=== PATIENT | male | born 1965 | race Caucasian/White ===

== ENCOUNTER 2016-12-15 16:26 | Emergency (ER) | payer MEDICARE, BC ==
[~2016-12-15] VITALS: Ht 175.3 cm; Wt 106.1 kg
[~2016-12-15 16:26] MED LIST: ASPI-482 PO; ASPI81TA2 PO; BUPR150T11 PO; CLOP75TA27 PO; DIAZ5TAB PO; DIVA500T17 PO; FENT1PAT15 TD; FOLI0.8T3 PO; GABA-586 PO; HYDR-2666 PO; HYDR-963 PO; HYDR-971 PO; IBUP-1060 PO; METF500T4 PO; MYCO500T PO; POLY10DR EACHEYE; SODI650T PO; WARF4TAB7 PO; WARF5TAB7 PO
[2016-12-15 18:09] LABS: BASO % 1 % (0-3); EOS % 6 % (0-3); HEMATOCRIT 28.1 % (39.0-53.0); HEMOGLOBIN 9.6 g/dL (13.0-17.5); LYMPH # 0.9 x10^3/uL (1.0-4.8); LYMPH % 18 % (24-48); MEAN CORPUSCULAR HEMOGLOBIN 33 pg (25-35); MEAN CORPUSCULAR HGB CONC 34 g/dL (31-37); MEAN CORPUSCULAR VOLUME 97 fL (79-100); MONO % 8 % (0-9); NEUT % 67 % (31-73); PLATELET COUNT 326 x10^3/uL (140-400); RED CELL DISTRIBUTION WIDTH 15.1 % (11.5-14.5); WHITE BLOOD COUNT 5.1 x10^3/uL (4.0-11.0)
[2016-12-15 18:14] LABS: POTASSIUM ISTAT 3.6 mmol/L (3.5-5.0)
[2016-12-15 18:20] LABS: BILIRUBIN,URINE NEGATIVE (NEG); GLUCOSE,URINE NEGATIVE (NEG); NITRITE,URINE NEGATIVE (NEG); PH,URINE 5.5; PROTEIN,URINE 30 mg/dL (NEG-TRACE); UROBILINOGEN,URINE 0.2 mg/dL (0.2 mg/dL)
[2016-12-15 18:23] LABS: ANION GAP 13 (6-14); BLOOD UREA NITROGEN 103 mg/dL (8-26); CALCIUM 7.5 mg/dL (8.5-10.1); CARBON DIOXIDE 27 mmol/L (21-32); CHLORIDE 99 mmol/L (98-107); CREATININE 5.8 mg/dL (0.7-1.3); GFR 10.4; GLUCOSE 290 mg/dL (70-99); POTASSIUM 3.6 mmol/L (3.5-5.1); SODIUM 139 mmol/L (136-145)
[2016-12-15 18:29] LABS: ALBUMIN 3.1 g/dL (3.4-5.0); ALK PHOS 125 U/L (46-116); ALT (SGPT) 34 U/L (16-63); AST (SGOT) 25 U/L (15-37); DIRECT BILIRUBIN < 0.1 mg/dL (0.0-0.2); TOTAL BILIRUBIN 0.2 mg/dL (0.2-1.0); TOTAL PROTEIN 7.1 g/dL (6.4-8.2)
[2016-12-15 18:30] LABS: BACTERIA,URINE MANY /HPF (0-FEW); WBC,URINE >40 /HPF (0-4)
[2016-12-15 19:44] LABS: INR 1.1 (0.8-1.1); PROTHROMBIN TIME PATIENT 13.4 SEC (11.7-14.0)
[2016-12-15 20:07] VITALS: BP 110/55
--- NOTE | 2016-12-15 20:25 | PHYS DOC ---
Past Medical History Past Medical History: Diabetes-Type II, Renal Failure Past Surgical History: Other Additional Past Surgical Histo: wound flap, dialysis shunt in left upper arm Alcohol Use: Rarely Drug Use: Marijuana Social History Narrative: denies 12/15/16 Adult General Chief Complaint Chief Complaint: DIALYSIS PROBLEM HPI HPI 51-year-old male presenting to the emergency department reporting a blocked left upper vascular shunt that he uses for dialysis. He received dialysis on Thursday and Thursday. He reports missing of Thursday's dialysis because of this. He reports shortness of breath however does not have increased worker breathing and is saturating well on room air. He does not appear to be short of breath. He was resting in the hospital [facility] talking with the comfortably.he denies any pain. onset one week location shunt duration constant no alleviating factors are present. Review of Systems Review of Systems Review of Systems is negative for chest pain abdominal pain nausea vomiting diaphoresis. He denies fevers cough. All other review systems is negative unless otherwise noted in HPI. Allergies Allergies Allergies Coded Allergies Type Severity Reaction Last Updated Verified No Known Drug Allergies 02/07/16 No Physical Exam Physical Exam Constitutional: Well developed, well nourished, no acute distress, non-toxic appearance. HENT: Normocephalic, atraumatic, bilateral external ears normal, oropharynx moist, no oral exudates, nose normal. [] Eyes: PERRLA, EOMI, conjunctiva normal, no discharge. Neck: Normal range of motion, no tenderness, supple, no stridor. [] Cardiovascular:Heart rate regular rhythm, no murmur [] Lungs & Thorax: Bilateral breath sounds clear to auscultation . No crackles wheezing. Abdomen: Bowel sounds normal, soft, no tenderness, no masses, no pulsatile masses. [] Skin: Warm, dry, no erythema, no rash. Back: No tenderness, no CVA tenderness. [] Extremities: the patient's vascular shunt shows no evidence of infection. He is a palpable pulse in all extremities and is without any tenderness. Neurologic: Alert and oriented X 3, normal motor function, normal sensory function, no focal deficits noted. [] Psychologic: Affect normal, judgement normal, mood normal. Current Patient Data Vital Signs Vital Signs Date Time Temp Pulse Resp B/P Pulse Ox O2 Delivery O2 Flow Rate FiO2 12/15/16 20:07 80 16 110/55 94 Room Air 12/15/16 17:31 97.8 97.8 Lab Values Laboratory Tests Test 12/15/16 13:00 12/15/16 17:59 12/15/16 18:02 12/15/16 18:07 Prothrombin Time 13.4SEC (11.7-14.0) Prothrombin Time INR 1.1 (0.8-1.1) PTT 34SEC (24-38) White Blood Count 5.1x10^3/uL (4.0-11.0) Red Blood Count 2.90x10^6/uL (4.30-5.70) L Hemoglobin 9.6g/dL (13.0-17.5) L Hematocrit 28.1% (39.0-53.0) L Mean Corpuscular Volume 97fL (79-100) Mean Corpuscular Hemoglobin 33pg (25-35) Mean Corpuscular Hemoglobin Concent 34g/dL (31-37) Red Cell Distribution Width 15.1% (11.5-14.5) H Platelet Count 326x10^3/uL (140-400) Neutrophils (%) (Auto) 67% (31-73) Lymphocytes (%) (Auto) 18% (24-48) L Monocytes (%) (Auto) 8% (0-9) Eosinophils (%) (Auto) 6% (0-3) H Basophils (%) (Auto) 1% (0-3) Neutrophils # (Auto) 3.4x10^3uL (1.8-7.7) Lymphocytes # (Auto) 0.9x10^3/uL (1.0-4.8) L Monocytes # (Auto) 0.4x10^3/uL (0.0-1.1) Eosinophils # (Auto) 0.3x10^3/uL (0.0-0.7) Basophils # (Auto) 0.0x10^3/uL (0.0-0.2) Sodium Level 139mmol/L (136-145) Potassium Level 3.6mmol/L (3.5-5.1) Chloride Level 99mmol/L (98-107) Carbon Dioxide Level 27mmol/L (21-32) Anion Gap 13 (6-14) 21mmol/L (6-14) H Blood Urea Nitrogen 103mg/dL (8-26) H Creatinine 5.8mg/dL (0.7-1.3) H Estimated GFR (Cockcroft-Gault) 10.4 Glucose Level 290mg/dL (70-99) H 274mg/dL (70-99) H Calcium Level 7.5mg/dL (8.5-10.1) L Total Bilirubin 0.2mg/dL (0.2-1.0) Direct Bilirubin < 0.1mg/dL (0.0-0.2) Aspartate Amino Transferase (AST) 25U/L (15-37) Alanine Aminotransferase (ALT) 34U/L (16-63) Alkaline Phosphatase 125U/L (46-116) H Troponin I Quantitative < 0.017ng/mL (0.000-0.055) BE-Mta-R-Type Natriuretic Peptide 1680pg/mL (0-124) H Total Protein 7.1g/dL (6.4-8.2) Albumin 3.1g/dL (3.4-5.0) L Lipase 230U/L (73-393) POC Troponin I 0.00ng/ml (<0.08) POC Hemoglobin 9.9g/dL (14-18) L POC Hematocrit 29% (37-52) L POC Sodium 138mmol/L (135-145) POC Potassium 3.6mmol/L (3.5-5.0) POC Chloride 97mmol/L (98-110) L POC Total CO2 25mmol/L (23-32) POC Blood Urea Nitrogen 103mg/dL (8-26) H POC Creatinine 5.5mg/dL (0.5-1.4) H POC Ionized Calcium (Nenita) 0.89mmol/L (1.13-1.32) L Test 12/15/16 18:10 Urine Collection Type U cath Urine Color Yellow Urine Clarity Clear Urine pH 5.5 Urine Specific [place] 1.015 Urine Protein 30mg/dL (NEG-TRACE) Urine Glucose (UA) Negativemg/dL (NEG) Urine Ketones (Stick) Negativemg/dL (NEG) Urine Blood Moderate (NEG) Urine Nitrite Negative (NEG) Urine Bilirubin Negative (NEG) Urine Urobilinogen Dipstick 0.2mg/dL (0.2 mg/dL) Urine Leukocyte Esterase Large (NEG) Urine RBC 6-10/HPF (0-2) Urine WBC >40/HPF (0-4) Urine Bacteria Many/HPF (0-FEW) Laboratory Tests 12/15/16 17:59 Laboratory Tests 12/15/16 17:59 12/15/16 18:07 EKG EKG []EKG shows sinus rhythm with the regular rate. Burke is normal. mildly prolonged MO interval otherwise normal intervals. ST segment's largely congruent. Varying baseline in lead V2 and V3 Radiology/Procedures Radiology/Procedures [] Course & Med Decision Making Course & Med Decision Making Pertinent Labs and Imaging studies reviewed. (See chart for details) 51-year-old male presenting to the emergency Department today with vascular shunt problem. on evaluation the patient was saturating well on Rimer. He reported being short of breath to our nursing staff however when I evaluated the patient he denied shortness of breath. He was resting comfortably and without respiratory distress. EKG unremarkable. Chest x-ray unremarkable. Bloodwork was obtained which showed a baseline anemia with normal white blood cell count. Urine analysis had blood and possibly suggestive of infection however the patient denied dysuria or polyuria. He had no clinical symptoms of a urinary tract infection. Urine analysis was sent for culture. Glucose BUN and creatinine were elevated which is common for this patient. I was planning to admit the patient for further evaluation workup and care including consultation with our nephrology team however the patient was adamant in that he would not be admitted to hospital. He stated he was trying to it outpatient treatment for his vascular shunt problem. I discussed the case with our vascular surgeon initially who referred me to our certified optician Dr. Genao. He stated that as long as the patient was not on warfarin and his INR was low the patient would be able to follow up tomorrow morning at the [facility] [address] He instructed me to tell the patient to call tomorrow morning at 7 AM and he would arrange for the shunt to be treated. I instructed the patient that if he was unable to have this completed he could come back to the emergency department tomorrow to be admitted for this treatment. Dragon Disclaimer Dragon Disclaimer This electronic medical record was generated, in whole or in part, using a voice recognition dictation system. Departure Departure Impression: Primary Impression: AV fistula occlusion Disposition: 01 HOME, SELF-CARE Admitting Physician: Other Condition: STABLE Referrals: JACOB STANLEY MD (PCP) KAYKAY GENAO MD Additional Instructions: Thank you for allowing us to participate in your care today. Call [facility] in [place], [place] for fistula repair. Dr. Genao will arrange for this tomorrow. If this does not get taken care of tomorrow return to the emergency department. If you do not have a primary care provider you can ask for a list of our primary care providers. Return to the emergency department you have any new or concerning findings. This should be evaluated by the primary care physician and any necessary consulting services for continued management within a few days after discharge. Return to emergency room if you have any new or concerning symptoms including but not limited to fever, chills, nausea, vomiting, intractable pain, any new rashes, chest pain, shortness of air, uncontrolled bleeding, difficulty breathing, and/or vision loss. NIDIA JEFFREY MD Dec 15, 2016 20:24
--- NOTE | 2016-12-16 06:49 | EKG ---
[facility] [address] [place] [address] Test Date: 2016-12-15 Test Time: 17:48:22 Pat Name: REED SIERRA Department: Room: Gender: M Mobile Therapist: : 1965 Requested By: NIDIA JEFFREY Order Number: [id number] Reading MD: Karina Dias Measurements Intervals [place] Rate: 82 P: 62 [place]: 202 QRS: 34 QRSD: 80 T: 64 QT: 380 QTc: 447 Interpretive Statements SINUS RHYTHM QRS(T) CONTOUR ABNORMALITY CONSISTENT WITH ANTEROSEPTAL INFARCT AGE UNDETERMINED ABNORMAL ECG Electronically Signed On 12-18-2016 0:40:10 ASSISTANT ART DIRECTOR by Karina Dias
--- NOTE | 2016-12-16 08:09 | RAD ---
Portable chest, 12/15/2016: History: Shortness of breath, fatigue Comparison is made to a study from 12/06/2013. A new vascular stent is projected over the left axillary region. The heart size and pulmonary vascularity are normal. No pulmonary infiltrates are seen. There is no evidence of pleural fluid. IMPRESSION: No acute cardiopulmonary abnormality is detected.
== END 2016-12-15 20:35 | disposition home or self-care (01) ==
LOC: ER 16:26
DX: T82.898A Other specified complication of vascular prosthetic devices, implants and grafts, initial encounter (principal); E11.22 Type 2 diabetes mellitus with diabetic chronic kidney disease; N18.9 Chronic kidney disease, unspecified; F12.10 Cannabis abuse, uncomplicated; Z99.2 Dependence on renal dialysis; Y84.6 Urinary catheterization as the cause of abnormal reaction of the patient, or of later complication, without mention of misadventure at the time of the procedure; Y92.89 Other specified places as the place of occurrence of the external cause
CPT/HCPCS: 36415; 71010; 80047; 80048; 80076; 81001; 83690; 83880; 84484; 85027; 85610; 85730; 87086; 87186; 93005; 99285-25

== ENCOUNTER 2017-06-01 19:34 | Inpatient (IN) | payer MEDICARE, BC ==
[~2017-06-01] VITALS: Ht 175.3 cm; Wt 100.9 kg
[~2017-06-01 19:34] MED LIST changes: +ASPI-630 PO; -ASPI81TA2 PO; -CLOP75TA27 PO; +CLOP75TA57 PO; -HYDR-2666 PO; +HYDR-2758 PO
--- NOTE | 2017-06-01 19:59 | PHYS DOC ---
Past Medical History Past Medical History: Diabetes-Type II, Renal Failure, Other Additional Past Medical Histor: bacterial meningitis, incontinence Past Surgical History: Other Additional Past Surgical Histo: wound flap, dialysis shunt in left upper arm Alcohol Use: None Drug Use: None Adult General Chief Complaint Chief Complaint: GENERALIZED BODY ACHES HPI HPI Patient is a 51 year old male who presents with increased or lies weakness and skin pain. Patient states he was at dialysis and is felt like his skin was on fire therefore he cannot finish dialysis and wanted to be transported to the emergency room for further evaluation. Pt gets dialysis Thursday. Pt denies any fevers. Patient denies any chest pain or shortness of breath. Patient denies any abdominal pain or dysuria. Patient denies any nausea/ vomiting/diarrhea. Patient has no other complaints. Patient states he got into some poison jazmin which is contributing to his rash on his right forearm. Pertinent exam findings: Heart was regular rate and rhythm without any murmurs Lungs are clear to auscultation bilaterally without crackles wheezes or rales Abrasions to the right forearm ED course: Patient was seen and examined upon arrival a septic workup was ordered 2004: EKG shows sinus tach rate of 103 no STEMI 2150: Updated patient on lab work who is still tachycardic 100-110 does admit to using methamphetamines. Will see UA results with the patient who would like to go ahead and be treated for urinary tract infection because he believes he has one. 2330: On reexamination the patient's rectal temperature is 101.5 with a heart rate in the 120s. Patient be admitted for UTI with possible sepsis 2350: Discussed CC/HP/PMH with Dr. Stanley and recommends admit [] Pertinent results: Urine drug screen positive for methamphetamine Creatinine 2.8 UA post for WBC/RBC/+Leuk MDM: After reviewing the chart, CC/HPI/PMH, physical exam, [lab results], I have concerns the patient potentially has a UTI with possible sepsis therefore the patient be admitted for further evaluation and management. Review of Systems Review of Systems GEN: Skin pain HEENT: Denies blurred vision, sore throat CV: Denies chest pain RESP: Denies shortness of air, cough GI: Denies n/v/d NEURO: Denies confusion, dizziness MSK: Denies weakness, joint pain/swelling Current Medications Current Medications Current Medications Medications (Trade) Dose Ordered Sig/Nando Start Time Stop Time Status Last Admin Dose Admin Acetaminophen (Tylenol) 1,000 mg 1X ONCE 06/01/17 21:45 06/01/17 21:46 DC 06/01/17 21:41 1,000 MG Ceftriaxone Sodium 1 gm/ Sodium Chloride 50 ml @ 100 mls/hr Q24H 06/01/17 22:30 06/01/17 22:14 100 MLS/HR Allergies Allergies Allergies Coded Allergies Type Severity Reaction Last Updated Verified No Known Drug Allergies 02/07/16 No Physical Exam Physical Exam GEN.: No apparent distress. Alert and oriented. HEENT: Head is normocephalic, atraumatic NECK: Supple. LUNGS: CTAB. HEART: RRR, S1, S2 present. Peripheral pulses intact ABDOMEN: Soft, nontender. Positive bowel sounds. EXTREMITIES: Without any cyanosis. NEUROLOGIC: Normal speech, normal tone PSYCHIATRIC: Normal affect, normal mood. SKIN: Lesions in multiple stages of healing to the right forearm Current Patient Data Vital Signs Vital Signs Date Time Temp Pulse Resp B/P (MAP) Pulse Ox O2 Delivery O2 Flow Rate FiO2 06/01/17 23:26 101.1 101.1 06/01/17 22:38 98 23 112/60 (77) 96 Room Air Lab Values Laboratory Tests Test 06/01/17 19:50 06/01/17 19:52 06/01/17 19:56 06/01/17 20:11 Lactic Acid Level 1.3 mmol/L (0.4-2.0) White Blood Count 7.9 x10^3/uL (4.0-11.0) Red Blood Count 3.46 x10^6/uL (4.30-5.70) L Hemoglobin 11.1 g/dL (13.0-17.5) L Hematocrit 33.5 % (39.0-53.0) L Mean Corpuscular Volume 97 fL (79-100) Mean Corpuscular Hemoglobin 32 pg (25-35) Mean Corpuscular Hemoglobin Concent 33 g/dL (31-37) Red Cell Distribution Width 14.1 % (11.5-14.5) Platelet Count 198 x10^3/uL (140-400) Neutrophils (%) (Auto) 87 % (31-73) H Lymphocytes (%) (Auto) 4 % (24-48) L Monocytes (%) (Auto) 8 % (0-9) Eosinophils (%) (Auto) 0 % (0-3) Basophils (%) (Auto) 0 % (0-3) Neutrophils # (Auto) 6.9 x10^3uL (1.8-7.7) Lymphocytes # (Auto) 0.3 x10^3/uL (1.0-4.8) L Monocytes # (Auto) 0.6 x10^3/uL (0.0-1.1) Eosinophils # (Auto) 0.0 x10^3/uL (0.0-0.7) Basophils # (Auto) 0.0 x10^3/uL (0.0-0.2) Segmented Neutrophils % 83 % (35-66) H Band Neutrophils % 10 % (0-9) H Lymphocytes % 4 % (24-48) L Monocytes % 3 % (0-10) Platelet Estimate Adequate (ADEQUATE) Sodium Level 134 mmol/L (136-145) L Potassium Level 3.8 mmol/L (3.5-5.1) Chloride Level 96 mmol/L (98-107) L Carbon Dioxide Level 27 mmol/L (21-32) Anion Gap 11 (6-14) Blood Urea Nitrogen 29 mg/dL (8-26) H Creatinine 2.8 mg/dL (0.7-1.3) H Estimated GFR (Cockcroft-Gault) 24.1 BUN/Creatinine Ratio 10 (6-20) Glucose Level 149 mg/dL (70-99) H Calcium Level 8.6 mg/dL (8.5-10.1) Total Bilirubin 0.8 mg/dL (0.2-1.0) Aspartate Amino Transferase (AST) 32 U/L (15-37) Alanine Aminotransferase (ALT) 61 U/L (16-63) Alkaline Phosphatase 189 U/L (46-116) H Troponin I Quantitative < 0.017 ng/mL (0.000-0.055) Total Protein 7.8 g/dL (6.4-8.2) Albumin 2.8 g/dL (3.4-5.0) L Albumin/Globulin Ratio 0.6 (1.0-1.7) L Ethyl Alcohol Level < 10 mg/dL (0-10) Urine Opiates Screen Neg (NEG) Urine Methadone Screen Neg (NEG) Urine Barbiturates Neg (NEG) Urine Phencyclidine Screen Neg (NEG) Urine Amphetamine/Methamphetamine Pos (NEG) Urine Benzodiazepines Screen Neg (NEG) Urine Cocaine Screen Neg (NEG) Urine Cannabinoids Screen Neg (NEG) Urine Ethyl Alcohol Neg (NEG) Urine Collection Type Unknown Urine Color [place] Urine Clarity Turbid Urine pH 5.0 Urine Specific [place] 1.020 Urine Protein 100 mg/dL (NEG-TRACE) Urine Glucose (UA) Negative mg/dL (NEG) Urine Ketones (Stick) Negative mg/dL (NEG) Urine Blood Large (NEG) Urine Nitrite Negative (NEG) Urine Bilirubin Small (NEG) Urine Urobilinogen Dipstick 0.2 mg/dL (0.2 mg/dL) Urine Leukocyte Esterase Large (NEG) Urine RBC 20-40 /HPF (0-2) Urine WBC 20-40 /HPF (0-4) Urine Squamous Epithelial Cells Few /LPF Urine Bacteria Many /HPF (0-FEW) Urine Mucus Slight /LPF Laboratory Tests 06/01/17 19:52 Laboratory Tests 06/01/17 19:52 EKG EKG 2005: EKG shows sinus tach rate of 103 no STEMI[] Radiology/Procedures Radiology/Procedures [] Course & Med Decision Making Course & Med Decision Making Pertinent Labs and Imaging studies reviewed. (See chart for details) [] Dragon Disclaimer Dragon Disclaimer This electronic medical record was generated, in whole or in part, using a voice recognition dictation system. Departure Departure Impression: Primary Impression: UTI (urinary tract infection) Additional Impression: Methamphetamine abuse Disposition: 09 ADMITTED INPATIENT Admitting Physician: Jacob Stanley Condition: STABLE Referrals: JACOB STANLEY MD (PCP) Problem Qualifiers Primary Impression: UTI (urinary tract infection) Urinary tract infection type: site unspecified Hematuria presence: with hematuria Qualified Codes: N39.0 - Urinary tract infection, site not specified ; R31.9 - Hematuria, unspecified REJI GIANG DO Jun 01, 2017 19:59
[2017-06-01 20:04] LABS: BASO % 0 % (0-3); EOS % 0 % (0-3); HEMATOCRIT 33.5 % (39.0-53.0); HEMOGLOBIN 11.1 g/dL (13.0-17.5); LYMPH # 0.3 x10^3/uL (1.0-4.8); LYMPH % 4 % (24-48); MEAN CORPUSCULAR HEMOGLOBIN 32 pg (25-35); MEAN CORPUSCULAR HGB CONC 33 g/dL (31-37); MEAN CORPUSCULAR VOLUME 97 fL (79-100); MONO % 8 % (0-9); NEUT % 87 % (31-73); PLATELET COUNT 198 x10^3/uL (140-400); RED BLOOD COUNT 3.46 x10^6/uL (4.30-5.70); RED CELL DISTRIBUTION WIDTH 14.1 % (11.5-14.5); WHITE BLOOD COUNT 7.9 x10^3/uL (4.0-11.0)
[2017-06-01 20:18] LABS: BILIRUBIN,URINE SMALL (NEG); GLUCOSE,URINE NEGATIVE (NEG); NITRITE,URINE NEGATIVE (NEG); PROTEIN,URINE 100 mg/dL (NEG-TRACE); UROBILINOGEN,URINE 0.2 mg/dL (0.2 mg/dL)
[2017-06-01 20:18] LABS: BARBITURATES NEG (NEG); BENZODIAZEPINES NEG (NEG); CANNABINOIDS NEG (NEG); COCAINE NEG (NEG); METHADONE NEG (NEG); OPIATES NEG (NEG); PHENCYCLIDINE NEG (NEG)
[2017-06-01 20:21] LABS: CALCIUM 8.6 mg/dL (8.5-10.1); CREATININE 2.8 mg/dL (0.7-1.3); GFR 24.1; POTASSIUM 3.8 mmol/L (3.5-5.1)
[2017-06-01 20:26] LABS: ALBUMIN 2.8 g/dL (3.4-5.0); ALBUMIN/GLOBULIN RATIO 0.6 (1.0-1.7); TOTAL BILIRUBIN 0.8 mg/dL (0.2-1.0); TOTAL PROTEIN 7.8 g/dL (6.4-8.2)
[2017-06-01 20:27] LABS: BACTERIA,URINE MANY /HPF (0-FEW); RBC,URINE 20-40 /HPF (0-2); SQUAMOUS EPITHELIAL CELL,UR FEW /LPF; WBC,URINE 20-40 /HPF (0-4)
[2017-06-01 20:49] LABS: PLT ESTIMATE ADEQUATE (ADEQUATE)
[2017-06-01] MEDS ORDERED: ACETAMINOPHEN 500 MG TABLET PO ONE (21:45)
--- NOTE | 2017-06-02 00:09 | ACF ---
Admission Forms Criteria URINARY COMPLICATIONS Clinical Indications for Inpatient Care (Place 'X' for any and all applicable criteria): Ongoing inpatient care may be indicated for urinary complications with ANY ONE of the following: [X]I. Urinary tract infection requiring inpatient care as indicated by ANY ONE of the following(8)(19)(20): [ ]a) Severe symptoms (eg, high fever, severe pain) [ ]b) Vomiting or dehydration requiring ongoing inpatient care [X]c) IV antibiotic needs that cannot be managed at lower level of care [ ]d) Hemodynamic instability [ ]e) Obstruction of collecting system by stone or tumor [ ]II. Urinary retention requiring drainage or surgery (3)(4)(5)(17)(18) [ ]III. Renal failure (Use Renal Failure Criteria for further information.) [ ]IV. Oliguria(30) [ ]V. Post obstructive diuresis requiring close monitoring of urine output and intravenous compensation for excessive fluid losses(33) Extended stay beyond goal length of stay for primary condition may be needed until ALL of the following are present(3)(4)(5)(8): [ ]a) Renal function (creatinine) at baseline, or daily decreases in creatinine consistent with renal function return [ ]b) Voiding adequately or with urinary catheter or percutaneous suprapubic tube and management regimen in place that is performable at lower level of care. [ ]c) Urine output adequate [ ]d) Fever absent or resolving [ ]e) Infection absent or treatable at next level of care The original [employer] content created by [employer] has been revised. The portions of the content which have been revised are identified through the use of italic text or in bold, and [facility] has neither reviewed nor approved the modified material. All other unmodified content is copyright [facility] Please see references footnoted in the original [facility] edition 2016 Admission Criteria Met?: Yes JARVIS DAVIS Jun 02, 2017 00:09
[2017-06-02] MEDS ORDERED: MORPHINE SULFATE 4 MG/ML DISP.SYRIN. IV PRN (00:15)
[2017-06-02] MEDS ORDERED: ONDANSETRON PF 4 MG/2 ML VIAL. IV PRN (00:15)
[2017-06-02] MEDS ORDERED: ACETAMINOPHEN 325 MG TABLET. PO PRN (00:15)
[2017-06-02 01:00] VITALS: BP 100/59
[2017-06-02 03:11] VITALS: BP 100/60
[2017-06-02 07:18] VITALS: BP 121/58
--- NOTE | 2017-06-02 08:44 | PDOC1 ---
History and Physical Date of Admission Date of Admission DATE: 06/02/17 TIME: 08:42 Past Medical History Cardiovascular: CHF Pulmonary: Other Heme/Onc: Anemia NOS Renal/: Other Endocrine: Diabetes, Other Social History ALCOHOL: other Drugs: Other Current Problem List Problem List Problems Medical Problems: (1) Methamphetamine abuse Status: Acute (2) UTI (urinary tract infection) Status: Acute Problems: Current Medications Current Medications Current Medications Acetaminophen (Tylenol) 1,000 mg 1X ONCE PO Last administered on 06/01/17 21: 41; Start 06/01/17 at 21:45; Stop 06/01/17 at 21:46; Status DC Ceftriaxone Sodium 1 gm/ Sodium Chloride 50 ml @ 100 mls/hr Q24H IV Last administered on 06/01/17 22:14; Start 06/01/17 at 22:30 Ondansetron HCl (Zofran) 4 mg PRN Q8HRS PRN IV NAUSEA/VOMITING; Start 06/02/17 at 00:15; Stop 06/03/17 at 00:14 Morphine Sulfate 4 mg PRN Q2HR PRN IV PAIN; Start 06/02/17 at 00:15; Stop at 00:14 Acetaminophen (Tylenol) 650 mg PRN Q4HRS PRN PO FEVER; Start 06/02/17 at 00:15; Stop 06/03/17 at 00:14 Aspirin (Ecotrin) 81 mg DAILY PO ; Start 06/02/17 at 09:00 Clopidogrel Bisulfate (Plavix) 75 mg DAILY PO ; Start 06/02/17 at 09:00 Sodium Bicarbonate (Sodium Bicarbonate) 1,300 mg TID PO ; Start 06/02/17 at 09:00 Warfarin Sodium (Coumadin) 4 mg DAILY PO ; Start 06/02/17 at 09:00; Status UNV Gabapentin (Neurontin) 300 mg TID PO ; Start 06/02/17 at 09:00 Active Scripts Active Reported Aspir 81 (Aspirin) 81 Mg Tablet.dr 1 Tab PO DAILY Warfarin Sodium 4 Mg Tablet 1 Tab PO DAILY Plavix (Clopidogrel Bisulfate) 75 Mg Tablet 1 Tab PO DAILY Nephro-Jayme Tablet (Folic Acid/Vitamin B Comp W-C) 0.8 Mg Tablet 1 Tab PO DAILY Sodium Bicarbonate 650 Mg Tablet 1,300 Mg PO TID Gabapentin 300 Mg Capsule 300 Mg PO TID Allergies Allergies: Coded Allergies: No Known Drug Allergies (Unverified , 02/07/16) Vitals Vitals Vital Signs Date Time Temp Pulse Resp B/P (MAP) Pulse Ox O2 Delivery O2 Flow Rate FiO2 06/02/17 07:18 97.7 90 20 121/58 (79) 94 Room Air 97.7 Labs Labs Laboratory Tests Test 06/01/17 19:50 06/01/17 19:52 06/01/17 19:56 06/01/17 20:11 Lactic Acid Level 1.3 mmol/L (0.4-2.0) White Blood Count 7.9 x10^3/uL (4.0-11.0) Red Blood Count 3.46 x10^6/uL (4.30-5.70) Hemoglobin 11.1 g/dL (13.0-17.5) Hematocrit 33.5 % (39.0-53.0) Mean Corpuscular Volume 97 fL (79-100) Mean Corpuscular Hemoglobin 32 pg (25-35) Mean Corpuscular Hemoglobin Concent 33 g/dL (31-37) Red Cell Distribution Width 14.1 % (11.5-14.5) Platelet Count 198 x10^3/uL (140-400) Neutrophils (%) (Auto) 87 % (31-73) Lymphocytes (%) (Auto) 4 % (24-48) Monocytes (%) (Auto) 8 % (0-9) Eosinophils (%) (Auto) 0 % (0-3) Basophils (%) (Auto) 0 % (0-3) Neutrophils # (Auto) 6.9 x10^3uL (1.8-7.7) Lymphocytes # (Auto) 0.3 x10^3/uL (1.0-4.8) Monocytes # (Auto) 0.6 x10^3/uL (0.0-1.1) Eosinophils # (Auto) 0.0 x10^3/uL (0.0-0.7) Basophils # (Auto) 0.0 x10^3/uL (0.0-0.2) Segmented Neutrophils % 83 % (35-66) Band Neutrophils % 10 % (0-9) Lymphocytes % 4 % (24-48) Monocytes % 3 % (0-10) Platelet Estimate Adequate (ADEQUATE) Sodium Level 134 mmol/L (136-145) Potassium Level 3.8 mmol/L (3.5-5.1) Chloride Level 96 mmol/L (98-107) Carbon Dioxide Level 27 mmol/L (21-32) Anion Gap 11 (6-14) Blood Urea Nitrogen 29 mg/dL (8-26) Creatinine 2.8 mg/dL (0.7-1.3) Estimated GFR (Cockcroft-Gault) 24.1 BUN/Creatinine Ratio 10 (6-20) Glucose Level 149 mg/dL (70-99) Calcium Level 8.6 mg/dL (8.5-10.1) Total Bilirubin 0.8 mg/dL (0.2-1.0) Aspartate Amino Transf (AST/SGOT) 32 U/L (15-37) Alanine Aminotransferase (ALT/SGPT) 61 U/L (16-63) Alkaline Phosphatase 189 U/L (46-116) Troponin I Quantitative < 0.017 ng/mL (0.000-0.055) Total Protein 7.8 g/dL (6.4-8.2) Albumin 2.8 g/dL (3.4-5.0) Albumin/Globulin Ratio 0.6 (1.0-1.7) Ethyl Alcohol Level < 10 mg/dL (0-10) Urine Opiates Screen Neg (NEG) Urine Methadone Screen Neg (NEG) Urine Barbiturates Neg (NEG) Urine Phencyclidine Screen Neg (NEG) Urine Amphetamine/Methamphetamine Pos (NEG) Urine Benzodiazepines Screen Neg (NEG) Urine Cocaine Screen Neg (NEG) Urine Cannabinoids Screen Neg (NEG) Urine Ethyl Alcohol Neg (NEG) Urine Collection Type Unknown Urine Color Светлана Urine Clarity Turbid Urine pH 5.0 Urine Specific [place] 1.020 Urine Protein 100 mg/dL (NEG-TRACE) Urine Glucose (UA) Negative mg/dL (NEG) Urine Ketones (Stick) Negative mg/dL (NEG) Urine Blood Large (NEG) Urine Nitrite Negative (NEG) Urine Bilirubin Small (NEG) Urine Urobilinogen Dipstick 0.2 mg/dL (0.2 mg/dL) Urine Leukocyte Esterase Large (NEG) Urine RBC 20-40 /HPF (0-2) Urine WBC 20-40 /HPF (0-4) Urine Squamous Epithelial Cells Few /LPF Urine Bacteria Many /HPF (0-FEW) Urine Mucus Slight /LPF Test 06/02/17 00:25 Lactic Acid Level 1.4 mmol/L (0.4-2.0) Laboratory Tests Test 06/01/17 19:50 06/01/17 19:52 06/01/17 19:56 06/01/17 20:11 Lactic Acid Level 1.3 mmol/L (0.4-2.0) White Blood Count 7.9 x10^3/uL (4.0-11.0) Red Blood Count 3.46 x10^6/uL (4.30-5.70) Hemoglobin 11.1 g/dL (13.0-17.5) Hematocrit 33.5 % (39.0-53.0) Mean Corpuscular Volume 97 fL (79-100) Mean Corpuscular Hemoglobin 32 pg (25-35) Mean Corpuscular Hemoglobin Concent 33 g/dL (31-37) Red Cell Distribution Width 14.1 % (11.5-14.5) Platelet Count 198 x10^3/uL (140-400) Neutrophils (%) (Auto) 87 % (31-73) Lymphocytes (%) (Auto) 4 % (24-48) Monocytes (%) (Auto) 8 % (0-9) Eosinophils (%) (Auto) 0 % (0-3) Basophils (%) (Auto) 0 % (0-3) Neutrophils # (Auto) 6.9 x10^3uL (1.8-7.7) Lymphocytes # (Auto) 0.3 x10^3/uL (1.0-4.8) Monocytes # (Auto) 0.6 x10^3/uL (0.0-1.1) Eosinophils # (Auto) 0.0 x10^3/uL (0.0-0.7) Basophils # (Auto) 0.0 x10^3/uL (0.0-0.2) Segmented Neutrophils % 83 % (35-66) Band Neutrophils % 10 % (0-9) Lymphocytes % 4 % (24-48) Monocytes % 3 % (0-10) Platelet Estimate Adequate (ADEQUATE) Sodium Level 134 mmol/L (136-145) Potassium Level 3.8 mmol/L (3.5-5.1) Chloride Level 96 mmol/L (98-107) Carbon Dioxide Level 27 mmol/L (21-32) Anion Gap 11 (6-14) Blood Urea Nitrogen 29 mg/dL (8-26) Creatinine 2.8 mg/dL (0.7-1.3) Estimated GFR (Cockcroft-Gault) 24.1 BUN/Creatinine Ratio 10 (6-20) Glucose Level 149 mg/dL (70-99) Calcium Level 8.6 mg/dL (8.5-10.1) Total Bilirubin 0.8 mg/dL (0.2-1.0) Aspartate Amino Transf (AST/SGOT) 32 U/L (15-37) Alanine Aminotransferase (ALT/SGPT) 61 U/L (16-63) Alkaline Phosphatase 189 U/L (46-116) Troponin I Quantitative < 0.017 ng/mL (0.000-0.055) Total Protein 7.8 g/dL (6.4-8.2) Albumin 2.8 g/dL (3.4-5.0) Albumin/Globulin Ratio 0.6 (1.0-1.7) Ethyl Alcohol Level < 10 mg/dL (0-10) Urine Opiates Screen Neg (NEG) Urine Methadone Screen Neg (NEG) Urine Barbiturates Neg (NEG) Urine Phencyclidine Screen Neg (NEG) Urine Amphetamine/Methamphetamine Pos (NEG) Urine Benzodiazepines Screen Neg (NEG) Urine Cocaine Screen Neg (NEG) Urine Cannabinoids Screen Neg (NEG) Urine Ethyl Alcohol Neg (NEG) Urine Collection Type Unknown Urine Color Светлана Urine Clarity Turbid Urine pH 5.0 Urine Specific [place] 1.020 Urine Protein 100 mg/dL (NEG-TRACE) Urine Glucose (UA) Negative mg/dL (NEG) Urine Ketones (Stick) Negative mg/dL (NEG) Urine Blood Large (NEG) Urine Nitrite Negative (NEG) Urine Bilirubin Small (NEG) Urine Urobilinogen Dipstick 0.2 mg/dL (0.2 mg/dL) Urine Leukocyte Esterase Large (NEG) Urine RBC 20-40 /HPF (0-2) Urine WBC 20-40 /HPF (0-4) Urine Squamous Epithelial Cells Few /LPF Urine Bacteria Many /HPF (0-FEW) Urine Mucus Slight /LPF Test 06/02/17 00:25 Lactic Acid Level 1.4 mmol/L (0.4-2.0) VTE Prophylaxis Ordered VTE Prophylaxis Devices: No VTE Pharmacological Prophylaxi: No Assessment/Plan Assessment/Plan fuo, uti/galindo, mild dm, t meth abuse- he plans to leave [facility], i told him we dont know for sure why he is ill and could place himself at risk for if he leaves, he still plans to leave and appears lucid and able to make decisions - will provide [facility] papers for him, can stay if he changes his mind DELLA CASTANEDA MD Jun 02, 2017 08:44
[2017-06-02] MEDS ORDERED: ASPIRIN ENTERIC COATED 81 MG TABLET.DR. PO SCH (09:00)
[2017-06-02] MEDS ORDERED: CLOPIDOGREL BISULFATE 75 MG TABLET PO SCH (09:00)
[2017-06-02] MEDS ORDERED: WARFARIN 4 MG TABLET. PO SCH (09:00)
[2017-06-02] MEDS ORDERED: GABAPENTIN 300 MG CAPSULE. PO SCH (09:00)
[2017-06-02] MEDS ORDERED: SODIUM BICARBONATE 650 MG TABLET. PO SCH (09:00)
--- NOTE | 2017-06-02 09:13 | RAD ---
Indication weakness. Protocol study. A single view of the chest was obtained and is compared to an examination December 15, 2016. Heart size and pulmonary vessels are within normal limits. There is some minimal atelectasis at the left lung base. There is no consolidated pneumonia. Significant pleural fluid is not seen. There is no pneumothorax. Vascular stent is noted. IMPRESSION: No acute or focal process is seen in the chest
--- NOTE | 2017-06-02 10:15 | EKG ---
[facility] [address] [place] [address] Test Date: 2017-06-01 Test Time: 20:02:51 Pat Name: REED SIERRA Department: Room: Gender: M [employer]: : 1965 Requested By: REJI GIANG Order Number: [id number] Reading MD: Measurements Intervals [place] Rate: 103 P: -39 [place]: 162 QRS: 30 QRSD: 86 T: 59 QT: 302 QTc: 397 Interpretive Statements SINUS TACHYCARDIA OTHERWISE NORMAL ECG RI6.01 No previous ECG available for comparison
[2017-06-02 10:48] VITALS: BP 104/63
[2017-06-03] MEDS ORDERED: SEVE800T9 PO (17:19)
[2017-06-03] MEDS ORDERED: OMEG1CAP6 PO (17:19)
[2017-06-03] MEDS ORDERED: INSU100I13 SQ (17:19)
== END 2017-06-02 11:10 | disposition left against medical advice (07) | DRG 690 ==
LOC: EDSEX → ER 19:34 → 6 SOUTH 23:51
PROVIDERS: ADMIT Internal Medicine; ATTEND Internal Medicine
DX: N39.0 Urinary tract infection, site not specified (principal); E44.1 Mild protein-calorie malnutrition; E11.9 Type 2 diabetes mellitus without complications; F15.10 Other stimulant abuse, uncomplicated; I50.9 Heart failure, unspecified; L23.7 Allergic contact dermatitis due to plants, except food; Z86.61 Personal history of infections of the central nervous system; Z99.2 Dependence on renal dialysis; N19 Unspecified kidney failure
CPT/HCPCS: 36415; 71010; 80053; 81001; 83605; 84484; 85007; 85027; 87040; 87086; 87205; 93005; 96365; G0480; G0481; J0696; 99285-25

== ENCOUNTER 2017-06-03 14:15 | Inpatient (IN) | payer MEDICARE, BC ==
[~2017-06-03] VITALS: Ht 175.3 cm; Wt 98.1 kg
[2017-06-03 16:15] VITALS: BP 115/58
[2017-06-03] MEDS ORDERED: ALBUTEROL SULFATE 2.5 MG/3 ML NEBU. NEB PRN (17:15)
[2017-06-03] MEDS ORDERED: INSU100I13 SQ (17:19)
[2017-06-03] MEDS ORDERED: SEVE800T9 PO (17:19)
[2017-06-03] MEDS ORDERED: OMEG1CAP6 PO (17:19)
--- NOTE | 2017-06-03 17:30 | PDOC1 ---
History and Physical Date of Admission Date of Admission 06/03/17 Identification/Chief Complaint Chief Complaint Shortness of breath Problems: Source Source: Patient History of Present Illness History of Present Illness Patient was evaluated in emergency room on April and June 01 and was diagnosed was a UTI he had a temperature 101 and was admitted however he left AGAINST MEDICAL ADVICE after he left his blood cultures came back positive for staph aureus he presented to the office today complaining of not feeling good in general achy all over and also is very short of breath he is due for dialysis today and that could be accounting for his shortness of breath he might be fluid overloaded, he does describe some discomfort in his chest on the right side with deep breath, he denies recent travel he does have some swelling the lower extremities, he has experienced feeling hot and cold not sure if he had fever he is complaining of body aches all over and not feeling good in general Past Medical History Cardiovascular: CHF, HTN, Other (dyslipidemia with low HDL) Pulmonary: Other CENTRAL NERVOUS SYSTEM: Periperal neuropathy Heme/Onc: Anemia NOS Psych: Depression Infectious disease: Other (history of epidural abscess and myelitis) Renal/: Other (end-stage renal disease on hemodialysis) Endocrine: Diabetes, Other Dermatology: Other (vitamin D deficiency) Family History Family History: Depression, Diabetes, Hypertension Social History Smoke: No ALCOHOL: rare Drugs: Other Current Problem List Problem List Positive blood cultures for staph aureus Shortness of breath End-stage renal disease Current Medications Current Medications Current Medications Medications (Trade) Dose Ordered Sig/Nando Start Time Stop Time Status Last Admin Dose Admin Albuterol Sulfate (Ventolin Neb Soln) 2.5 mg PRN Q6HRS PRN 06/03/17 17:15 Vancomycin HCl 1 gm/Sodium Chloride 250 ml @ 166.667 mls/hr 1X ONCE 06/03/17 17:15 06/03/17 18:44 UNV Allergies Allergies Allergies Coded Allergies Type Severity Reaction Last Updated Verified No Known Drug Allergies 02/07/16 No ROS Review of System CONSTITUTIONAL: + fever or chills EYES: No recent changes SKIN: No rash or itching CARDIOVASCULAR: No syncope, palpitations, or edema RESPIRATORY: + SOB GASTROINTESTINAL: No nausea, vomiting or abdominal pain NEUROLOGICAL: No headaches +weakness generalized ENDOCRINE: No cold or heat intolerance GENITOURINARY: He does have a chronic Kendrick catheter MUSCULOSKELETAL: Myalgia and arthralgia LYMPHATICS: No enlarged lymph nodes PSYCHIATRIC: +depression Physical Exam Physical Exam GEN.: No apparent distress. Alert and oriented. HEENT: Head is normocephalic, atraumatic NECK: Supple. LUNGS: Clear to auscultation. HEART: RRR, S1, S2 present. Peripheral pulses intact ABDOMEN: Soft, nontender. Positive bowel sounds. EXTREMITIES: Without any cyanosis. NEUROLOGIC: Normal speech, normal tone PSYCHIATRIC: Normal affect, normal mood. SKIN: On his right hand he has several ulcerations that was itchy and could be the source of infection was a staph aureus Vitals Vitals Vital Signs Date Time Temp Pulse Resp B/P (MAP) Pulse Ox O2 Delivery O2 Flow Rate FiO2 06/03/17 16:15 97.8 88 18 115/58 (77) 92 Room Air 97.8 VTE Prophylaxis Ordered VTE Prophylaxis Devices: No VTE Pharmacological Prophylaxi: No Assessment/Plan Assessment/Plan 1-bacteremia with staph aureus, source of infection can be his right upper extremity 2-UTI 3-shortness of breath 4-end-stage renal disease on dialysis JACOB STANLEY MD Jun 03, 2017 17:30
--- NOTE | 2017-06-03 17:53 | PDOC2 ---
CONSULT Date of Consult Date of Consult DATE: 06/03/17 TIME: 17:45 Reason for Consult Reason for Consult: soa Referring Physician Referring Physician: Dr Victoria Identification/Chief Complaint Chief Complaint Soa difficult to take a breath Problems: Source Source: Patient History of Present Illness Reason for Visit: PT PRESENTED WITH INCREASE SOA, ACHY ALL OVER HE FELT LIKE HE HAD WORSE FLU EVER , CAME IN AND RECEIVED ONE DOSE OF ROCEPHIN HE ACTUALLY FELT WORSE AFTER ANTIBX EVENTFULLY LEFT AMA, NOW READMITTED WITH SAME SYPMTOMS FEELS BETTER THANK WHEN HE WAS FIRST ADMITTED NON PRODUCTIVE COUGH MISSED HD TODAY NO FEVER DIFFICULT TAKING IN A DEEP BREATH NO ACUTE ONSET OF SOA ASSOCIATED WITH SYNCOPE OR CHEST PAIN HIS BLOOD CULTURES CAME BACK POSITIVE Past Medical History Cardiovascular: CHF, HTN, Other (dyslipidemia with low HDL) Pulmonary: Other (PREVIOUS DVT) CENTRAL NERVOUS SYSTEM: Periperal neuropathy Heme/Onc: Anemia NOS Psych: Depression Infectious disease: Other (history of epidural abscess and myelitis) Renal/: Other (end-stage renal disease on hemodialysis) Endocrine: Diabetes, Other Dermatology: Other (vitamin D deficiency) Family History Family History: Depression, Diabetes, Hypertension Social History No ALCOHOL: rare Drugs: Other Current Medications Current Medications Current Medications Albuterol Sulfate (Ventolin Neb Soln) 2.5 mg PRN Q6HRS PRN NEB SHORTNESS OF BREATH; Start 06/03/17 at 17:15 Vancomycin HCl 1 gm/Sodium Chloride 250 ml @ 166.667 mls/hr 1X ONCE IV ; Start 06/03/17 at 18:00; Stop 06/03/17 at 19:29 Aspirin (Ecotrin) 81 mg DAILY PO ; Start 06/04/17 at 09:00 Fish Oil (Fish Oil) 2,000 mg BID PO ; Start 06/03/17 at 21:00 Sevelamer Carbonate (Renvela) 800 mg TIDWMEALS PO ; Start 06/04/17 at 08:00 Sodium Bicarbonate (Sodium Bicarbonate) 1,300 mg TID PO ; Start 06/03/17 at 21:00 Gabapentin (Neurontin) 300 mg TID PO ; Start 06/03/17 at 21:00 Insulin Detemir (Levemir) 10 units QHS SQ ; Start 06/03/17 at 21:00 Active Scripts Active Reported Renvela (Sevelamer Carbonate) 800 Mg Tablet 800 Mg PO TIDWMEALS Lantus Solostar (Insulin Glargine,Hum.rec.anlog) 100 Unit/1 Ml Insuln.pen 10 Unit SQ QHS Fish Oil 1,000 Mg Capsule ([place]-3 Fatty Acids/Fish Oil) 1 Each Capsule 2 Each PO BID Aspir 81 (Aspirin) 81 Mg Tablet.dr 1 Tab PO DAILY Sodium Bicarbonate 650 Mg Tablet 1,300 Mg PO TID Gabapentin 300 Mg Capsule 300 Mg PO TID Allergies Allergies: Coded Allergies: No Known Drug Allergies (Unverified , 02/07/16) ROS General: YES: Chills, Malaise Respiratory: YES: Pleuritic Pain, Shortness of breath Physical Exam General: Alert, Oriented X3 HEENT: Atraumatic, EOMI Heart: Regular rate, Normal S1, Normal S2 Abdomen: Normal bowel sounds, No tenderness, No hepatosplenomegaly Extremities: No clubbing, No cyanosis, No edema Skin: No rashes, No breakdown Neuro: Normal gait, Normal speech Psych/Mental Status: Mental status NL Vitals VITALS Vital Signs Date Time Temp Pulse Resp B/P (MAP) Pulse Ox O2 Delivery O2 Flow Rate FiO2 06/03/17 16:15 97.8 88 18 115/58 (77) 92 Room Air 97.8 Images Images PENDING Assessment/Plan Assessment/Plan DYSPNEA SUSPECT FLUID OVERLOAD ESRD ON HD BACTEREMIA UTI PLEURISY PLAN NEGATIVE FLUID BALANCE ANTIBX WILL MONITOR NSAIDS FOR PAIN THANKS ARIADNE RODRIGUEZ MD Jun 03, 2017 17:53
[2017-06-03 17:55] LABS: BASO # 0.1 x10^3/uL (0.0-0.2); BASO % 1 % (0-3); EOS % 3 % (0-3); HEMATOCRIT 30.4 % (39.0-53.0); HEMOGLOBIN 10.2 g/dL (13.0-17.5); LYMPH # 0.9 x10^3/uL (1.0-4.8); LYMPH % 13 % (24-48); MEAN CORPUSCULAR HEMOGLOBIN 32 pg (25-35); MEAN CORPUSCULAR HGB CONC 33 g/dL (31-37); MEAN CORPUSCULAR VOLUME 97 fL (79-100); MONO % 11 % (0-9); NEUT % 72 % (31-73); PLATELET COUNT 228 x10^3/uL (140-400); RED BLOOD COUNT 3.16 x10^6/uL (4.30-5.70); RED CELL DISTRIBUTION WIDTH 14.7 % (11.5-14.5); WHITE BLOOD COUNT 6.4 x10^3/uL (4.0-11.0)
[2017-06-03] MEDS ORDERED: VANCOMYCIN 1 GM in IV NORMAL SALINE 250ML 250 ML IV ONE (18:00)
--- NOTE | 2017-06-03 18:05 | EKG ---
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
[2017-06-03 18:20] LABS: ALBUMIN 2.7 g/dL (3.4-5.0); ALBUMIN/GLOBULIN RATIO 0.6 (1.0-1.7); CALCIUM 7.7 mg/dL (8.5-10.1); CREATININE 4.7 mg/dL (0.7-1.3); GFR 13.3; POTASSIUM 3.5 mmol/L (3.5-5.1); TOTAL BILIRUBIN 0.3 mg/dL (0.2-1.0); TOTAL PROTEIN 7.5 g/dL (6.4-8.2)
[2017-06-03 19:55] VITALS: BP 105/61
[2017-06-03] MEDS: OMEGA-3 FATTY ACIDS/FISH OIL 1,000 MG CAPSULE. PO SCH (21:22)
[2017-06-03] MEDS: SODIUM BICARBONATE 650 MG TABLET. PO SCH (21:22)
[2017-06-03] MEDS: GABAPENTIN 300 MG CAPSULE. PO SCH (21:22)
[2017-06-03] MEDS: INSULIN DETEMIR 300 UNITS/3 ML INSULN.PEN. SQ SCH (21:25)
[2017-06-03] MEDS ORDERED: MORPHINE SULFATE 2 MG/ML DISP.SYRIN. IV PRN ×2 (21:30)
[2017-06-03] MEDS ORDERED: ALPRAZolam 0.5 MG TABLET PO PRN (21:30)
[2017-06-03] MEDS ORDERED: DIALYSIS PATIENT. MC PRN (21:45)
[2017-06-03] MEDS: HEPARIN PF for SUB-Q USE 5,000 UNIT/0.5 ML VIAL. SQ SCH (22:00)
[2017-06-03 23:34] VITALS: BP 118/57
[2017-06-04 03:41] VITALS: BP 116/67
[2017-06-04] MEDS: HEPARIN PF for SUB-Q USE 5,000 UNIT/0.5 ML VIAL. SQ SCH ×3 (06:00→22:00)
[2017-06-04] MEDS ORDERED: HYDROcodone/APAP 5/325MG 1 TAB TABLET PO PRN (06:15)
[2017-06-04] MEDS: LORazepam 0.5 MG TABLET PO PRN ×2 (06:26→21:26)
--- NOTE | 2017-06-04 07:17 | RAD ---
Chest, 2 views, 06/03/2017: History: Shortness of breath Comparison is made to a study from 06/01/2017. The heart size and pulmonary vascularity are normal. There are moderate streaky bibasilar opacities. The upper lung ellison are clear. There is no evidence of pleural fluid. A vascular stent is projected over the left axillary region. IMPRESSION: Moderate streaky bibasilar atelectasis and/or pneumonitis.
[2017-06-04] MEDS: SEVELAMER CARBONATE 800 MG TABLET. PO SCH ×3 (09:10→17:23)
[2017-06-04] MEDS: SODIUM BICARBONATE 650 MG TABLET. PO SCH ×3 (09:10→21:27)
[2017-06-04] MEDS: GABAPENTIN 300 MG CAPSULE. PO SCH ×3 (09:10→21:26)
[2017-06-04] MEDS: ASPIRIN ENTERIC COATED 81 MG TABLET.DR. PO SCH (09:11)
[2017-06-04] MEDS: OMEGA-3 FATTY ACIDS/FISH OIL 1,000 MG CAPSULE. PO SCH ×2 (09:11→21:27)
--- NOTE | 2017-06-04 09:11 | PDOC ---
SUBJECTIVE Subjective had pleuretic chest pain , feels better this AM OBJECTIVE Vital Signs Vital Signs Date Time Temp Pulse Resp B/P (MAP) Pulse Ox O2 Delivery O2 Flow Rate FiO2 06/04/17 07:00 Nasal Cannula 3.0 06/04/17 03:41 98.5 80 20 116/67 (83) 96 Nasal Cannula 98.5 06/03/17 23:34 98.4 86 16 118/57 (77) 93 Nasal Cannula 3.0 98.4 06/03/17 20:54 96 Nasal Cannula 2.0 06/03/17 20:00 Nasal Cannula 2.0 06/03/17 19:55 98.9 81 18 105/61 (76) 94 Room Air 98.9 06/03/17 18:35 Room Air 06/03/17 16:15 97.8 88 18 115/58 (77) 92 Room Air 97.8 06/03/17 16:15 97.8 88 18 115/58 (77) 92 Room Air 97.8 I & O Intake and Output 06/04/17 07:00 Intake Total 1190 ml Output Total 1000 ml Balance 190 ml Intake Oral 1190 ml Output Urine Total 1000 ml PHYSICAL EXAM Physical Exam lungs few basilar rales, no wheezes heartRRR abd soft ext no edema ASSESSMENT/PLAN Assessment/Plan 1-bacteremia with staph aureus, source of infection can be his right upper extremity 2-UTI 3-shortness of breath likely due to fluid overload 4-end-stage renal disease on dialysis 5- chest pain , troponin ok , echo and cv consult Problems: COMMENT Lab Laboratory Tests Test 06/03/17 17:45 06/03/17 21:06 White Blood Count 6.4 x10^3/uL (4.0-11.0) Red Blood Count 3.16 x10^6/uL (4.30-5.70) Hemoglobin 10.2 g/dL (13.0-17.5) Hematocrit 30.4 % (39.0-53.0) Mean Corpuscular Volume 97 fL (79-100) Mean Corpuscular Hemoglobin 32 pg (25-35) Mean Corpuscular Hemoglobin Concent 33 g/dL (31-37) Red Cell Distribution Width 14.7 % (11.5-14.5) Platelet Count 228 x10^3/uL (140-400) Neutrophils (%) (Auto) 72 % (31-73) Lymphocytes (%) (Auto) 13 % (24-48) Monocytes (%) (Auto) 11 % (0-9) Eosinophils (%) (Auto) 3 % (0-3) Basophils (%) (Auto) 1 % (0-3) Neutrophils # (Auto) 4.6 x10^3uL (1.8-7.7) Lymphocytes # (Auto) 0.9 x10^3/uL (1.0-4.8) Monocytes # (Auto) 0.7 x10^3/uL (0.0-1.1) Eosinophils # (Auto) 0.2 x10^3/uL (0.0-0.7) Basophils # (Auto) 0.1 x10^3/uL (0.0-0.2) D-Dimer (Kari) 3.46 ug/mlFEU (0.00-0.50) Sodium Level 138 mmol/L (136-145) Potassium Level 3.5 mmol/L (3.5-5.1) Chloride Level 98 mmol/L (98-107) Carbon Dioxide Level 29 mmol/L (21-32) Anion Gap 11 (6-14) Blood Urea Nitrogen 65 mg/dL (8-26) Creatinine 4.7 mg/dL (0.7-1.3) Estimated GFR (Cockcroft-Gault) 13.3 BUN/Creatinine Ratio 14 (6-20) Glucose Level 198 mg/dL (70-99) Calcium Level 7.7 mg/dL (8.5-10.1) Total Bilirubin 0.3 mg/dL (0.2-1.0) Aspartate Amino Transf (AST/SGOT) 33 U/L (15-37) Alanine Aminotransferase (ALT/SGPT) 63 U/L (16-63) Alkaline Phosphatase 287 U/L (46-116) Troponin I Quantitative < 0.017 ng/mL (0.000-0.055) AE-Nzd-F-Type Natriuretic Peptide 4072 pg/mL (0-124) Total Protein 7.5 g/dL (6.4-8.2) Albumin 2.7 g/dL (3.4-5.0) Albumin/Globulin Ratio 0.6 (1.0-1.7) Glucose (Fingerstick) 145 mg/dL (70-99) JACOB STANLEY MD Jun 04, 2017 09:11
--- NOTE | 2017-06-04 09:35 | PDOC2 ---
IM Consult Referring physician Dr Victoria, for staph bacteremia Date of Admission DATE: 06/04/17 TIME: 09:30 Chief Complaint Chief Complaint This year old male has been admitted with a chief complaint of . , fever, sob, body ache, once sign out AMA, returned , convinced by Dr iVctoria, has Staph Aureus in blood, Problems: Past Medical History Cardiovascular: CHF, HTN, Other (dyslipidemia with low HDL) Pulmonary: Other (h/o MSSA bacteremia, h/o sacral decub/osteo, s/p Flap done) CENTRAL NERVOUS SYSTEM: Periperal neuropathy Heme/Onc: Anemia NOS Psych: Depression Infectious disease: Other (history of epidural abscess and myelitis) Renal/: Chronic renal failure, Other (neurogenic bladder with chronic galindo in place) Endocrine: Diabetes, Other Dermatology: Other (vitamin D deficiency) Past Family History Family History: Depression, Diabetes, Hypertension Past Social History PSH denies smoking cig, no etoh, but uses meth Review of Symptoms Review of Symptoms General ROS: positive for - Psychological ROS: negative Ophthalmic ROS: negative ENT ROS: negative Allergy and Immunology ROS: negative Hematology and Lymphatic: negative Endocrine ROS: negative Respiratory ROS: no cold, cough, dyspnea. Cardiovascular ROS: no chest pain or dyspnea on exertion Gastrointestinal ROS: no abdominal pain, change in bowel habits, or black or bloody stools Genito-Urinary ROS: no dysuria, trouble voiding, or hematuria Musculoskeletal ROS: no pain Neurological ROS: negative Dermatological ROS: no rash Medications Current Medications Acetaminophen/ Hydrocodone Bitart (Lortab 5/325) 1 tab PRN Q4HRS PRN PO SEVERE PAIN Last administered on 06/04/17 06:26; Start 06/04/17 at 06:15 Albuterol Sulfate (Ventolin Neb Soln) 2.5 mg PRN Q6HRS PRN NEB SHORTNESS OF BREATH Last administered on 06/03/17 20:46; Start 06/03/17 at 17:15 Alprazolam (Xanax) 0.5 mg PRN Q8HRS PRN PO ANXIETY / AGITATION Last administered on 06/03/17 21:55; Start 06/03/17 at 21:30; Stop 06/04/17 at 06:11; Status DC Aspirin (Ecotrin) 81 mg DAILY PO Last administered on 06/04/17 09:11; Start 06/04/17 at 09:00 Fish Oil (Fish Oil) 2,000 mg BID PO Last administered on 06/04/17 09:11; Start 06/03/17 at 21:00 Gabapentin (Neurontin) 300 mg TID PO Last administered on 06/04/17 09:10; Start 06/03/17 at 21:00 Heparin Sodium (Porcine) (Heparin Sq) 5,000 unit Q8HRS SQ Last administered on 06/03/17 22:00; Start 06/03/17 at 22:00 Info (PHARMACY MONITORING -- do not chart) 1 each PRN DAILY PRN MC SEE COMMENTS ; Start 06/03/17 at 21:45 Insulin Detemir (Levemir) 10 units QHS SQ Last administered on 06/03/17 21:25; Start 06/03/17 at 21:00 Lorazepam (Ativan) 0.5 mg PRN Q6HRS PRN PO ANXIETY / AGITATION Last administered on 06/04/17 06:26; Start 06/04/17 at 06:15 Morphine Sulfate 1 mg PRN Q4HRS PRN IV MODERATE PAIN; Start 06/03/17 at 21:30 Morphine Sulfate 2 mg PRN Q4HRS PRN IV SEVERE PAIN; Start 06/03/17 at 21:30 Sevelamer Carbonate (Renvela) 800 mg TIDWMEALS PO Last administered on 09:10; Start 06/04/17 at 08:00 Sodium Bicarbonate (Sodium Bicarbonate) 1,300 mg TID PO Last administered on 09:10; Start 06/03/17 at 21:00 Vancomycin HCl 1 gm/Sodium Chloride 250 ml @ 166.667 mls/hr 1X ONCE IV Last administered on 06/03/17 19:51; Start 06/03/17 at 18:00; Stop 06/03/17 at 19:29; Status DC Allergy Allergies Coded Allergies Type Severity Reaction Last Updated Verified No Known Drug Allergies 02/07/16 No Physical Exam Physical Exam General appearance - alert,well appearing, and in no distress and oriented to person, place, and time Mental Status - alert, oriented to person, place, and time, affect appropriate to mood Head - normal Chest - clear to auscultation, no wheezes, rales or rhonchi, symmetric air entry Heart - S1 and S2 normal Abdomen - soft, nontender, nondistended, no masses or organomegaly Neurological - alert and oriented Musculoskeletal - no muscular tenderness noted Extremities - no pedal edema Skin - warm and dry Labs Laboratory Tests Test 06/03/17 17:45 06/03/17 21:06 White Blood Count 6.4 x10^3/uL (4.0-11.0) Red Blood Count 3.16 x10^6/uL (4.30-5.70) Hemoglobin 10.2 g/dL (13.0-17.5) Hematocrit 30.4 % (39.0-53.0) Mean Corpuscular Volume 97 fL (79-100) Mean Corpuscular Hemoglobin 32 pg (25-35) Mean Corpuscular Hemoglobin Concent 33 g/dL (31-37) Red Cell Distribution Width 14.7 % (11.5-14.5) Platelet Count 228 x10^3/uL (140-400) Neutrophils (%) (Auto) 72 % (31-73) Lymphocytes (%) (Auto) 13 % (24-48) Monocytes (%) (Auto) 11 % (0-9) Eosinophils (%) (Auto) 3 % (0-3) Basophils (%) (Auto) 1 % (0-3) Neutrophils # (Auto) 4.6 x10^3uL (1.8-7.7) Lymphocytes # (Auto) 0.9 x10^3/uL (1.0-4.8) Monocytes # (Auto) 0.7 x10^3/uL (0.0-1.1) Eosinophils # (Auto) 0.2 x10^3/uL (0.0-0.7) Basophils # (Auto) 0.1 x10^3/uL (0.0-0.2) D-Dimer (Kari) 3.46 ug/mlFEU (0.00-0.50) Sodium Level 138 mmol/L (136-145) Potassium Level 3.5 mmol/L (3.5-5.1) Chloride Level 98 mmol/L (98-107) Carbon Dioxide Level 29 mmol/L (21-32) Anion Gap 11 (6-14) Blood Urea Nitrogen 65 mg/dL (8-26) Creatinine 4.7 mg/dL (0.7-1.3) Estimated GFR (Cockcroft-Gault) 13.3 BUN/Creatinine Ratio 14 (6-20) Glucose Level 198 mg/dL (70-99) Calcium Level 7.7 mg/dL (8.5-10.1) Total Bilirubin 0.3 mg/dL (0.2-1.0) Aspartate Amino Transf (AST/SGOT) 33 U/L (15-37) Alanine Aminotransferase (ALT/SGPT) 63 U/L (16-63) Alkaline Phosphatase 287 U/L (46-116) Troponin I Quantitative < 0.017 ng/mL (0.000-0.055) PV-Exx-Q-Type Natriuretic Peptide 4072 pg/mL (0-124) Total Protein 7.5 g/dL (6.4-8.2) Albumin 2.7 g/dL (3.4-5.0) Albumin/Globulin Ratio 0.6 (1.0-1.7) Glucose (Fingerstick) 145 mg/dL (70-99) Laboratory Tests Test 06/03/17 17:45 06/03/17 21:06 White Blood Count 6.4 x10^3/uL (4.0-11.0) Red Blood Count 3.16 x10^6/uL (4.30-5.70) Hemoglobin 10.2 g/dL (13.0-17.5) Hematocrit 30.4 % (39.0-53.0) Mean Corpuscular Volume 97 fL (79-100) Mean Corpuscular Hemoglobin 32 pg (25-35) Mean Corpuscular Hemoglobin Concent 33 g/dL (31-37) Red Cell Distribution Width 14.7 % (11.5-14.5) Platelet Count 228 x10^3/uL (140-400) Neutrophils (%) (Auto) 72 % (31-73) Lymphocytes (%) (Auto) 13 % (24-48) Monocytes (%) (Auto) 11 % (0-9) Eosinophils (%) (Auto) 3 % (0-3) Basophils (%) (Auto) 1 % (0-3) Neutrophils # (Auto) 4.6 x10^3uL (1.8-7.7) Lymphocytes # (Auto) 0.9 x10^3/uL (1.0-4.8) Monocytes # (Auto) 0.7 x10^3/uL (0.0-1.1) Eosinophils # (Auto) 0.2 x10^3/uL (0.0-0.7) Basophils # (Auto) 0.1 x10^3/uL (0.0-0.2) D-Dimer (Kari) 3.46 ug/mlFEU (0.00-0.50) Sodium Level 138 mmol/L (136-145) Potassium Level 3.5 mmol/L (3.5-5.1) Chloride Level 98 mmol/L (98-107) Carbon Dioxide Level 29 mmol/L (21-32) Anion Gap 11 (6-14) Blood Urea Nitrogen 65 mg/dL (8-26) Creatinine 4.7 mg/dL (0.7-1.3) Estimated GFR (Cockcroft-Gault) 13.3 BUN/Creatinine Ratio 14 (6-20) Glucose Level 198 mg/dL (70-99) Calcium Level 7.7 mg/dL (8.5-10.1) Total Bilirubin 0.3 mg/dL (0.2-1.0) Aspartate Amino Transf (AST/SGOT) 33 U/L (15-37) Alanine Aminotransferase (ALT/SGPT) 63 U/L (16-63) Alkaline Phosphatase 287 U/L (46-116) Troponin I Quantitative < 0.017 ng/mL (0.000-0.055) PW-Zqu-D-Type Natriuretic Peptide 4072 pg/mL (0-124) Total Protein 7.5 g/dL (6.4-8.2) Albumin 2.7 g/dL (3.4-5.0) Albumin/Globulin Ratio 0.6 (1.0-1.7) Glucose (Fingerstick) 145 mg/dL (70-99) Vitals Vital Signs Date Time Temp Pulse Resp B/P (MAP) Pulse Ox O2 Delivery O2 Flow Rate FiO2 06/04/17 07:00 Nasal Cannula 3.0 06/04/17 03:41 98.5 80 20 96 98.5 Assessment Assessment Staph Aureus bacteremia ESRD Fever Vol overload Chronic galindo cath DM HTN Drug use Plan Plan vanc and cipro repeat bc FLAVIO supportive care galindo change in 1-2 days STANLEY GENAO MD Jun 04, 2017 09:35
[2017-06-04] MEDS ORDERED: VANCOMYCIN 2 GM in IV NORMAL SALINE 500ML BAG 500 ML IV ONE (10:00)
[2017-06-04] MEDS: CIPROFLOXACIN HCL 250 MG TABLET. PO SCH ×2 (10:00→21:27)
--- NOTE | 2017-06-04 10:42 | PDOC2 ---
CONSULT Date of Consult Date of Consult DATE: 06/04/17 TIME: 10:41 Reason for Consult Reason for Consult: ESRD Referring Physician Referring Physician: Dr Victoria Identification/Chief Complaint Chief Complaint flu like s/s Problems: Source Source: Chart review, Patient History of Present Illness Reason for Visit: 51yo WM with ESRD x 3 yrs - on HD MWF, missed HD yest since he came to hospital with ?able SOB. he was more weak with fevers. bl. Cx are now +ve. Fevers since thursday. no Asso NVD etc. +Ve fatigue, maliase and gen Aches/ flu-like s/s Past Medical History Cardiovascular: CHF, HTN, Other (dyslipidemia with low HDL) Pulmonary: Other (h/o MSSA bacteremia, h/o sacral decub/osteo, s/p Flap done) CENTRAL NERVOUS SYSTEM: Periperal neuropathy Heme/Onc: Anemia NOS Psych: Depression Infectious disease: Other (history of epidural abscess and myelitis) Renal/: Chronic renal failure, Other (neurogenic bladder with chronic galindo in place) Endocrine: Diabetes, Other Dermatology: Other (vitamin D deficiency) Family History Family History: Depression, Diabetes, Hypertension Social History No ALCOHOL: rare Drugs: Other Current Medications Current Medications Current Medications Albuterol Sulfate (Ventolin Neb Soln) 2.5 mg PRN Q6HRS PRN NEB SHORTNESS OF BREATH Last administered on 06/03/17 20:46; Start 06/03/17 at 17:15 Vancomycin HCl 1 gm/Sodium Chloride 250 ml @ 166.667 mls/hr 1X ONCE IV Last administered on 06/03/17 19:51; Start 06/03/17 at 18:00; Stop 06/03/17 at 19:29; Status DC Aspirin (Ecotrin) 81 mg DAILY PO Last administered on 06/04/17 09:11; Start 06/04/17 at 09:00 Fish Oil (Fish Oil) 2,000 mg BID PO Last administered on 06/04/17 09:11; Start 06/03/17 at 21:00 Sevelamer Carbonate (Renvela) 800 mg TIDWMEALS PO Last administered on 09:10; Start 06/04/17 at 08:00 Sodium Bicarbonate (Sodium Bicarbonate) 1,300 mg TID PO Last administered on 09:10; Start 06/03/17 at 21:00 Gabapentin (Neurontin) 300 mg TID PO Last administered on 06/04/17 09:10; Start 06/03/17 at 21:00 Insulin Detemir (Levemir) 10 units QHS SQ Last administered on 06/03/17 21:25; Start 06/03/17 at 21:00 Alprazolam (Xanax) 0.5 mg PRN Q8HRS PRN PO ANXIETY / AGITATION Last administered on 06/03/17 21:55; Start 06/03/17 at 21:30; Stop 06/04/17 at 06:11; Status DC Morphine Sulfate 2 mg PRN Q4HRS PRN IV SEVERE PAIN; Start 06/03/17 at 21:30 Morphine Sulfate 1 mg PRN Q4HRS PRN IV MODERATE PAIN; Start 06/03/17 at 21:30 Heparin Sodium (Porcine) (Heparin Sq) 5,000 unit Q8HRS SQ Last administered on 06/03/17 22:00; Start 06/03/17 at 22:00 Info (PHARMACY MONITORING -- do not chart) 1 each PRN DAILY PRN MC SEE COMMENTS ; Start 06/03/17 at 21:45 Lorazepam (Ativan) 0.5 mg PRN Q6HRS PRN PO ANXIETY / AGITATION Last administered on 06/04/17 06:26; Start 06/04/17 at 06:15 Acetaminophen/ Hydrocodone Bitart (Lortab 5/325) 1 tab PRN Q4HRS PRN PO SEVERE PAIN Last administered on 06/04/17 06:26; Start 06/04/17 at 06:15 Vancomycin HCl (Vanco Per Pharmacy) 1 each PRN DAILY PRN MC SEE COMMENTS; Start 06/04/17 at 09:30 Ciprofloxacin (Cipro) 250 mg BID PO ; Start 06/04/17 at 10:00 Vancomycin HCl 2 gm/Sodium Chloride 500 ml @ 250 mls/hr 1X ONCE IV ; Start 06/04/17 at 10:00; Stop 06/04/17 at 11:59 Active Scripts Active Reported Renvela (Sevelamer Carbonate) 800 Mg Tablet 800 Mg PO TIDWMEALS Lantus Solostar (Insulin Glargine,Hum.rec.anlog) 100 Unit/1 Ml Insuln.pen 10 Unit SQ QHS Fish Oil 1,000 Mg Capsule (Leopold-3 Fatty Acids/Fish Oil) 1 Each Capsule 2 Each PO BID Aspir 81 (Aspirin) 81 Mg Tablet.dr 1 Tab PO DAILY Sodium Bicarbonate 650 Mg Tablet 1,300 Mg PO TID Gabapentin 300 Mg Capsule 300 Mg PO TID Allergies Allergies: Coded Allergies: No Known Drug Allergies (Unverified , 02/07/16) ROS Review of System GEN: + Fevers rare Chills EYES: no Visual Complaints ENT: no EN Drainage no Hearing deficiets CVS: no Orthopnea no CP RESP: ? SOB no [place] GI: no Nausea no Vomiting : no Dysuria no Urgency HEME: no easy bruising no Palp Ly Nodes NEURO no Focal Weakness no Sz PSYCH: no Suicidal Ideation no Depression SKIN: no Rashes ENDO: no Polyuria or Polydipsia no Hot/Cold Intolerance MU SK: = Arthraigia + Myalgia Physical Exam Physical Exam General Appearance: Awake Alert Oriented x 3 In no Distress Eyes: VIsion Unchanged Conjunctiva Normal EN: No EN Drainage Mucous Memb. mo ist Neck: no JVD no JVP Supple no Thyromegaly CVS: S1 S2 + Murmur No Gallop No Rub no Edema Resp: no Rales no Rhonchi no Acc. Muscle use GI: BAS +ve NO Bruit Non Tender Non Distended : no CVA tenderness; no Suprapubic Tenderness SKIN: no Rashes Breast Exam deferred Mu.Sk: Adequate ROM no Muscle Atrophy Heme: Unable to palpate Obvious LAD no Splenomegaly NEURO: Good Strength and Tone Cranial Nerves II - XII grossly intact Psych: not Depressed no Active hallucination Vital Signs Vital Signs Date Time Temp Pulse Resp B/P (MAP) Pulse Ox O2 Delivery O2 Flow Rate FiO2 06/04/17 07:00 Nasal Cannula 3.0 06/04/17 03:41 98.5 80 20 96 98.5 Assessment & Plan ESRD: Dialysis as below F 180 NR 3.5 Hrs 4 K 2.5 Ca 140 Na 35 HC03 Qb 350 + Qd 500+ Heparin 0 Units Uf to dry weight as tolerated May give 25-50 gms of 25% Albumin if needed to maintain Hemodynamic stability Treatment plan reviewed and discussed with operations general agent Anemia: Epogen as ordered. Transfuse with next HD as needed. HTN: Current BP meds reviewed. See orders for changes. Bone & Mineral: follow phos and alter binder regimen based on trend Fevers - ID to eval. Bl Cx +ve as reported (Staphylococcus aureus) Discussed Plan of Care and prognosis etc. at length with family. Labs Labs Laboratory Tests Test 06/03/17 17:45 06/03/17 21:06 06/04/17 10:23 White Blood Count 6.4 x10^3/uL (4.0-11.0) Red Blood Count 3.16 x10^6/uL (4.30-5.70) Hemoglobin 10.2 g/dL (13.0-17.5) Hematocrit 30.4 % (39.0-53.0) Mean Corpuscular Volume 97 fL (79-100) Mean Corpuscular Hemoglobin 32 pg (25-35) Mean Corpuscular Hemoglobin Concent 33 g/dL (31-37) Red Cell Distribution Width 14.7 % (11.5-14.5) Platelet Count 228 x10^3/uL (140-400) Neutrophils (%) (Auto) 72 % (31-73) Lymphocytes (%) (Auto) 13 % (24-48) Monocytes (%) (Auto) 11 % (0-9) Eosinophils (%) (Auto) 3 % (0-3) Basophils (%) (Auto) 1 % (0-3) Neutrophils # (Auto) 4.6 x10^3uL (1.8-7.7) Lymphocytes # (Auto) 0.9 x10^3/uL (1.0-4.8) Monocytes # (Auto) 0.7 x10^3/uL (0.0-1.1) Eosinophils # (Auto) 0.2 x10^3/uL (0.0-0.7) Basophils # (Auto) 0.1 x10^3/uL (0.0-0.2) D-Dimer (Kari) 3.46 ug/mlFEU (0.00-0.50) Sodium Level 138 mmol/L (136-145) Potassium Level 3.5 mmol/L (3.5-5.1) Chloride Level 98 mmol/L (98-107) Carbon Dioxide Level 29 mmol/L (21-32) Anion Gap 11 (6-14) Blood Urea Nitrogen 65 mg/dL (8-26) Creatinine 4.7 mg/dL (0.7-1.3) Estimated GFR (Cockcroft-Gault) 13.3 BUN/Creatinine Ratio 14 (6-20) Glucose Level 198 mg/dL (70-99) Calcium Level 7.7 mg/dL (8.5-10.1) Total Bilirubin 0.3 mg/dL (0.2-1.0) Aspartate Amino Transf (AST/SGOT) 33 U/L (15-37) Alanine Aminotransferase (ALT/SGPT) 63 U/L (16-63) Alkaline Phosphatase 287 U/L (46-116) Troponin I Quantitative < 0.017 ng/mL (0.000-0.055) HM-Rrb-G-Type Natriuretic Peptide 4072 pg/mL (0-124) Total Protein 7.5 g/dL (6.4-8.2) Albumin 2.7 g/dL (3.4-5.0) Albumin/Globulin Ratio 0.6 (1.0-1.7) Glucose (Fingerstick) 145 mg/dL (70-99) 193 mg/dL (70-99) Laboratory Tests Test 06/03/17 17:45 06/03/17 21:06 06/04/17 10:23 White Blood Count 6.4 x10^3/uL (4.0-11.0) Red Blood Count 3.16 x10^6/uL (4.30-5.70) Hemoglobin 10.2 g/dL (13.0-17.5) Hematocrit 30.4 % (39.0-53.0) Mean Corpuscular Volume 97 fL (79-100) Mean Corpuscular Hemoglobin 32 pg (25-35) Mean Corpuscular Hemoglobin Concent 33 g/dL (31-37) Red Cell Distribution Width 14.7 % (11.5-14.5) Platelet Count 228 x10^3/uL (140-400) Neutrophils (%) (Auto) 72 % (31-73) Lymphocytes (%) (Auto) 13 % (24-48) Monocytes (%) (Auto) 11 % (0-9) Eosinophils (%) (Auto) 3 % (0-3) Basophils (%) (Auto) 1 % (0-3) Neutrophils # (Auto) 4.6 x10^3uL (1.8-7.7) Lymphocytes # (Auto) 0.9 x10^3/uL (1.0-4.8) Monocytes # (Auto) 0.7 x10^3/uL (0.0-1.1) Eosinophils # (Auto) 0.2 x10^3/uL (0.0-0.7) Basophils # (Auto) 0.1 x10^3/uL (0.0-0.2) D-Dimer (Kari) 3.46 ug/mlFEU (0.00-0.50) Sodium Level 138 mmol/L (136-145) Potassium Level 3.5 mmol/L (3.5-5.1) Chloride Level 98 mmol/L (98-107) Carbon Dioxide Level 29 mmol/L (21-32) Anion Gap 11 (6-14) Blood Urea Nitrogen 65 mg/dL (8-26) Creatinine 4.7 mg/dL (0.7-1.3) Estimated GFR (Cockcroft-Gault) 13.3 BUN/Creatinine Ratio 14 (6-20) Glucose Level 198 mg/dL (70-99) Calcium Level 7.7 mg/dL (8.5-10.1) Total Bilirubin 0.3 mg/dL (0.2-1.0) Aspartate Amino Transf (AST/SGOT) 33 U/L (15-37) Alanine Aminotransferase (ALT/SGPT) 63 U/L (16-63) Alkaline Phosphatase 287 U/L (46-116) Troponin I Quantitative < 0.017 ng/mL (0.000-0.055) GO-Lyp-N-Type Natriuretic Peptide 4072 pg/mL (0-124) Total Protein 7.5 g/dL (6.4-8.2) Albumin 2.7 g/dL (3.4-5.0) Albumin/Globulin Ratio 0.6 (1.0-1.7) Glucose (Fingerstick) 145 mg/dL (70-99) 193 mg/dL (70-99) KAYKAY GENAO MD Jun 04, 2017 10:42
[2017-06-04 11:00] VITALS: BP 85/45
[2017-06-04] MEDS ORDERED: MAGNESIUM SULFATE 2GM 50 ML IV PRN (11:00)
[2017-06-04] MEDS ORDERED: IV NORMAL SALINE 1000ML BAG 1,000 ML IV SCH (12:45)
--- NOTE | 2017-06-04 13:33 | PDOC2 ---
ROSA MACIAS DIRECTOR OF CURRIC[employer]UM 06/04/17 1333: CARDIAC CONSULT DATE OF CONSULT Date of Consult DATE: 06/04/17 TIME: 13:25 REASON FOR CONSULT Reason for Consult: chest pain HISTORY OF PRESENT ILLNESS HISTORY OF PRESENT ILLNESS Mr Kuhn is a 51 year old male with history of ESRD/HD, sepsis, hypertension who presented earlier in the week with complaints of fever, dsypnea and generalized achiness. He was apparently treated with Rocephin, complained of feeling worse and eventually left AMA. In the interim he was found to have staph bacteremia, missed his dialysis on Thu and presented back to PCP with continued complaints of dyspnea, malaise and chest pain with deep inspiration. He reports chest pain is sharp and occurs with deep inspiration. He is currently very sleepy, wakes and answers questions. He reports breathing is unchanged. He denies palpitations, lightheadedness or dizziness. He complains of being hungry and not wanting to miss lunch. PAST MEDICAL HISTORY Past Medical History Cardiovascular: CHF, HTN, Other (dyslipidemia with low HDL) Pulmonary: prior DVT CENTRAL NERVOUS SYSTEM: Peripheral neuropathy Heme/Onc: Anemia NOS Psych: Depression Infectious disease: Other (history of epidural abscess and myelitis), bacteremia Renal/: Other (end-stage renal disease on hemodialysis) Endocrine: Diabetes, Other Dermatology: Other (vitamin D deficiency) FAMILY HISTORY Family History Depression, Diabetes, Hypertension SOCIAL HISTORY Social History Smoke: No ALCOHOL: rare Drugs: meth CURRENT MEDICATIONS CURRENT MEDICATIONS Current Medications Medications (Trade) Dose Ordered Sig/Nando Route PRN Reason Start Time Stop Time Status Last Admin Dose Admin Albuterol Sulfate (Ventolin Neb Soln) 2.5 mg PRN Q6HRS PRN NEB SHORTNESS OF BREATH 06/03/17 17:15 06/03/17 20:46 Vancomycin HCl 1 gm/Sodium Chloride 250 ml @ 166.667 mls/hr 1X ONCE IV 06/03/17 18:00 06/03/17 19:29 DC 06/03/17 19:51 Aspirin (Ecotrin) 81 mg DAILY PO 06/04/17 09:00 06/04/17 09:11 Fish Oil (Fish Oil) 2,000 mg BID PO 06/03/17 21:00 06/04/17 09:11 Sevelamer Carbonate (Renvela) 800 mg TIDWMEALS PO 06/04/17 08:00 06/04/17 09:10 Sodium Bicarbonate (Sodium Bicarbonate) 1,300 mg TID PO 06/03/17 21:00 06/04/17 09:10 Gabapentin (Neurontin) 300 mg TID PO 06/03/17 21:00 06/04/17 09:10 Insulin Detemir (Levemir) 10 units QHS SQ 06/03/17 21:00 06/03/17 21:25 Alprazolam (Xanax) 0.5 mg PRN Q8HRS PRN PO ANXIETY / AGITATION 06/03/17 21:30 06/04/17 06:11 DC 06/03/17 21:55 Heparin Sodium (Porcine) (Heparin Sq) 5,000 unit Q8HRS SQ 06/03/17 22:00 06/03/17 22:00 Lorazepam (Ativan) 0.5 mg PRN Q6HRS PRN PO ANXIETY / AGITATION 06/04/17 06:15 06/04/17 06:26 Acetaminophen/ Hydrocodone Bitart (Lortab 5/325) 1 tab PRN Q4HRS PRN PO SEVERE PAIN 06/04/17 06:15 06/04/17 06:26 Vancomycin HCl 2 gm/Sodium Chloride 500 ml @ 250 mls/hr 1X ONCE IV 06/04/17 10:00 06/04/17 11:59 DC 06/04/17 11:05 ALLERGIES ALLERGIES: Coded Allergies: No Known Drug Allergies (Unverified , 02/07/16) ROS Review of System as per HPI PHYSICAL EXAM General: Oriented X3, Cooperative, No acute distress, Other (sleepy but wakens to verbal stimulus and appropriate) Lungs: Other (decreased bases bilaterally) Heart: Regular rate, Normal S1, Normal S2 Abdomen: Normal bowel sounds, Soft Extremities: No cyanosis, Normal pulses Psych/Mental Status: Mental status NL, Mood NL VITALS VITALS Vital Signs Date Time Temp Pulse Resp B/P (MAP) Pulse Ox O2 Delivery O2 Flow Rate FiO2 06/04/17 11:00 98.0 87 18 85/45 (58) 96 Nasal Cannula 3.0 98.0 LABS Lab: Laboratory Tests Test 06/03/17 17:45 06/03/17 21:06 06/04/17 10:23 White Blood Count 6.4 x10^3/uL (4.0-11.0) Red Blood Count 3.16 x10^6/uL (4.30-5.70) Hemoglobin 10.2 g/dL (13.0-17.5) Hematocrit 30.4 % (39.0-53.0) Mean Corpuscular Volume 97 fL (79-100) Mean Corpuscular Hemoglobin 32 pg (25-35) Mean Corpuscular Hemoglobin Concent 33 g/dL (31-37) Red Cell Distribution Width 14.7 % (11.5-14.5) Platelet Count 228 x10^3/uL (140-400) Neutrophils (%) (Auto) 72 % (31-73) Lymphocytes (%) (Auto) 13 % (24-48) Monocytes (%) (Auto) 11 % (0-9) Eosinophils (%) (Auto) 3 % (0-3) Basophils (%) (Auto) 1 % (0-3) Neutrophils # (Auto) 4.6 x10^3uL (1.8-7.7) Lymphocytes # (Auto) 0.9 x10^3/uL (1.0-4.8) Monocytes # (Auto) 0.7 x10^3/uL (0.0-1.1) Eosinophils # (Auto) 0.2 x10^3/uL (0.0-0.7) Basophils # (Auto) 0.1 x10^3/uL (0.0-0.2) D-Dimer (Kari) 3.46 ug/mlFEU (0.00-0.50) Sodium Level 138 mmol/L (136-145) Potassium Level 3.5 mmol/L (3.5-5.1) Chloride Level 98 mmol/L (98-107) Carbon Dioxide Level 29 mmol/L (21-32) Anion Gap 11 (6-14) Blood Urea Nitrogen 65 mg/dL (8-26) Creatinine 4.7 mg/dL (0.7-1.3) Estimated GFR (Cockcroft-Gault) 13.3 BUN/Creatinine Ratio 14 (6-20) Glucose Level 198 mg/dL (70-99) Calcium Level 7.7 mg/dL (8.5-10.1) Total Bilirubin 0.3 mg/dL (0.2-1.0) Aspartate Amino Transf (AST/SGOT) 33 U/L (15-37) Alanine Aminotransferase (ALT/SGPT) 63 U/L (16-63) Alkaline Phosphatase 287 U/L (46-116) Troponin I Quantitative < 0.017 ng/mL (0.000-0.055) HY-Ule-I-Type Natriuretic Peptide 4072 pg/mL (0-124) Total Protein 7.5 g/dL (6.4-8.2) Albumin 2.7 g/dL (3.4-5.0) Albumin/Globulin Ratio 0.6 (1.0-1.7) Glucose (Fingerstick) 145 mg/dL (70-99) 193 mg/dL (70-99) IMAGES IMAGES cxr - IMPRESSION: Moderate streaky bibasilar atelectasis and/or pneumonitis. EKG EKG sinus rhythm with no acute abn. ECHOCARDIOGRAM ECHOCARDIOGRAM pending ASSESSMENT/PLAN ASSESSMENT/PLAN 1. chest pain, atypical - CE neg x 1, repeat, EKG without acute abnormalities, FLAVIO pending. consider VQ. 2. staph bacteremia - per PCP/ID 3. elevated BNP in the setting of ESRD on HD. dialysis for fluid balance. echo pending. 4. ESRD/HD - per Renal Problems: WILLIAM SILVA MD 06/04/17 0192: CARDIAC CONSULT ALLERGIES ALLERGIES: Coded Allergies: No Known Drug Allergies (Unverified , 02/07/16) ASSESSMENT/PLAN ASSESSMENT/PLAN Pt. seen and examined. Agree with above [employer] WE[employer] MANAGER note. No acute issues today. Normal cardiac exam. No evidence of endocarditis by FLAVIO. Supportive care for now. Pls call with questions. Problems: ROSA MACIAS DIRECTOR OF [employer] Jun 04, 2017 13:33 WILLIAM SILVA MD Jun 04, 2017 23:29
--- NOTE | 2017-06-04 14:06 | PDOC ---
PULMONARY PROGRESS NOTES Vitals Vital Signs Date Time Temp Pulse Resp B/P (MAP) Pulse Ox O2 Delivery O2 Flow Rate FiO2 06/04/17 11:00 98.0 87 18 85/45 (58) 96 Nasal Cannula 3.0 98.0 Lungs: Clear Labs Laboratory Tests Test 06/03/17 17:45 06/03/17 21:06 06/04/17 10:23 White Blood Count 6.4 x10^3/uL (4.0-11.0) Red Blood Count 3.16 x10^6/uL (4.30-5.70) Hemoglobin 10.2 g/dL (13.0-17.5) Hematocrit 30.4 % (39.0-53.0) Mean Corpuscular Volume 97 fL (79-100) Mean Corpuscular Hemoglobin 32 pg (25-35) Mean Corpuscular Hemoglobin Concent 33 g/dL (31-37) Red Cell Distribution Width 14.7 % (11.5-14.5) Platelet Count 228 x10^3/uL (140-400) Neutrophils (%) (Auto) 72 % (31-73) Lymphocytes (%) (Auto) 13 % (24-48) Monocytes (%) (Auto) 11 % (0-9) Eosinophils (%) (Auto) 3 % (0-3) Basophils (%) (Auto) 1 % (0-3) Neutrophils # (Auto) 4.6 x10^3uL (1.8-7.7) Lymphocytes # (Auto) 0.9 x10^3/uL (1.0-4.8) Monocytes # (Auto) 0.7 x10^3/uL (0.0-1.1) Eosinophils # (Auto) 0.2 x10^3/uL (0.0-0.7) Basophils # (Auto) 0.1 x10^3/uL (0.0-0.2) D-Dimer (Kari) 3.46 ug/mlFEU (0.00-0.50) Sodium Level 138 mmol/L (136-145) Potassium Level 3.5 mmol/L (3.5-5.1) Chloride Level 98 mmol/L (98-107) Carbon Dioxide Level 29 mmol/L (21-32) Anion Gap 11 (6-14) Blood Urea Nitrogen 65 mg/dL (8-26) Creatinine 4.7 mg/dL (0.7-1.3) Estimated GFR (Cockcroft-Gault) 13.3 BUN/Creatinine Ratio 14 (6-20) Glucose Level 198 mg/dL (70-99) Calcium Level 7.7 mg/dL (8.5-10.1) Total Bilirubin 0.3 mg/dL (0.2-1.0) Aspartate Amino Transf (AST/SGOT) 33 U/L (15-37) Alanine Aminotransferase (ALT/SGPT) 63 U/L (16-63) Alkaline Phosphatase 287 U/L (46-116) Troponin I Quantitative < 0.017 ng/mL (0.000-0.055) GU-Xjb-N-Type Natriuretic Peptide 4072 pg/mL (0-124) Total Protein 7.5 g/dL (6.4-8.2) Albumin 2.7 g/dL (3.4-5.0) Albumin/Globulin Ratio 0.6 (1.0-1.7) Glucose (Fingerstick) 145 mg/dL (70-99) 193 mg/dL (70-99) Laboratory Tests Test 06/03/17 17:45 06/03/17 21:06 06/04/17 10:23 White Blood Count 6.4 x10^3/uL (4.0-11.0) Red Blood Count 3.16 x10^6/uL (4.30-5.70) Hemoglobin 10.2 g/dL (13.0-17.5) Hematocrit 30.4 % (39.0-53.0) Mean Corpuscular Volume 97 fL (79-100) Mean Corpuscular Hemoglobin 32 pg (25-35) Mean Corpuscular Hemoglobin Concent 33 g/dL (31-37) Red Cell Distribution Width 14.7 % (11.5-14.5) Platelet Count 228 x10^3/uL (140-400) Neutrophils (%) (Auto) 72 % (31-73) Lymphocytes (%) (Auto) 13 % (24-48) Monocytes (%) (Auto) 11 % (0-9) Eosinophils (%) (Auto) 3 % (0-3) Basophils (%) (Auto) 1 % (0-3) Neutrophils # (Auto) 4.6 x10^3uL (1.8-7.7) Lymphocytes # (Auto) 0.9 x10^3/uL (1.0-4.8) Monocytes # (Auto) 0.7 x10^3/uL (0.0-1.1) Eosinophils # (Auto) 0.2 x10^3/uL (0.0-0.7) Basophils # (Auto) 0.1 x10^3/uL (0.0-0.2) D-Dimer (Kari) 3.46 ug/mlFEU (0.00-0.50) Sodium Level 138 mmol/L (136-145) Potassium Level 3.5 mmol/L (3.5-5.1) Chloride Level 98 mmol/L (98-107) Carbon Dioxide Level 29 mmol/L (21-32) Anion Gap 11 (6-14) Blood Urea Nitrogen 65 mg/dL (8-26) Creatinine 4.7 mg/dL (0.7-1.3) Estimated GFR (Cockcroft-Gault) 13.3 BUN/Creatinine Ratio 14 (6-20) Glucose Level 198 mg/dL (70-99) Calcium Level 7.7 mg/dL (8.5-10.1) Total Bilirubin 0.3 mg/dL (0.2-1.0) Aspartate Amino Transf (AST/SGOT) 33 U/L (15-37) Alanine Aminotransferase (ALT/SGPT) 63 U/L (16-63) Alkaline Phosphatase 287 U/L (46-116) Troponin I Quantitative < 0.017 ng/mL (0.000-0.055) AW-Yeb-S-Type Natriuretic Peptide 4072 pg/mL (0-124) Total Protein 7.5 g/dL (6.4-8.2) Albumin 2.7 g/dL (3.4-5.0) Albumin/Globulin Ratio 0.6 (1.0-1.7) Glucose (Fingerstick) 145 mg/dL (70-99) 193 mg/dL (70-99) Medications Active Scripts Medications Dose Route/Sig Max Daily Dose Days Date Category Renvela (Sevelamer Carbonate) 800 Mg Tablet 800 Mg PO TIDWMEALS 06/03/17 Reported Lantus Solostar (Insulin Glargine,Hum.rec.anlog) 100 Unit/1 Ml Insuln.pen 10 Unit SQ QHS 06/03/17 Reported Fish Oil 1,000 Mg Capsule (Mora-3 Fatty Acids/Fish Oil) 1 Each Capsule 2 Each PO BID 06/03/17 Reported Aspir 81 (Aspirin) 81 Mg Tablet.dr 1 Tab PO DAILY 11/22/15 Reported Sodium Bicarbonate 650 Mg Tablet 1,300 Mg PO TID 08/28/14 Reported Gabapentin 300 Mg Capsule 300 Mg PO TID 08/28/14 Reported Comments CXR IMPRESSION: Moderate streaky bibasilar atelectasis and/or pneumonitis. Impression . DYSPNEA SUSPECT FLUID OVERLOAD ESRD ON HD BACTEREMIA UTI PLEURISY Plan . FLAVIO NEGATIVE FLUID BALANCE ANTIBX NSAIDS FOR PAIN ARIADNE RODRIGUEZ MD Jun 04, 2017 14:06
[2017-06-04] MEDS: VANCOMYCIN PER PHARMACY MC PRN (14:14)
[2017-06-04 15:00] VITALS: BP 77/59
[2017-06-04] MEDS ORDERED: BENZOCAINE ONE 20% MUCOSAL SPRAY. MM (16:00)
[2017-06-04] MEDS ORDERED: LIDOCAINE 2% VISCOUS 15 ML SOLUTION. SWSW ONE (16:00)
[2017-06-04] MEDS ORDERED: LIDOCAINE 2% TOPICAL JELLY 30GM TUBE. TP ONE (16:00)
[2017-06-04] MEDS ORDERED: PROPOFOL 20 ML IV ONE (16:22)
[2017-06-04] MEDS ORDERED: IV NORMAL SALINE 1000ML BAG 1,000 ML IV PRN ×2 (17:09)
[2017-06-04] MEDS ORDERED: LIDOCAINE 1% PF 2 ML VIAL. INJ STA (17:12)
[2017-06-04] MEDS ORDERED: ALBUMIN HUMAN 25% 200 ML IV PRN (17:15)
[2017-06-04] MEDS ORDERED: DIALYSIS PATIENT. MC PRN (17:15)
[2017-06-04] MEDS: INSULIN DETEMIR 300 UNITS/3 ML INSULN.PEN. SQ SCH (22:30)
[2017-06-04 23:30] VITALS: BP 115/59
[2017-06-05 03:35] VITALS: BP 108/56
[2017-06-05] MEDS: HEPARIN PF for SUB-Q USE 5,000 UNIT/0.5 ML VIAL. SQ SCH ×3 (05:22→21:59)
[2017-06-05 06:52] LABS: HEMATOCRIT 31.2 % (39.0-53.0); HEMOGLOBIN 10.2 g/dL (13.0-17.5); RED BLOOD COUNT 3.23 x10^6/uL (4.30-5.70); RED CELL DISTRIBUTION WIDTH 14.9 % (11.5-14.5); WHITE BLOOD COUNT 6.1 x10^3/uL (4.0-11.0)
[2017-06-05 07:00] VITALS: BP 107/61
[2017-06-05 07:06] LABS: ALBUMIN 2.3 g/dL (3.4-5.0); CALCIUM 7.7 mg/dL (8.5-10.1); CREATININE 3.2 mg/dL (0.7-1.3); GFR 20.7; PHOSPHORUS 4.5 mg/dL (2.6-4.7); POTASSIUM 3.9 mmol/L (3.5-5.1)
--- NOTE | 2017-06-05 07:58 | CARD ---
APPROVED REPORT EXAM: Transesophageal echocardiogram with color flow Doppler. INDICATION Infection:Rule out subacute bacterial endocarditis Reason For Test : Rule out endocarditis. PROCEDURE After obtaining informed consent, patient underwent transesophageal echo in the PACU. Type of Sedation : General Anesthesia Sedation was provided by anesthesiologist, see EMR for medications administered. Transesophageal probe was inserted and advanced into esophagus by Bill Mantilla MD. The FLAVIO was performed without complications. Throughout the procedure, the blood pressure, pulse oximetry, cardiac rhythm, and rate were monitored . LEFT VENTRICLE The left ventricle is normal size. There is normal left ventricular wall thickness. Left ventricle sy stolic function is normal. The Ejection Fraction is 50-55%. There is normal LV segmental wall motion. RIGHT VENTRICLE The right ventricle is normal size. The right ventricular systolic function is normal. ATRIA The left atrium size is normal. The right atrium size is normal. The interatrial septum is intact wit h no evidence for an atrial septal defect or patent foramen ovale as noted on 2-D or Doppler imaging. There is no thrombus noted in the left atrial appendage. AORTIC VALVE The aortic valve is normal in structure and function. The aortic valve is trileaflet. Doppler and Col or Flow revealed no significant aortic regurgitation. There is no aortic valvular vegetation. MITRAL VALVE The mitral valve is normal in structure. No mitral valve vegetation seen. Doppler and Color Flow reve aled mild mitral regurgitation involving A1- P1. TRICUSPID VALVE The tricuspid valve is normal in structure and function. Doppler and Color Flow revealed mild tricusp id regurgitation. There is no tricuspid valve vegetation. PULMONIC VALVE The pulmonic valve is not well visualized. Doppler and Color Flow revealed no pulmonic valvular regur gitation. GREAT VESSELS The aortic root is normal in size. The ascending aorta is normal in size. Normal pulmonary venous jordan w (Doppler). The IVC was visualized and appears normal in size. The SVC was visualized and appears no rmal in size. Critical Notification Critical Value: No <Conclusion> Left ventricle systolic function is normal. The Ejection Fraction is 50-55%. No evidence of vegetation.
--- NOTE | 2017-06-05 08:21 | PDOC ---
Infectious Disease Note Subjective Subjective feeling good ROS ROS GEN: Denies fevers, chills, sweats HEENT: Denies blurred vision, sore throat CV: Denies chest pain RESP: Denies shortness of air, cough GI: Denies n/v/d NEURO: Denies confusion, dizziness MSK: Denies weakness, joint pain/swelling Vital Sign Vital Signs Vital Signs Date Time Temp Pulse Resp B/P (MAP) Pulse Ox O2 Delivery O2 Flow Rate FiO2 06/05/17 07:00 98.0 78 18 107/61 (76) 95 Room Air 98.0 06/04/17 21:00 2.0 Physical Exam PHYSICAL EXAM GENERAL: NAD, Alert HEENT: PERRL, OC/OP NECK: Supple, no JVD, no LN LUNGS: Clear HEART: S1S2, no gallop, no murmur ABD: Soft, NT, no organomegaly, no rebound EXT: No edema, no cyanosis,, upper ext ssi, healing lesions 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, oriented x 3, no focal neurologic deficit SKIN: No rash IV: ok Labs Lab Laboratory Tests Test 06/04/17 10:23 06/04/17 16:55 06/04/17 22:27 06/05/17 06:25 Glucose (Fingerstick) 193 mg/dL (70-99) 101 mg/dL (70-99) 247 mg/dL (70-99) White Blood Count 6.1 x10^3/uL (4.0-11.0) Red Blood Count 3.23 x10^6/uL (4.30-5.70) Hemoglobin 10.2 g/dL (13.0-17.5) Hematocrit 31.2 % (39.0-53.0) Mean Corpuscular Volume 97 fL (79-100) Mean Corpuscular Hemoglobin 32 pg (25-35) Mean Corpuscular Hemoglobin Concent 33 g/dL (31-37) Red Cell Distribution Width 14.9 % (11.5-14.5) Platelet Count 267 x10^3/uL (140-400) Sodium Level 139 mmol/L (136-145) Potassium Level 3.9 mmol/L (3.5-5.1) Chloride Level 101 mmol/L (98-107) Carbon Dioxide Level 27 mmol/L (21-32) Anion Gap 11 (6-14) Blood Urea Nitrogen 43 mg/dL (8-26) Creatinine 3.2 mg/dL (0.7-1.3) Estimated GFR (Cockcroft-Gault) 20.7 Glucose Level 161 mg/dL (70-99) Calcium Level 7.7 mg/dL (8.5-10.1) Phosphorus Level 4.5 mg/dL (2.6-4.7) Magnesium Level 1.9 mg/dL (1.8-2.4) Albumin 2.3 g/dL (3.4-5.0) Micro BC MRSA Objective Assessment Staph Aureus bacteremia likely from skin lesions ESRD Fever Vol overload Chronic galindo cath DM HTN Drug use Plan Plan of Care vanc for 4 wks,, cipro for 5 days repeat culture pending FLAVIO neg STANLEY GENAO MD Jun 05, 2017 08:21
[2017-06-05] MEDS: SODIUM BICARBONATE 650 MG TABLET. PO SCH ×3 (08:33→20:38)
[2017-06-05] MEDS: SEVELAMER CARBONATE 800 MG TABLET. PO SCH ×3 (08:33→16:55)
[2017-06-05] MEDS ORDERED: LIDOCAINE 1% PF 2 ML VIAL. ONE ×2 (09:25→09:30)
[2017-06-05] MEDS ORDERED: IV NORMAL SALINE 1000ML BAG 1,000 ML IV PRN (09:44)
[2017-06-05] MEDS ORDERED: DIALYSIS PATIENT. MC PRN ×2 (09:45)
[2017-06-05] MEDS ORDERED: diphenhydrAMINE 50 MG/ML VIAL IV PRN ×2 (09:45)
--- NOTE | 2017-06-05 10:03 | PDOC ---
SUBJECTIVE Subjective He was seen in dialysis today, he is feeling better and having less pain OBJECTIVE Vital Signs Vital Signs Date Time Temp Pulse Resp B/P (MAP) Pulse Ox O2 Delivery O2 Flow Rate FiO2 06/05/17 07:00 98.0 78 18 107/61 (76) 95 Room Air 98.0 06/05/17 03:35 97.9 78 18 108/56 (73) 92 Room Air 97.9 06/04/17 23:30 98.1 82 18 115/59 (77) 91 Room Air 98.1 06/04/17 21:00 Room Air 2.0 06/04/17 17:00 Room Air 06/04/17 16:56 76 20 112/48 90 Room Air 06/04/17 16:41 Nasal Cannula 2 06/04/17 16:41 76 20 109/49 96 Nasal Cannula 2 06/04/17 15:42 76 20 126/61 94 Room Air 06/04/17 15:00 97.6 80 18 77/59 (65) 94 Nasal Cannula 97.6 06/04/17 11:00 98.0 87 18 85/45 (58) 96 Nasal Cannula 3.0 98.0 I & O Intake and Output 06/05/17 07:00 Intake Total 1520 ml Output Total 895 ml Balance 625 ml Intake Oral 1420 ml IV Total 100 ml Output Urine Total 895 ml PHYSICAL EXAM Physical Exam Lungs fairly clear upper lobes heart regular rate and rhythm abdomen soft and extremities no edema ASSESSMENT/PLAN Assessment/Plan -bacteremia with staph aureus, source of infection can be his right upper extremity on Vanco 2-UTI on cipro 3-shortness of breath likely due to fluid overload improved 4-end-stage renal disease on dialysis 5- chest pain , better FLAVIO neg plan to discharge when dosing of vancomycin is regulated plans for 4 weeks vanco noted hope can be dosed in dialysis without pic line placement Problems: COMMENT Lab Laboratory Tests Test 06/04/17 10:23 06/04/17 16:55 06/04/17 22:27 06/05/17 06:25 Glucose (Fingerstick) 193 mg/dL (70-99) 101 mg/dL (70-99) 247 mg/dL (70-99) White Blood Count 6.1 x10^3/uL (4.0-11.0) Red Blood Count 3.23 x10^6/uL (4.30-5.70) Hemoglobin 10.2 g/dL (13.0-17.5) Hematocrit 31.2 % (39.0-53.0) Mean Corpuscular Volume 97 fL (79-100) Mean Corpuscular Hemoglobin 32 pg (25-35) Mean Corpuscular Hemoglobin Concent 33 g/dL (31-37) Red Cell Distribution Width 14.9 % (11.5-14.5) Platelet Count 267 x10^3/uL (140-400) Erythrocyte Sedimentation Rate 107 (0-15) Sodium Level 139 mmol/L (136-145) Potassium Level 3.9 mmol/L (3.5-5.1) Chloride Level 101 mmol/L (98-107) Carbon Dioxide Level 27 mmol/L (21-32) Anion Gap 11 (6-14) Blood Urea Nitrogen 43 mg/dL (8-26) Creatinine 3.2 mg/dL (0.7-1.3) Estimated GFR (Cockcroft-Gault) 20.7 Glucose Level 161 mg/dL (70-99) Calcium Level 7.7 mg/dL (8.5-10.1) Phosphorus Level 4.5 mg/dL (2.6-4.7) Magnesium Level 1.9 mg/dL (1.8-2.4) Albumin 2.3 g/dL (3.4-5.0) JACOB STANLEY MD Jun 05, 2017 10:03
--- NOTE | 2017-06-05 10:28 | PDOC ---
Dialysis Progress Note Dialysis Note Dialysis Note Seen on Hemodialysis, tolerating treatment Well Vitals on Hemodialysis: 131/62 77 afeb General Appearance: Awake: Alert Oriented x 3 Neck: No JVD or JVP Chest: CTA Be Heart: S1 S2 Abdomen - Soft NTND Extremities - No Edema ESRD: Dialysis as below F 180 NR 3.5 Hrs 3 K 2.5 Ca 140 Na [id number] Qb 350 + Qd 500+ Heparin 0 Units Uf 3-4 Kgs or to dry weight as tolerated May give 25-50 gms of 25% Albumin if needed to maintain Hemodynamic stability Treatment plan reviewed and discussed with iron worker foreman [ ] Vitals Vital Signs Vital Signs Date Time Temp Pulse Resp B/P (MAP) Pulse Ox O2 Delivery O2 Flow Rate FiO2 06/05/17 07:00 98.0 78 18 107/61 (76) 95 Room Air 98.0 06/04/17 21:00 2.0 Labs Last Labs Laboratory Tests Test 06/03/17 17:45 06/03/17 21:06 06/04/17 10:23 06/04/17 16:55 White Blood Count 6.4 x10^3/uL (4.0-11.0) Red Blood Count 3.16 x10^6/uL (4.30-5.70) Hemoglobin 10.2 g/dL (13.0-17.5) Hematocrit 30.4 % (39.0-53.0) Mean Corpuscular Volume 97 fL (79-100) Mean Corpuscular Hemoglobin 32 pg (25-35) Mean Corpuscular Hemoglobin Concent 33 g/dL (31-37) Red Cell Distribution Width 14.7 % (11.5-14.5) Platelet Count 228 x10^3/uL (140-400) Neutrophils (%) (Auto) 72 % (31-73) Lymphocytes (%) (Auto) 13 % (24-48) Monocytes (%) (Auto) 11 % (0-9) Eosinophils (%) (Auto) 3 % (0-3) Basophils (%) (Auto) 1 % (0-3) Neutrophils # (Auto) 4.6 x10^3uL (1.8-7.7) Lymphocytes # (Auto) 0.9 x10^3/uL (1.0-4.8) Monocytes # (Auto) 0.7 x10^3/uL (0.0-1.1) Eosinophils # (Auto) 0.2 x10^3/uL (0.0-0.7) Basophils # (Auto) 0.1 x10^3/uL (0.0-0.2) D-Dimer (Kari) 3.46 ug/mlFEU (0.00-0.50) Sodium Level 138 mmol/L (136-145) Potassium Level 3.5 mmol/L (3.5-5.1) Chloride Level 98 mmol/L (98-107) Carbon Dioxide Level 29 mmol/L (21-32) Anion Gap 11 (6-14) Blood Urea Nitrogen 65 mg/dL (8-26) Creatinine 4.7 mg/dL (0.7-1.3) Estimated GFR (Cockcroft-Gault) 13.3 BUN/Creatinine Ratio 14 (6-20) Glucose Level 198 mg/dL (70-99) Calcium Level 7.7 mg/dL (8.5-10.1) Total Bilirubin 0.3 mg/dL (0.2-1.0) Aspartate Amino Transf (AST/SGOT) 33 U/L (15-37) Alanine Aminotransferase (ALT/SGPT) 63 U/L (16-63) Alkaline Phosphatase 287 U/L (46-116) Troponin I Quantitative < 0.017 ng/mL (0.000-0.055) FB-Seg-G-Type Natriuretic Peptide 4072 pg/mL (0-124) Total Protein 7.5 g/dL (6.4-8.2) Albumin 2.7 g/dL (3.4-5.0) Albumin/Globulin Ratio 0.6 (1.0-1.7) Glucose (Fingerstick) 145 mg/dL (70-99) 193 mg/dL (70-99) 101 mg/dL (70-99) Test 06/04/17 22:27 06/05/17 06:25 Glucose (Fingerstick) 247 mg/dL (70-99) White Blood Count 6.1 x10^3/uL (4.0-11.0) Red Blood Count 3.23 x10^6/uL (4.30-5.70) Hemoglobin 10.2 g/dL (13.0-17.5) Hematocrit 31.2 % (39.0-53.0) Mean Corpuscular Volume 97 fL (79-100) Mean Corpuscular Hemoglobin 32 pg (25-35) Mean Corpuscular Hemoglobin Concent 33 g/dL (31-37) Red Cell Distribution Width 14.9 % (11.5-14.5) Platelet Count 267 x10^3/uL (140-400) Erythrocyte Sedimentation Rate 107 (0-15) Sodium Level 139 mmol/L (136-145) Potassium Level 3.9 mmol/L (3.5-5.1) Chloride Level 101 mmol/L (98-107) Carbon Dioxide Level 27 mmol/L (21-32) Anion Gap 11 (6-14) Blood Urea Nitrogen 43 mg/dL (8-26) Creatinine 3.2 mg/dL (0.7-1.3) Estimated GFR (Cockcroft-Gault) 20.7 Glucose Level 161 mg/dL (70-99) Calcium Level 7.7 mg/dL (8.5-10.1) Phosphorus Level 4.5 mg/dL (2.6-4.7) Magnesium Level 1.9 mg/dL (1.8-2.4) Albumin 2.3 g/dL (3.4-5.0) Laboratory Tests Test 06/04/17 16:55 06/04/17 22:27 06/05/17 06:25 Glucose (Fingerstick) 101 mg/dL (70-99) 247 mg/dL (70-99) White Blood Count 6.1 x10^3/uL (4.0-11.0) Red Blood Count 3.23 x10^6/uL (4.30-5.70) Hemoglobin 10.2 g/dL (13.0-17.5) Hematocrit 31.2 % (39.0-53.0) Mean Corpuscular Volume 97 fL (79-100) Mean Corpuscular Hemoglobin 32 pg (25-35) Mean Corpuscular Hemoglobin Concent 33 g/dL (31-37) Red Cell Distribution Width 14.9 % (11.5-14.5) Platelet Count 267 x10^3/uL (140-400) Erythrocyte Sedimentation Rate 107 (0-15) Sodium Level 139 mmol/L (136-145) Potassium Level 3.9 mmol/L (3.5-5.1) Chloride Level 101 mmol/L (98-107) Carbon Dioxide Level 27 mmol/L (21-32) Anion Gap 11 (6-14) Blood Urea Nitrogen 43 mg/dL (8-26) Creatinine 3.2 mg/dL (0.7-1.3) Estimated GFR (Cockcroft-Gault) 20.7 Glucose Level 161 mg/dL (70-99) Calcium Level 7.7 mg/dL (8.5-10.1) Phosphorus Level 4.5 mg/dL (2.6-4.7) Magnesium Level 1.9 mg/dL (1.8-2.4) Albumin 2.3 g/dL (3.4-5.0) KAYKAY GENAO MD Jun 05, 2017 10:28
[2017-06-05] MEDS: VANCOMYCIN PER PHARMACY MC PRN (13:07)
[2017-06-05] MEDS: CIPROFLOXACIN HCL 250 MG TABLET. PO SCH ×2 (14:05→20:38)
[2017-06-05] MEDS: OMEGA-3 FATTY ACIDS/FISH OIL 1,000 MG CAPSULE. PO SCH ×2 (14:05→20:38)
[2017-06-05] MEDS: GABAPENTIN 300 MG CAPSULE. PO SCH ×3 (14:05→20:38)
[2017-06-05] MEDS: ASPIRIN ENTERIC COATED 81 MG TABLET.DR. PO SCH (14:06)
[2017-06-05 14:47] VITALS: BP 102/72
[2017-06-05] MEDS ORDERED: VANCOMYCIN 500 MG in IV NORMAL SALINE 100ML 100 ML IV SCH (16:00)
--- NOTE | 2017-06-05 16:27 | PDOC ---
PULMONARY PROGRESS NOTES Subjective pt with no increase caitie feels better Vitals Vital Signs Date Time Temp Pulse Resp B/P (MAP) Pulse Ox O2 Delivery O2 Flow Rate FiO2 06/05/17 14:47 96.4 93 18 102/72 (82) 99 Room Air 96.4 06/04/17 21:00 2.0 ROS: No Nausea, No Chest Pain, No Abdominal Pain, No Increase Cough General: Alert Lungs: Clear, Crackles Cardiovascular: S1, S2 Abdomen: Soft, Non-tender Neuro Exam: Alert Extremities: No Edema Skin: Warm Labs Laboratory Tests Test 06/03/17 17:45 06/03/17 21:06 06/04/17 10:23 06/04/17 16:55 White Blood Count 6.4 x10^3/uL (4.0-11.0) Red Blood Count 3.16 x10^6/uL (4.30-5.70) Hemoglobin 10.2 g/dL (13.0-17.5) Hematocrit 30.4 % (39.0-53.0) Mean Corpuscular Volume 97 fL (79-100) Mean Corpuscular Hemoglobin 32 pg (25-35) Mean Corpuscular Hemoglobin Concent 33 g/dL (31-37) Red Cell Distribution Width 14.7 % (11.5-14.5) Platelet Count 228 x10^3/uL (140-400) Neutrophils (%) (Auto) 72 % (31-73) Lymphocytes (%) (Auto) 13 % (24-48) Monocytes (%) (Auto) 11 % (0-9) Eosinophils (%) (Auto) 3 % (0-3) Basophils (%) (Auto) 1 % (0-3) Neutrophils # (Auto) 4.6 x10^3uL (1.8-7.7) Lymphocytes # (Auto) 0.9 x10^3/uL (1.0-4.8) Monocytes # (Auto) 0.7 x10^3/uL (0.0-1.1) Eosinophils # (Auto) 0.2 x10^3/uL (0.0-0.7) Basophils # (Auto) 0.1 x10^3/uL (0.0-0.2) D-Dimer (Kari) 3.46 ug/mlFEU (0.00-0.50) Sodium Level 138 mmol/L (136-145) Potassium Level 3.5 mmol/L (3.5-5.1) Chloride Level 98 mmol/L (98-107) Carbon Dioxide Level 29 mmol/L (21-32) Anion Gap 11 (6-14) Blood Urea Nitrogen 65 mg/dL (8-26) Creatinine 4.7 mg/dL (0.7-1.3) Estimated GFR (Cockcroft-Gault) 13.3 BUN/Creatinine Ratio 14 (6-20) Glucose Level 198 mg/dL (70-99) Calcium Level 7.7 mg/dL (8.5-10.1) Total Bilirubin 0.3 mg/dL (0.2-1.0) Aspartate Amino Transf (AST/SGOT) 33 U/L (15-37) Alanine Aminotransferase (ALT/SGPT) 63 U/L (16-63) Alkaline Phosphatase 287 U/L (46-116) Troponin I Quantitative < 0.017 ng/mL (0.000-0.055) JW-Riu-Y-Type Natriuretic Peptide 4072 pg/mL (0-124) Total Protein 7.5 g/dL (6.4-8.2) Albumin 2.7 g/dL (3.4-5.0) Albumin/Globulin Ratio 0.6 (1.0-1.7) Glucose (Fingerstick) 145 mg/dL (70-99) 193 mg/dL (70-99) 101 mg/dL (70-99) Test 06/04/17 22:27 06/05/17 06:25 Glucose (Fingerstick) 247 mg/dL (70-99) White Blood Count 6.1 x10^3/uL (4.0-11.0) Red Blood Count 3.23 x10^6/uL (4.30-5.70) Hemoglobin 10.2 g/dL (13.0-17.5) Hematocrit 31.2 % (39.0-53.0) Mean Corpuscular Volume 97 fL (79-100) Mean Corpuscular Hemoglobin 32 pg (25-35) Mean Corpuscular Hemoglobin Concent 33 g/dL (31-37) Red Cell Distribution Width 14.9 % (11.5-14.5) Platelet Count 267 x10^3/uL (140-400) Erythrocyte Sedimentation Rate 107 (0-15) Sodium Level 139 mmol/L (136-145) Potassium Level 3.9 mmol/L (3.5-5.1) Chloride Level 101 mmol/L (98-107) Carbon Dioxide Level 27 mmol/L (21-32) Anion Gap 11 (6-14) Blood Urea Nitrogen 43 mg/dL (8-26) Creatinine 3.2 mg/dL (0.7-1.3) Estimated GFR (Cockcroft-Gault) 20.7 Glucose Level 161 mg/dL (70-99) Calcium Level 7.7 mg/dL (8.5-10.1) Phosphorus Level 4.5 mg/dL (2.6-4.7) Magnesium Level 1.9 mg/dL (1.8-2.4) Albumin 2.3 g/dL (3.4-5.0) Random Vancomycin Level 25.0 mcg/mL Laboratory Tests Test 06/04/17 16:55 06/04/17 22:27 06/05/17 06:25 Glucose (Fingerstick) 101 mg/dL (70-99) 247 mg/dL (70-99) White Blood Count 6.1 x10^3/uL (4.0-11.0) Red Blood Count 3.23 x10^6/uL (4.30-5.70) Hemoglobin 10.2 g/dL (13.0-17.5) Hematocrit 31.2 % (39.0-53.0) Mean Corpuscular Volume 97 fL (79-100) Mean Corpuscular Hemoglobin 32 pg (25-35) Mean Corpuscular Hemoglobin Concent 33 g/dL (31-37) Red Cell Distribution Width 14.9 % (11.5-14.5) Platelet Count 267 x10^3/uL (140-400) Erythrocyte Sedimentation Rate 107 (0-15) Sodium Level 139 mmol/L (136-145) Potassium Level 3.9 mmol/L (3.5-5.1) Chloride Level 101 mmol/L (98-107) Carbon Dioxide Level 27 mmol/L (21-32) Anion Gap 11 (6-14) Blood Urea Nitrogen 43 mg/dL (8-26) Creatinine 3.2 mg/dL (0.7-1.3) Estimated GFR (Cockcroft-Gault) 20.7 Glucose Level 161 mg/dL (70-99) Calcium Level 7.7 mg/dL (8.5-10.1) Phosphorus Level 4.5 mg/dL (2.6-4.7) Magnesium Level 1.9 mg/dL (1.8-2.4) Albumin 2.3 g/dL (3.4-5.0) Random Vancomycin Level 25.0 mcg/mL Medications Active Scripts Medications Dose Route/Sig Max Daily Dose Days Date Category Renvela (Sevelamer Carbonate) 800 Mg Tablet 800 Mg PO TIDWMEALS 06/03/17 Reported Lantus Solostar (Insulin Glargine,Hum.rec.anlog) 100 Unit/1 Ml Insuln.pen 10 Unit SQ QHS 06/03/17 Reported Fish Oil 1,000 Mg Capsule (Orofino-3 Fatty Acids/Fish Oil) 1 Each Capsule 2 Each PO BID 06/03/17 Reported Aspir 81 (Aspirin) 81 Mg Tablet.dr 1 Tab PO DAILY 11/22/15 Reported Sodium Bicarbonate 650 Mg Tablet 1,300 Mg PO TID 08/28/14 Reported Gabapentin 300 Mg Capsule 300 Mg PO TID 08/28/14 Reported Comments CXR IMPRESSION: Moderate streaky bibasilar atelectasis and/or pneumonitis. Impression . DYSPNEA SUSPECT FLUID OVERLOAD ESRD ON HD BACTEREMIA UTI PLEURISY [place] Plan . CAXR REVIEWED NO SIGNIFICANT EDEMA FLAVIO NEGATIVE NEGATIVE FLUID BALANCE ANTIBX PER ID NSAIDS FOR PAIN ARIADNE RODRIGUEZ MD Jun 05, 2017 16:27
[2017-06-05 19:35] VITALS: BP 97/57
[2017-06-05] MEDS: INSULIN DETEMIR 300 UNITS/3 ML INSULN.PEN. SQ SCH (21:29)
[2017-06-05 23:35] VITALS: BP 94/60
[2017-06-06 03:35] VITALS: BP 93/62
[2017-06-06] MEDS ORDERED: VANCOMYCIN RANDOM LEVEL. MC ONE (06:00)
[2017-06-06] MEDS: HEPARIN PF for SUB-Q USE 5,000 UNIT/0.5 ML VIAL. SQ SCH ×3 (06:00→22:00)
[2017-06-06 06:47] LABS: ALBUMIN 2.4 g/dL (3.4-5.0); CALCIUM 7.7 mg/dL (8.5-10.1); CREATININE 3.5 mg/dL (0.7-1.3); GFR 18.6; PHOSPHORUS 4.3 mg/dL (2.6-4.7); POTASSIUM 3.6 mmol/L (3.5-5.1)
[2017-06-06 07:00] VITALS: BP 136/72
--- NOTE | 2017-06-06 07:53 | PDOC ---
Infectious Disease Note Subjective Subjective feeling good ROS ROS GEN: Denies fevers, chills, sweats HEENT: Denies blurred vision, sore throat CV: Denies chest pain RESP: Denies shortness of air, cough GI: Denies n/v/d NEURO: Denies confusion, dizziness MSK: Denies weakness, joint pain/swelling Vital Sign Vital Signs Vital Signs Date Time Temp Pulse Resp B/P (MAP) Pulse Ox O2 Delivery O2 Flow Rate FiO2 06/06/17 03:35 98.4 82 18 93/62 (72) 93 Room Air 98.4 Physical Exam PHYSICAL EXAM GENERAL: NAD, Alert HEENT: PERRL, OC/OP NECK: Supple, no JVD, no LN LUNGS: Clear HEART: S1S2, no gallop, no murmur ABD: Soft, NT, no organomegaly, no rebound EXT: No edema, no cyanosis PROGRAM SERVICES ASSISTANT: Alert, oriented x 3, no focal neurologic deficit SKIN: No rash IV: ok Labs Lab Laboratory Tests Test 06/05/17 17:08 06/05/17 20:49 06/06/17 05:35 Glucose (Fingerstick) 390 mg/dL (70-99) 188 mg/dL (70-99) Sodium Level 139 mmol/L (136-145) Potassium Level 3.6 mmol/L (3.5-5.1) Chloride Level 99 mmol/L (98-107) Carbon Dioxide Level 31 mmol/L (21-32) Anion Gap 9 (6-14) Blood Urea Nitrogen 39 mg/dL (8-26) Creatinine 3.5 mg/dL (0.7-1.3) Estimated GFR (Cockcroft-Gault) 18.6 Glucose Level 198 mg/dL (70-99) Calcium Level 7.7 mg/dL (8.5-10.1) Phosphorus Level 4.3 mg/dL (2.6-4.7) Magnesium Level 1.8 mg/dL (1.8-2.4) Albumin 2.4 g/dL (3.4-5.0) Micro BC MRSA URINE CULTURE Final Final report URINE CULTURE RES 1 Final Citrobacter koseri Greater than 100,000 colony forming units per mL URINE CULTURE RES 2 Final Escherichia coli Greater than 100,000 colony forming units per mL ANTIMICROBIAL SUSCEPTIBILITY Final Comment S = Susceptible; I = Intermediate; R = Resistant P = Positive; N = Negative MICS are expressed in micrograms per mL Antibiotic RSLT#1 RSLT#2 RSLT#3 RSLT#4 Amoxicillin/Clavulanic Acid S S Ampicillin R Cefepime S S Ceftriaxone S S Cefuroxime S S Cephalothin S I Ciprofloxacin S S Ertapenem S S Gentamicin S R Imipenem S S Levofloxacin S S Nitrofurantoin S S Piperacillin R R Tetracycline S S Tobramycin S I Trimethoprim/Sulfa S S Performed at: [address] [id number] [employer] Room Helper: Gloria Reddy MD, Phone: [phone] Objective Assessment Staph Aureus bacteremia likely from skin lesions ESRD Fever Vol overload Chronic galindo cath DM HTN Drug use Plan Plan of Care vanc for 4 wks,, cipro for 5 days repeat culture pending FLAVIO neg STANLEY GENAO MD Jun 06, 2017 07:53
[2017-06-06] MEDS: ASPIRIN ENTERIC COATED 81 MG TABLET.DR. PO SCH (09:29)
[2017-06-06] MEDS: CIPROFLOXACIN HCL 250 MG TABLET. PO SCH ×2 (09:29→21:38)
[2017-06-06] MEDS: SEVELAMER CARBONATE 800 MG TABLET. PO SCH ×3 (09:29→18:45)
[2017-06-06] MEDS: GABAPENTIN 300 MG CAPSULE. PO SCH ×3 (09:29→21:38)
[2017-06-06] MEDS: SODIUM BICARBONATE 650 MG TABLET. PO SCH ×3 (09:29→21:38)
[2017-06-06] MEDS: OMEGA-3 FATTY ACIDS/FISH OIL 1,000 MG CAPSULE. PO SCH ×2 (09:29→21:38)
[2017-06-06 10:25] VITALS: BP 109/49
--- NOTE | 2017-06-06 14:00 | PDOC ---
SUBJECTIVE Subjective He feels fine and has no new complaints OBJECTIVE Vital Signs Vital Signs Date Time Temp Pulse Resp B/P (MAP) Pulse Ox O2 Delivery O2 Flow Rate FiO2 06/06/17 12:43 94 Room Air 06/06/17 10:25 98.5 77 17 109/49 (69) 98 Room Air 98.5 06/06/17 08:00 Room Air 06/06/17 07:00 98.3 84 17 136/72 (93) 92 Room Air 98.3 06/06/17 03:35 98.4 82 18 93/62 (72) 93 Room Air 98.4 06/05/17 23:35 97.6 81 18 94/60 (71) 94 Room Air 97.6 06/05/17 20:25 Room Air 06/05/17 19:35 98.3 85 18 97/57 (70) 92 Room Air 98.3 06/05/17 14:47 96.4 93 18 102/72 (82) 99 Room Air 96.4 I & O Intake and Output 06/06/17 07:00 Intake Total 1420 ml Output Total 150 ml Balance 1270 ml Intake Oral 1420 ml Output Urine Total 150 ml PHYSICAL EXAM Physical Exam Exam is stable, the lesions on his right hand is dried up and clearing ASSESSMENT/PLAN Assessment/Plan 1-bacteremia with staph aureus, source of infection can be his right upper extremity on Vanco 2-UTI on cipro 3-shortness of breath likely due to fluid overload improved 4-end-stage renal disease on dialysis 5- chest pain , better FLAVIO neg plan to discharge when dosing of vancomycin is regulated with hemodialysis he is now on vancomycin Thursday, if his Vanco level is therapeutic discharge soon when okay with infectious disease Problems: COMMENT Lab Laboratory Tests Test 06/05/17 17:08 06/05/17 20:49 06/06/17 05:35 06/06/17 08:01 Glucose (Fingerstick) 390 mg/dL (70-99) 188 mg/dL (70-99) 225 mg/dL (70-99) Sodium Level 139 mmol/L (136-145) Potassium Level 3.6 mmol/L (3.5-5.1) Chloride Level 99 mmol/L (98-107) Carbon Dioxide Level 31 mmol/L (21-32) Anion Gap 9 (6-14) Blood Urea Nitrogen 39 mg/dL (8-26) Creatinine 3.5 mg/dL (0.7-1.3) Estimated GFR (Cockcroft-Gault) 18.6 Glucose Level 198 mg/dL (70-99) Calcium Level 7.7 mg/dL (8.5-10.1) Phosphorus Level 4.3 mg/dL (2.6-4.7) Magnesium Level 1.8 mg/dL (1.8-2.4) Albumin 2.4 g/dL (3.4-5.0) Test 06/06/17 11:27 Glucose (Fingerstick) 213 mg/dL (70-99) JACOB STANLEY MD Jun 06, 2017 14:00
[2017-06-06 15:20] VITALS: BP 110/63
--- NOTE | 2017-06-06 16:13 | PDOC ---
PULMONARY PROGRESS NOTES Subjective pt with no increase caitie feels better Vitals Vital Signs Date Time Temp Pulse Resp B/P (MAP) Pulse Ox O2 Delivery O2 Flow Rate FiO2 06/06/17 15:20 98.7 77 14 110/63 (79) 98 Room Air 98.7 ROS: No Nausea, No Chest Pain, No Abdominal Pain, No Increase Cough General: Alert Lungs: Clear, Crackles Cardiovascular: S1, S2 Abdomen: Soft, Non-tender Neuro Exam: Alert Extremities: No Edema Skin: Warm Labs Laboratory Tests Test 06/04/17 16:55 06/04/17 22:27 06/05/17 06:25 06/05/17 17:08 Glucose (Fingerstick) 101 mg/dL (70-99) 247 mg/dL (70-99) 390 mg/dL (70-99) White Blood Count 6.1 x10^3/uL (4.0-11.0) Red Blood Count 3.23 x10^6/uL (4.30-5.70) Hemoglobin 10.2 g/dL (13.0-17.5) Hematocrit 31.2 % (39.0-53.0) Mean Corpuscular Volume 97 fL (79-100) Mean Corpuscular Hemoglobin 32 pg (25-35) Mean Corpuscular Hemoglobin Concent 33 g/dL (31-37) Red Cell Distribution Width 14.9 % (11.5-14.5) Platelet Count 267 x10^3/uL (140-400) Erythrocyte Sedimentation Rate 107 (0-15) Sodium Level 139 mmol/L (136-145) Potassium Level 3.9 mmol/L (3.5-5.1) Chloride Level 101 mmol/L (98-107) Carbon Dioxide Level 27 mmol/L (21-32) Anion Gap 11 (6-14) Blood Urea Nitrogen 43 mg/dL (8-26) Creatinine 3.2 mg/dL (0.7-1.3) Estimated GFR (Cockcroft-Gault) 20.7 Glucose Level 161 mg/dL (70-99) Calcium Level 7.7 mg/dL (8.5-10.1) Phosphorus Level 4.5 mg/dL (2.6-4.7) Magnesium Level 1.9 mg/dL (1.8-2.4) Albumin 2.3 g/dL (3.4-5.0) Random Vancomycin Level 25.0 mcg/mL Test 06/05/17 20:49 06/06/17 05:35 06/06/17 08:01 06/06/17 11:27 Glucose (Fingerstick) 188 mg/dL (70-99) 225 mg/dL (70-99) 213 mg/dL (70-99) Sodium Level 139 mmol/L (136-145) Potassium Level 3.6 mmol/L (3.5-5.1) Chloride Level 99 mmol/L (98-107) Carbon Dioxide Level 31 mmol/L (21-32) Anion Gap 9 (6-14) Blood Urea Nitrogen 39 mg/dL (8-26) Creatinine 3.5 mg/dL (0.7-1.3) Estimated GFR (Cockcroft-Gault) 18.6 Glucose Level 198 mg/dL (70-99) Calcium Level 7.7 mg/dL (8.5-10.1) Phosphorus Level 4.3 mg/dL (2.6-4.7) Magnesium Level 1.8 mg/dL (1.8-2.4) Albumin 2.4 g/dL (3.4-5.0) Laboratory Tests Test 06/05/17 17:08 06/05/17 20:49 06/06/17 05:35 06/06/17 08:01 Glucose (Fingerstick) 390 mg/dL (70-99) 188 mg/dL (70-99) 225 mg/dL (70-99) Sodium Level 139 mmol/L (136-145) Potassium Level 3.6 mmol/L (3.5-5.1) Chloride Level 99 mmol/L (98-107) Carbon Dioxide Level 31 mmol/L (21-32) Anion Gap 9 (6-14) Blood Urea Nitrogen 39 mg/dL (8-26) Creatinine 3.5 mg/dL (0.7-1.3) Estimated GFR (Cockcroft-Gault) 18.6 Glucose Level 198 mg/dL (70-99) Calcium Level 7.7 mg/dL (8.5-10.1) Phosphorus Level 4.3 mg/dL (2.6-4.7) Magnesium Level 1.8 mg/dL (1.8-2.4) Albumin 2.4 g/dL (3.4-5.0) Test 06/06/17 11:27 Glucose (Fingerstick) 213 mg/dL (70-99) Medications Active Scripts Medications Dose Route/Sig Max Daily Dose Days Date Category Renvela (Sevelamer Carbonate) 800 Mg Tablet 800 Mg PO TIDWMEALS 06/03/17 Reported Lantus Solostar (Insulin Glargine,Hum.rec.anlog) 100 Unit/1 Ml Insuln.pen 10 Unit SQ QHS 06/03/17 Reported Fish Oil 1,000 Mg Capsule ([place]-3 Fatty Acids/Fish Oil) 1 Each Capsule 2 Each PO BID 06/03/17 Reported Aspir 81 (Aspirin) 81 Mg Tablet.dr 1 Tab PO DAILY 11/22/15 Reported Sodium Bicarbonate 650 Mg Tablet 1,300 Mg PO TID 08/28/14 Reported Gabapentin 300 Mg Capsule 300 Mg PO TID 08/28/14 Reported Comments CXR IMPRESSION: Moderate streaky bibasilar atelectasis and/or pneumonitis. Impression . DYSPNEA SUSPECT FLUID OVERLOAD ESRD ON HD BACTEREMIA UTI PLEURISY [place] Plan . HOME OK WILL S/O THANKS CAXR REVIEWED NO SIGNIFICANT EDEMA FLAVIO NEGATIVE NEGATIVE FLUID BALANCE ANTIBX PER ID NSAIDS FOR PAIN ARIADNE RODRIGUEZ MD Jun 06, 2017 16:13
[2017-06-06 19:20] VITALS: BP 110/65
[2017-06-06] MEDS ORDERED: ZOLPIDEM 5 MG TABLET. PO PRN (21:15)
[2017-06-06] MEDS: INSULIN DETEMIR 300 UNITS/3 ML INSULN.PEN. SQ SCH (21:42)
[2017-06-06 23:20] VITALS: BP 116/71
[2017-06-07] MEDS ORDERED: CALCIUM CARBONATE 500 MG TAB.CHEW PO ONE (01:00)
[2017-06-07 03:04] VITALS: BP 112/68
[2017-06-07] MEDS: HEPARIN PF for SUB-Q USE 5,000 UNIT/0.5 ML VIAL. SQ SCH ×2 (06:00→14:00)
[2017-06-07 07:00] LABS: ALBUMIN 2.3 g/dL (3.4-5.0); CALCIUM 8.1 mg/dL (8.5-10.1); CREATININE 3.7 mg/dL (0.7-1.3); GFR 17.5; PHOSPHORUS 4.8 mg/dL (2.6-4.7); POTASSIUM 3.2 mmol/L (3.5-5.1)
[2017-06-07 07:56] VITALS: BP 105/60
[2017-06-07] MEDS: ASPIRIN ENTERIC COATED 81 MG TABLET.DR. PO SCH (09:55)
[2017-06-07] MEDS: OMEGA-3 FATTY ACIDS/FISH OIL 1,000 MG CAPSULE. PO SCH (09:56)
[2017-06-07] MEDS: CIPROFLOXACIN HCL 250 MG TABLET. PO SCH (09:56)
[2017-06-07] MEDS: SEVELAMER CARBONATE 800 MG TABLET. PO SCH ×3 (09:56→14:12)
[2017-06-07] MEDS: SODIUM BICARBONATE 650 MG TABLET. PO SCH ×2 (09:56→14:07)
[2017-06-07] MEDS: GABAPENTIN 300 MG CAPSULE. PO SCH ×2 (09:56→14:07)
[2017-06-07 10:49] VITALS: BP 113/63
[2017-06-07] MEDS ORDERED: DEXTROSE 50% 25 GM / 50ML DISP.SYRIN. IV PRN (11:00)
--- NOTE | 2017-06-07 11:04 | PDOC ---
SUBJECTIVE Subjective doing well, anxious to go home OBJECTIVE Vital Signs Vital Signs Date Time Temp Pulse Resp B/P (MAP) Pulse Ox O2 Delivery O2 Flow Rate FiO2 06/07/17 10:49 97.5 90 15 113/63 (80) 94 Room Air 97.5 06/07/17 07:56 97.9 79 15 105/60 (75) 94 Room Air 97.9 06/07/17 03:04 98.2 88 16 112/68 (83) 94 Room Air 98.2 06/06/17 23:20 98.7 98 18 116/71 (86) 93 Room Air 98.7 06/06/17 20:00 Room Air 06/06/17 19:20 98.1 90 18 110/65 (80) 93 Room Air 98.1 06/06/17 15:20 98.7 77 14 110/63 (79) 98 Room Air 98.7 06/06/17 12:43 94 Room Air I & O Intake and Output 06/07/17 07:00 Intake Total 1850 ml Output Total 1200 ml Balance 650 ml Intake Oral 1850 ml Output Urine Total 1200 ml # Voids 1 PHYSICAL EXAM Physical Exam no change ASSESSMENT/PLAN Assessment/Plan BS up will use sliding scale, anxious to go home, Vanc trough tomorrow before dialysis and vanco dosing while in dialysis , plan discharge today if ok with ID Problems: COMMENT Lab Laboratory Tests Test 06/06/17 11:27 06/06/17 16:39 06/07/17 06:10 Glucose (Fingerstick) 213 mg/dL (70-99) 188 mg/dL (70-99) Sodium Level 138 mmol/L (136-145) Potassium Level 3.2 mmol/L (3.5-5.1) Chloride Level 99 mmol/L (98-107) Carbon Dioxide Level 28 mmol/L (21-32) Anion Gap 11 (6-14) Blood Urea Nitrogen 53 mg/dL (8-26) Creatinine 3.7 mg/dL (0.7-1.3) Estimated GFR (Cockcroft-Gault) 17.5 Glucose Level 164 mg/dL (70-99) Calcium Level 8.1 mg/dL (8.5-10.1) Phosphorus Level 4.8 mg/dL (2.6-4.7) Magnesium Level 1.9 mg/dL (1.8-2.4) Albumin 2.3 g/dL (3.4-5.0) JACBO STANLEY MD Jun 07, 2017 11:04
--- NOTE | 2017-06-07 11:06 | PDOC3 ---
Discharge Summary* Date of Admission: Jun 03, 2017 Date of Discharge: Jun 07, 2017 Admitting Diagnosis 1- bacteremia 2-chest pain Problems: Final Diagnosis 1-bacteremia with staph aureus, source of infection can be his right upper extremity on Vanco 2-UTI on cipro 3-shortness of breath likely due to fluid overload improved 4-end-stage renal disease on dialysis 5- chest pain , better FLAVIO neg CONSULTS pulmonary , infectious disease, renal Procedures FLAVIO, Dialysis, CXR Brief Hospital Course Mr. Kuhn is a 51 old [sex] who presented with [ ] Disposition/Orders: D/C to Home CONDITION AT DISCHARGE: Improved Diet: Renal, Cardiac, Consistent Carbohydrate Scheduled Aspirin (Aspir 81), 1 TAB PO DAILY, (Reported) Gabapentin (Gabapentin), 300 MG PO TID, (Reported) Insulin Glargine,Hum.rec.anlog (Lantus Solostar), 10 UNIT SQ QHS, (Reported) [place]-3 Fatty Acids/Fish Oil (Fish Oil 1,000 Mg Capsule), 2 EACH PO BID, ( Reported) Sevelamer Carbonate (Renvela), 800 MG PO TIDWMEALS, (Reported) Sodium Bicarbonate (Sodium Bicarbonate), 1,300 MG PO TID, (Reported) FOLLOW UP APPOINTMENT: Dr. Tillman [address] Stanley 1 week Time Spent Total time spent with patient 30 minutes for coordination of care, counseling, and education. JACOB STANLEY MD Jun 07, 2017 11:06
[2017-06-07] MEDS ORDERED: VANC500F2 IV (11:11)
[2017-06-07] MEDS ORDERED: CIPR250T30 PO (11:11)
[2017-06-07] MEDS ORDERED: INSULIN ASPART 300 UNITS/3 ML INSULN.PEN SQ SCH (12:00)
[2017-06-07 14:33] LABS: CALCIUM 7.7 mg/dL (8.5-10.1); POTASSIUM 4.2 mmol/L (3.5-5.1)
[2017-06-07 14:45] VITALS: BP 105/60
[2017-06-08] MEDS ORDERED: VANCOMYCIN RANDOM LEVEL. MC ONE (05:00)
== END 2017-06-07 16:30 | disposition home or self-care (01) | DRG 189 ==
LOC: EDSEX 15:07 → 6 SOUTH 15:07
PROVIDERS: ADMIT Internal Medicine; ATTEND Internal Medicine
PROC: 5A1D60Z (ICD-10-PCS; principal; 2017-06-05)
DX: J96.00 Acute respiratory failure, unspecified whether with hypoxia or hypercapnia (principal); N18.6 End stage renal disease; N39.0 Urinary tract infection, site not specified; I13.2 Hypertensive heart and chronic kidney disease with heart failure and with stage 5 chronic kidney disease, or end stage renal disease; E87.70 Fluid overload, unspecified; E11.22 Type 2 diabetes mellitus with diabetic chronic kidney disease; E78.5 Hyperlipidemia, unspecified; N31.9 Neuromuscular dysfunction of bladder, unspecified; I50.9 Heart failure, unspecified; B95.61 Methicillin susceptible Staphylococcus aureus infection as the cause of diseases classified elsewhere; L98.9 Disorder of the skin and subcutaneous tissue, unspecified; E11.42 Type 2 diabetes mellitus with diabetic polyneuropathy; E55.9 Vitamin D deficiency, unspecified; F32.9 Major depressive disorder, single episode, unspecified; D64.9 Anemia, unspecified; F41.9 Anxiety disorder, unspecified; R09.1 Pleurisy; Z79.899 Other long term (current) drug therapy; Z81.8 Family history of other mental and behavioral disorders; Z82.49 Family history of ischemic heart disease and other diseases of the circulatory system; Z86.718 Personal history of other venous thrombosis and embolism; Z83.3 Family history of diabetes mellitus; Z99.2 Dependence on renal dialysis; Z79.82 Long term (current) use of aspirin; Z79.1 Long term (current) use of non-steroidal anti-inflammatories (NSAID)
CPT/HCPCS: 36415; 71020; 76376; 80048; 80053; 80069; 80202; 82962; 83735; 83880; 84484; 85027; 85379; 85651; 87040; 87205; 93005; 93312; 93325; 94250; 94640; 94760; J1815; J2704; J3370; J7030; J7040; J7050

== ENCOUNTER 2017-10-20 19:09 | Inpatient (IN) | payer MEDICARE, BC, MEDICAID ==
[~2017-10-20] VITALS: Ht 175.3 cm; Wt 96.2 kg
[~2017-10-20 19:09] MED LIST changes: +CIPR250T30 PO; +INSU100I13 SQ; +OMEG1CAP6 PO; +SEVE800T9 PO; +VANC500F2 IV
[2017-10-20] MEDS ORDERED: ONDANSETRON PF 4 MG/2 ML VIAL. IV ONE (19:45)
[2017-10-20] MEDS ORDERED: IV NORMAL SALINE 500ML BAG 500 ML IV ONE (19:45)
[2017-10-20] MEDS: HYDROmorphone 2 MG/ML VIAL IV/SQ PRN ×2 (20:38→21:10)
--- NOTE | 2017-10-20 20:40 | PHYS DOC ---
Past Medical History Past Medical History: Diabetes-Type II, Renal Failure, Other Additional Past Medical Histor: bacterial meningitis, incontinence Past Surgical History: Other Additional Past Surgical Histo: wound flap, dialysis shunt in left upper arm and removal Alcohol Use: None Drug Use: Other Social History Narrative: sri, last use 10/18/17 Adult General Chief Complaint Chief Complaint: ABDOMINAL PAIN HPI HPI 52-year-old male with a history of end-stage renal disease and type 2 diabetes presenting to the emergency department today with epigastric abdominal pain that started earlier today. It is a burning sensation that is nonradiating moderate intermittent and without alleviating factors. He receives dialysis on //Thu and did receive dialysis today. He denies fevers or chills at home. Review of systems is negative for chest pain shortness of breath fevers chills vomiting. He denies blood in his stools. He denies diarrhea. All other review of systems is negative unless otherwise noted in history of present illness. ED course: 52-year-old male presenting to the emergency department today with epigastric abdominal pain. Upon arrival the patient is afebrile with a normal heart rate. Normal blood pressure. Saturating mid 90s on room air. He is well- appearing. He is breathing comfortably and not in any distress. On examination lungs are clear bilaterally. Abdomen is soft nondistended and nontender palpation. EKG was obtained and evaluated by myself. EKG shows sinus rhythm with [address] segments congruent. Nonspecific T-wave inversion in the anterior leads. Not suggestive of ACS. Blood work obtained along with CT the abdomen pelvis. IV fluids nausea and pain medications administered. Blood work shows mild leukocytosis. Potassium is within normal limits. Expected kidney function and given end-stage renal disease. CT the abdomen pelvis suggestive of possible cholecystitis. Ultrasound ordered. Broad-spectrum antibiotics ordered. Discussed the case with the admitting provider Dr. Stanley who accepted the pt for admission. I talked to our general surgeon on-call doctor Kyle around 10pm who ordered the pt to be NPO and abx and for the pt to be evaluated in the AM. Of note the patient did have a few runs of 8 and 10 point V. tach. I discussed the case with Dr. Ibanez who recommended the patient receive 1 dose of IV metoprolol and be monitored in the cardiovascular care unit. The patient was then admitted for further evaluation workup and care. Review of Systems Review of Systems SEE ABOVE. Current Medications Current Medications Current Medications Medications (Trade) Dose Ordered Sig/[facility] Start Time Stop Time Status Last Admin Dose Admin Amiodarone HCl 150 mg/Dextrose 103 ml @ 618 mls/hr 1X ONCE 10/20/17 22:15 10/20/17 22:15 DC Amiodarone HCl 900 mg/Dextrose 518 ml @ 0 mls/hr CONT PRN 10/20/17 22:15 10/20/17 22:15 DC Hydromorphone HCl (Dilaudid) 0.5 mg PRN Q15MIN PRN 10/20/17 19:45 10/21/17 19:44 10/20/17 21:10 0.5 MG Ondansetron HCl (Zofran) 4 mg PRN Q8HRS PRN 10/20/17 22:00 10/21/17 21:59 Piperacillin Sod/ Tazobactam Sod (Zosyn Per Pharmacy) 1 each PRN DAILY PRN 10/20/17 21:45 Piperacillin Sod/ Tazobactam Sod (Zosyn) 3.375 gm ONCE ONCE 10/20/17 22:00 10/20/17 22:01 DC 10/20/17 22:33 3.375 GM Sodium Chloride 621 ml @ 1,000 mls/hr 1X ONCE 10/20/17 22:15 10/20/17 22:52 DC Vancomycin HCl (Vanco Per Pharmacy) 1 each PRN DAILY PRN 10/20/17 22:00 10/21/17 00:09 1 EACH Vancomycin HCl 2 gm/Sodium Chloride 500 ml @ 250 mls/hr 1X ONCE 10/20/17 22:00 10/20/17 23:59 DC 10/21/17 00:12 250 MLS/HR Allergies Allergies Allergies Coded Allergies Type Severity Reaction Last Updated Verified I S O L A T I O N *CONTACT* Allergy Unknown 06/05/17 Yes No Known Medication Allergies Allergy Unknown 06/05/17 Yes Physical Exam Physical Exam SEE ABOVE Constitutional: Well developed, well nourished, no acute distress, non-toxic appearance. HENT: Normocephalic, atraumatic, bilateral external ears normal, oropharynx moist, no oral exudates, nose normal. [] Eyes: PERRLA, EOMI, conjunctiva normal, no discharge. [] Neck: Normal range of motion, no tenderness, supple, no stridor. Cardiovascular:Heart rate regular rhythm, no murmur [] Lungs & Thorax: Bilateral breath sounds clear to auscultation Abdomen: Soft nontender abdomen without rebound tenderness or guarding present. Negative McBurneys point. Negative De La Cruz sign. No ecchymosis present. Skin: Warm, dry, no erythema, no rash. Back: No tenderness, no CVA tenderness. [] Extremities: No tenderness, no cyanosis, no clubbing, ROM intact, no edema. Neurologic: Alert and oriented X 3, normal motor function, normal sensory function, no focal deficits noted. Psychologic: Affect normal, judgement normal, mood normal. [] Current Patient Data Vital Signs Vital Signs Date Time Temp Pulse Resp B/P (MAP) Pulse Ox O2 Delivery O2 Flow Rate FiO2 10/20/17 21:53 96 17 132/80 (97) 95 Room Air 10/20/17 19:20 97.9 97.9 Lab Values Laboratory Tests Test 10/20/17 20:25 10/20/17 21:05 10/20/17 22:10 White Blood Count 11.5 x10^3/uL (4.0-11.0) H Red Blood Count 4.00 x10^6/uL (4.30-5.70) L Hemoglobin 12.0 g/dL (13.0-17.5) L Hematocrit 37.6 % (39.0-53.0) L Mean Corpuscular Volume 94 fL (79-100) Mean Corpuscular Hemoglobin 30 pg (25-35) Mean Corpuscular Hemoglobin Concent 32 g/dL (31-37) Red Cell Distribution Width 17.9 % (11.5-14.5) H Platelet Count 449 x10^3/uL (140-400) H Neutrophils (%) (Auto) 86 % (31-73) H Lymphocytes (%) (Auto) 6 % (24-48) L Monocytes (%) (Auto) 7 % (0-9) Eosinophils (%) (Auto) 0 % (0-3) Basophils (%) (Auto) 1 % (0-3) Neutrophils # (Auto) 9.9 x10^3uL (1.8-7.7) H Lymphocytes # (Auto) 0.7 x10^3/uL (1.0-4.8) L Monocytes # (Auto) 0.8 x10^3/uL (0.0-1.1) Eosinophils # (Auto) 0.0 x10^3/uL (0.0-0.7) Basophils # (Auto) 0.1 x10^3/uL (0.0-0.2) Segmented Neutrophils % 83 % (35-66) H Band Neutrophils % 2 % (0-9) Lymphocytes % 5 % (24-48) L Monocytes % 10 % (0-10) Platelet Estimate Increased (ADEQUATE) Polychromasia Slight Anisocytosis Slight Sodium Level 134 mmol/L (136-145) L Potassium Level 4.9 mmol/L (3.5-5.1) Chloride Level 97 mmol/L (98-107) L Carbon Dioxide Level 26 mmol/L (21-32) Anion Gap 11 (6-14) Blood Urea Nitrogen 44 mg/dL (8-26) H Creatinine 4.1 mg/dL (0.7-1.3) H Estimated GFR (Cockcroft-Gault) 15.5 Glucose Level 202 mg/dL (70-99) H Lactic Acid Level 2.1 mmol/L (0.4-2.0) H 1.7 mmol/L (0.4-2.0) Calcium Level 9.2 mg/dL (8.5-10.1) Magnesium Level 2.1 mg/dL (1.8-2.4) Total Bilirubin 0.2 mg/dL (0.2-1.0) Direct Bilirubin < 0.1 mg/dL (0.0-0.2) Aspartate Amino Transferase (AST) 30 U/L (15-37) Alanine Aminotransferase (ALT) 32 U/L (16-63) Alkaline Phosphatase 218 U/L (46-116) H Troponin I Quantitative < 0.017 ng/mL (0.000-0.055) Total Protein 8.6 g/dL (6.4-8.2) H Albumin 3.9 g/dL (3.4-5.0) Lipase 202 U/L (73-393) Urine Collection Type U cath Urine Color Red Urine Clarity Turbid Urine pH 8.5 Urine Specific Stryker 1.020 Urine Protein 100 mg/dL (NEG-TRACE) Urine Glucose (UA) Negative mg/dL (NEG) Urine Ketones (Stick) Trace mg/dL (NEG) Urine Blood Negative (NEG) Urine Nitrite Negative (NEG) Urine Bilirubin Small (NEG) Urine Urobilinogen Dipstick 0.2 mg/dL (0.2 mg/dL) Urine Leukocyte Esterase Large (NEG) Urine RBC 0 /HPF (0-2) Urine WBC Occ /HPF (0-4) Urine Amorphous Sediment Present /HPF Urine Bacteria Many /HPF (0-FEW) Urine Mucus Slight /LPF Laboratory Tests 10/20/17 20:25 Laboratory Tests 10/20/17 20:25 EKG EKG [] Radiology/Procedures Radiology/Procedures [] Course & Med Decision Making Course & Med Decision Making Pertinent Labs and Imaging studies reviewed. (See chart for details) [] Dragon Disclaimer Dragon Disclaimer This electronic medical record was generated, in whole or in part, using a voice recognition dictation system. Departure Departure Impression: Primary Impression: Epigastric abdominal pain Additional Impressions: Cholelithiasis Cholecystitis Nephrolithiasis Disposition: ADMITTED INPATIENT Admitting Physician: Jacob Stanley Condition: STABLE Referrals: JACOB STANLEY MD (PCP) Critical Care Time Critical care time was [40] minutes exclusive of procedures. Time was spent evaluating the patient, reviewing patient's blood work, reevaluating the patient , discussing with consulting providers, ordering the administration of antibiotics and beta blockers, and documenting. Problem Qualifiers NIDIA JEFFREY MD Oct 20, 2017 20:40
--- NOTE | 2017-10-20 20:40 | RAD ---
EXAM: Abdomen and pelvis CT without intravenous contrast. HISTORY: Pain. TECHNIQUE: Computed tomographic images of the abdomen and pelvis were obtained without contrast. Multiplanar reformatting was performed. *One or more of the following individualized dose reduction techniques were utilized for this examination: 1. Automated exposure control. 2. Adjustment of the mA and/or kV according to patient size. 3. Use of iterative reconstruction technique. COMPARISON: None. FINDINGS: Evaluation of the lower thorax demonstrates posterior dependent atelectasis. There is lingular and right middle lobe atelectasis or scarring. There is no infiltrate or effusion. The heart is normal in size. There is a catheter within the right atrium. No focal hepatic lesion is seen. There is hyperdensity within the gallbladder neck possibly due to cholelithiasis. There is slight stranding surrounding the gallbladder wall. The pancreas, spleen, adrenal glands and stomach are unremarkable. There are nonobstructing renal stones, the largest of which measures 3 mm on the left. The appendix is normal in appearance. There is moderate colonic stool. There is no bowel obstruction. There is a Kendrick catheter within a decompressed urinary bladder, with associated bladder wall thickening. There are small fat-containing left greater than right inguinal hernias. No pathologically enlarged lymph node is seen. There is no suspicious osseous lesion. There is grade 1 anterolisthesis of L4 and L5. The comminution of listhesis and degenerative change results in foraminal and central canal stenosis at this level. There is suspected scarring within the left buttock subcutaneous fat. IMPRESSION: 1. Bilateral nephrolithiasis. There is no evidence of obstructive uropathy. 2. Suspected cholelithiasis. There is slight fatty stranding surrounding the gallbladder which may be due to superimposed cholecystitis. Correlate with symptomatology and gallbladder sonography. Electronically signed by: Phyllis Peralta MD (10/20/2017 8:37 PM) [id number]
[2017-10-20 20:41] LABS: BASO # 0.1 x10^3/uL (0.0-0.2); BASO % 1 % (0-3); EOS % 0 % (0-3); HEMATOCRIT 37.6 % (39.0-53.0); LYMPH # 0.7 x10^3/uL (1.0-4.8); LYMPH % 6 % (24-48); MEAN CORPUSCULAR HEMOGLOBIN 30 pg (25-35); MEAN CORPUSCULAR HGB CONC 32 g/dL (31-37); MEAN CORPUSCULAR VOLUME 94 fL (79-100); MONO % 7 % (0-9); NEUT % 86 % (31-73); PLATELET COUNT 449 x10^3/uL (140-400); RED CELL DISTRIBUTION WIDTH 17.9 % (11.5-14.5); WHITE BLOOD COUNT 11.5 x10^3/uL (4.0-11.0)
[2017-10-20 20:52] LABS: ANION GAP 11 (6-14); BLOOD UREA NITROGEN 44 mg/dL (8-26); CALCIUM 9.2 mg/dL (8.5-10.1); CARBON DIOXIDE 26 mmol/L (21-32); CHLORIDE 97 mmol/L (98-107); CREATININE 4.1 mg/dL (0.7-1.3); GFR 15.5; GLUCOSE 202 mg/dL (70-99); POTASSIUM 4.9 mmol/L (3.5-5.1); SODIUM 134 mmol/L (136-145)
[2017-10-20 20:58] LABS: ALBUMIN 3.9 g/dL (3.4-5.0); ALK PHOS 218 U/L (46-116); ALT (SGPT) 32 U/L (16-63); AST (SGOT) 30 U/L (15-37); DIRECT BILIRUBIN < 0.1 mg/dL (0.0-0.2); TOTAL BILIRUBIN 0.2 mg/dL (0.2-1.0); TOTAL PROTEIN 8.6 g/dL (6.4-8.2)
[2017-10-20 21:02] LABS: ANISOCYTOSIS SLIGHT; PLT ESTIMATE INCREASED (ADEQUATE); POLYCHROMASIA SLIGHT
[2017-10-20 21:11] LABS: BILIRUBIN,URINE SMALL (NEG); GLUCOSE,URINE NEGATIVE (NEG); NITRITE,URINE NEGATIVE (NEG); PH,URINE 8.5; PROTEIN,URINE 100 mg/dL (NEG-TRACE); UROBILINOGEN,URINE 0.2 mg/dL (0.2 mg/dL)
[2017-10-20 21:24] LABS: BACTERIA,URINE MANY /HPF (0-FEW); RBC,URINE 0 /HPF (0-2); WBC,URINE OCC /HPF (0-4)
[2017-10-20] MEDS ORDERED: PIP/TAZO PER PHARMACY MC PRN (21:45)
[2017-10-20] MEDS ORDERED: VANCOMYCIN 2 GM in IV NORMAL SALINE 500ML BAG 500 ML IV ONE (22:00)
[2017-10-20] MEDS ORDERED: ONDANSETRON PF 4 MG/2 ML VIAL. IV PRN (22:00)
[2017-10-20] MEDS ORDERED: PIPERACILLIN/TAZO IV Push 3.375 GM VIAL. IVP ONE (22:00)
[2017-10-20] MEDS ORDERED: IV NORMAL SALINE 1000ML BAG 1,000 ML IV ONE (22:15)
[2017-10-20] MEDS ORDERED: NORMAL SALINE IV ONE ×2 (22:15)
[2017-10-20] MEDS ORDERED: AMIODARONE 150 MG in IV DEXTROSE 5% 100 ML IV ONE (22:15)
[2017-10-20] MEDS ORDERED: AMIODARONE 900 MG in IV DEXTROSE 5% 500 ML IV PRN (22:15)
--- NOTE | 2017-10-20 22:22 | RAD ---
EXAM: Abdomen sonogram. HISTORY: Cholelithiasis. TECHNIQUE: Sonographic imaging of the abdomen was performed. COMPARISON: CT obtained on the same date. FINDINGS: There is hepatomegaly and hepatic steatosis. No focal hepatic lesion is seen. The common bile duct is normal in caliber. There is a stone within the gallbladder neck.. The gallbladder wall is mildly thickened. The right kidney measures 8.5 cm [id number] and is echogenic. There is trace right perinephric fluid. The pancreas is obscured due to bowel gas. The inferior vena cava is patent. The aorta is not assessed. IMPRESSION: 1. Cholelithiasis, including a stone within the gallbladder neck. The gallbladder wall is mildly thickened. This can be due to intrinsic liver disease or cholecystitis. 2. Hepatomegaly and hepatic steatosis. 3. Mild right renal atrophy. There is echogenic right renal parenchyma, a finding which can be seen with medical renal disease. 4. Note is made that nephrolithiasis demonstrated on the recent CT is not seen sonographically. There is nonspecific right perinephric fluid. Electronically signed by: Phyllis Peralta MD (10/20/2017 10:18 PM) [id number]
[2017-10-20] MEDS ORDERED: METOPROLOL TARTRATE 5 MG/5 ML VIAL. IVP ONE (22:30)
[2017-10-21] MEDS: VANCOMYCIN PER PHARMACY MC PRN ×2 (00:09→13:28)
[2017-10-21] MEDS: IV NORMAL SALINE 1000ML BAG 1,000 ML IV SCH ×3 (00:12→17:45)
[2017-10-21 01:22] VITALS: BP 100/54
[2017-10-21 03:00] VITALS: BP 111/58
[2017-10-21 03:19] LABS: BASO % 1 % (0-3); EOS % 1 % (0-3); HEMATOCRIT 36.5 % (39.0-53.0); HEMOGLOBIN 11.2 g/dL (13.0-17.5); LYMPH # 0.6 x10^3/uL (1.0-4.8); LYMPH % 7 % (24-48); MEAN CORPUSCULAR HEMOGLOBIN 30 pg (25-35); MEAN CORPUSCULAR HGB CONC 31 g/dL (31-37); MEAN CORPUSCULAR VOLUME 99 fL (79-100); MONO % 10 % (0-9); NEUT % 82 % (31-73); PLATELET COUNT 298 x10^3/uL (140-400); RED CELL DISTRIBUTION WIDTH 18.6 % (11.5-14.5); WHITE BLOOD COUNT 9.6 x10^3/uL (4.0-11.0)
[2017-10-21 03:30] LABS: CALCIUM 8.6 mg/dL (8.5-10.1); CREATININE 4.3 mg/dL (0.7-1.3); GFR 14.6; POTASSIUM 4.5 mmol/L (3.5-5.1)
[2017-10-21] MEDS: MORPHINE SULFATE 2 MG/ML DISP.SYRIN. IV PRN ×4 (06:08→18:27)
[2017-10-21] MEDS: PIPERACILLIN/TAZO IV Push 2.25 GM VIAL. IVP SCH ×3 (06:10→18:30)
--- NOTE | 2017-10-21 06:16 | EKG ---
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
[2017-10-21 07:00] VITALS: BP 109/56
--- NOTE | 2017-10-21 08:46 | PDOC ---
GENERAL General: see dictated H&P. clinically and radiographically has acute cholecystitis. surgery consult ordered and will get renal involved as on dialysis and stop ivf' s currently. medically cleared for surgery. Problems: VITAL SIGNS Vital Signs: Vital Signs Date Time Temp Pulse Resp B/P (MAP) Pulse Ox O2 Delivery O2 Flow Rate FiO2 10/21/17 08:32 18 95 Room Air 10/21/17 07:00 96 109/56 (73) 10/21/17 03:00 98.9 98.9 I & O I & O Intake and Output 10/21/17 07:00 Intake Total 1550 ml Output Total 250 ml Balance 1300 ml Intake Oral 50 ml IV Total 1500 ml Output Urine Total 250 ml ALLERGIES Allergies: Allergies Coded Allergies Type Severity Reaction Last Updated Verified I S O L A T I O N *CONTACT* Allergy Unknown 06/05/17 Yes No Known Medication Allergies Allergy Unknown 06/05/17 Yes MEDS Medications: Current Medications Medications (Trade) Dose Ordered Sig/Nando Start Time Stop Time Status Last Admin Dose Admin Amiodarone HCl 150 mg/Dextrose 103 ml @ 618 mls/hr 1X ONCE 10/20/17 22:15 10/20/17 22:15 DC Amiodarone HCl 900 mg/Dextrose 518 ml @ 0 mls/hr CONT PRN 10/20/17 22:15 10/20/17 22:15 DC Hydromorphone HCl (Dilaudid) 0.5 mg PRN Q15MIN PRN 10/20/17 19:45 10/21/17 19:44 10/20/17 21:10 0.5 MG Metoprolol Tartrate (Lopressor Vial) 5 mg 1X ONCE 10/20/17 22:30 10/20/17 22:31 DC 10/20/17 22:49 5 MG Morphine Sulfate 2 mg PRN Q2HR PRN 10/20/17 22:45 10/21/17 22:44 10/21/17 08:32 2 MG Ondansetron HCl (Zofran) 4 mg PRN Q8HRS PRN 10/20/17 22:00 10/21/17 21:59 Piperacillin Sod/ Tazobactam Sod (Zosyn Per Pharmacy) 1 each PRN DAILY PRN 10/20/17 21:45 Piperacillin Sod/ Tazobactam Sod (Zosyn) 2.25 gm Q6HRS 10/21/17 06:00 10/21/17 06:10 2.25 GM Sodium Chloride 621 ml @ 1,000 mls/hr 1X ONCE 10/20/17 22:15 10/20/17 22:52 DC Vancomycin HCl 1 each 1X ONCE 10/22/17 23:30 10/22/17 23:31 Vancomycin HCl (Vanco Per Pharmacy) 1 each PRN DAILY PRN 10/20/17 22:00 10/21/17 00:09 1 EACH Vancomycin HCl 1.5 gm/Sodium Chloride 500 ml @ 250 mls/hr Q24H 10/22/17 00:00 Vancomycin HCl 2 gm/Sodium Chloride 500 ml @ 250 mls/hr 1X ONCE 10/20/17 22:00 10/20/17 23:59 DC 10/21/17 00:12 250 MLS/HR LAB Lab: Laboratory Tests Test 10/20/17 20:25 10/20/17 21:05 10/20/17 22:10 10/21/17 03:00 White Blood Count 11.5 x10^3/uL (4.0-11.0) 9.6 x10^3/uL (4.0-11.0) Red Blood Count 4.00 x10^6/uL (4.30-5.70) 3.70 x10^6/uL (4.30-5.70) Hemoglobin 12.0 g/dL (13.0-17.5) 11.2 g/dL (13.0-17.5) Hematocrit 37.6 % (39.0-53.0) 36.5 % (39.0-53.0) Mean Corpuscular Volume 94 fL (79-100) 99 fL (79-100) Mean Corpuscular Hemoglobin 30 pg (25-35) 30 pg (25-35) Mean Corpuscular Hemoglobin Concent 32 g/dL (31-37) 31 g/dL (31-37) Red Cell Distribution Width 17.9 % (11.5-14.5) 18.6 % (11.5-14.5) Platelet Count 449 x10^3/uL (140-400) 298 x10^3/uL (140-400) Neutrophils (%) (Auto) 86 % (31-73) 82 % (31-73) Lymphocytes (%) (Auto) 6 % (24-48) 7 % (24-48) Monocytes (%) (Auto) 7 % (0-9) 10 % (0-9) Eosinophils (%) (Auto) 0 % (0-3) 1 % (0-3) Basophils (%) (Auto) 1 % (0-3) 1 % (0-3) Neutrophils # (Auto) 9.9 x10^3uL (1.8-7.7) 7.9 x10^3uL (1.8-7.7) Lymphocytes # (Auto) 0.7 x10^3/uL (1.0-4.8) 0.6 x10^3/uL (1.0-4.8) Monocytes # (Auto) 0.8 x10^3/uL (0.0-1.1) 1.0 x10^3/uL (0.0-1.1) Eosinophils # (Auto) 0.0 x10^3/uL (0.0-0.7) 0.1 x10^3/uL (0.0-0.7) Basophils # (Auto) 0.1 x10^3/uL (0.0-0.2) 0.0 x10^3/uL (0.0-0.2) Segmented Neutrophils % 83 % (35-66) Band Neutrophils % 2 % (0-9) Lymphocytes % 5 % (24-48) Monocytes % 10 % (0-10) Platelet Estimate Increased (ADEQUATE) Polychromasia Slight Anisocytosis Slight Sodium Level 134 mmol/L (136-145) 135 mmol/L (136-145) Potassium Level 4.9 mmol/L (3.5-5.1) 4.5 mmol/L (3.5-5.1) Chloride Level 97 mmol/L (98-107) 101 mmol/L (98-107) Carbon Dioxide Level 26 mmol/L (21-32) 24 mmol/L (21-32) Anion Gap 11 (6-14) 10 (6-14) Blood Urea Nitrogen 44 mg/dL (8-26) 45 mg/dL (8-26) Creatinine 4.1 mg/dL (0.7-1.3) 4.3 mg/dL (0.7-1.3) Estimated GFR (Cockcroft-Gault) 15.5 14.6 Glucose Level 202 mg/dL (70-99) 205 mg/dL (70-99) Lactic Acid Level 2.1 mmol/L (0.4-2.0) 1.7 mmol/L (0.4-2.0) Calcium Level 9.2 mg/dL (8.5-10.1) 8.6 mg/dL (8.5-10.1) Magnesium Level 2.1 mg/dL (1.8-2.4) Total Bilirubin 0.2 mg/dL (0.2-1.0) Direct Bilirubin < 0.1 mg/dL (0.0-0.2) Aspartate Amino Transf (AST/SGOT) 30 U/L (15-37) Alanine Aminotransferase (ALT/SGPT) 32 U/L (16-63) Alkaline Phosphatase 218 U/L (46-116) Troponin I Quantitative < 0.017 ng/mL (0.000-0.055) < 0.017 ng/mL (0.000-0.055) Total Protein 8.6 g/dL (6.4-8.2) Albumin 3.9 g/dL (3.4-5.0) Lipase 202 U/L (73-393) Urine Collection Type U cath Urine Color Red Urine Clarity Turbid Urine pH 8.5 Urine Specific [place] 1.020 Urine Protein 100 mg/dL (NEG-TRACE) Urine Glucose (UA) Negative mg/dL (NEG) Urine Ketones (Stick) Trace mg/dL (NEG) Urine Blood Negative (NEG) Urine Nitrite Negative (NEG) Urine Bilirubin Small (NEG) Urine Urobilinogen Dipstick 0.2 mg/dL (0.2 mg/dL) Urine Leukocyte Esterase Large (NEG) Urine RBC 0 /HPF (0-2) Urine WBC Occ /HPF (0-4) Urine Amorphous Sediment Present /HPF Urine Bacteria Many /HPF (0-FEW) Urine Mucus Slight /LPF Test 10/21/17 06:30 Troponin I Quantitative < 0.017 ng/mL (0.000-0.055) LUIZ LARRY MD Oct 21, 2017 08:46
--- NOTE | 2017-10-21 09:48 | PDOC2 ---
CARDIAC CONSULT DATE OF CONSULT Date of Consult DATE: 10/21/17 TIME: 09:15 REASON FOR CONSULT Reason for Consult: runs of PVCs REFERRING PHYSICIAN Referring Physician: Harpreet SOURCE Source: Chart review, Patient HISTORY OF PRESENT ILLNESS HISTORY OF PRESENT ILLNESS This is a pleasant 52 yo male admitted for complains of right abd pain. This started yesterday, very sharp pain associated with nausea. No fever or chills. Denies any palpitations, dizzy spells, passing out, increasing weakness, chest pain and SOA. Denies any CAD and his last stress test was 4 yrs ago at . He has hx of meth use and denies using any recreational drugs. PAST MEDICAL HISTORY Cardiovascular: CHF, Hyperlipidemia, Valve insufficiency (mild MR/TR) CENTRAL NERVOUS SYSTEM: Periperal neuropathy Heme/Onc: Anemia NOS, Other (DVT) Infectious disease: Other (epidural abscess, LUE infection; meningitis) Renal/: Chronic renal failure (ESRD) Endocrine: Diabetes (2) PAST SURGICAL HISTORY Past Surgical History: Other (LAV dilaysis fistula with revisions; buttock wound flap) FAMILY HISTORY Family History: Diabetes, Hypertension SOCIAL HISTORY Smoke: No ALCOHOL: occassional Drugs: Crystal meth (prior) Lives: with Family CURRENT MEDICATIONS CURRENT MEDICATIONS Current Medications Medications (Trade) Dose Ordered Sig/Nando Route PRN Reason Start Time Stop Time Status Last Admin Dose Admin Sodium Chloride 500 ml @ 500 mls/hr 1X ONCE IV 10/20/17 19:45 10/20/17 20:44 DC 10/20/17 20:39 Hydromorphone HCl (Dilaudid) 0.5 mg PRN Q15MIN PRN IV/SQ PAIN GREATER THAN 3/10 10/20/17 19:45 10/21/17 19:44 10/20/17 21:10 Ondansetron HCl (Zofran) 4 mg 1X ONCE IV 10/20/17 19:45 10/20/17 19:46 DC 10/20/17 20:37 Vancomycin HCl (Vanco Per Pharmacy) 1 each PRN DAILY PRN MC SEE COMMENTS 10/20/17 22:00 10/21/17 00:09 Vancomycin HCl 2 gm/Sodium Chloride 500 ml @ 250 mls/hr 1X ONCE IV 10/20/17 22:00 10/20/17 23:59 DC 10/21/17 00:12 Morphine Sulfate 2 mg PRN Q2HR PRN IV PAIN 10/20/17 22:45 10/21/17 22:44 10/21/17 08:32 Sodium Chloride 1,000 ml @ 100 mls/hr Q10H IV 10/20/17 21:45 10/21/17 21:44 10/21/17 00:12 Piperacillin Sod/ Tazobactam Sod (Zosyn) 3.375 gm ONCE ONCE IVP 10/20/17 22:00 10/20/17 22:01 DC 10/20/17 22:33 Metoprolol Tartrate (Lopressor Vial) 5 mg 1X ONCE IVP 10/20/17 22:30 10/20/17 22:31 DC 10/20/17 22:49 Sodium Chloride 1,000 ml @ 1,000 mls/hr 1X ONCE IV 10/20/17 22:15 10/20/17 23:14 DC 10/20/17 22:03 Piperacillin Sod/ Tazobactam Sod (Zosyn) 2.25 gm Q6HRS IVP 10/21/17 06:00 10/21/17 06:10 ALLERGIES ALLERGIES: Coded Allergies: I S O L A T I O N *CONTACT* (Verified Allergy, Unknown, 06/05/17) mrsa No Known Medication Allergies (Verified Allergy, Unknown, 06/05/17) ROS Review of System 14 point ROS evaluated with pertinent positives noted per HPI PHYSICAL EXAM General: Alert, Oriented X3, Cooperative, No acute distress HEENT: Atraumatic, Mucous membr. moist/pink Lungs: Clear to auscultation Heart: Regular rate (SR with PVCs), Normal S1, Normal S2, Other (2/6 systolic murmur to LLs border) Abdomen: Other (RUQ pain and tenderness; Positive murphys) Extremities: No cyanosis, No edema Skin: No breakdown, No significant lesion Neuro: Normal speech, Sensation intact Psych/Mental Status: Mood NL MUSCULOSKELETAL: Osteoarthritic changes both hands VITALS VITALS Vital Signs Date Time Temp Pulse Resp B/P (MAP) Pulse Ox O2 Delivery O2 Flow Rate FiO2 10/21/17 08:32 18 95 Room Air 10/21/17 07:00 96 109/56 (73) 10/21/17 03:00 98.9 98.9 LABS Lab: Laboratory Tests Test 10/20/17 20:25 10/20/17 21:05 10/20/17 22:10 10/21/17 03:00 White Blood Count 11.5 x10^3/uL (4.0-11.0) 9.6 x10^3/uL (4.0-11.0) Red Blood Count 4.00 x10^6/uL (4.30-5.70) 3.70 x10^6/uL (4.30-5.70) Hemoglobin 12.0 g/dL (13.0-17.5) 11.2 g/dL (13.0-17.5) Hematocrit 37.6 % (39.0-53.0) 36.5 % (39.0-53.0) Mean Corpuscular Volume 94 fL (79-100) 99 fL (79-100) Mean Corpuscular Hemoglobin 30 pg (25-35) 30 pg (25-35) Mean Corpuscular Hemoglobin Concent 32 g/dL (31-37) 31 g/dL (31-37) Red Cell Distribution Width 17.9 % (11.5-14.5) 18.6 % (11.5-14.5) Platelet Count 449 x10^3/uL (140-400) 298 x10^3/uL (140-400) Neutrophils (%) (Auto) 86 % (31-73) 82 % (31-73) Lymphocytes (%) (Auto) 6 % (24-48) 7 % (24-48) Monocytes (%) (Auto) 7 % (0-9) 10 % (0-9) Eosinophils (%) (Auto) 0 % (0-3) 1 % (0-3) Basophils (%) (Auto) 1 % (0-3) 1 % (0-3) Neutrophils # (Auto) 9.9 x10^3uL (1.8-7.7) 7.9 x10^3uL (1.8-7.7) Lymphocytes # (Auto) 0.7 x10^3/uL (1.0-4.8) 0.6 x10^3/uL (1.0-4.8) Monocytes # (Auto) 0.8 x10^3/uL (0.0-1.1) 1.0 x10^3/uL (0.0-1.1) Eosinophils # (Auto) 0.0 x10^3/uL (0.0-0.7) 0.1 x10^3/uL (0.0-0.7) Basophils # (Auto) 0.1 x10^3/uL (0.0-0.2) 0.0 x10^3/uL (0.0-0.2) Segmented Neutrophils % 83 % (35-66) Band Neutrophils % 2 % (0-9) Lymphocytes % 5 % (24-48) Monocytes % 10 % (0-10) Platelet Estimate Increased (ADEQUATE) Polychromasia Slight Anisocytosis Slight Sodium Level 134 mmol/L (136-145) 135 mmol/L (136-145) Potassium Level 4.9 mmol/L (3.5-5.1) 4.5 mmol/L (3.5-5.1) Chloride Level 97 mmol/L (98-107) 101 mmol/L (98-107) Carbon Dioxide Level 26 mmol/L (21-32) 24 mmol/L (21-32) Anion Gap 11 (6-14) 10 (6-14) Blood Urea Nitrogen 44 mg/dL (8-26) 45 mg/dL (8-26) Creatinine 4.1 mg/dL (0.7-1.3) 4.3 mg/dL (0.7-1.3) Estimated GFR (Cockcroft-Gault) 15.5 14.6 Glucose Level 202 mg/dL (70-99) 205 mg/dL (70-99) Lactic Acid Level 2.1 mmol/L (0.4-2.0) 1.7 mmol/L (0.4-2.0) Calcium Level 9.2 mg/dL (8.5-10.1) 8.6 mg/dL (8.5-10.1) Magnesium Level 2.1 mg/dL (1.8-2.4) Total Bilirubin 0.2 mg/dL (0.2-1.0) Direct Bilirubin < 0.1 mg/dL (0.0-0.2) Aspartate Amino Transf (AST/SGOT) 30 U/L (15-37) Alanine Aminotransferase (ALT/SGPT) 32 U/L (16-63) Alkaline Phosphatase 218 U/L (46-116) Troponin I Quantitative < 0.017 ng/mL (0.000-0.055) < 0.017 ng/mL (0.000-0.055) Total Protein 8.6 g/dL (6.4-8.2) Albumin 3.9 g/dL (3.4-5.0) Lipase 202 U/L (73-393) Urine Collection Type U cath Urine Color Red Urine Clarity Turbid Urine pH 8.5 Urine Specific [place] 1.020 Urine Protein 100 mg/dL (NEG-TRACE) Urine Glucose (UA) Negative mg/dL (NEG) Urine Ketones (Stick) Trace mg/dL (NEG) Urine Blood Negative (NEG) Urine Nitrite Negative (NEG) Urine Bilirubin Small (NEG) Urine Urobilinogen Dipstick 0.2 mg/dL (0.2 mg/dL) Urine Leukocyte Esterase Large (NEG) Urine RBC 0 /HPF (0-2) Urine WBC Occ /HPF (0-4) Urine Amorphous Sediment Present /HPF Urine Bacteria Many /HPF (0-FEW) Urine Mucus Slight /LPF Test 10/21/17 06:30 Troponin I Quantitative < 0.017 ng/mL (0.000-0.055) ECHOCARDIOGRAM ECHOCARDIOGRAM <Conclusion> Left ventricle systolic function is normal. The Ejection Fraction is 50-55%. No evidence of vegetation. DATE: 06/05/17756 ASSESSMENT/PLAN ASSESSMENT/PLAN 1. Arrhythmias: Frequent PVCs. Troponin series normal. Recent FLAVIO with normal EF. K/Mg/Na are wnl 2. Cholelithiasis/Cholecystitis 3. Significant hx of infectious process: including bacteremia, epidural abscess , meningitis, leg abscess 4. DM2/HLP 5. ESRD 6. Chronic Diastolic CHF: Compensated Recommendations 1. Ischemic issues would induced significant PVC runs. High inflammatory markers. Would need MPI prior to DC if none done recently 2. Fluid off loading per HD. 3. BP is at low end. If BP is more adequate then would recommend low dose metoprolol. 4. Restart ASA. Lipid panel today. Problems: KYLE DAS APRN Oct 21, 2017 09:47
[2017-10-21 11:00] VITALS: BP 107/57
--- NOTE | 2017-10-21 12:28 | PDOC2 ---
CONSULT Date of Consult Date of Consult DATE: 10/21/17 TIME: 12:26 Reason for Consult Reason for Consult: ESRD Referring Physician Referring Physician: Dr Victoria Identification/Chief Complaint Chief Complaint Abd pain and discomfort Problems: Source Source: Chart review, Patient History of Present Illness Reason for Visit: as dictated Past Medical History Cardiovascular: CHF, Hyperlipidemia, Valve insufficiency Pulmonary: Other CENTRAL NERVOUS SYSTEM: Periperal neuropathy Heme/Onc: Anemia NOS, Other Psych: Depression Infectious disease: Other Renal/: Chronic renal failure Endocrine: Diabetes Past Surgical History Past Surgical History: Other Family History Family History: Diabetes, Hypertension Social History No ALCOHOL: occassional Drugs: Crystal meth Lives: with Family Current Problem List Problem List Problems Medical Problems: (1) Cholecystitis Status: Acute (2) Cholelithiasis Status: Acute (3) Epigastric abdominal pain Status: Acute (4) Nephrolithiasis Status: Acute Current Medications Current Medications Current Medications Sodium Chloride 500 ml @ 500 mls/hr 1X ONCE IV Last administered on 20:39; Start 10/20/17 at 19:45; Stop 10/20/17 at 20:44; Status DC Hydromorphone HCl (Dilaudid) 0.5 mg PRN Q15MIN PRN IV/SQ PAIN GREATER THAN 3/ 10 Last administered on 10/20/17 21:10; Start 10/20/17 at 19:45; Stop at 19:44 Ondansetron HCl (Zofran) 4 mg 1X ONCE IV Last administered on 10/20/17 20:37 ; Start 10/20/17 at 19:45; Stop 10/20/17 at 19:46; Status DC Vancomycin HCl (Vanco Per Pharmacy) 1 each PRN DAILY PRN MC SEE COMMENTS Last administered on 10/21/17 00:09; Start 10/20/17 at 22:00 Piperacillin Sod/ Tazobactam Sod (Zosyn Per Pharmacy) 1 each PRN DAILY PRN MC SEE COMMENTS; Start 10/20/17 at 21:45 Vancomycin HCl 2 gm/Sodium Chloride 500 ml @ 250 mls/hr 1X ONCE IV Last administered on 10/21/17 00:12; Start 10/20/17 at 22:00; Stop 10/20/17 at 23 :59; Status DC Ondansetron HCl (Zofran) 4 mg PRN Q8HRS PRN IV NAUSEA/VOMITING; Start at 22:00; Stop 10/21/17 at 21:59 Morphine Sulfate 2 mg PRN Q2HR PRN IV PAIN Last administered on 10/21/17 12: 02; Start 10/20/17 at 22:45; Stop 10/21/17 at 22:44 Sodium Chloride 1,000 ml @ 100 mls/hr Q10H IV Last administered on 10/21/17 00:12; Start 10/20/17 at 21:45; Stop 10/21/17 at 21:44 Piperacillin Sod/ Tazobactam Sod (Zosyn) 3.375 gm ONCE ONCE IVP Last administered on 10/20/17 22:33; Start 10/20/17 at 22:00; Stop 10/20/17 at 22 :01; Status DC Amiodarone HCl 150 mg/Dextrose 103 ml @ 618 mls/hr 1X ONCE IV ; Start at 22:15; Stop 10/20/17 at 22:15; Status DC Amiodarone HCl 900 mg/Dextrose 518 ml @ 0 mls/hr CONT PRN IV SEE I/O RECORD; Start 10/20/17 at 22:15; Stop 10/20/17 at 22:15; Status DC Sodium Chloride 1,621 ml @ 1,000 mls/hr 1X ONCE IV ; Start 10/20/17 at 22:15 ; Stop 10/20/17 at 23:52; Status DC Metoprolol Tartrate (Lopressor Vial) 5 mg 1X ONCE IVP Last administered on 22:49; Start 10/20/17 at 22:30; Stop 10/20/17 at 22:31; Status DC Sodium Chloride 1,000 ml @ 1,000 mls/hr 1X ONCE IV Last administered on 10/20 22:03; Start 10/20/17 at 22:15; Stop 10/20/17 at 23:14; Status DC Sodium Chloride 621 ml @ 1,000 mls/hr 1X ONCE IV ; Start 10/20/17 at 22:15; Stop 10/20/17 at 22:52; Status DC Piperacillin Sod/ Tazobactam Sod (Zosyn) 2.25 gm Q6HRS IVP Last administered on 10/21/17t 12:03; Start 10/21/17 at 06:00 Vancomycin HCl 1.5 gm/Sodium Chloride 500 ml @ 250 mls/hr Q24H IV ; Start at 00:00; Status Cancel Vancomycin HCl 1 each 1X ONCE MC ; Start 10/22/17 at 23:30; Stop 10/22/17 at 23:30; Status DC Active Scripts Active Vanco 500 mg/100 ml-0.9% NaCl (Vancomycin/0.9 % Sod Chloride) 500 Mg/100 Ml Froz.piggy 500 Mg IV 3X/WEEK 28 Days Cipro (Ciprofloxacin Hcl) 250 Mg Tablet 1 Tab PO BID 3 Days Reported Renvela (Sevelamer Carbonate) 800 Mg Tablet 800 Mg PO TIDWMEALS Lantus Solostar (Insulin Glargine,Hum.rec.anlog) 100 Unit/1 Ml Insuln.pen 10 Unit SQ QHS Fish Oil 1,000 Mg Capsule (Herkimer-3 Fatty Acids/Fish Oil) 1 Each Capsule 2 Each PO BID Aspir 81 (Aspirin) 81 Mg Tablet.dr 1 Tab PO DAILY Sodium Bicarbonate 650 Mg Tablet 1,300 Mg PO TID Gabapentin 300 Mg Capsule 300 Mg PO TID Allergies Allergies: Coded Allergies: I S O L A T I O N *CONTACT* (Verified Allergy, Unknown, 06/05/17) mrsa No Known Medication Allergies (Verified Allergy, Unknown, 06/05/17) ROS Review of System GEN: no Fevers no Chills EYES: no new Visual Complaints ENT: no EN Drainage no Hearing deficiets CVS: no Orthopnea no CP RESP: no SOB no [place] GI: min Nausea no Vomiting : no Dysuria no Urgency HEME: no easy bruising no Palp Ly Nodes NEURO no Focal Weakness no Sz PSYCH: no Suicidal Ideation no Depression SKIN: no Rashes ENDO: no Polyuria or Polydipsia no Hot/Cold Intolerance MU SK: occ Arthraigia no Myalgia Physical Exam Physical Exam General Appearance: Awake Alert Oriented x 3 In no Distress Eyes: VIsion Unchanged Conjunctiva Normal EN: No EN Drainage Mucous Memb. moist Neck: no JVD no JVP Supple no Thyromegaly CVS: S1 S2 ? soft Murmur No Gallop No Rub no Edema Resp: no Rales no Rhonchi no Acc. Muscle use GI: BAS +ve NO Bruit Non Tender Non Distended - portly : no CVA tenderness; no Suprapubic Tenderness SKIN: no Rashes Breast Exam deferred Mu.Sk: Adequate ROM no Muscle Atrophy Heme: Unable to palpate Obvious LAD no Splenomegaly NEURO: Good Strength and Tone Cranial Nerves II - XII grossly intact Psych: not Depressed no Active hallucination Vital Signs Vital Signs Date Time Temp Pulse Resp B/P (MAP) Pulse Ox O2 Delivery O2 Flow Rate FiO2 10/21/17 12:02 1 95 Room Air 10/21/17 07:00 96 109/56 (73) 10/21/17 03:00 98.9 98.9 Assessment & Plan ESRD : Dialysis as below F 180 NR 3.0 Hrs 3 K 2.5 Ca 140 Na 35 HC03 Qb 350 + Qd 500+ Heparin 0 Units Uf to dry weight as tolerated May give 25-50 gms of 25% Albumin if needed to maintain Hemodynamic stability Treatment plan reviewed and 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 HTN: Current BP meds reviewed. See orders for changes. Tendency to Met Acidosis - will need to ct PO bicarb when NPO status lifted Bone & Mineral: follow phos and reval trend on current binders once PO intake resumes Min LActic Acidemia POA - now resolved GI s/s - suspect due to strangulated Gall stone as noted on imaging - doubt Uremic per se Discussed Plan of Care and prognosis etc. at length with family. Labs Labs Laboratory Tests Test 10/20/17 20:25 10/20/17 21:05 10/20/17 22:10 10/21/17 03:00 White Blood Count 11.5 x10^3/uL (4.0-11.0) 9.6 x10^3/uL (4.0-11.0) Red Blood Count 4.00 x10^6/uL (4.30-5.70) 3.70 x10^6/uL (4.30-5.70) Hemoglobin 12.0 g/dL (13.0-17.5) 11.2 g/dL (13.0-17.5) Hematocrit 37.6 % (39.0-53.0) 36.5 % (39.0-53.0) Mean Corpuscular Volume 94 fL (79-100) 99 fL (79-100) Mean Corpuscular Hemoglobin 30 pg (25-35) 30 pg (25-35) Mean Corpuscular Hemoglobin Concent 32 g/dL (31-37) 31 g/dL (31-37) Red Cell Distribution Width 17.9 % (11.5-14.5) 18.6 % (11.5-14.5) Platelet Count 449 x10^3/uL (140-400) 298 x10^3/uL (140-400) Neutrophils (%) (Auto) 86 % (31-73) 82 % (31-73) Lymphocytes (%) (Auto) 6 % (24-48) 7 % (24-48) Monocytes (%) (Auto) 7 % (0-9) 10 % (0-9) Eosinophils (%) (Auto) 0 % (0-3) 1 % (0-3) Basophils (%) (Auto) 1 % (0-3) 1 % (0-3) Neutrophils # (Auto) 9.9 x10^3uL (1.8-7.7) 7.9 x10^3uL (1.8-7.7) Lymphocytes # (Auto) 0.7 x10^3/uL (1.0-4.8) 0.6 x10^3/uL (1.0-4.8) Monocytes # (Auto) 0.8 x10^3/uL (0.0-1.1) 1.0 x10^3/uL (0.0-1.1) Eosinophils # (Auto) 0.0 x10^3/uL (0.0-0.7) 0.1 x10^3/uL (0.0-0.7) Basophils # (Auto) 0.1 x10^3/uL (0.0-0.2) 0.0 x10^3/uL (0.0-0.2) Segmented Neutrophils % 83 % (35-66) Band Neutrophils % 2 % (0-9) Lymphocytes % 5 % (24-48) Monocytes % 10 % (0-10) Platelet Estimate Increased (ADEQUATE) Polychromasia Slight Anisocytosis Slight Sodium Level 134 mmol/L (136-145) 135 mmol/L (136-145) Potassium Level 4.9 mmol/L (3.5-5.1) 4.5 mmol/L (3.5-5.1) Chloride Level 97 mmol/L (98-107) 101 mmol/L (98-107) Carbon Dioxide Level 26 mmol/L (21-32) 24 mmol/L (21-32) Anion Gap 11 (6-14) 10 (6-14) Blood Urea Nitrogen 44 mg/dL (8-26) 45 mg/dL (8-26) Creatinine 4.1 mg/dL (0.7-1.3) 4.3 mg/dL (0.7-1.3) Estimated GFR (Cockcroft-Gault) 15.5 14.6 Glucose Level 202 mg/dL (70-99) 205 mg/dL (70-99) Lactic Acid Level 2.1 mmol/L (0.4-2.0) 1.7 mmol/L (0.4-2.0) Calcium Level 9.2 mg/dL (8.5-10.1) 8.6 mg/dL (8.5-10.1) Magnesium Level 2.1 mg/dL (1.8-2.4) Total Bilirubin 0.2 mg/dL (0.2-1.0) Direct Bilirubin < 0.1 mg/dL (0.0-0.2) Aspartate Amino Transf (AST/SGOT) 30 U/L (15-37) Alanine Aminotransferase (ALT/SGPT) 32 U/L (16-63) Alkaline Phosphatase 218 U/L (46-116) Troponin I Quantitative < 0.017 ng/mL (0.000-0.055) < 0.017 ng/mL (0.000-0.055) Total Protein 8.6 g/dL (6.4-8.2) Albumin 3.9 g/dL (3.4-5.0) Lipase 202 U/L (73-393) Urine Collection Type U cath Urine Color Red Urine Clarity Turbid Urine pH 8.5 Urine Specific Minier 1.020 Urine Protein 100 mg/dL (NEG-TRACE) Urine Glucose (UA) Negative mg/dL (NEG) Urine Ketones (Stick) Trace mg/dL (NEG) Urine Blood Negative (NEG) Urine Nitrite Negative (NEG) Urine Bilirubin Small (NEG) Urine Urobilinogen Dipstick 0.2 mg/dL (0.2 mg/dL) Urine Leukocyte Esterase Large (NEG) Urine RBC 0 /HPF (0-2) Urine WBC Occ /HPF (0-4) Urine Amorphous Sediment Present /HPF Urine Bacteria Many /HPF (0-FEW) Urine Mucus Slight /LPF Test 10/21/17 06:30 10/21/17 08:02 10/21/17 11:40 Troponin I Quantitative < 0.017 ng/mL (0.000-0.055) Glucose (Fingerstick) 170 mg/dL (70-99) 153 mg/dL (70-99) Laboratory Tests Test 10/20/17 20:25 10/20/17 21:05 10/20/17 22:10 10/21/17 03:00 White Blood Count 11.5 x10^3/uL (4.0-11.0) 9.6 x10^3/uL (4.0-11.0) Red Blood Count 4.00 x10^6/uL (4.30-5.70) 3.70 x10^6/uL (4.30-5.70) Hemoglobin 12.0 g/dL (13.0-17.5) 11.2 g/dL (13.0-17.5) Hematocrit 37.6 % (39.0-53.0) 36.5 % (39.0-53.0) Mean Corpuscular Volume 94 fL (79-100) 99 fL (79-100) Mean Corpuscular Hemoglobin 30 pg (25-35) 30 pg (25-35) Mean Corpuscular Hemoglobin Concent 32 g/dL (31-37) 31 g/dL (31-37) Red Cell Distribution Width 17.9 % (11.5-14.5) 18.6 % (11.5-14.5) Platelet Count 449 x10^3/uL (140-400) 298 x10^3/uL (140-400) Neutrophils (%) (Auto) 86 % (31-73) 82 % (31-73) Lymphocytes (%) (Auto) 6 % (24-48) 7 % (24-48) Monocytes (%) (Auto) 7 % (0-9) 10 % (0-9) Eosinophils (%) (Auto) 0 % (0-3) 1 % (0-3) Basophils (%) (Auto) 1 % (0-3) 1 % (0-3) Neutrophils # (Auto) 9.9 x10^3uL (1.8-7.7) 7.9 x10^3uL (1.8-7.7) Lymphocytes # (Auto) 0.7 x10^3/uL (1.0-4.8) 0.6 x10^3/uL (1.0-4.8) Monocytes # (Auto) 0.8 x10^3/uL (0.0-1.1) 1.0 x10^3/uL (0.0-1.1) Eosinophils # (Auto) 0.0 x10^3/uL (0.0-0.7) 0.1 x10^3/uL (0.0-0.7) Basophils # (Auto) 0.1 x10^3/uL (0.0-0.2) 0.0 x10^3/uL (0.0-0.2) Segmented Neutrophils % 83 % (35-66) Band Neutrophils % 2 % (0-9) Lymphocytes % 5 % (24-48) Monocytes % 10 % (0-10) Platelet Estimate Increased (ADEQUATE) Polychromasia Slight Anisocytosis Slight Sodium Level 134 mmol/L (136-145) 135 mmol/L (136-145) Potassium Level 4.9 mmol/L (3.5-5.1) 4.5 mmol/L (3.5-5.1) Chloride Level 97 mmol/L (98-107) 101 mmol/L (98-107) Carbon Dioxide Level 26 mmol/L (21-32) 24 mmol/L (21-32) Anion Gap 11 (6-14) 10 (6-14) Blood Urea Nitrogen 44 mg/dL (8-26) 45 mg/dL (8-26) Creatinine 4.1 mg/dL (0.7-1.3) 4.3 mg/dL (0.7-1.3) Estimated GFR (Cockcroft-Gault) 15.5 14.6 Glucose Level 202 mg/dL (70-99) 205 mg/dL (70-99) Lactic Acid Level 2.1 mmol/L (0.4-2.0) 1.7 mmol/L (0.4-2.0) Calcium Level 9.2 mg/dL (8.5-10.1) 8.6 mg/dL (8.5-10.1) Magnesium Level 2.1 mg/dL (1.8-2.4) Total Bilirubin 0.2 mg/dL (0.2-1.0) Direct Bilirubin < 0.1 mg/dL (0.0-0.2) Aspartate Amino Transf (AST/SGOT) 30 U/L (15-37) Alanine Aminotransferase (ALT/SGPT) 32 U/L (16-63) Alkaline Phosphatase 218 U/L (46-116) Troponin I Quantitative < 0.017 ng/mL (0.000-0.055) < 0.017 ng/mL (0.000-0.055) Total Protein 8.6 g/dL (6.4-8.2) Albumin 3.9 g/dL (3.4-5.0) Lipase 202 U/L (73-393) Urine Collection Type U cath Urine Color Red Urine Clarity Turbid Urine pH 8.5 Urine Specific [place] 1.020 Urine Protein 100 mg/dL (NEG-TRACE) Urine Glucose (UA) Negative mg/dL (NEG) Urine Ketones (Stick) Trace mg/dL (NEG) Urine Blood Negative (NEG) Urine Nitrite Negative (NEG) Urine Bilirubin Small (NEG) Urine Urobilinogen Dipstick 0.2 mg/dL (0.2 mg/dL) Urine Leukocyte Esterase Large (NEG) Urine RBC 0 /HPF (0-2) Urine WBC Occ /HPF (0-4) Urine Amorphous Sediment Present /HPF Urine Bacteria Many /HPF (0-FEW) Urine Mucus Slight /LPF Test 10/21/17 06:30 10/21/17 08:02 10/21/17 11:40 Troponin I Quantitative < 0.017 ng/mL (0.000-0.055) Glucose (Fingerstick) 170 mg/dL (70-99) 153 mg/dL (70-99) Images Images IMPRESSION: 1. Bilateral nephrolithiasis. There is no evidence of obstructive uropathy. 2. Suspected cholelithiasis. There is slight fatty stranding surrounding the gallbladder which may be due to superimposed cholecystitis. Correlate with symptomatology and gallbladder sonography. 1. Cholelithiasis, including a stone within the gallbladder neck. The gallbladder wall is mildly thickened. This can be due to intrinsic liver disease or cholecystitis. 2. Hepatomegaly and hepatic steatosis. 3. Mild right renal atrophy. There is echogenic right renal parenchyma, a finding which can be seen with medical renal disease. 4. Note is made that nephrolithiasis demonstrated on the recent CT is not seen sonographically. There is nonspecific right perinephric fluid. KAYKAY GENAO MD Oct 21, 2017 12:28
[2017-10-21] MEDS ORDERED: MAGNESIUM SULFATE 2GM 50 ML IV PRN (12:45)
--- NOTE | 2017-10-21 13:01 | PDOC2 ---
CONSULT Date of Consult Date of Consult DATE: 10/21/17 TIME: 12:56 Reason for Consult Reason for Consult: cholecystitis Referring Physician Referring Physician: Zaina Identification/Chief Complaint Chief Complaint RUQ pain Problems: Source Source: Chart review, Patient History of Present Illness Reason for Visit: 52 yo M with c/o RUQ for two days, some improvement with pain meds. No previous episodes. Notes long standing history of having irregular heartbeat. Past Medical History Cardiovascular: CHF, Hyperlipidemia, Valve insufficiency Pulmonary: Other CENTRAL NERVOUS SYSTEM: Periperal neuropathy Heme/Onc: Anemia NOS, Other Psych: Depression Infectious disease: Other Renal/: Chronic renal failure Endocrine: Diabetes Past Surgical History Past Surgical History: Other Family History Family History: Diabetes, Hypertension Social History No ALCOHOL: occassional Drugs: Crystal meth Lives: with Family Current Problem List Problem List Problems Medical Problems: (1) Cholecystitis Status: Acute (2) Cholelithiasis Status: Acute (3) Epigastric abdominal pain Status: Acute (4) Nephrolithiasis Status: Acute Current Medications Current Medications Current Medications Sodium Chloride 500 ml @ 500 mls/hr 1X ONCE IV Last administered on 20:39; Start 10/20/17 at 19:45; Stop 10/20/17 at 20:44; Status DC Hydromorphone HCl (Dilaudid) 0.5 mg PRN Q15MIN PRN IV/SQ PAIN GREATER THAN 3/ 10 Last administered on 10/20/17 21:10; Start 10/20/17 at 19:45; Stop at 19:44 Ondansetron HCl (Zofran) 4 mg 1X ONCE IV Last administered on 10/20/17 20:37 ; Start 10/20/17 at 19:45; Stop 10/20/17 at 19:46; Status DC Vancomycin HCl (Vanco Per Pharmacy) 1 each PRN DAILY PRN MC SEE COMMENTS Last administered on 10/21/17 00:09; Start 10/20/17 at 22:00 Piperacillin Sod/ Tazobactam Sod (Zosyn Per Pharmacy) 1 each PRN DAILY PRN MC SEE COMMENTS; Start 10/20/17 at 21:45 Vancomycin HCl 2 gm/Sodium Chloride 500 ml @ 250 mls/hr 1X ONCE IV Last administered on 10/21/17 00:12; Start 10/20/17 at 22:00; Stop 10/20/17 at 23 :59; Status DC Ondansetron HCl (Zofran) 4 mg PRN Q8HRS PRN IV NAUSEA/VOMITING; Start at 22:00; Stop 10/21/17 at 21:59 Morphine Sulfate 2 mg PRN Q2HR PRN IV PAIN Last administered on 10/21/17 12: 02; Start 10/20/17 at 22:45; Stop 10/21/17 at 22:44 Sodium Chloride 1,000 ml @ 100 mls/hr Q10H IV Last administered on 10/21/17 00:12; Start 10/20/17 at 21:45; Stop 10/21/17 at 21:44 Piperacillin Sod/ Tazobactam Sod (Zosyn) 3.375 gm ONCE ONCE IVP Last administered on 10/20/17 22:33; Start 10/20/17 at 22:00; Stop 10/20/17 at 22 :01; Status DC Amiodarone HCl 150 mg/Dextrose 103 ml @ 618 mls/hr 1X ONCE IV ; Start at 22:15; Stop 10/20/17 at 22:15; Status DC Amiodarone HCl 900 mg/Dextrose 518 ml @ 0 mls/hr CONT PRN IV SEE I/O RECORD; Start 10/20/17 at 22:15; Stop 10/20/17 at 22:15; Status DC Sodium Chloride 1,621 ml @ 1,000 mls/hr 1X ONCE IV ; Start 10/20/17 at 22:15 ; Stop 10/20/17 at 23:52; Status DC Metoprolol Tartrate (Lopressor Vial) 5 mg 1X ONCE IVP Last administered on 22:49; Start 10/20/17 at 22:30; Stop 10/20/17 at 22:31; Status DC Sodium Chloride 1,000 ml @ 1,000 mls/hr 1X ONCE IV Last administered on 10/20 22:03; Start 10/20/17 at 22:15; Stop 10/20/17 at 23:14; Status DC Sodium Chloride 621 ml @ 1,000 mls/hr 1X ONCE IV ; Start 10/20/17 at 22:15; Stop 10/20/17 at 22:52; Status DC Piperacillin Sod/ Tazobactam Sod (Zosyn) 2.25 gm Q6HRS IVP Last administered on 10/21/17t 12:03; Start 10/21/17 at 06:00 Vancomycin HCl 1.5 gm/Sodium Chloride 500 ml @ 250 mls/hr Q24H IV ; Start at 00:00; Status Cancel Vancomycin HCl 1 each 1X ONCE MC ; Start 10/22/17 at 23:30; Stop 10/22/17 at 23:30; Status DC Magnesium Sulfate/ Dextrose 50 ml @ 25 mls/hr PRN DAILY PRN IV for Mag < 1.7 on am labs; Start 10/21/17 at 12:45 Active Scripts Active Vanco 500 mg/100 ml-0.9% NaCl (Vancomycin/0.9 % Sod Chloride) 500 Mg/100 Ml Froz.piggy 500 Mg IV 3X/WEEK 28 Days Cipro (Ciprofloxacin Hcl) 250 Mg Tablet 1 Tab PO BID 3 Days Reported Renvela (Sevelamer Carbonate) 800 Mg Tablet 800 Mg PO TIDWMEALS Lantus Solostar (Insulin Glargine,Hum.rec.anlog) 100 Unit/1 Ml Insuln.pen 10 Unit SQ QHS Fish Oil 1,000 Mg Capsule ([place]-3 Fatty Acids/Fish Oil) 1 Each Capsule 2 Each PO BID Aspir 81 (Aspirin) 81 Mg Tablet.dr 1 Tab PO DAILY Sodium Bicarbonate 650 Mg Tablet 1,300 Mg PO TID Gabapentin 300 Mg Capsule 300 Mg PO TID Allergies Allergies: Coded Allergies: I S O L A T I O N *CONTACT* (Verified Allergy, Unknown, 06/05/17) mrsa No Known Medication Allergies (Verified Allergy, Unknown, 06/05/17) ROS Cardiovascular: yes Palpitations Gastrointestinal: Yes Abdominal Pain Physical Exam General: Alert, Oriented X3, Cooperative, No acute distress HEENT: Atraumatic, EOMI Lungs: Normal air movement Abdomen: Soft, Other (TTP RUQ) Extremities: No clubbing, No cyanosis Skin: No rashes, No breakdown Neuro: Normal speech, Sensation intact Psych/Mental Status: Mental status NL, Mood NL Vitals VITALS Vital Signs Date Time Temp Pulse Resp B/P (MAP) Pulse Ox O2 Delivery O2 Flow Rate FiO2 10/21/17 12:02 1 95 Room Air 10/21/17 11:00 97.8 101 107/57 (74) 97.8 Labs Labs Laboratory Tests Test 10/20/17 20:25 10/20/17 21:05 10/20/17 22:10 10/21/17 03:00 White Blood Count 11.5 x10^3/uL (4.0-11.0) 9.6 x10^3/uL (4.0-11.0) Red Blood Count 4.00 x10^6/uL (4.30-5.70) 3.70 x10^6/uL (4.30-5.70) Hemoglobin 12.0 g/dL (13.0-17.5) 11.2 g/dL (13.0-17.5) Hematocrit 37.6 % (39.0-53.0) 36.5 % (39.0-53.0) Mean Corpuscular Volume 94 fL (79-100) 99 fL (79-100) Mean Corpuscular Hemoglobin 30 pg (25-35) 30 pg (25-35) Mean Corpuscular Hemoglobin Concent 32 g/dL (31-37) 31 g/dL (31-37) Red Cell Distribution Width 17.9 % (11.5-14.5) 18.6 % (11.5-14.5) Platelet Count 449 x10^3/uL (140-400) 298 x10^3/uL (140-400) Neutrophils (%) (Auto) 86 % (31-73) 82 % (31-73) Lymphocytes (%) (Auto) 6 % (24-48) 7 % (24-48) Monocytes (%) (Auto) 7 % (0-9) 10 % (0-9) Eosinophils (%) (Auto) 0 % (0-3) 1 % (0-3) Basophils (%) (Auto) 1 % (0-3) 1 % (0-3) Neutrophils # (Auto) 9.9 x10^3uL (1.8-7.7) 7.9 x10^3uL (1.8-7.7) Lymphocytes # (Auto) 0.7 x10^3/uL (1.0-4.8) 0.6 x10^3/uL (1.0-4.8) Monocytes # (Auto) 0.8 x10^3/uL (0.0-1.1) 1.0 x10^3/uL (0.0-1.1) Eosinophils # (Auto) 0.0 x10^3/uL (0.0-0.7) 0.1 x10^3/uL (0.0-0.7) Basophils # (Auto) 0.1 x10^3/uL (0.0-0.2) 0.0 x10^3/uL (0.0-0.2) Segmented Neutrophils % 83 % (35-66) Band Neutrophils % 2 % (0-9) Lymphocytes % 5 % (24-48) Monocytes % 10 % (0-10) Platelet Estimate Increased (ADEQUATE) Polychromasia Slight Anisocytosis Slight Sodium Level 134 mmol/L (136-145) 135 mmol/L (136-145) Potassium Level 4.9 mmol/L (3.5-5.1) 4.5 mmol/L (3.5-5.1) Chloride Level 97 mmol/L (98-107) 101 mmol/L (98-107) Carbon Dioxide Level 26 mmol/L (21-32) 24 mmol/L (21-32) Anion Gap 11 (6-14) 10 (6-14) Blood Urea Nitrogen 44 mg/dL (8-26) 45 mg/dL (8-26) Creatinine 4.1 mg/dL (0.7-1.3) 4.3 mg/dL (0.7-1.3) Estimated GFR (Cockcroft-Gault) 15.5 14.6 Glucose Level 202 mg/dL (70-99) 205 mg/dL (70-99) Lactic Acid Level 2.1 mmol/L (0.4-2.0) 1.7 mmol/L (0.4-2.0) Calcium Level 9.2 mg/dL (8.5-10.1) 8.6 mg/dL (8.5-10.1) Magnesium Level 2.1 mg/dL (1.8-2.4) Total Bilirubin 0.2 mg/dL (0.2-1.0) Direct Bilirubin < 0.1 mg/dL (0.0-0.2) Aspartate Amino Transf (AST/SGOT) 30 U/L (15-37) Alanine Aminotransferase (ALT/SGPT) 32 U/L (16-63) Alkaline Phosphatase 218 U/L (46-116) Troponin I Quantitative < 0.017 ng/mL (0.000-0.055) < 0.017 ng/mL (0.000-0.055) Total Protein 8.6 g/dL (6.4-8.2) Albumin 3.9 g/dL (3.4-5.0) Lipase 202 U/L (73-393) Urine Collection Type U cath Urine Color Red Urine Clarity Turbid Urine pH 8.5 Urine Specific [place] 1.020 Urine Protein 100 mg/dL (NEG-TRACE) Urine Glucose (UA) Negative mg/dL (NEG) Urine Ketones (Stick) Trace mg/dL (NEG) Urine Blood Negative (NEG) Urine Nitrite Negative (NEG) Urine Bilirubin Small (NEG) Urine Urobilinogen Dipstick 0.2 mg/dL (0.2 mg/dL) Urine Leukocyte Esterase Large (NEG) Urine RBC 0 /HPF (0-2) Urine WBC Occ /HPF (0-4) Urine Amorphous Sediment Present /HPF Urine Bacteria Many /HPF (0-FEW) Urine Mucus Slight /LPF Test 10/21/17 06:30 10/21/17 08:02 10/21/17 11:40 Troponin I Quantitative < 0.017 ng/mL (0.000-0.055) Glucose (Fingerstick) 170 mg/dL (70-99) 153 mg/dL (70-99) Laboratory Tests Test 10/20/17 20:25 10/20/17 21:05 10/20/17 22:10 10/21/17 03:00 White Blood Count 11.5 x10^3/uL (4.0-11.0) 9.6 x10^3/uL (4.0-11.0) Red Blood Count 4.00 x10^6/uL (4.30-5.70) 3.70 x10^6/uL (4.30-5.70) Hemoglobin 12.0 g/dL (13.0-17.5) 11.2 g/dL (13.0-17.5) Hematocrit 37.6 % (39.0-53.0) 36.5 % (39.0-53.0) Mean Corpuscular Volume 94 fL (79-100) 99 fL (79-100) Mean Corpuscular Hemoglobin 30 pg (25-35) 30 pg (25-35) Mean Corpuscular Hemoglobin Concent 32 g/dL (31-37) 31 g/dL (31-37) Red Cell Distribution Width 17.9 % (11.5-14.5) 18.6 % (11.5-14.5) Platelet Count 449 x10^3/uL (140-400) 298 x10^3/uL (140-400) Neutrophils (%) (Auto) 86 % (31-73) 82 % (31-73) Lymphocytes (%) (Auto) 6 % (24-48) 7 % (24-48) Monocytes (%) (Auto) 7 % (0-9) 10 % (0-9) Eosinophils (%) (Auto) 0 % (0-3) 1 % (0-3) Basophils (%) (Auto) 1 % (0-3) 1 % (0-3) Neutrophils # (Auto) 9.9 x10^3uL (1.8-7.7) 7.9 x10^3uL (1.8-7.7) Lymphocytes # (Auto) 0.7 x10^3/uL (1.0-4.8) 0.6 x10^3/uL (1.0-4.8) Monocytes # (Auto) 0.8 x10^3/uL (0.0-1.1) 1.0 x10^3/uL (0.0-1.1) Eosinophils # (Auto) 0.0 x10^3/uL (0.0-0.7) 0.1 x10^3/uL (0.0-0.7) Basophils # (Auto) 0.1 x10^3/uL (0.0-0.2) 0.0 x10^3/uL (0.0-0.2) Segmented Neutrophils % 83 % (35-66) Band Neutrophils % 2 % (0-9) Lymphocytes % 5 % (24-48) Monocytes % 10 % (0-10) Platelet Estimate Increased (ADEQUATE) Polychromasia Slight Anisocytosis Slight Sodium Level 134 mmol/L (136-145) 135 mmol/L (136-145) Potassium Level 4.9 mmol/L (3.5-5.1) 4.5 mmol/L (3.5-5.1) Chloride Level 97 mmol/L (98-107) 101 mmol/L (98-107) Carbon Dioxide Level 26 mmol/L (21-32) 24 mmol/L (21-32) Anion Gap 11 (6-14) 10 (6-14) Blood Urea Nitrogen 44 mg/dL (8-26) 45 mg/dL (8-26) Creatinine 4.1 mg/dL (0.7-1.3) 4.3 mg/dL (0.7-1.3) Estimated GFR (Cockcroft-Gault) 15.5 14.6 Glucose Level 202 mg/dL (70-99) 205 mg/dL (70-99) Lactic Acid Level 2.1 mmol/L (0.4-2.0) 1.7 mmol/L (0.4-2.0) Calcium Level 9.2 mg/dL (8.5-10.1) 8.6 mg/dL (8.5-10.1) Magnesium Level 2.1 mg/dL (1.8-2.4) Total Bilirubin 0.2 mg/dL (0.2-1.0) Direct Bilirubin < 0.1 mg/dL (0.0-0.2) Aspartate Amino Transf (AST/SGOT) 30 U/L (15-37) Alanine Aminotransferase (ALT/SGPT) 32 U/L (16-63) Alkaline Phosphatase 218 U/L (46-116) Troponin I Quantitative < 0.017 ng/mL (0.000-0.055) < 0.017 ng/mL (0.000-0.055) Total Protein 8.6 g/dL (6.4-8.2) Albumin 3.9 g/dL (3.4-5.0) Lipase 202 U/L (73-393) Urine Collection Type U cath Urine Color Red Urine Clarity Turbid Urine pH 8.5 Urine Specific [place] 1.020 Urine Protein 100 mg/dL (NEG-TRACE) Urine Glucose (UA) Negative mg/dL (NEG) Urine Ketones (Stick) Trace mg/dL (NEG) Urine Blood Negative (NEG) Urine Nitrite Negative (NEG) Urine Bilirubin Small (NEG) Urine Urobilinogen Dipstick 0.2 mg/dL (0.2 mg/dL) Urine Leukocyte Esterase Large (NEG) Urine RBC 0 /HPF (0-2) Urine WBC Occ /HPF (0-4) Urine Amorphous Sediment Present /HPF Urine Bacteria Many /HPF (0-FEW) Urine Mucus Slight /LPF Test 10/21/17 06:30 10/21/17 08:02 10/21/17 11:40 Troponin I Quantitative < 0.017 ng/mL (0.000-0.055) Glucose (Fingerstick) 170 mg/dL (70-99) 153 mg/dL (70-99) Images Images imaging c/w cholecystitis Assessment/Plan Assessment/Plan cholecystitis pt will benefit from cholecystectomy. However, d/w cardiology. Patient is at risk for having cardiac issues, and needs cardiac evaluation prior to proceeding with surgery. Will cont pain control and abx at this time. Thanks for consult! GEOVANNI MOORE MD Oct 21, 2017 13:01
[2017-10-21] MEDS ORDERED: ALTEPLASE 2MG VIAL 10 MG in IV NORMAL SALINE 100ML 100 ML IV STA (13:29)
[2017-10-21] MEDS ORDERED: ALTEPLASE 2MG VIAL 10 MG in IV NORMAL SALINE 100ML 100 ML IV ONE (13:30)
[2017-10-21] MEDS ORDERED: ALTEPLASE 2 MG VIAL INT CAT ONE (13:45)
[2017-10-21] MEDS ORDERED: IV NORMAL SALINE 1000ML BAG 1,000 ML IV PRN (14:40)
[2017-10-21] MEDS ORDERED: DIALYSIS PATIENT. MC PRN (14:45)
[2017-10-21] MEDS ORDERED: ALBUMIN HUMAN 25% 200 ML IV PRN (14:45)
--- NOTE | 2017-10-21 17:16 | CONS ---
DATE OF CONSULTATION: PRIMARY PHYSICIAN: Dr. Victoria/Dr. Mahajan. REASON FOR CONSULTATION: ESRD, dialysis. HISTORY OF PRESENT ILLNESS: The patient is a 52-year-old gentleman who presented to ER with complaints of nausea, vomiting, abdominal pain. He has not truly vomited, but he did have right upper quadrant discomfort in the ER. It appears that he had some epigastric discomfort also. CT and sonogram of the abdomen have been done and are as reported in the electronic renal consult note. He was at dialysis and was able to finish only half of his treatment due to GI signs and symptoms. He was also noted to have some PVCs in the ER. He is admitted to the hospital for further evaluation. He is on hemodialysis on Thursday, , Thursday schedule and given the holiday schedule, was being dialyzed. He has received antibiotics through the ER. He is feeling somewhat better today. He does have nonobstructing kidney stones on his imaging studies. For rest of details, see electronic records. KAYKAY GENAO MD DR: DAHIANA/armando JOB#: [id number] / [id number]
[2017-10-21 19:55] VITALS: BP 101/56
[2017-10-21 22:42] VITALS: BP 105/58
[2017-10-22] MEDS ORDERED: VANCOMYCIN 1.5 GM in IV NORMAL SALINE 500ML BAG 500 ML IV SCH ×2
[2017-10-22] MEDS: PIPERACILLIN/TAZO IV Push 2.25 GM VIAL. IVP SCH ×5 (00:06→22:30)
[2017-10-22 02:41] VITALS: BP 105/65
[2017-10-22 05:01] LABS: BARBITURATES NEG (NEG); BENZODIAZEPINES NEG (NEG); CANNABINOIDS NEG (NEG); COCAINE NEG (NEG); METHADONE NEG (NEG); OPIATES POS (NEG); PHENCYCLIDINE NEG (NEG)
[2017-10-22] MEDS ORDERED: VANCOMYCIN RANDOM LEVEL. MC ONE (06:00)
[2017-10-22 07:00] VITALS: BP 114/64
--- NOTE | 2017-10-22 09:14 | PDOC ---
SURGICAL PROGRESS NOTE Subjective Patient very angry, wants to eat or he is going home.Denies Nausea or pain Vital Signs Vital Signs Date Time Temp Pulse Resp B/P (MAP) Pulse Ox O2 Delivery O2 Flow Rate FiO2 10/22/17 08:01 Room Air 10/22/17 07:00 98.1 98 19 114/64 (81) 92 98.1 I&O Intake and Output 10/22/17 07:00 Intake Total 1442 ml Output Total 340 ml Balance 1102 ml Intake Oral 960 ml IV Total 482 ml Output Urine Total 340 ml PATIENT HAS A FRIAS: No General: Alert, Oriented X3, No acute distress, Other (very angry) Abdomen: Normal bowel sounds, Soft, Other (TTP epigastrium and RUQ) Labs Laboratory Tests Test 10/20/17 20:25 10/20/17 21:05 10/20/17 22:10 10/21/17 03:00 White Blood Count 11.5 x10^3/uL (4.0-11.0) 9.6 x10^3/uL (4.0-11.0) Red Blood Count 4.00 x10^6/uL (4.30-5.70) 3.70 x10^6/uL (4.30-5.70) Hemoglobin 12.0 g/dL (13.0-17.5) 11.2 g/dL (13.0-17.5) Hematocrit 37.6 % (39.0-53.0) 36.5 % (39.0-53.0) Mean Corpuscular Volume 94 fL (79-100) 99 fL (79-100) Mean Corpuscular Hemoglobin 30 pg (25-35) 30 pg (25-35) Mean Corpuscular Hemoglobin Concent 32 g/dL (31-37) 31 g/dL (31-37) Red Cell Distribution Width 17.9 % (11.5-14.5) 18.6 % (11.5-14.5) Platelet Count 449 x10^3/uL (140-400) 298 x10^3/uL (140-400) Neutrophils (%) (Auto) 86 % (31-73) 82 % (31-73) Lymphocytes (%) (Auto) 6 % (24-48) 7 % (24-48) Monocytes (%) (Auto) 7 % (0-9) 10 % (0-9) Eosinophils (%) (Auto) 0 % (0-3) 1 % (0-3) Basophils (%) (Auto) 1 % (0-3) 1 % (0-3) Neutrophils # (Auto) 9.9 x10^3uL (1.8-7.7) 7.9 x10^3uL (1.8-7.7) Lymphocytes # (Auto) 0.7 x10^3/uL (1.0-4.8) 0.6 x10^3/uL (1.0-4.8) Monocytes # (Auto) 0.8 x10^3/uL (0.0-1.1) 1.0 x10^3/uL (0.0-1.1) Eosinophils # (Auto) 0.0 x10^3/uL (0.0-0.7) 0.1 x10^3/uL (0.0-0.7) Basophils # (Auto) 0.1 x10^3/uL (0.0-0.2) 0.0 x10^3/uL (0.0-0.2) Segmented Neutrophils % 83 % (35-66) Band Neutrophils % 2 % (0-9) Lymphocytes % 5 % (24-48) Monocytes % 10 % (0-10) Platelet Estimate Increased (ADEQUATE) Polychromasia Slight Anisocytosis Slight Sodium Level 134 mmol/L (136-145) 135 mmol/L (136-145) Potassium Level 4.9 mmol/L (3.5-5.1) 4.5 mmol/L (3.5-5.1) Chloride Level 97 mmol/L (98-107) 101 mmol/L (98-107) Carbon Dioxide Level 26 mmol/L (21-32) 24 mmol/L (21-32) Anion Gap 11 (6-14) 10 (6-14) Blood Urea Nitrogen 44 mg/dL (8-26) 45 mg/dL (8-26) Creatinine 4.1 mg/dL (0.7-1.3) 4.3 mg/dL (0.7-1.3) Estimated GFR (Cockcroft-Gault) 15.5 14.6 Glucose Level 202 mg/dL (70-99) 205 mg/dL (70-99) Lactic Acid Level 2.1 mmol/L (0.4-2.0) 1.7 mmol/L (0.4-2.0) Calcium Level 9.2 mg/dL (8.5-10.1) 8.6 mg/dL (8.5-10.1) Magnesium Level 2.1 mg/dL (1.8-2.4) Total Bilirubin 0.2 mg/dL (0.2-1.0) Direct Bilirubin < 0.1 mg/dL (0.0-0.2) Aspartate Amino Transf (AST/SGOT) 30 U/L (15-37) Alanine Aminotransferase (ALT/SGPT) 32 U/L (16-63) Alkaline Phosphatase 218 U/L (46-116) Troponin I Quantitative < 0.017 ng/mL (0.000-0.055) < 0.017 ng/mL (0.000-0.055) Total Protein 8.6 g/dL (6.4-8.2) Albumin 3.9 g/dL (3.4-5.0) Lipase 202 U/L (73-393) Urine Collection Type U cath Urine Color Red Urine Clarity Turbid Urine pH 8.5 Urine Specific [place] 1.020 Urine Protein 100 mg/dL (NEG-TRACE) Urine Glucose (UA) Negative mg/dL (NEG) Urine Ketones (Stick) Trace mg/dL (NEG) Urine Blood Negative (NEG) Urine Nitrite Negative (NEG) Urine Bilirubin Small (NEG) Urine Urobilinogen Dipstick 0.2 mg/dL (0.2 mg/dL) Urine Leukocyte Esterase Large (NEG) Urine RBC 0 /HPF (0-2) Urine WBC Occ /HPF (0-4) Urine Amorphous Sediment Present /HPF Urine Bacteria Many /HPF (0-FEW) Urine Mucus Slight /LPF Test 10/21/17 06:30 10/21/17 08:02 10/21/17 11:40 10/21/17 17:01 Troponin I Quantitative < 0.017 ng/mL (0.000-0.055) Glucose (Fingerstick) 170 mg/dL (70-99) 153 mg/dL (70-99) 163 mg/dL (70-99) Test 10/21/17 21:07 10/22/17 03:20 10/22/17 04:30 10/22/17 07:51 Glucose (Fingerstick) 256 mg/dL (70-99) 146 mg/dL (70-99) Urine Opiates Screen Pos (NEG) Urine Methadone Screen Neg (NEG) Urine Barbiturates Neg (NEG) Urine Phencyclidine Screen Neg (NEG) Urine Amphetamine/Methamphetamine Pos (NEG) Urine Benzodiazepines Screen Neg (NEG) Urine Cocaine Screen Neg (NEG) Urine Cannabinoids Screen Neg (NEG) Urine Ethyl Alcohol Neg (NEG) Hemoglobin 9.9 g/dL (13.0-17.5) Sodium Level 136 mmol/L (136-145) Potassium Level 4.6 mmol/L (3.5-5.1) Chloride Level 100 mmol/L (98-107) Carbon Dioxide Level 25 mmol/L (21-32) Anion Gap 11 (6-14) Blood Urea Nitrogen 41 mg/dL (8-26) Creatinine 4.7 mg/dL (0.7-1.3) Estimated GFR (Cockcroft-Gault) 13.2 Glucose Level 143 mg/dL (70-99) Calcium Level 8.5 mg/dL (8.5-10.1) Phosphorus Level 4.3 mg/dL (2.6-4.7) Magnesium Level 1.7 mg/dL (1.8-2.4) Albumin 2.5 g/dL (3.4-5.0) Random Vancomycin Level 14.3 mcg/mL Laboratory Tests Test 10/21/17 11:40 10/21/17 17:01 10/21/17 21:07 10/22/17 03:20 Glucose (Fingerstick) 153 mg/dL (70-99) 163 mg/dL (70-99) 256 mg/dL (70-99) Urine Opiates Screen Pos (NEG) Urine Methadone Screen Neg (NEG) Urine Barbiturates Neg (NEG) Urine Phencyclidine Screen Neg (NEG) Urine Amphetamine/Methamphetamine Pos (NEG) Urine Benzodiazepines Screen Neg (NEG) Urine Cocaine Screen Neg (NEG) Urine Cannabinoids Screen Neg (NEG) Urine Ethyl Alcohol Neg (NEG) Test 10/22/17 04:30 10/22/17 07:51 Hemoglobin 9.9 g/dL (13.0-17.5) Sodium Level 136 mmol/L (136-145) Potassium Level 4.6 mmol/L (3.5-5.1) Chloride Level 100 mmol/L (98-107) Carbon Dioxide Level 25 mmol/L (21-32) Anion Gap 11 (6-14) Blood Urea Nitrogen 41 mg/dL (8-26) Creatinine 4.7 mg/dL (0.7-1.3) Estimated GFR (Cockcroft-Gault) 13.2 Glucose Level 143 mg/dL (70-99) Calcium Level 8.5 mg/dL (8.5-10.1) Phosphorus Level 4.3 mg/dL (2.6-4.7) Magnesium Level 1.7 mg/dL (1.8-2.4) Albumin 2.5 g/dL (3.4-5.0) Random Vancomycin Level 14.3 mcg/mL Glucose (Fingerstick) 146 mg/dL (70-99) Problem List Problems Medical Problems: (1) Cholecystitis Status: Acute (2) Cholelithiasis Status: Acute (3) Epigastric abdominal pain Status: Acute (4) Nephrolithiasis Status: Acute Assessment/Plan Currently NPO for stress test today Will likely need cholecystectomy after cardiac clearence. Problems: SARAVANAN FORREST MD Oct 22, 2017 09:14
[2017-10-22 09:47] LABS: ALBUMIN/GLOBULIN RATIO 0.5 (1.0-1.7); POTASSIUM 4.6 mmol/L (3.5-5.1); TOTAL PROTEIN 7.1 g/dL (6.4-8.2)
[2017-10-22 09:49] LABS: ALBUMIN 2.5 g/dL (3.4-5.0); CALCIUM 8.5 mg/dL (8.5-10.1); CREATININE 4.7 mg/dL (0.7-1.3); GFR 13.2
[2017-10-22 09:50] LABS: PHOSPHORUS 4.3 mg/dL (2.6-4.7)
[2017-10-22] MEDS: diphenhydrAMINE 50 MG/ML VIAL IVP PRN (10:18)
[2017-10-22 11:00] VITALS: BP 101/58
[2017-10-22] MEDS: VANCOMYCIN PER PHARMACY MC PRN (11:20)
--- NOTE | 2017-10-22 11:21 | PDOC ---
GENERAL General: vss and afebrile. unhappy about npo status and having to wait for cardiac clearance for cholecystectomy. chest clear, heart regular, and abdominal tenderness ruq ongoing. itching all over this am and no obvious rash or jaundice. benadryl ordered for same and will recheck lft's. ongoing iv antibiotics and awaiting surgery. Problems: VITAL SIGNS Vital Signs: Vital Signs Date Time Temp Pulse Resp B/P (MAP) Pulse Ox O2 Delivery O2 Flow Rate FiO2 10/22/17 08:01 Room Air 10/22/17 07:00 98.1 98 19 114/64 (81) 92 98.1 I & O I & O Intake and Output 10/22/17 07:00 Intake Total 1442 ml Output Total 340 ml Balance 1102 ml Intake Oral 960 ml IV Total 482 ml Output Urine Total 340 ml ALLERGIES Allergies: Allergies Coded Allergies Type Severity Reaction Last Updated Verified I S O L A T I O N *CONTACT* Allergy Unknown 06/05/17 Yes No Known Medication Allergies Allergy Unknown 06/05/17 Yes MEDS Medications: Current Medications Medications (Trade) Dose Ordered Sig/Nando Start Time Stop Time Status Last Admin Dose Admin Albumin Human 200 ml @ 200 mls/hr 1X PRN PRN 10/21/17 14:45 10/21/17 20:44 DC Alteplase, Recombinant (Cathflo) 2 mg 1X ONCE 10/21/17 13:45 10/21/17 13:46 DC Alteplase, Recombinant 10 mg/ Sodium Chloride 100 ml @ 10 mls/hr 1X ONCE 10/21/17 13:30 10/21/17 23:29 UNV Amiodarone HCl 150 mg/Dextrose 103 ml @ 618 mls/hr 1X ONCE 10/20/17 22:15 10/20/17 22:15 DC Amiodarone HCl 900 mg/Dextrose 518 ml @ 0 mls/hr CONT PRN 10/20/17 22:15 10/20/17 22:15 DC Diphenhydramine HCl (Benadryl) 50 mg PRN Q8HRS PRN 10/22/17 10:15 10/22/17 10:18 50 MG Hydromorphone HCl (Dilaudid) 0.5 mg PRN Q15MIN PRN 10/20/17 19:45 10/21/17 19:44 DC 10/20/17 21:10 0.5 MG Info (PHARMACY MONITORING -- do not chart) 1 each PRN DAILY PRN 10/21/17 14:45 Magnesium Sulfate/ Dextrose 50 ml @ 25 mls/hr PRN DAILY PRN 10/21/17 12:45 Metoprolol Tartrate (Lopressor Vial) 5 mg 1X ONCE 10/20/17 22:30 10/20/17 22:31 DC 10/20/17 22:49 5 MG Morphine Sulfate 2 mg PRN Q2HR PRN 10/20/17 22:45 10/21/17 22:44 DC 10/21/17 18:27 2 MG Ondansetron HCl (Zofran) 4 mg PRN Q8HRS PRN 10/20/17 22:00 10/21/17 21:59 DC Piperacillin Sod/ Tazobactam Sod (Zosyn Per Pharmacy) 1 each PRN DAILY PRN 10/20/17 21:45 Piperacillin Sod/ Tazobactam Sod (Zosyn) 2.25 gm Q6HRS 10/21/17 06:00 10/22/17 06:04 2.25 GM Sodium Chloride 1,000 ml @ 1,000 mls/hr Q1H PRN 10/21/17 14:40 10/21/17 20:39 DC Vancomycin HCl 1 each 1X ONCE 10/22/17 06:00 10/22/17 06:01 DC Vancomycin HCl (Vanco Per Pharmacy) 1 each PRN DAILY PRN 10/20/17 22:00 10/21/17 13:28 1 EACH Vancomycin HCl 1.5 gm/Sodium Chloride 500 ml @ 250 mls/hr Q24H 10/22/17 00:00 Cancel Vancomycin HCl 2 gm/Sodium Chloride 500 ml @ 250 mls/hr 1X ONCE 10/20/17 22:00 10/20/17 23:59 DC 10/21/17 00:12 250 MLS/HR LAB Lab: Laboratory Tests Test 10/21/17 11:40 10/21/17 17:01 10/21/17 21:07 10/22/17 03:20 Glucose (Fingerstick) 153 mg/dL (70-99) 163 mg/dL (70-99) 256 mg/dL (70-99) Urine Opiates Screen Pos (NEG) Urine Methadone Screen Neg (NEG) Urine Barbiturates Neg (NEG) Urine Phencyclidine Screen Neg (NEG) Urine Amphetamine/Methamphetamine Pos (NEG) Urine Benzodiazepines Screen Neg (NEG) Urine Cocaine Screen Neg (NEG) Urine Cannabinoids Screen Neg (NEG) Urine Ethyl Alcohol Neg (NEG) Test 10/22/17 04:30 10/22/17 07:51 Hemoglobin 9.9 g/dL (13.0-17.5) Sodium Level 136 mmol/L (136-145) Potassium Level 4.6 mmol/L (3.5-5.1) Chloride Level 100 mmol/L (98-107) Carbon Dioxide Level 25 mmol/L (21-32) Anion Gap 11 (6-14) Blood Urea Nitrogen 41 mg/dL (8-26) Creatinine 4.7 mg/dL (0.7-1.3) Estimated GFR (Cockcroft-Gault) 13.2 BUN/Creatinine Ratio 9 (6-20) Glucose Level 143 mg/dL (70-99) Calcium Level 8.5 mg/dL (8.5-10.1) Phosphorus Level 4.3 mg/dL (2.6-4.7) Magnesium Level 1.7 mg/dL (1.8-2.4) Total Bilirubin 1.0 mg/dL (0.2-1.0) Aspartate Amino Transf (AST/SGOT) 25 U/L (15-37) Alanine Aminotransferase (ALT/SGPT) 38 U/L (16-63) Alkaline Phosphatase 202 U/L (46-116) Total Protein 7.1 g/dL (6.4-8.2) Albumin 2.5 g/dL (3.4-5.0) Albumin/Globulin Ratio 0.5 (1.0-1.7) Random Vancomycin Level 14.3 mcg/mL Glucose (Fingerstick) 146 mg/dL (70-99) LUIZ LARRY MD Oct 22, 2017 11:21
--- NOTE | 2017-10-22 11:37 | HP ---
ADMIT DATE: 10/20/2017 CHIEF COMPLAINT AND HISTORY OF PRESENT ILLNESS: This 52-year-old white male presented to the Emergency Room with epigastric and right upper quadrant pain starting earlier today, described as burning and some cramping. He was found on imaging to have what was felt to be acute cholecystitis and admitted to the hospital for the same. PAST MEDICAL HISTORY: Remarkable for end-stage renal disease on dialysis. He has diabetes type 2, had a severe episode of bacterial meningitis in the past, has a dialysis shunt in his arm. MEDICATIONS: Brought with the patient, listed on the computer, and have been addressed. ALLERGIES: He has no known drug allergies. SOCIAL HISTORY: Denies smoking or alcohol use. Does use "speed." FAMILY HISTORY: Noncontributory. REVIEW OF SYSTEMS: As mentioned above. He denies nausea, vomiting, diarrhea, fevers, chills, sweats with this. PHYSICAL EXAMINATION: GENERAL: He is a well-developed, well-nourished white male who appears uncomfortable. VITAL SIGNS: Stable. He is afebrile. HEAD, EYES, EARS, NOSE, THROAT: Unremarkable. There is no icterus. NECK: Supple, without lymphadenopathy or thyromegaly. CHEST: Clear to auscultation and percussion. HEART: Regular rate and rhythm without S3, S4, or murmur. ABDOMEN: Reveals guarding and rebound present right upper quadrant. Positive De La Cruz sign. EXTREMITIES: Without cyanosis, clubbing, edema. NEUROLOGIC: He is intact. LABORATORY DATA: Initial white count is 11,500 with a left shift. BUN is 44, creatinine 4.1, glucose 202, hemoglobin 12. IMPRESSION: Acute cholecystitis in a patient with multiple other problems as listed above. PLAN: The patient has been admitted. Surgery has been consulted as well as Renal for ongoing dialysis. IV antibiotics have been started and the patient will be monitored, managed and treated appropriately. LUIZ LARRY MD DR: CELINE/armando JOB#: [id number] / [id number]
[2017-10-22 15:00] VITALS: BP 104/59
--- NOTE | 2017-10-22 15:08 | PDOC ---
CARDIOLOGY PROGRESS NOTE SUBJECTIVE: Somnolent but arousable. Upset about eating. OBJECTIVE: Vital SIgns: Vital Signs Date Time Temp Pulse Resp B/P (MAP) Pulse Ox O2 Delivery O2 Flow Rate FiO2 10/22/17 11:00 97.5 98 19 101/58 (72) 92 Room Air 97.5 I & O Intake and Output 10/22/17 07:00 Intake Total 1442 ml Output Total 340 ml Balance 1102 ml Intake Oral 960 ml IV Total 482 ml Output Urine Total 340 ml Objective: Gen: somnolent. Conversant rrr, no m/r/g pulm cta anterior RUQ tenderness 2+ DP pulses. No edema. CURRENT MEDICATIONS: Meds reviewed DIAGNOSTIC TESTING: Tele - SR with frequent PAC's and PVC's. ASSESSMENT: 1. Frequent PVC's/PAC's 2. ESRD 3. Acute cholecystitis Problems: PLAN: 1. Will start Metoprolol 25mg bid 2. No further CV testing needed prior to any GB surgery. Patient is moderate risk for surgery given his history of ESRD and nature of surgery ( intraperitoneal). CV stress testing is not indicated at this time prior to surgery. His PVC's and PAC's are due to metabolic derangement in the setting of amphetamine abuse and ESRD. 3. Supportive care. 4. Pls call with questions. Thanks WILLIAM SILVA MD Oct 22, 2017 15:08
[2017-10-22] MEDS: MORPHINE SULFATE 2 MG/ML DISP.SYRIN. IV PRN (15:24)
[2017-10-22] MEDS: METOPROLOL TART IMMED RELEASE 25 MG TABLET. PO SCH ×2 (15:26→21:24)
[2017-10-22] MEDS ORDERED: VANCOMYCIN 500 MG in IV NORMAL SALINE 100ML 100 ML IV ONE (16:00)
[2017-10-22 19:35] VITALS: BP 98/57
[2017-10-22 23:28] VITALS: BP 91/57
[2017-10-23 03:04] VITALS: BP 90/51
[2017-10-23] MEDS: PIPERACILLIN/TAZO IV Push 2.25 GM VIAL. IVP SCH ×2 (05:50→14:05)
[2017-10-23] MEDS: VANCOMYCIN PER PHARMACY MC PRN (09:02)
[2017-10-23 09:15] VITALS: BP 100/52
[2017-10-23] MEDS: METOPROLOL TART IMMED RELEASE 25 MG TABLET. PO SCH ×2 (09:15→21:20)
[2017-10-23] MEDS ORDERED: LIDOCAINE 2% PF Vial for OR 5 ML VIAL. ONE (09:18)
[2017-10-23] MEDS ORDERED: PROPOFOL 20 ML IV ONE (09:18)
[2017-10-23] MEDS ORDERED: SUCCINYLCHOLINE 200 MG/10 ML VIAL. ONE (09:19)
[2017-10-23] MEDS ORDERED: ROCURONIUM 50 MG/5 ML VIAL. ONE (09:19)
[2017-10-23] MEDS ORDERED: MIDAZOLAM HCL/PF 2 MG/2 ML VIAL. ONE (09:20)
[2017-10-23] MEDS ORDERED: fentaNYL PF VIAL 250 MCG/5 ML VIAL ONE (09:20)
[2017-10-23] MEDS ORDERED: IOHEXOL 300 MG/ML 50 ML VIAL. ONE (09:28)
[2017-10-23] MEDS ORDERED: SURGICEL HEMOSTAT 4X8 EACH. ONE ×2 (09:28→11:48)
[2017-10-23] MEDS ORDERED: BUPIVAC MPF-EPI 0.5%-1:200000 30 ML VIAL. ONE (09:28)
[2017-10-23] MEDS ORDERED: IV RINGERS,LACTATED 1000ML 1,000 ML IV SCH (09:53)
[2017-10-23] MEDS ORDERED: MORPHINE SULFATE 2 MG/ML DISP.SYRIN. IV PRN (10:00)
[2017-10-23] MEDS ORDERED: PROCHLORPERAZINE 10 MG/2 ML VIAL. IV PRN (10:00)
[2017-10-23] MEDS ORDERED: HYDROmorphone 2 MG/ML VIAL IV PRN (10:00)
[2017-10-23] MEDS ORDERED: LIDOCAINE 1% PF 2 ML VIAL. ID PRN (10:00)
[2017-10-23] MEDS ORDERED: IOHEXOL 300 MG/ML 50 ML VIAL. IJ ONE (10:15)
[2017-10-23] MEDS ORDERED: BUPIVAC MPF-EPI 0.5%-1:200000 30 ML VIAL. INJ ONE (10:15)
[2017-10-23] MEDS ORDERED: SURGICEL HEMOSTAT 4X8 EACH. TP ONE ×2 (10:23→12:15)
--- NOTE | 2017-10-23 11:04 | PDOC ---
GENERAL General: vss and afebrile. sugars good. for cholecystectomy and in OR currently. cardiology obviously cleared for same. hopefully dc am if does well. Problems: VITAL SIGNS Vital Signs: Vital Signs Date Time Temp Pulse Resp B/P (MAP) Pulse Ox O2 Delivery O2 Flow Rate FiO2 10/23/17 09:15 86 100/52 10/23/17 07:00 97.7 21 94 Room Air 97.7 I & O I & O Intake and Output 10/23/17 06:59 Intake Total 390 ml Output Total 500 ml Balance -110 ml Intake Oral 390 ml Output Urine Total 500 ml ALLERGIES Allergies: Allergies Coded Allergies Type Severity Reaction Last Updated Verified I S O L A T I O N *CONTACT* Allergy Unknown 10/23/17 Yes No Known Medication Allergies Allergy Unknown 10/23/17 Yes MEDS Medications: Current Medications Medications (Trade) Dose Ordered Sig/Nando Start Time Stop Time Status Last Admin Dose Admin Albumin Human 200 ml @ 200 mls/hr 1X PRN PRN 10/21/17 14:45 10/21/17 20:44 DC Alteplase, Recombinant (Cathflo) 2 mg 1X ONCE 10/21/17 13:45 10/21/17 13:46 DC Alteplase, Recombinant 10 mg/ Sodium Chloride 100 ml @ 10 mls/hr 1X ONCE 10/21/17 13:30 10/21/17 23:29 UNV Amiodarone HCl 150 mg/Dextrose 103 ml @ 618 mls/hr 1X ONCE 10/20/17 22:15 10/20/17 22:15 DC Amiodarone HCl 900 mg/Dextrose 518 ml @ 0 mls/hr CONT PRN 10/20/17 22:15 10/20/17 22:15 DC Bupivacaine HCl/ Epinephrine Bitart (Sensorcain-Mpf Epi 0.5%-1:[id number]) 30 ml STK-MED ONCE 10/23/17 10:15 10/23/17 10:34 DC 10/23/17 10:15 30 ML Cellulose 1 each STK-MED ONCE 10/23/17 10:23 10/23/17 10:34 DC 10/23/17 10:23 1 EACH Diphenhydramine HCl (Benadryl) 50 mg PRN Q8HRS PRN 10/22/17 10:15 10/22/17 10:18 50 MG Fentanyl Citrate (Fentanyl 2ml Vial) 50 mcg PRN Q5MIN PRN 10/23/17 10:00 10/24/17 09:59 Hydromorphone HCl (Dilaudid) 0.5 mg PRN Q10MIN PRN 10/23/17 10:00 10/24/17 09:59 Info (PHARMACY MONITORING -- do not chart) 1 each PRN DAILY PRN 10/21/17 14:45 Iohexol (Omnipaque 300 Mg/ml) 50 ml STK-MED ONCE 10/23/17 10:15 10/23/17 10:34 DC 10/23/17 10:15 50 ML Lidocaine HCl (Xylocaine-Mpf 1% Vial) 2 ml 1X PRN PRN 10/23/17 10:00 10/24/17 09:59 Magnesium Sulfate/ Dextrose 50 ml @ 25 mls/hr PRN DAILY PRN 10/21/17 12:45 Metoprolol Tartrate (Lopressor Vial) 5 mg 1X ONCE 10/20/17 22:30 10/20/17 22:31 DC 10/20/17 22:49 5 MG Metoprolol Tartrate (Lopressor) 25 mg BID 10/22/17 15:15 10/23/17 09:15 25 MG Morphine Sulfate 1 mg PRN Q10MIN PRN 10/23/17 10:00 10/24/17 09:59 Ondansetron HCl (Zofran) 4 mg PRN Q6HRS PRN 10/22/17 14:00 Piperacillin Sod/ Tazobactam Sod (Zosyn Per Pharmacy) 1 each PRN DAILY PRN 10/20/17 21:45 Piperacillin Sod/ Tazobactam Sod (Zosyn) 2.25 gm Q8HRS 10/22/17 14:00 10/23/17 05:50 2.25 GM Prochlorperazine Edisylate (Compazine) 5 mg PACU PRN PRN 10/23/17 10:00 10/24/17 09:59 Ringer's Solution 1,000 ml @ 30 mls/hr Q24H 10/23/17 09:53 10/23/17 21:52 Sodium Chloride 1,000 ml @ 1,000 mls/hr Q1H PRN 10/21/17 14:40 11/22/17 20:39 DC Vancomycin HCl (Vanco Per Pharmacy) 1 each PRN DAILY PRN 10/20/17 22:00 10/23/17 09:02 1 EACH Vancomycin HCl 1.5 gm/Sodium Chloride 500 ml @ 250 mls/hr Q24H 10/22/17 00:00 Cancel Vancomycin HCl 500 mg/Sodium Chloride 100 ml @ 100 mls/hr QTUTHSA 10/24/17 16:00 Vancomycin HCl 2 gm/Sodium Chloride 500 ml @ 250 mls/hr 1X ONCE 10/20/17 22:00 10/20/17 23:59 DC 10/21/17 00:12 250 MLS/HR LAB Lab: Laboratory Tests Test 10/22/17 11:57 10/22/17 20:45 Glucose (Fingerstick) 203 mg/dL (70-99) 139 mg/dL (70-99) LUIZ LARRY MD Oct 23, 2017 11:04
[2017-10-23] MEDS ORDERED: DESFLURANE > 120 MINUTES IH ONE (11:47)
[2017-10-23] MEDS ORDERED: NEOSTIGMINE 10 MG/10 ML VIAL. ONE (11:47)
--- NOTE | 2017-10-23 11:47 | RAD ---
Intraoperative fluoroscopic support 10/23/2017 Indication: Intraoperative cholangiogram Discussion: Intraoperative fluoroscopic support was provided during an intraoperative cholangiogram during cholecystectomy. Please refer to intraoperative notes for findings.. Fluoroscopy time 0.15 minutes. Exposures: 2 Impression: Intraoperative fluoroscopic support was provided
[2017-10-23] MEDS ORDERED: GLYCOPYRROLATE 1 MG/5 ML VIAL. ONE (11:48)
[2017-10-23] MEDS ORDERED: PHENYLEPHRINE in 0.9% NACL PF 1 MG/10 ML DISP.SYRIN. IV ONE (12:27)
[2017-10-23] MEDS ORDERED: fentaNYL PF VIAL 100 MCG/2 ML VIAL ONE (12:39)
[2017-10-23] MEDS ORDERED: PROCHLORPERAZINE 10 MG/2 ML VIAL. ONE (12:40)
[2017-10-23] MEDS ORDERED: oxyCODONE/APAP 5/325 1 TAB TABLET PO PRN ×2 (13:00→13:15)
--- NOTE | 2017-10-23 13:00 | PDOC4 ---
Operative Note Operative Note Operative Note: Preoperative Diagnosis: Acute cholecystitis Postoperative Diagnosis: Severe acute cholecystitis Procedure: Laparoscopic cholecystectomy with intraoperative cholangiogram Surgeons: Bakari Foreman.: Marie Chairez Anesthesia: Gen. Estimated Blood Loss: 100 mL Specimen: Gallbladder to pathology Drains: 19 Serbian round Gibran drain to right upper quadrant Complications: None Indications: The patient is a 52-year-old male who is been experiencing of ear upper abdominal pain. His evaluation was suggestive of acute cholecystitis. Surgical treatment was offered by means of a laparoscopic cholecystectomy. The risks of surgery were discussed which include bleeding, infection, bile duct injury, bile leak, pain, the potential for additional surgeries or procedures. The patient understands and would like to proceed. Description: The patient was taken to the operating room and laid supine on the operating table. General anesthesia was performed. The abdomen was prepped with ChloraPrep and draped in a standard surgical fashion. A small infraumbilical incision was made with a scalpel. The Veress needle was then inserted and a pneumoperitoneum was then created. A 5 mm trocar was then inserted and the laparoscope was introduced. In the upper midabdomen an 11 mm trocar was inserted and in the right upper quadrant two 5 mm trochars were inserted. Initial inspection showed a marked severe inflammatory reaction of the right upper quadrant. The gallbladder was obscured by an inflammatory mass encased by omentum. We began peeling away the omentum revealing turbid purulent fluid. The inflammatory response was quite severe making dissection difficult. Gradually we were able to peel away the omentum from the liver. The gallbladder was difficult to clearly identified due to a marked surrounding inflammatory reaction. Intraoperative photographs were taken for documentation. We began freeing away some of the inflammatory rind of tissue and began identifying what appeared to be the wall of the gallbladder. Keeping the dissection close to the wall of the gallbladder we continued freeing the inflammatory tissue away. An extra 5 mm trocar was placed in the right abdomen to provide downward retraction on the thickened and inflamed omentum to assist exposure. The dissection continued inferiorly and we again to identify the border of the gallbladder. The cystic duct was obscured by surrounding inflammatory tissue but we were gradually able to separate this. One clip was placed on the cystic duct near the gallbladder junction. An opening was made in the duct and a cholangiocatheter placed within and secured with a clip. Using contrast dye and fluoroscopy an intraoperative cholangiogram was performed which confirmed the anatomy and showed no abnormalities. The clip and catheter were then withdrawn. Three clips were placed on the cystic duct and it was divided. We were gradually able to mobilize the remainder of the gallbladder and 2 separate vascular structures entering the gallbladder clipped and divided.. The gallbladder was then mobilized away from the liver with cautery. This was very difficult again due to the marked inflammatory reaction which obliterated normal tissue planes. A Surgicel pack was placed on the gallbladder fossa. The gallbladder was then placed in an endoscopic bag and extracted at the superior trocar site. The fascia there was closed with interrupted 0 PDS sutures. The right upper quadrant was then reinspected and hemostasis was good. A 19 Serbian round Gibran drain was left in the gallbladder fossa with an exit site in the right lateral port incision. This was secured to the skin with 2-0 silk. The remaining ports were removed and the pneumoperitoneum was relieved. The skin incisions were injected with half percent Marcaine with epinephrine, and all were closed using 4-0 Monocryl suture. Steri-Strips and dressings were then applied. The patient tolerated the procedure well and was sent to the recovery room in stable condition. At the end of the case all counts were correct. TRINI DUBON MD Oct 23, 2017 13:00
[2017-10-23] MEDS: fentaNYL PF VIAL 100 MCG/2 ML VIAL IV PRN ×3 (13:07→21:14)
[2017-10-23] MEDS: MORPHINE SULFATE 2 MG/ML DISP.SYRIN. IV PRN (13:59)
[2017-10-23 14:00] VITALS: BP 126/64
[2017-10-23 14:15] VITALS: BP 126/64
--- NOTE | 2017-10-23 15:02 | PDOC ---
PROGRESS NOTES Subjective Subjective SEEN IN FOLLOW UP OF ESRD. HE IS POST LAP ROLF TODAY Objective Objective Vital Signs Date Time Temp Pulse Resp B/P (MAP) Pulse Ox O2 Delivery O2 Flow Rate FiO2 10/23/17 14:30 Nasal Cannula 3.0 10/23/17 14:21 91 10/23/17 13:20 98.5 88 16 146/67 98.5 Intake and Output 10/23/17 07:00 Intake Total 390 ml Output Total 500 ml Balance -110 ml Intake Oral 390 ml Output Urine Total 500 ml Physical Exam Abdomen: Other (POST OP PAIN) Heart: Regular rate, Normal S1, Normal S2, No murmurs, Gallops Extremities: No clubbing, No cyanosis, No edema, Normal pulses, No tenderness/ swelling General: Alert, Oriented X3, Cooperative, No acute distress Lungs: Clear to auscultation, Normal air movement Psych/Mental Status: Mental status NL, Mood NL Diagnosis RENAL FAILURE: ESRD Assessment Assessment Problems Medical Problems: (1) Cholecystitis Status: Acute (2) Cholelithiasis Status: Acute (3) Epigastric abdominal pain Status: Acute (4) Nephrolithiasis Status: Acute Plan Plan of Care DIALYSIS TODAY FOR SOLUTE CLEARANCE AND FLUID BALANCE. HE IS POST OP TODAY. FOLLOW BP. EPOGEN FOR ANEMIA OF CKD. DISCUSSED WITH PATIENT . NO HEPARIN WITH DIALYSIS Comment Review of Relevant I have reviewed the following items nas (where applicable) has been applied. Labs Laboratory Tests Test 10/21/17 16:45 10/21/17 17:01 10/21/17 21:07 10/22/17 03:20 Hepatitis B Surface Antigen Negative (Negative) Glucose (Fingerstick) 163 mg/dL (70-99) 256 mg/dL (70-99) Urine Opiates Screen Pos (NEG) Urine Methadone Screen Neg (NEG) Urine Barbiturates Neg (NEG) Urine Phencyclidine Screen Neg (NEG) Urine Amphetamine/Methamphetamine Pos (NEG) Urine Benzodiazepines Screen Neg (NEG) Urine Cocaine Screen Neg (NEG) Urine Cannabinoids Screen Neg (NEG) Urine Ethyl Alcohol Neg (NEG) Test 10/22/17 04:30 10/22/17 07:51 10/22/17 11:57 10/22/17 20:45 Hemoglobin 9.9 g/dL (13.0-17.5) Sodium Level 136 mmol/L (136-145) Potassium Level 4.6 mmol/L (3.5-5.1) Chloride Level 100 mmol/L (98-107) Carbon Dioxide Level 25 mmol/L (21-32) Anion Gap 11 (6-14) Blood Urea Nitrogen 41 mg/dL (8-26) Creatinine 4.7 mg/dL (0.7-1.3) Estimated GFR (Cockcroft-Gault) 13.2 BUN/Creatinine Ratio 9 (6-20) Glucose Level 143 mg/dL (70-99) Calcium Level 8.5 mg/dL (8.5-10.1) Phosphorus Level 4.3 mg/dL (2.6-4.7) Magnesium Level 1.7 mg/dL (1.8-2.4) Total Bilirubin 1.0 mg/dL (0.2-1.0) Aspartate Amino Transf (AST/SGOT) 25 U/L (15-37) Alanine Aminotransferase (ALT/SGPT) 38 U/L (16-63) Alkaline Phosphatase 202 U/L (46-116) Total Protein 7.1 g/dL (6.4-8.2) Albumin 2.5 g/dL (3.4-5.0) Albumin/Globulin Ratio 0.5 (1.0-1.7) Random Vancomycin Level 14.3 mcg/mL Glucose (Fingerstick) 146 mg/dL (70-99) 203 mg/dL (70-99) 139 mg/dL (70-99) Test 10/23/17 12:53 Glucose (Fingerstick) 135 mg/dL (70-99) Laboratory Tests Test 10/22/17 20:45 10/23/17 12:53 Glucose (Fingerstick) 139 mg/dL (70-99) 135 mg/dL (70-99) Microbiology 10/20/17 Blood Culture - Preliminary, Resulted NO GROWTH AFTER 2 DAYS 10/20/17 Urine Culture - Final, Complete 10/20/17 Urine Culture Result 1 (GAVINO) - Final, Complete Medications Current Medications Sodium Chloride 500 ml @ 500 mls/hr 1X ONCE IV Last administered on t 20:39; Start 10/20/17 at 19:45; Stop 10/20/17 at 20:44; Status DC Hydromorphone HCl (Dilaudid) 0.5 mg PRN Q15MIN PRN IV/SQ PAIN GREATER THAN 3/ 10 Last administered on 10/20/17 21:10; Start 10/20/17 at 19:45; Stop at 19:44; Status DC Ondansetron HCl (Zofran) 4 mg 1X ONCE IV Last administered on 10/20/17 20:37 ; Start 10/20/17 at 19:45; Stop 10/20/17 at 19:46; Status DC Vancomycin HCl (Vanco Per Pharmacy) 1 each PRN DAILY PRN MC SEE COMMENTS Last administered on 10/23/17 09:02; Start 10/20/17 at 22:00 Piperacillin Sod/ Tazobactam Sod (Zosyn Per Pharmacy) 1 each PRN DAILY PRN MC SEE COMMENTS; Start 10/20/17 at 21:45 Vancomycin HCl 2 gm/Sodium Chloride 500 ml @ 250 mls/hr 1X ONCE IV Last administered on 10/21/17 00:12; Start 10/20/17 at 22:00; Stop 10/20/17 at 23 :59; Status DC Ondansetron HCl (Zofran) 4 mg PRN Q8HRS PRN IV NAUSEA/VOMITING; Start at 22:00; Stop 10/21/17 at 21:59; Status DC Morphine Sulfate 2 mg PRN Q2HR PRN IV PAIN Last administered on 10/21/17 18: 27; Start 10/20/17 at 22:45; Stop 10/21/17 at 22:44; Status DC Sodium Chloride 1,000 ml @ 100 mls/hr Q10H IV Last administered on 10/21/17 00:12; Start 10/20/17 at 21:45; Stop 10/21/17 at 21:44; Status DC Piperacillin Sod/ Tazobactam Sod (Zosyn) 3.375 gm ONCE ONCE IVP Last administered on 10/20/17 22:33; Start 10/20/17 at 22:00; Stop 10/20/17 at 22 :01; Status DC Amiodarone HCl 150 mg/Dextrose 103 ml @ 618 mls/hr 1X ONCE IV ; Start at 22:15; Stop 10/20/17 at 22:15; Status DC Amiodarone HCl 900 mg/Dextrose 518 ml @ 0 mls/hr CONT PRN IV SEE I/O RECORD; Start 10/20/17 at 22:15; Stop 10/20/17 at 22:15; Status DC Sodium Chloride 1,621 ml @ 1,000 mls/hr 1X ONCE IV ; Start 10/20/17 at 22:15 ; Stop 10/20/17 at 23:52; Status DC Metoprolol Tartrate (Lopressor Vial) 5 mg 1X ONCE IVP Last administered on t 22:49; Start 10/20/17 at 22:30; Stop 10/20/17 at 22:31; Status DC Sodium Chloride 1,000 ml @ 1,000 mls/hr 1X ONCE IV Last administered on 10/20t 22:03; Start 10/20/17 at 22:15; Stop 10/20/17 at 23:14; Status DC Sodium Chloride 621 ml @ 1,000 mls/hr 1X ONCE IV ; Start 10/20/17 at 22:15; Stop 10/20/17 at 22:52; Status DC Piperacillin Sod/ Tazobactam Sod (Zosyn) 2.25 gm Q6HRS IVP Last administered on 10/22/17 06:04; Start 10/21/17 at 06:00; Stop 10/22/17 at 11:26; Status DC Vancomycin HCl 1.5 gm/Sodium Chloride 500 ml @ 250 mls/hr Q24H IV ; Start at 00:00; Status Cancel Vancomycin HCl 1 each 1X ONCE MC ; Start 10/22/17 at 23:30; Stop 10/22/17 at 23:30; Status DC Magnesium Sulfate/ Dextrose 50 ml @ 25 mls/hr PRN DAILY PRN IV for Mag < 1.7 on am labs; Start 10/21/17 at 12:45 Vancomycin HCl 1 each 1X ONCE MC ; Start 10/22/17 at 06:00; Stop 10/22/17 at 06:01; Status DC Alteplase, Recombinant 10 mg/ Sodium Chloride 100 ml @ 10 mls/hr 1X STAT IV ; Start 10/21/17 at 13:29; Stop 10/21/17 at 23:28; Status UNV Alteplase, Recombinant 10 mg/ Sodium Chloride 100 ml @ 10 mls/hr 1X ONCE IV ; Start 10/21/17 at 13:30; Stop 10/21/17 at 23:29; Status UNV Alteplase, Recombinant (Cathflo) 2 mg 1X ONCE INT CAT ; Start 10/21/17 at 13: 45; Stop 10/21/17 at 13:46; Status DC Sodium Chloride 1,000 ml @ 1,000 mls/hr Q1H PRN IV hypotension; Start at 14:40; Stop 10/21/17 at 20:39; Status DC Albumin Human 200 ml @ 200 mls/hr 1X PRN PRN IV Hypotension; Start 10/21/17 at 14:45; Stop 10/21/17 at 20:44; Status DC Info (PHARMACY MONITORING -- do not chart) 1 each PRN DAILY PRN MC SEE COMMENTS ; Start 10/21/17 at 14:45 Diphenhydramine HCl (Benadryl) 50 mg PRN Q8HRS PRN IVP ITCHING Last administered on 10/22/17 10:18; Start 10/22/17 at 10:15 Vancomycin HCl 500 mg/Sodium Chloride 100 ml @ 100 mls/hr 1X ONCE IV Last administered on 10/22/17 15:30; Start 10/22/17 at 16:00; Stop 10/22/17 at 16 :59; Status DC Vancomycin HCl 500 mg/Sodium Chloride 100 ml @ 100 mls/hr QTUTHSA IV ; Start 10/24/17 at 16:00 Piperacillin Sod/ Tazobactam Sod (Zosyn) 2.25 gm Q8HRS IVP Last administered on 10/23/17 14:05; Start 10/22/17 at 14:00 Morphine Sulfate 2 mg PRN Q2HR PRN IV PAIN Last administered on 10/23/17 13: 59; Start 10/22/17 at 14:00 Ondansetron HCl (Zofran) 4 mg PRN Q6HRS PRN IV NAUSEA/VOMITING; Start at 14:00 Metoprolol Tartrate (Lopressor) 25 mg BID PO Last administered on 10/23/17 09 :15; Start 10/22/17 at 15:15 Fentanyl Citrate (Fentanyl 2ml Vial) 25 mcg PRN Q5MIN PRN IV MILD PAIN; Start 10/23/17 at 10:00; Stop 10/24/17 at 09:59 Fentanyl Citrate (Fentanyl 2ml Vial) 50 mcg PRN Q5MIN PRN IV MODERATE PAIN Last administered on 10/23/17 13:07; Start 10/23/17 at 10:00; Stop 10/24/17 at 09:59 Morphine Sulfate 1 mg PRN Q10MIN PRN IV SEVERE PAIN; Start 10/23/17 at 10:00; Stop 10/24/17 at 09:59 Ringer's Solution 1,000 ml @ 30 mls/hr Q24H IV ; Start 10/23/17 at 09:53; Stop 10/23/17 at 21:52 Lidocaine HCl (Xylocaine-Mpf 1% Vial) 2 ml 1X PRN PRN ID IV START; Start 10/23 at 10:00; Stop 10/24/17 at 09:59 Hydromorphone HCl (Dilaudid) 0.5 mg PRN Q10MIN PRN IV SEV PAIN, Second choice; Start 10/23/17 at 10:00; Stop 10/24/17 at 09:59 Prochlorperazine Edisylate (Compazine) 5 mg PACU PRN PRN IV NAUSEA, MRX1; Start 10/23/17 at 10:00; Stop 10/24/17 at 09:59 Bupivacaine HCl/ Epinephrine Bitart (Sensorcain-Mpf Epi 0.5%-1:[id number]) 30 ml STK -MED ONCE INJ Last administered on 10/23/17 10:15; Start 10/23/17 at 10:15; Stop 10/23/17 at 10:34; Status DC Iohexol (Omnipaque 300 Mg/ml) 50 ml STK-MED ONCE IJ Last administered on 10:15; Start 10/23/17 at 10:15; Stop 10/23/17 at 10:34; Status DC Cellulose 1 each STK-MED ONCE TP Last administered on 10/23/17 10:23; Start 10/23/17 at 10:23; Stop 10/23/17 at 10:34; Status DC Cellulose 1 each STK-MED ONCE TP Last administered on 10/23/17 12:15; Start 10/23/17 at 12:15; Stop 10/23/17 at 12:33; Status DC Oxycodone/ Acetaminophen (Percocet 5/325) 1 tab PRN Q4HRS PRN PO PAIN Last administered on 10/23/17t 14:21; Start 10/23/17 at 13:00 Oxycodone/ Acetaminophen (Percocet 5/325) 2 tab PRN Q4HRS PRN PO PAIN; Start 10/23/17 at 13:15 Active Scripts Active Vanco 500 mg/100 ml-0.9% NaCl (Vancomycin/0.9 % Sod Chloride) 500 Mg/100 Ml Froz.piggy 500 Mg IV 3X/WEEK 28 Days Cipro (Ciprofloxacin Hcl) 250 Mg Tablet 1 Tab PO BID 3 Days Reported Renvela (Sevelamer Carbonate) 800 Mg Tablet 800 Mg PO TIDWMEALS Lantus Solostar (Insulin Glargine,Hum.rec.anlog) 100 Unit/1 Ml Insuln.pen 10 Unit SQ QHS Fish Oil 1,000 Mg Capsule (Jackson-3 Fatty Acids/Fish Oil) 1 Each Capsule 2 Each PO BID Aspir 81 (Aspirin) 81 Mg Tablet.dr 1 Tab PO DAILY Sodium Bicarbonate 650 Mg Tablet 1,300 Mg PO TID Gabapentin 300 Mg Capsule 300 Mg PO TID Vitals/I & O Vital Sign - Last 24 Hours 10/22/17 10/22/17 10/22/17 10/22/17 15:24 15:26 19:35 20:00 Temp 98.2 98.2 Pulse 98 92 Resp 16 B/P (MAP) 104/59 98/57 (71) Pulse Ox 92 90 O2 Delivery Room Air Room Air Room Air 10/22/17 10/22/17 10/23/17 10/23/17 21:24 23:28 03:04 07:00 Temp 99.1 98.9 97.7 99.1 98.9 97.7 Pulse 95 94 85 75 Resp 20 20 21 B/P (MAP) 98/57 91/57 (68) 90/51 (64) Pulse Ox 90 90 94 O2 Delivery Room Air Room Air Room Air 10/23/17 10/23/17 10/23/17 10/23/17 08:05 09:15 12:50 12:50 Temp 98.0 98.0 Pulse 86 92 Resp 16 B/P (MAP) 100/52 126/59 Pulse Ox 99 O2 Delivery Room Air Mask Simple Mask O2 Flow Rate 10 10 10/23/17 10/23/17 10/23/17 10/23/17 13:05 13:07 13:20 13:21 Temp 98.5 98.5 Pulse 90 88 Resp 16 16 16 B/P (MAP) 163/70 146/67 Pulse Ox 91 92 O2 Delivery Nasal Cannula Nasal Cannula Nasal Cannula Nasal Cannula O2 Flow Rate 4 4.0 4 4 10/23/17 10/23/17 10/23/17 10/23/17 13:59 14:00 14:21 14:30 Pulse Ox 91 91 O2 Delivery Nasal Cannula Nasal Cannula Nasal Cannula Nasal Cannula O2 Flow Rate 4.0 3.0 3.0 3.0 Intake and Output 10/22/17 10/22/17 10/23/17 15:00 23:00 07:00 Intake Total 180 ml 210 ml Output Total 325 ml 175 ml Balance -145 ml 35 ml NIEVES CASTANEDA MD Oct 23, 2017 15:02
[2017-10-23] MEDS ORDERED: DIALYSIS PATIENT. MC PRN ×2 (15:15)
[2017-10-23] MEDS ORDERED: 0.9 % SODIUM CHLORIDE 10 ML DISP.SYRIN. IV PRN ×2 (15:15)
[2017-10-23] MEDS ORDERED: IV NORMAL SALINE 1000ML BAG 1,000 ML IV PRN ×2 (15:15)
[2017-10-23] MEDS: ASPIRIN ENTERIC COATED 81 MG TABLET.DR. PO SCH (18:54)
[2017-10-23] MEDS: SEVELAMER CARBONATE 800 MG TABLET. PO SCH (18:54)
[2017-10-23 19:20] VITALS: BP 101/42
[2017-10-23] MEDS ORDERED: HYDROcodone/APAP 5/325MG 1 TAB TABLET PO PRN (20:30)
[2017-10-23] MEDS: OMEGA-3 FATTY ACIDS/FISH OIL 1,000 MG CAPSULE. PO SCH (21:00)
[2017-10-23] MEDS ORDERED: OMEGA-3 FATTY ACIDS/FISH OIL 1,000 MG CAPSULE. PO SCH (21:00)
[2017-10-23] MEDS: GABAPENTIN 300 MG CAPSULE. PO SCH (21:20)
[2017-10-23] MEDS: HYDROcodone/APAP 5/325MG 1 TAB TABLET PO PRN (21:21)
[2017-10-23] MEDS: SODIUM BICARBONATE 650 MG TABLET. PO SCH (21:21)
[2017-10-23] MEDS: INSULIN DETEMIR 300 UNITS/3 ML INSULN.PEN. SQ SCH (22:24)
[2017-10-23 23:30] VITALS: BP 80/64
[2017-10-24 03:30] VITALS: BP 115/75
[2017-10-24 06:07] LABS: ALBUMIN 2.3 g/dL (3.4-5.0); CALCIUM 8.3 mg/dL (8.5-10.1); CREATININE 5.2 mg/dL (0.7-1.3); GFR 11.8; PHOSPHORUS 8.8 mg/dL (2.6-4.7); POTASSIUM 5.1 mmol/L (3.5-5.1)
[2017-10-24] MEDS: PIPERACILLIN/TAZO IV Push 2.25 GM VIAL. IVP SCH ×3 (06:10→21:41)
[2017-10-24 07:00] VITALS: BP 118/56
[2017-10-24] MEDS: fentaNYL PF VIAL 100 MCG/2 ML VIAL IV PRN (07:31)
[2017-10-24] MEDS: HYDROcodone/APAP 5/325MG 1 TAB TABLET PO PRN ×2 (07:32→15:36)
[2017-10-24] MEDS: GABAPENTIN 300 MG CAPSULE. PO SCH ×3 (09:46→21:40)
[2017-10-24] MEDS: ASPIRIN ENTERIC COATED 81 MG TABLET.DR. PO SCH (09:46)
[2017-10-24] MEDS: METOPROLOL TART IMMED RELEASE 25 MG TABLET. PO SCH ×2 (09:46→21:41)
[2017-10-24] MEDS: OMEGA-3 FATTY ACIDS/FISH OIL 1,000 MG CAPSULE. PO SCH ×2 (09:46→21:00)
[2017-10-24] MEDS: SODIUM BICARBONATE 650 MG TABLET. PO SCH ×3 (09:47→21:40)
[2017-10-24] MEDS: SEVELAMER CARBONATE 800 MG TABLET. PO SCH ×3 (09:49→17:11)
[2017-10-24] MEDS: VANCOMYCIN PER PHARMACY MC PRN (10:58)
[2017-10-24 11:00] VITALS: BP 111/56
[2017-10-24] MEDS ORDERED: VANCOMYCIN 500 MG in IV NORMAL SALINE 100ML 100 ML IV ONE (11:30)
--- NOTE | 2017-10-24 11:31 | PDOC ---
SURGICAL PROGRESS NOTE Subjective Pt feels much better today, pain, but much improved. Andrea PO, no N/V Vital Signs Vital Signs Date Time Temp Pulse Resp B/P (MAP) Pulse Ox O2 Delivery O2 Flow Rate FiO2 10/24/17 09:49 92 Room Air 1.0 10/24/17 09:46 75 118/56 10/24/17 07:32 16 10/24/17 07:00 98.1 98.1 I&O Intake and Output 10/24/17 07:00 Intake Total 520 ml Output Total 310 ml Balance 210 ml Intake Oral 520 ml Output Urine Total 100 ml Drainage Total 110 ml Estimated Blood Loss 100 ml # Voids 1 General: Alert, Oriented X3, Cooperative, No acute distress Abdomen: Soft, No tenderness, Other (JAZ [place]) Labs Laboratory Tests Test 10/22/17 11:57 10/22/17 20:45 10/23/17 12:53 10/23/17 20:53 Glucose (Fingerstick) 203 mg/dL (70-99) 139 mg/dL (70-99) 135 mg/dL (70-99) 306 mg/dL (70-99) Test 10/24/17 04:30 10/24/17 08:41 Sodium Level 134 mmol/L (136-145) Potassium Level 5.1 mmol/L (3.5-5.1) Chloride Level 96 mmol/L (98-107) Carbon Dioxide Level 26 mmol/L (21-32) Anion Gap 12 (6-14) Blood Urea Nitrogen 50 mg/dL (8-26) Creatinine 5.2 mg/dL (0.7-1.3) Estimated GFR (Cockcroft-Gault) 11.8 Glucose Level 215 mg/dL (70-99) Calcium Level 8.3 mg/dL (8.5-10.1) Phosphorus Level 8.8 mg/dL (2.6-4.7) Magnesium Level 2.3 mg/dL (1.8-2.4) Albumin 2.3 g/dL (3.4-5.0) Glucose (Fingerstick) 226 mg/dL (70-99) Laboratory Tests Test 10/23/17 12:53 10/23/17 20:53 10/24/17 04:30 10/24/17 08:41 Glucose (Fingerstick) 135 mg/dL (70-99) 306 mg/dL (70-99) 226 mg/dL (70-99) Sodium Level 134 mmol/L (136-145) Potassium Level 5.1 mmol/L (3.5-5.1) Chloride Level 96 mmol/L (98-107) Carbon Dioxide Level 26 mmol/L (21-32) Anion Gap 12 (6-14) Blood Urea Nitrogen 50 mg/dL (8-26) Creatinine 5.2 mg/dL (0.7-1.3) Estimated GFR (Cockcroft-Gault) 11.8 Glucose Level 215 mg/dL (70-99) Calcium Level 8.3 mg/dL (8.5-10.1) Phosphorus Level 8.8 mg/dL (2.6-4.7) Magnesium Level 2.3 mg/dL (1.8-2.4) Albumin 2.3 g/dL (3.4-5.0) Problem List Problems Medical Problems: (1) Cholecystitis Status: Acute (2) Cholelithiasis Status: Acute (3) Epigastric abdominal pain Status: Acute (4) Nephrolithiasis Status: Acute Assessment/Plan s/p lap tanesha ADAT, cont drain will notify vascular, as pt reports having surgery scheduled for thursday. Problems: GEOVANNI MOORE MD Oct 24, 2017 11:31
--- NOTE | 2017-10-24 11:45 | PDOC ---
Provider Note Provider Note s/p lap tanesha, labs cons. w/ esrd- vss- still on vanc/zosyn, cont same DELLA CASTANEDA MD Oct 24, 2017 11:45
[2017-10-24 15:00] VITALS: BP 119/59
[2017-10-24] MEDS ORDERED: VANCOMYCIN 500 MG in IV NORMAL SALINE 100ML 100 ML IV SCH (16:00)
[2017-10-24] MEDS ORDERED: MORPHINE SULFATE 2 MG/ML DISP.SYRIN. IV PRN (17:45)
[2017-10-24 19:20] VITALS: BP 145/83
[2017-10-24] MEDS: ONDANSETRON PF 4 MG/2 ML VIAL. IV PRN (19:34)
[2017-10-24] MEDS: diphenhydrAMINE 50 MG/ML VIAL IVP PRN (21:41)
[2017-10-24] MEDS: INSULIN DETEMIR 300 UNITS/3 ML INSULN.PEN. SQ SCH (21:55)
[2017-10-24 23:48] VITALS: BP 93/46
[2017-10-25 03:50] VITALS: BP 114/44
[2017-10-25] MEDS: MORPHINE SULFATE 2 MG/ML DISP.SYRIN. IV PRN ×2 (05:35→21:36)
[2017-10-25] MEDS: ONDANSETRON PF 4 MG/2 ML VIAL. IV PRN (05:35)
[2017-10-25] MEDS: PIPERACILLIN/TAZO IV Push 2.25 GM VIAL. IVP SCH ×3 (05:47→21:36)
[2017-10-25 05:53] LABS: ALBUMIN 2.2 g/dL (3.4-5.0); CALCIUM 8.3 mg/dL (8.5-10.1); CREATININE 6.3 mg/dL (0.7-1.3); GFR 9.4; POTASSIUM 3.7 mmol/L (3.5-5.1)
[2017-10-25 07:00] VITALS: BP 101/55
--- NOTE | 2017-10-25 07:50 | PDOC ---
Provider Note Provider Note Vascular Consult dictated Imp: CRF on dialysis via catheter Has relatively new rt UA fistula Recent U/S in office: Flow only ~ 750 cc/min and has 3 side branches that need to be ligated Plan: Elective ligation of side branches , possible translocation when he is fully recovered from GB surgery NIEVES BATES MD Oct 25, 2017 07:50
[2017-10-25] MEDS: SEVELAMER CARBONATE 800 MG TABLET. PO SCH ×3 (08:00→17:36)
[2017-10-25] MEDS: ASPIRIN ENTERIC COATED 81 MG TABLET.DR. PO SCH (08:45)
[2017-10-25] MEDS: SODIUM BICARBONATE 650 MG TABLET. PO SCH ×3 (08:45→21:29)
[2017-10-25] MEDS: OMEGA-3 FATTY ACIDS/FISH OIL 1,000 MG CAPSULE. PO SCH ×2 (08:45→21:27)
[2017-10-25] MEDS: METOPROLOL TART IMMED RELEASE 25 MG TABLET. PO SCH ×2 (08:45→21:27)
[2017-10-25] MEDS: GABAPENTIN 300 MG CAPSULE. PO SCH ×2 (08:45→21:27)
--- NOTE | 2017-10-25 09:28 | PDOC ---
Provider Note Provider Note vss, no temp, bp lower, some emesis- on tid torrey so will reduce to daily re esrd - sleeping now - can go home when ok w/ surgery DELLA CASTANEDA MD Oct 25, 2017 09:28
[2017-10-25 11:00] VITALS: BP 112/56
[2017-10-25] MEDS: VANCOMYCIN PER PHARMACY MC PRN (11:02)
--- NOTE | 2017-10-25 11:44 | PDOC ---
SURGICAL PROGRESS NOTE Subjective Nick unhappy about NPO status and having some fecal incontinence when sleeping he had emesis last noc after eating "fast food" per RN he denies that, "had a couple bites of turkey brought in by a friend and threw the rest away" Vital Signs Vital Signs Date Time Temp Pulse Resp B/P (MAP) Pulse Ox O2 Delivery O2 Flow Rate FiO2 10/25/17 08:45 60 101/55 10/25/17 08:00 Room Air 1.0 10/25/17 07:00 97.4 12 94 97.4 I&O Intake and Output 10/25/17 07:00 Intake Total 700 ml Output Total 405 ml Balance 295 ml Intake Oral 700 ml Output Urine Total 175 ml Emesis 200 ml Drainage Total 30 ml # Bowel Movements 1 PATIENT HAS A FRIAS: No General: Alert, No acute distress Abdomen: Soft, Other (serosanguineous output in JAZ drain) Labs Laboratory Tests Test 10/23/17 12:53 10/23/17 20:53 10/24/17 04:30 10/24/17 08:41 Glucose (Fingerstick) 135 mg/dL (70-99) 306 mg/dL (70-99) 226 mg/dL (70-99) Sodium Level 134 mmol/L (136-145) Potassium Level 5.1 mmol/L (3.5-5.1) Chloride Level 96 mmol/L (98-107) Carbon Dioxide Level 26 mmol/L (21-32) Anion Gap 12 (6-14) Blood Urea Nitrogen 50 mg/dL (8-26) Creatinine 5.2 mg/dL (0.7-1.3) Estimated GFR (Cockcroft-Gault) 11.8 Glucose Level 215 mg/dL (70-99) Calcium Level 8.3 mg/dL (8.5-10.1) Phosphorus Level 8.8 mg/dL (2.6-4.7) Magnesium Level 2.3 mg/dL (1.8-2.4) Albumin 2.3 g/dL (3.4-5.0) Test 10/24/17 11:10 10/24/17 17:12 10/24/17 20:47 10/25/17 04:00 Glucose (Fingerstick) 253 mg/dL (70-99) 213 mg/dL (70-99) 179 mg/dL (70-99) Sodium Level 135 mmol/L (136-145) Potassium Level 3.7 mmol/L (3.5-5.1) Chloride Level 94 mmol/L (98-107) Carbon Dioxide Level 29 mmol/L (21-32) Anion Gap 12 (6-14) Blood Urea Nitrogen 79 mg/dL (8-26) Creatinine 6.3 mg/dL (0.7-1.3) Estimated GFR (Cockcroft-Gault) 9.4 Glucose Level 157 mg/dL (70-99) Calcium Level 8.3 mg/dL (8.5-10.1) Phosphorus Level 9.0 mg/dL (2.6-4.7) Magnesium Level 2.5 mg/dL (1.8-2.4) Albumin 2.2 g/dL (3.4-5.0) Test 10/25/17 11:35 Glucose (Fingerstick) 119 mg/dL (70-99) Laboratory Tests Test 10/24/17 17:12 10/24/17 20:47 10/25/17 04:00 10/25/17 11:35 Glucose (Fingerstick) 213 mg/dL (70-99) 179 mg/dL (70-99) 119 mg/dL (70-99) Sodium Level 135 mmol/L (136-145) Potassium Level 3.7 mmol/L (3.5-5.1) Chloride Level 94 mmol/L (98-107) Carbon Dioxide Level 29 mmol/L (21-32) Anion Gap 12 (6-14) Blood Urea Nitrogen 79 mg/dL (8-26) Creatinine 6.3 mg/dL (0.7-1.3) Estimated GFR (Cockcroft-Gault) 9.4 Glucose Level 157 mg/dL (70-99) Calcium Level 8.3 mg/dL (8.5-10.1) Phosphorus Level 9.0 mg/dL (2.6-4.7) Magnesium Level 2.5 mg/dL (1.8-2.4) Albumin 2.2 g/dL (3.4-5.0) Problem List Problems Medical Problems: (1) Cholecystitis Status: Acute (2) Cholelithiasis Status: Acute (3) Epigastric abdominal pain Status: Acute (4) Nephrolithiasis Status: Acute Assessment/Plan POD 2 l/s cholecystectomy diarrhea no further nausea, will offer diet offered a bedside commode, but Nick says the problem only occurs when he's sleeping check stool Problems: SHELIA RODGERS MD Oct 25, 2017 11:44
[2017-10-25 15:00] VITALS: BP 101/50
[2017-10-25 19:41] VITALS: BP 115/52
--- NOTE | 2017-10-25 20:34 | CONS ---
DATE OF CONSULTATION: REQUESTING PHYSICIAN: Akash Mahajan MD REASON FOR CONSULTATION: Evaluation of right upper arm fistula. HISTORY OF PRESENT ILLNESS: This is a 52-year-old male admitted with abdominal pain, underwent a laparoscopic gallbladder surgery. He is recovering from that. Presently, he has a drain in the abdomen and maybe here another day or so. He recently saw Dr. Mckeon in the office. He has had prior shunts and fistulas in the left arm and all had failed. Presently, he is getting dialysis through a right jugular dialysis catheter. He also recently had placement of right upper arm fistula to the cephalic vein. When he saw Dr. Mckeon in the office recently, an ultrasound of that fistula was done showing a flow velocity of 750 mL per minute, which is a little slow plus at least 2 or 3 large side branches coming off of that main vein that were draining blood elsewhere. Dr. Mckeon had recommended ligation of those side branches at some point in time. PAST MEDICAL HISTORY/ILLNESSES: Chronic renal failure off course and diabetes type 2. ALLERGIES: He had no known allergies. MEDICATIONS: See his reconciliation list. REVIEW OF SYSTEMS: Otherwise, noncontributory for this evaluation. PHYSICAL EXAMINATION: GENERAL: Pleasant male. VASCULAR: 2+ brachial pulses. He has got a nicely functioning right upper arm fistula. Clean right antecubital incision. The fistula can be palpated, but it is a little bit deep and I do not see the side branches that were seen on the ultrasound. No bruit or fistula thrill over the left arm prior accesses. He has got a dialysis catheter in the right chest. ABDOMEN: Soft with some puncture incisions and drain. NEUROLOGIC: He is neurologically intact. IMPRESSION: Renal failure with a patent right upper arm fistula with a little bit slow, possibly due to blood draining off of the side branches. PLAN: At some point in time, he will need elective ligation of the side branches and maybe a translocation to bring the vein a little closer to the skin. He was supposed to see Dr. Mckeon in the office on Thursday, and I will inform Dr. Mckeon that the patient is in the hospital now. We do not plan to do that procedure until he is fully recovered from his gallbladder surgery. Thanks for allowing us to see him. NIEVES BATES MD DR: ANTONIA/armando JOB#: [id number] / [id number]
[2017-10-25] MEDS: INSULIN DETEMIR 300 UNITS/3 ML INSULN.PEN. SQ SCH (21:29)
[2017-10-25 22:40] VITALS: BP 119/57
[2017-10-26 03:04] VITALS: BP 110/61
[2017-10-26] MEDS: PIPERACILLIN/TAZO IV Push 2.25 GM VIAL. IVP SCH ×3 (06:00→22:00)
[2017-10-26] MEDS: MORPHINE SULFATE 2 MG/ML DISP.SYRIN. IV PRN (06:22)
[2017-10-26 07:00] VITALS: BP 118/58
[2017-10-26] MEDS: VANCOMYCIN PER PHARMACY MC PRN ×2 (08:47→18:08)
--- NOTE | 2017-10-26 08:53 | PDOC ---
Provider Note Provider Note glucose good, hungry , c/o diarrhea - c diff result pending- curtis po ok, no new meds- ? dc zosyn? DELLA CASTANEDA MD Oct 26, 2017 08:53
[2017-10-26] MEDS: SEVELAMER CARBONATE 800 MG TABLET. PO SCH ×3 (09:16→17:00)
[2017-10-26] MEDS: OMEGA-3 FATTY ACIDS/FISH OIL 1,000 MG CAPSULE. PO SCH ×2 (09:17→21:50)
[2017-10-26] MEDS: SODIUM BICARBONATE 650 MG TABLET. PO SCH ×3 (09:17→21:50)
[2017-10-26] MEDS: METOPROLOL TART IMMED RELEASE 25 MG TABLET. PO SCH ×2 (09:17→21:51)
[2017-10-26] MEDS: ASPIRIN ENTERIC COATED 81 MG TABLET.DR. PO SCH (09:20)
--- NOTE | 2017-10-26 10:34 | PDOC ---
TASIA OLIVO [employer] MECH[employer]IC 10/26/17 1034: SURGICAL PROGRESS NOTE Subjective pain mainly at RUQ, drain site worried about addictive effects of narcotics Vital Signs Vital Signs Date Time Temp Pulse Resp B/P (MAP) Pulse Ox O2 Delivery O2 Flow Rate FiO2 10/26/17 09:17 62 110/61 10/26/17 07:00 97.3 18 Room Air 97.3 10/26/17 03:04 96 10/25/17 19:41 2.0 I&O Intake and Output 10/26/17 07:00 Intake Total 0 ml Output Total 100 ml Balance -100 ml Intake Oral 0 ml Output Urine Total 100 ml # Bowel Movements 1 General: Alert, Oriented X3, Cooperative, No acute distress Abdomen: Soft, Other (lap dressings dry, JAZ bloody drainage) Labs Laboratory Tests Test 10/24/17 11:10 10/24/17 17:12 10/24/17 20:47 10/25/17 04:00 Glucose (Fingerstick) 253 mg/dL (70-99) 213 mg/dL (70-99) 179 mg/dL (70-99) Sodium Level 135 mmol/L (136-145) Potassium Level 3.7 mmol/L (3.5-5.1) Chloride Level 94 mmol/L (98-107) Carbon Dioxide Level 29 mmol/L (21-32) Anion Gap 12 (6-14) Blood Urea Nitrogen 79 mg/dL (8-26) Creatinine 6.3 mg/dL (0.7-1.3) Estimated GFR (Cockcroft-Gault) 9.4 Glucose Level 157 mg/dL (70-99) Calcium Level 8.3 mg/dL (8.5-10.1) Phosphorus Level 9.0 mg/dL (2.6-4.7) Magnesium Level 2.5 mg/dL (1.8-2.4) Albumin 2.2 g/dL (3.4-5.0) Test 10/25/17 08:50 10/25/17 11:35 10/25/17 16:28 10/25/17 20:46 Glucose (Fingerstick) 135 mg/dL (70-99) 119 mg/dL (70-99) 141 mg/dL (70-99) 214 mg/dL (70-99) Test 10/26/17 08:26 Glucose (Fingerstick) 119 mg/dL (70-99) Laboratory Tests Test 10/25/17 11:35 10/25/17 16:28 10/25/17 20:46 10/26/17 08:26 Glucose (Fingerstick) 119 mg/dL (70-99) 141 mg/dL (70-99) 214 mg/dL (70-99) 119 mg/dL (70-99) Problem List Problems Medical Problems: (1) Cholecystitis Status: Acute (2) Cholelithiasis Status: Acute (3) Epigastric abdominal pain Status: Acute (4) Nephrolithiasis Status: Acute Assessment/Plan s/p lap tanesha continue drain cdiff pending Problems: TRINI DUBON MD 10/26/17 1206: SURGICAL PROGRESS NOTE Assessment/Plan agree with above Problems: TASIA OLIVO APRN Oct 26, 2017 10:34 TRINI DUBON MD Oct 26, 2017 12:06
[2017-10-26 11:00] VITALS: BP 133/59
--- NOTE | 2017-10-26 11:29 | PDOC ---
Renal-Progress Notes Subjective Notes Notes SOME PAIN AT THE SITE OF HIS DRAINS History of Present Illness Hx of present illness BETTER Vitals Vitals Vital Signs Date Time Temp Pulse Resp B/P (MAP) Pulse Ox O2 Delivery O2 Flow Rate FiO2 10/26/17 09:17 62 110/61 10/26/17 07:00 97.3 18 Room Air 97.3 10/26/17 03:04 96 10/25/17 19:41 2.0 Weight Weight [ ] I.O. Intake and Output Intake and Output 10/26/17 07:00 Intake Total 0 ml Output Total 100 ml Balance -100 ml Intake Oral 0 ml Output Urine Total 100 ml # Bowel Movements 1 Labs Labs Laboratory Tests Test 10/25/17 11:35 10/25/17 16:28 10/25/17 20:46 10/26/17 08:26 Glucose (Fingerstick) 119 mg/dL (70-99) 141 mg/dL (70-99) 214 mg/dL (70-99) 119 mg/dL (70-99) Micro Micro Microbiology 10/20/17 Blood Culture - Final, Complete NO GROWTH AFTER 5 DAYS 10/20/17 Urine Culture - Final, Complete 10/20/17 Urine Culture Result 1 (GAVINO) - Final, Complete Review of Systems Constitutional: yes: malaise, weakness, oriented Ears/Nose/Throat: Yes: no symptom reported Eyes: Yes: no symptom reported Pulmonary: Yes no symptom reported Cardiovascular: Yes no symptom reported Gastrointestional: Yes: nausea, abdominal pain Genitourinary: Yes: other (ANURIA) Musculoskeletal: Yes: muscle stiffness Skin: Yes no symptom reported Psychiatric/Neurological: Yes: no symptom reported Endocrine: Yes: no symptom reported Physical Exam General Appearance: no apparent distress Skin: warm Respiratory: bilateral CTA Heart: S1S2, RRR Abdomen: soft, bowel sounds present Genitourinary: bladder flat Extremities: pulses present, no edema Neurology: alert, oriented Assessment Assessment IMP ESRD ANEMIA S/P LAP CHOLY RIGHT U ARM AVF-SLOW TO MATURE PLAN AGREE WITH VASCULAR HE PROB NEEDS SOME ACCESSORY VEINS TIED OFF HD TODAY UF TO DW ENC PO TOLERATED DRAINS STILL IN PLACE HUNTER BENZ MD Oct 26, 2017 11:29
--- NOTE | 2017-10-26 13:30 | PDOC ---
SURGICAL PROGRESS NOTE Vital Signs Vital Signs Date Time Temp Pulse Resp B/P (MAP) Pulse Ox O2 Delivery O2 Flow Rate FiO2 10/26/17 11:00 97.6 80 18 133/59 (83) 90 Room Air 97.6 10/25/17 19:41 2.0 I&O Intake and Output 10/26/17 06:59 Intake Total 0 ml Output Total 100 ml Balance -100 ml Intake Oral 0 ml Output Urine Total 100 ml # Bowel Movements 1 Labs Laboratory Tests Test 10/24/17 17:12 10/24/17 20:47 10/25/17 04:00 10/25/17 08:50 Glucose (Fingerstick) 213 mg/dL (70-99) 179 mg/dL (70-99) 135 mg/dL (70-99) Sodium Level 135 mmol/L (136-145) Potassium Level 3.7 mmol/L (3.5-5.1) Chloride Level 94 mmol/L (98-107) Carbon Dioxide Level 29 mmol/L (21-32) Anion Gap 12 (6-14) Blood Urea Nitrogen 79 mg/dL (8-26) Creatinine 6.3 mg/dL (0.7-1.3) Estimated GFR (Cockcroft-Gault) 9.4 Glucose Level 157 mg/dL (70-99) Calcium Level 8.3 mg/dL (8.5-10.1) Phosphorus Level 9.0 mg/dL (2.6-4.7) Magnesium Level 2.5 mg/dL (1.8-2.4) Albumin 2.2 g/dL (3.4-5.0) Test 10/25/17 11:35 10/25/17 16:28 10/25/17 20:46 10/26/17 08:26 Glucose (Fingerstick) 119 mg/dL (70-99) 141 mg/dL (70-99) 214 mg/dL (70-99) 119 mg/dL (70-99) Laboratory Tests Test 10/25/17 16:28 10/25/17 20:46 10/26/17 08:26 Glucose (Fingerstick) 141 mg/dL (70-99) 214 mg/dL (70-99) 119 mg/dL (70-99) Problem List Problems Medical Problems: (1) Cholecystitis Status: Acute (2) Cholelithiasis Status: Acute (3) Epigastric abdominal pain Status: Acute (4) Nephrolithiasis Status: Acute Assessment/Plan Vascular surgery f/u Pt had cholecystectomy for acute cholecystitis. He was scheduled for transposition of AV fistula. Plan to postpone that procedure for now. Will reschedule when pt recovered from cholecystectomy ( with no evidence of possible residual infectious process) Problems: TC NG II, MD Oct 26, 2017 13:30
[2017-10-26 15:25] VITALS: BP 157/90
[2017-10-26] MEDS: KETOROLAC 30 MG/ML INJ. IV PRN (15:59)
[2017-10-26 17:08] LABS: ALBUMIN 2.2 g/dL (3.4-5.0); CALCIUM 8.1 mg/dL (8.5-10.1); CREATININE 4.8 mg/dL (0.7-1.3); GFR 12.9; PHOSPHORUS 5.3 mg/dL (2.6-4.7); POTASSIUM 3.1 mmol/L (3.5-5.1)
[2017-10-26] MEDS ORDERED: IV NORMAL SALINE 1000ML BAG 1,000 ML IV PRN ×2 (17:14)
[2017-10-26] MEDS ORDERED: 0.9 % SODIUM CHLORIDE 10 ML DISP.SYRIN. IV PRN ×2 (17:15)
[2017-10-26] MEDS ORDERED: DIALYSIS PATIENT. MC PRN (17:15)
[2017-10-26] MEDS ORDERED: diphenhydrAMINE 50 MG/ML VIAL IV PRN ×2 (17:15)
[2017-10-26] MEDS ORDERED: VANCOMYCIN 500 MG in IV NORMAL SALINE 100ML 100 ML IV ONE (18:15)
[2017-10-26] MEDS: INSULIN DETEMIR 300 UNITS/3 ML INSULN.PEN. SQ SCH (21:00)
[2017-10-26] MEDS: GABAPENTIN 300 MG CAPSULE. PO SCH (21:50)
[2017-10-26] MEDS: LACTOBACILLUS RHAMNOSUS GG 1 CAPSULE. PO SCH (21:50)
[2017-10-26 23:20] VITALS: BP 124/58
[2017-10-27 03:20] VITALS: BP 129/76
[2017-10-27] MEDS: KETOROLAC 30 MG/ML INJ. IV PRN (05:37)
[2017-10-27] MEDS: PIPERACILLIN/TAZO IV Push 2.25 GM VIAL. IVP SCH ×3 (06:00→22:00)
[2017-10-27 06:11] LABS: ALBUMIN 2.3 g/dL (3.4-5.0); CALCIUM 8.7 mg/dL (8.5-10.1); CREATININE 3.6 mg/dL (0.7-1.3); PHOSPHORUS 4.8 mg/dL (2.6-4.7); POTASSIUM 3.6 mmol/L (3.5-5.1)
[2017-10-27 07:00] VITALS: BP 127/57
[2017-10-27] MEDS: METOPROLOL TART IMMED RELEASE 25 MG TABLET. PO SCH ×2 (08:45→21:59)
[2017-10-27] MEDS: LACTOBACILLUS RHAMNOSUS GG 1 CAPSULE. PO SCH ×2 (08:45→21:58)
[2017-10-27] MEDS: SODIUM BICARBONATE 650 MG TABLET. PO SCH ×3 (08:45→21:58)
[2017-10-27] MEDS: OMEGA-3 FATTY ACIDS/FISH OIL 1,000 MG CAPSULE. PO SCH ×2 (08:45→21:58)
[2017-10-27] MEDS: SEVELAMER CARBONATE 800 MG TABLET. PO SCH ×3 (08:45→16:47)
[2017-10-27] MEDS: ASPIRIN ENTERIC COATED 81 MG TABLET.DR. PO SCH (08:46)
--- NOTE | 2017-10-27 09:08 | PDOC ---
SUBJECTIVE Subjective c/o diarrhea, does not smell like c.diff but sample to be collected, will start Questran, pain controlled OBJECTIVE Vital Signs Vital Signs Date Time Temp Pulse Resp B/P (MAP) Pulse Ox O2 Delivery O2 Flow Rate FiO2 10/27/17 08:45 74 129/76 10/27/17 07:00 97.6 70 18 127/57 (80) 98 Room Air 97.6 10/27/17 03:20 98.4 74 16 129/76 (93) 96 Room Air 98.4 10/26/17 23:20 98.1 74 18 124/58 (80) 97 Room Air 98.1 10/26/17 21:51 69 157/90 10/26/17 20:16 Room Air 10/26/17 15:25 97.7 67 18 157/90 (112) Room Air 92.0 97.7 10/26/17 11:00 97.6 80 18 133/59 (83) 90 Room Air 97.6 10/26/17 09:17 62 110/61 I & O Intake and Output 10/27/17 07:00 Intake Total 100 ml Output Total 50 ml Balance 50 ml Intake Oral 0 ml IV Total 100 ml Output Urine Total 0 ml Drainage Total 50 ml # Voids 1 # Bowel Movements 2 PHYSICAL EXAM Physical Exam lungs clear heart RRR abd soft,laproscopy incisions clean, minimal tenderness ext no edema ASSESSMENT/PLAN Assessment/Plan await stool C. Diff, start Questran, start PT, dialysis in AM , hope home after dialysis in AM Problems: COMMENT Lab Laboratory Tests Test 10/26/17 11:33 10/26/17 16:20 10/26/17 21:29 10/27/17 05:15 Glucose (Fingerstick) 145 mg/dL (70-99) 123 mg/dL (70-99) Sodium Level 135 mmol/L (136-145) 138 mmol/L (136-145) Potassium Level 3.1 mmol/L (3.5-5.1) 3.6 mmol/L (3.5-5.1) Chloride Level 94 mmol/L (98-107) 100 mmol/L (98-107) Carbon Dioxide Level 32 mmol/L (21-32) 29 mmol/L (21-32) Anion Gap 9 (6-14) 9 (6-14) Blood Urea Nitrogen 69 mg/dL (8-26) 39 mg/dL (8-26) Creatinine 4.8 mg/dL (0.7-1.3) 3.6 mg/dL (0.7-1.3) Estimated GFR (Cockcroft-Gault) 12.9 18.0 Glucose Level 234 mg/dL (70-99) 145 mg/dL (70-99) Calcium Level 8.1 mg/dL (8.5-10.1) 8.7 mg/dL (8.5-10.1) Phosphorus Level 5.3 mg/dL (2.6-4.7) 4.8 mg/dL (2.6-4.7) Magnesium Level 2.3 mg/dL (1.8-2.4) Albumin 2.2 g/dL (3.4-5.0) 2.3 g/dL (3.4-5.0) 25-Hydroxy Vitamin D Total 7.5 ng/mL (30-100) Test 10/27/17 07:59 Glucose (Fingerstick) 145 mg/dL (70-99) JACOB STANLEY MD Oct 27, 2017 09:08
[2017-10-27] MEDS: CHOLESTYRAMINE/ASPARTAME 4 GM PACKET PO SCH ×2 (10:00→21:00)
[2017-10-27] MEDS: VANCOMYCIN PER PHARMACY MC PRN ×3 (10:09→16:56)
[2017-10-27 11:00] VITALS: BP 110/51
--- NOTE | 2017-10-27 11:47 | PDOC ---
Renal-Progress Notes Subjective Notes Notes FEELING BETTER History of Present Illness Hx of present illness STABLE Vitals Vitals Vital Signs Date Time Temp Pulse Resp B/P (MAP) Pulse Ox O2 Delivery O2 Flow Rate FiO2 10/27/17 11:00 98.3 70 18 110/51 (70) 95 Room Air 98.3 10/26/17 15:25 92.0 Weight Weight [ ] I.O. Intake and Output Intake and Output 10/27/17 07:00 Intake Total 100 ml Output Total 50 ml Balance 50 ml Intake Oral 0 ml IV Total 100 ml Output Urine Total 0 ml Drainage Total 50 ml # Voids 1 # Bowel Movements 2 Labs Labs Laboratory Tests Test 10/26/17 16:20 10/26/17 21:29 10/27/17 05:15 10/27/17 07:59 Sodium Level 135 mmol/L (136-145) 138 mmol/L (136-145) Potassium Level 3.1 mmol/L (3.5-5.1) 3.6 mmol/L (3.5-5.1) Chloride Level 94 mmol/L (98-107) 100 mmol/L (98-107) Carbon Dioxide Level 32 mmol/L (21-32) 29 mmol/L (21-32) Anion Gap 9 (6-14) 9 (6-14) Blood Urea Nitrogen 69 mg/dL (8-26) 39 mg/dL (8-26) Creatinine 4.8 mg/dL (0.7-1.3) 3.6 mg/dL (0.7-1.3) Estimated GFR (Cockcroft-Gault) 12.9 18.0 Glucose Level 234 mg/dL (70-99) 145 mg/dL (70-99) Calcium Level 8.1 mg/dL (8.5-10.1) 8.7 mg/dL (8.5-10.1) Phosphorus Level 5.3 mg/dL (2.6-4.7) 4.8 mg/dL (2.6-4.7) Magnesium Level 2.3 mg/dL (1.8-2.4) Albumin 2.2 g/dL (3.4-5.0) 2.3 g/dL (3.4-5.0) 25-Hydroxy Vitamin D Total 7.5 ng/mL (30-100) Glucose (Fingerstick) 123 mg/dL (70-99) 145 mg/dL (70-99) Micro Micro Microbiology 10/20/17 Blood Culture - Final, Complete NO GROWTH AFTER 5 DAYS 10/20/17 Urine Culture - Final, Complete 10/20/17 Urine Culture Result 1 (GAVINO) - Final, Complete Review of Systems Constitutional: yes: malaise, weakness, oriented Ears/Nose/Throat: Yes: no symptom reported Eyes: Yes: no symptom reported Pulmonary: Yes no symptom reported Cardiovascular: Yes no symptom reported Gastrointestional: Yes: nausea, abdominal pain Genitourinary: Yes: other (ANURIA) Musculoskeletal: Yes: muscle stiffness Skin: Yes no symptom reported Psychiatric/Neurological: Yes: no symptom reported Endocrine: Yes: no symptom reported Physical Exam General Appearance: no apparent distress Skin: warm Respiratory: bilateral CTA Heart: S1S2, RRR Abdomen: soft, bowel sounds present Genitourinary: bladder flat Extremities: pulses present, no edema Neurology: alert, oriented Assessment Assessment IMP ESRD ANEMIA S/P LAP CHOLY RIGHT U ARM AVF-SLOW TO MATURE PLAN AGREE WITH VASCULAR HE PROB NEEDS SOME ACCESSORY VEINS TIED OFF HD TOMORROW ENC PO TOLERATED DRAINS STILL IN PLACE HUNTER BENZ MD Oct 27, 2017 11:47
--- NOTE | 2017-10-27 12:04 | PDOC ---
TASIA OLIVO MOTOCR[employer] RACER 10/27/17 1203: SURGICAL PROGRESS NOTE Subjective tolerating diet abd pain improved today continued diarrhea Vital Signs Vital Signs Date Time Temp Pulse Resp B/P (MAP) Pulse Ox O2 Delivery O2 Flow Rate FiO2 10/27/17 11:00 98.3 70 18 110/51 (70) 95 Room Air 98.3 10/26/17 15:25 92.0 I&O Intake and Output 10/27/17 07:00 Intake Total 100 ml Output Total 50 ml Balance 50 ml Intake Oral 0 ml IV Total 100 ml Output Urine Total 0 ml Drainage Total 50 ml # Voids 1 # Bowel Movements 2 General: Alert, Oriented X3, Cooperative, No acute distress Abdomen: Soft, Other (JAZ serosang, lap dressings dry) Labs Laboratory Tests Test 10/25/17 16:28 10/25/17 20:46 10/26/17 08:26 10/26/17 11:33 Glucose (Fingerstick) 141 mg/dL (70-99) 214 mg/dL (70-99) 119 mg/dL (70-99) 145 mg/dL (70-99) Test 10/26/17 16:20 10/26/17 21:29 10/27/17 05:15 10/27/17 07:59 Sodium Level 135 mmol/L (136-145) 138 mmol/L (136-145) Potassium Level 3.1 mmol/L (3.5-5.1) 3.6 mmol/L (3.5-5.1) Chloride Level 94 mmol/L (98-107) 100 mmol/L (98-107) Carbon Dioxide Level 32 mmol/L (21-32) 29 mmol/L (21-32) Anion Gap 9 (6-14) 9 (6-14) Blood Urea Nitrogen 69 mg/dL (8-26) 39 mg/dL (8-26) Creatinine 4.8 mg/dL (0.7-1.3) 3.6 mg/dL (0.7-1.3) Estimated GFR (Cockcroft-Gault) 12.9 18.0 Glucose Level 234 mg/dL (70-99) 145 mg/dL (70-99) Calcium Level 8.1 mg/dL (8.5-10.1) 8.7 mg/dL (8.5-10.1) Phosphorus Level 5.3 mg/dL (2.6-4.7) 4.8 mg/dL (2.6-4.7) Magnesium Level 2.3 mg/dL (1.8-2.4) Albumin 2.2 g/dL (3.4-5.0) 2.3 g/dL (3.4-5.0) 25-Hydroxy Vitamin D Total 7.5 ng/mL (30-100) Glucose (Fingerstick) 123 mg/dL (70-99) 145 mg/dL (70-99) Laboratory Tests Test 10/26/17 16:20 10/26/17 21:29 10/27/17 05:15 10/27/17 07:59 Sodium Level 135 mmol/L (136-145) 138 mmol/L (136-145) Potassium Level 3.1 mmol/L (3.5-5.1) 3.6 mmol/L (3.5-5.1) Chloride Level 94 mmol/L (98-107) 100 mmol/L (98-107) Carbon Dioxide Level 32 mmol/L (21-32) 29 mmol/L (21-32) Anion Gap 9 (6-14) 9 (6-14) Blood Urea Nitrogen 69 mg/dL (8-26) 39 mg/dL (8-26) Creatinine 4.8 mg/dL (0.7-1.3) 3.6 mg/dL (0.7-1.3) Estimated GFR (Cockcroft-Gault) 12.9 18.0 Glucose Level 234 mg/dL (70-99) 145 mg/dL (70-99) Calcium Level 8.1 mg/dL (8.5-10.1) 8.7 mg/dL (8.5-10.1) Phosphorus Level 5.3 mg/dL (2.6-4.7) 4.8 mg/dL (2.6-4.7) Magnesium Level 2.3 mg/dL (1.8-2.4) Albumin 2.2 g/dL (3.4-5.0) 2.3 g/dL (3.4-5.0) 25-Hydroxy Vitamin D Total 7.5 ng/mL (30-100) Glucose (Fingerstick) 123 mg/dL (70-99) 145 mg/dL (70-99) Problem List Problems Medical Problems: (1) Cholecystitis Status: Acute (2) Cholelithiasis Status: Acute (3) Epigastric abdominal pain Status: Acute (4) Nephrolithiasis Status: Acute Assessment/Plan s/p lap tanesha diarrhea-c diff pending continue drain, should be able to DC drain prior to discharge Problems: TRINI DUBON MD 10/27/17 1211: SURGICAL PROGRESS NOTE Assessment/Plan Agree with above Problems: TASIA OLIVO APRN Oct 27, 2017 12:03 TRINI DUBON MD Oct 27, 2017 12:11
--- NOTE | 2017-10-27 13:52 | PATHOLOGY ---
PATHOLOGY REPORT * * * * * * * * FINAL DIAGNOSIS: Gallbladder, laparoscopic cholecystectomy: - Cholelithiasis. - Acute and chronic cholecystitis with increased eosinophils. (JPM:rhoda; 10/27/2017) COMMENT: There is no evidence of malignancy. REPORT ELECTRONICALLY SIGNED BY: Cedrick Lam M.D. DATE/TIME: 10/27/2017 13:51 * * * * * * * * GROSS PATHOLOGY: Received in formalin labeled "Reed Kuhn, gallbladder sac with contents," is a 9.6 x 5.8 x 3.5 cm, previously opened gallbladder with dark garcía, wrinkled serosal surfaces. Opening the gallbladder reveals dark garcía, grainy mucosa and an average wall thickness of 0.3 cm. Calculi are present, measuring 1.4 cm in maximum dimension, possessing a dark garcía and granular appearance, and feeling friable to the touch. No masses are noted grossly. Due to the nature of the specimen, the gallbladder neck cannot be grossly identified. Director Internal Audit sections from the body and fundus are submitted in cassette A1. (TSD; 10/26/2017) INITIAL CPT CODE(S): A; 46456 Professional services performed [place] [address] Technical services performed by [facility] at [address] [place] [address], [facility] [address] [place] [address]. SPECIMEN(S) RECEIVED: A.Gallbladder with contents CLINICAL HISTORY: Acute cholecystitis, acute cholelithiasis PATIENT: REED KUHN /AGE: 9 1965 (Age: 52) PATIENT #: [id number] ALT CASE #: SPECIMEN COLLECTION DATE: 10/23/2017 SPECIMEN RECEIVED DATE: 10/26/2017 [facility] - [id number] [place] [address] - PHONE: [phone] * * * END OF REPORT * * *
[2017-10-27 15:00] VITALS: BP 137/70
[2017-10-27] MEDS ORDERED: VANCOMYCIN 500 MG in IV NORMAL SALINE 100ML 100 ML IV SCH ×4 (16:00)
[2017-10-27 20:25] VITALS: BP 136/65
[2017-10-27] MEDS: GABAPENTIN 300 MG CAPSULE. PO SCH (21:58)
[2017-10-27] MEDS: INSULIN DETEMIR 300 UNITS/3 ML INSULN.PEN. SQ SCH (22:04)
[2017-10-27 23:41] VITALS: BP 147/65
[2017-10-28 04:26] VITALS: BP 131/59
[2017-10-28] MEDS: PIPERACILLIN/TAZO IV Push 2.25 GM VIAL. IVP SCH ×2 (06:00→14:00)
[2017-10-28 07:00] VITALS: BP 102/51
[2017-10-28] MEDS: CHOLESTYRAMINE/ASPARTAME 4 GM PACKET PO SCH (09:00)
[2017-10-28] MEDS: METOPROLOL TART IMMED RELEASE 25 MG TABLET. PO SCH (09:00)
[2017-10-28] MEDS: SODIUM BICARBONATE 650 MG TABLET. PO SCH ×2 (09:18→14:23)
[2017-10-28] MEDS: SEVELAMER CARBONATE 800 MG TABLET. PO SCH ×2 (09:18→14:23)
[2017-10-28] MEDS: ASPIRIN ENTERIC COATED 81 MG TABLET.DR. PO SCH (09:18)
[2017-10-28] MEDS: LACTOBACILLUS RHAMNOSUS GG 1 CAPSULE. PO SCH (09:18)
[2017-10-28] MEDS: OMEGA-3 FATTY ACIDS/FISH OIL 1,000 MG CAPSULE. PO SCH (09:18)
[2017-10-28] MEDS: VANCOMYCIN PER PHARMACY MC PRN (09:27)
[2017-10-28] MEDS ORDERED: IV NORMAL SALINE 1000ML BAG 1,000 ML IV PRN ×2 (09:42)
[2017-10-28] MEDS ORDERED: LABETALOL 20 MG/4 ML DISP.SYRIN. IVP PRN (09:45)
[2017-10-28] MEDS ORDERED: diphenhydrAMINE 50 MG/ML VIAL IV PRN ×2 (09:45)
[2017-10-28] MEDS ORDERED: DIALYSIS PATIENT. MC PRN (09:45)
[2017-10-28] MEDS ORDERED: CALCIUM CARBONATE 500 MG TAB.CHEW PO PRN (10:15)
--- NOTE | 2017-10-28 10:36 | PDOC ---
SUBJECTIVE Subjective He was seen in dialysis today, he is doing well and is anxious to go home he still has a drain in place and it is draining very small amount, he has not had any pain medication since midnight and wants to go home without any pain medicine OBJECTIVE Vital Signs Vital Signs Date Time Temp Pulse Resp B/P (MAP) Pulse Ox O2 Delivery O2 Flow Rate FiO2 10/28/17 07:00 97.9 71 18 102/51 (68) 96 Nasal Cannula 2.0 97.9 10/28/17 04:26 98.6 80 18 131/59 (83) 95 Nasal Cannula 2.0 98.6 10/28/17 03:59 Room Air 10/27/17 23:41 98.1 64 16 147/65 (92) 98 Nasal Cannula 2.0 98.1 10/27/17 21:59 75 136/65 10/27/17 20:25 98.3 72 16 136/65 (88) 96 Nasal Cannula 2.0 98.3 10/27/17 19:59 Room Air 10/27/17 19:30 Room Air 10/27/17 19:18 96 Room Air 10/27/17 18:16 Room Air 10/27/17 15:00 98.3 73 18 137/70 (92) 96 Room Air 98.3 10/27/17 11:00 98.3 70 18 110/51 (70) 95 Room Air 98.3 I & O Intake and Output 10/28/17 07:00 Intake Total 1770 ml Output Total 60 ml Balance 1710 ml Intake Oral 1770 ml Drainage Total 60 ml # Voids 2 # Bowel Movements 2 PHYSICAL EXAM Physical Exam His abdomen is soft and nontender at present time Extremities without edema Heart regular rate and rhythm ASSESSMENT/PLAN Assessment/Plan Patient is anxious to go home and he has refused his antibiotics, if okay with surgery we will let him go home later today and follow-up as outpatient Problems: COMMENT Lab Laboratory Tests Test 10/27/17 12:00 10/27/17 16:55 10/27/17 21:24 Clostridium difficile Toxin (PCR) Negative (Negative) Glucose (Fingerstick) 141 mg/dL (70-99) 146 mg/dL (70-99) JACOB STANLEY MD Oct 28, 2017 10:36
[2017-10-28 11:38] LABS: HEMOGLOBIN 8.5 g/dL (13.0-17.5); RED BLOOD COUNT 2.87 x10^6/uL (4.30-5.70); RED CELL DISTRIBUTION WIDTH 18.1 % (11.5-14.5); WHITE BLOOD COUNT 6.4 x10^3/uL (4.0-11.0)
--- NOTE | 2017-10-28 11:40 | PDOC ---
Renal-Progress Notes Subjective Notes Notes EATING WELL History of Present Illness Hx of present illness STABLE Vitals Vitals Vital Signs Date Time Temp Pulse Resp B/P (MAP) Pulse Ox O2 Delivery O2 Flow Rate FiO2 10/28/17 07:00 97.9 71 18 102/51 (68) 96 Nasal Cannula 2.0 97.9 Weight Weight [ ] I.O. Intake and Output Intake and Output 10/28/17 07:00 Intake Total 1770 ml Output Total 60 ml Balance 1710 ml Intake Oral 1770 ml Drainage Total 60 ml # Voids 2 # Bowel Movements 2 Labs Labs Laboratory Tests Test 10/27/17 12:00 10/27/17 16:55 10/27/17 21:24 10/28/17 10:20 Clostridium difficile Toxin (PCR) Negative (Negative) Glucose (Fingerstick) 141 mg/dL (70-99) 146 mg/dL (70-99) White Blood Count 6.4 x10^3/uL (4.0-11.0) Red Blood Count 2.87 x10^6/uL (4.30-5.70) Hemoglobin 8.5 g/dL (13.0-17.5) Hematocrit 27.0 % (39.0-53.0) Mean Corpuscular Volume 94 fL (79-100) Mean Corpuscular Hemoglobin 30 pg (25-35) Mean Corpuscular Hemoglobin Concent 31 g/dL (31-37) Red Cell Distribution Width 18.1 % (11.5-14.5) Platelet Count 400 x10^3/uL (140-400) Micro Micro Microbiology 10/20/17 Blood Culture - Final, Complete NO GROWTH AFTER 5 DAYS 10/20/17 Urine Culture - Final, Complete 10/20/17 Urine Culture Result 1 (GAVINO) - Final, Complete Review of Systems Constitutional: yes: malaise, weakness, oriented Ears/Nose/Throat: Yes: no symptom reported Eyes: Yes: no symptom reported Pulmonary: Yes no symptom reported Cardiovascular: Yes no symptom reported Gastrointestional: Yes: nausea, abdominal pain Genitourinary: Yes: other (ANURIA) Musculoskeletal: Yes: muscle stiffness Skin: Yes no symptom reported Psychiatric/Neurological: Yes: no symptom reported Endocrine: Yes: no symptom reported Physical Exam General Appearance: no apparent distress Skin: warm Respiratory: bilateral CTA Heart: S1S2, RRR Abdomen: soft, bowel sounds present Genitourinary: bladder flat Extremities: pulses present, no edema Neurology: alert, oriented Assessment Assessment IMP ESRD ANEMIA S/P LAP CHOLY RIGHT U ARM AVF-DOING WELL WITH AN EXCELLENT THRILL AND BRUIT PLAN HD TODAY UF TO DW ENC PO TOLERATED D/C SOON HUNTER BENZ MD Oct 28, 2017 11:40
[2017-10-28 11:53] LABS: ALBUMIN 2.2 g/dL (3.4-5.0); ALBUMIN/GLOBULIN RATIO 0.5 (1.0-1.7); CALCIUM 8.1 mg/dL (8.5-10.1); CREATININE 4.7 mg/dL (0.7-1.3); GFR 13.2; PHOSPHORUS 5.4 mg/dL (2.6-4.7); POTASSIUM 3.5 mmol/L (3.5-5.1); TOTAL BILIRUBIN 0.2 mg/dL (0.2-1.0); TOTAL PROTEIN 6.3 g/dL (6.4-8.2)
--- NOTE | 2017-10-28 13:28 | PDOC ---
PROGRESS NOTES Subjective Subjective feels well, in dialysis Objective Objective Vital Signs Date Time Temp Pulse Resp B/P (MAP) Pulse Ox O2 Delivery O2 Flow Rate FiO2 10/28/17 07:00 97.9 71 18 102/51 (68) 96 Nasal Cannula 2.0 97.9 Intake and Output 10/28/17 07:00 Intake Total 1770 ml Output Total 60 ml Balance 1710 ml Intake Oral 1770 ml Drainage Total 60 ml # Voids 2 # Bowel Movements 2 Physical Exam Abdomen: Soft, No tenderness Assessment Assessment Problems Medical Problems: (1) Cholecystitis Status: Acute (2) Cholelithiasis Status: Acute (3) Epigastric abdominal pain Status: Acute (4) Nephrolithiasis Status: Acute Plan Plan of Care DC drain, ok to discharge, FU in 2 weeks in office Comment Review of Relevant I have reviewed the following items nas (where applicable) has been applied. Labs Laboratory Tests Test 10/26/17 16:20 10/26/17 21:29 10/27/17 05:15 10/27/17 07:59 Sodium Level 135 mmol/L (136-145) 138 mmol/L (136-145) Potassium Level 3.1 mmol/L (3.5-5.1) 3.6 mmol/L (3.5-5.1) Chloride Level 94 mmol/L (98-107) 100 mmol/L (98-107) Carbon Dioxide Level 32 mmol/L (21-32) 29 mmol/L (21-32) Anion Gap 9 (6-14) 9 (6-14) Blood Urea Nitrogen 69 mg/dL (8-26) 39 mg/dL (8-26) Creatinine 4.8 mg/dL (0.7-1.3) 3.6 mg/dL (0.7-1.3) Estimated GFR (Cockcroft-Gault) 12.9 18.0 Glucose Level 234 mg/dL (70-99) 145 mg/dL (70-99) Calcium Level 8.1 mg/dL (8.5-10.1) 8.7 mg/dL (8.5-10.1) Phosphorus Level 5.3 mg/dL (2.6-4.7) 4.8 mg/dL (2.6-4.7) Magnesium Level 2.3 mg/dL (1.8-2.4) Albumin 2.2 g/dL (3.4-5.0) 2.3 g/dL (3.4-5.0) 25-Hydroxy Vitamin D Total 7.5 ng/mL (30-100) Glucose (Fingerstick) 123 mg/dL (70-99) 145 mg/dL (70-99) Test 10/27/17 12:00 10/27/17 16:55 10/27/17 21:24 10/28/17 10:20 Clostridium difficile Toxin (PCR) Negative (Negative) Glucose (Fingerstick) 141 mg/dL (70-99) 146 mg/dL (70-99) White Blood Count 6.4 x10^3/uL (4.0-11.0) Red Blood Count 2.87 x10^6/uL (4.30-5.70) Hemoglobin 8.5 g/dL (13.0-17.5) Hematocrit 27.0 % (39.0-53.0) Mean Corpuscular Volume 94 fL (79-100) Mean Corpuscular Hemoglobin 30 pg (25-35) Mean Corpuscular Hemoglobin Concent 31 g/dL (31-37) Red Cell Distribution Width 18.1 % (11.5-14.5) Platelet Count 400 x10^3/uL (140-400) Sodium Level 137 mmol/L (136-145) Potassium Level 3.5 mmol/L (3.5-5.1) Chloride Level 98 mmol/L (98-107) Carbon Dioxide Level 29 mmol/L (21-32) Anion Gap 10 (6-14) Blood Urea Nitrogen 53 mg/dL (8-26) Creatinine 4.7 mg/dL (0.7-1.3) Estimated GFR (Cockcroft-Gault) 13.2 BUN/Creatinine Ratio 11 (6-20) Glucose Level 222 mg/dL (70-99) Calcium Level 8.1 mg/dL (8.5-10.1) Phosphorus Level 5.4 mg/dL (2.6-4.7) Total Bilirubin 0.2 mg/dL (0.2-1.0) Aspartate Amino Transf (AST/SGOT) 21 U/L (15-37) Alanine Aminotransferase (ALT/SGPT) 30 U/L (16-63) Alkaline Phosphatase 179 U/L (46-116) Total Protein 6.3 g/dL (6.4-8.2) Albumin 2.2 g/dL (3.4-5.0) Albumin/Globulin Ratio 0.5 (1.0-1.7) 25-Hydroxy Vitamin D Total 10.4 ng/mL (30-100) Laboratory Tests Test 10/27/17 16:55 10/27/17 21:24 10/28/17 10:20 Glucose (Fingerstick) 141 mg/dL (70-99) 146 mg/dL (70-99) White Blood Count 6.4 x10^3/uL (4.0-11.0) Red Blood Count 2.87 x10^6/uL (4.30-5.70) Hemoglobin 8.5 g/dL (13.0-17.5) Hematocrit 27.0 % (39.0-53.0) Mean Corpuscular Volume 94 fL (79-100) Mean Corpuscular Hemoglobin 30 pg (25-35) Mean Corpuscular Hemoglobin Concent 31 g/dL (31-37) Red Cell Distribution Width 18.1 % (11.5-14.5) Platelet Count 400 x10^3/uL (140-400) Sodium Level 137 mmol/L (136-145) Potassium Level 3.5 mmol/L (3.5-5.1) Chloride Level 98 mmol/L (98-107) Carbon Dioxide Level 29 mmol/L (21-32) Anion Gap 10 (6-14) Blood Urea Nitrogen 53 mg/dL (8-26) Creatinine 4.7 mg/dL (0.7-1.3) Estimated GFR (Cockcroft-Gault) 13.2 BUN/Creatinine Ratio 11 (6-20) Glucose Level 222 mg/dL (70-99) Calcium Level 8.1 mg/dL (8.5-10.1) Phosphorus Level 5.4 mg/dL (2.6-4.7) Total Bilirubin 0.2 mg/dL (0.2-1.0) Aspartate Amino Transf (AST/SGOT) 21 U/L (15-37) Alanine Aminotransferase (ALT/SGPT) 30 U/L (16-63) Alkaline Phosphatase 179 U/L (46-116) Total Protein 6.3 g/dL (6.4-8.2) Albumin 2.2 g/dL (3.4-5.0) Albumin/Globulin Ratio 0.5 (1.0-1.7) 25-Hydroxy Vitamin D Total 10.4 ng/mL (30-100) Microbiology 10/20/17 Blood Culture - Final, Complete NO GROWTH AFTER 5 DAYS 10/20/17 Urine Culture - Final, Complete 10/20/17 Urine Culture Result 1 (GAVINO) - Final, Complete Medications Current Medications Sodium Chloride 500 ml @ 500 mls/hr 1X ONCE IV Last administered on 20:39; Start 10/20/17 at 19:45; Stop 10/20/17 at 20:44; Status DC Hydromorphone HCl (Dilaudid) 0.5 mg PRN Q15MIN PRN IV/SQ PAIN GREATER THAN 3/ 10 Last administered on 10/20/17 21:10; Start 10/20/17 at 19:45; Stop at 19:44; Status DC Ondansetron HCl (Zofran) 4 mg 1X ONCE IV Last administered on 10/20/17 20:37 ; Start 10/20/17 at 19:45; Stop 10/20/17 at 19:46; Status DC Vancomycin HCl (Vanco Per Pharmacy) 1 each PRN DAILY PRN MC SEE COMMENTS Last administered on 10/28/17 09:27; Start 10/20/17 at 22:00 Piperacillin Sod/ Tazobactam Sod (Zosyn Per Pharmacy) 1 each PRN DAILY PRN MC SEE COMMENTS; Start 10/20/17 at 21:45 Vancomycin HCl 2 gm/Sodium Chloride 500 ml @ 250 mls/hr 1X ONCE IV Last administered on 10/21/17 00:12; Start 10/20/17 at 22:00; Stop 10/20/17 at 23 :59; Status DC Ondansetron HCl (Zofran) 4 mg PRN Q8HRS PRN IV NAUSEA/VOMITING; Start at 22:00; Stop 10/21/17 at 21:59; Status DC Morphine Sulfate 2 mg PRN Q2HR PRN IV PAIN Last administered on 10/21/17 18: 27; Start 10/20/17 at 22:45; Stop 10/21/17 at 22:44; Status DC Sodium Chloride 1,000 ml @ 100 mls/hr Q10H IV Last administered on 10/21/17 00:12; Start 10/20/17 at 21:45; Stop 10/21/17 at 21:44; Status DC Piperacillin Sod/ Tazobactam Sod (Zosyn) 3.375 gm ONCE ONCE IVP Last administered on 10/20/17 22:33; Start 10/20/17 at 22:00; Stop 10/20/17 at 22 :01; Status DC Amiodarone HCl 150 mg/Dextrose 103 ml @ 618 mls/hr 1X ONCE IV ; Start at 22:15; Stop 10/20/17 at 22:15; Status DC Amiodarone HCl 900 mg/Dextrose 518 ml @ 0 mls/hr CONT PRN IV SEE I/O RECORD; Start 10/20/17 at 22:15; Stop 10/20/17 at 22:15; Status DC Sodium Chloride 1,621 ml @ 1,000 mls/hr 1X ONCE IV ; Start 10/20/17 at 22:15 ; Stop 10/20/17 at 23:52; Status DC Metoprolol Tartrate (Lopressor Vial) 5 mg 1X ONCE IVP Last administered on 22:49; Start 10/20/17 at 22:30; Stop 10/20/17 at 22:31; Status DC Sodium Chloride 1,000 ml @ 1,000 mls/hr 1X ONCE IV Last administered on 10/20 22:03; Start 10/20/17 at 22:15; Stop 10/20/17 at 23:14; Status DC Sodium Chloride 621 ml @ 1,000 mls/hr 1X ONCE IV ; Start 10/20/17 at 22:15; Stop 10/20/17 at 22:52; Status DC Piperacillin Sod/ Tazobactam Sod (Zosyn) 2.25 gm Q6HRS IVP Last administered on 10/22/17 06:04; Start 10/21/17 at 06:00; Stop 10/22/17 at 11:26; Status DC Vancomycin HCl 1.5 gm/Sodium Chloride 500 ml @ 250 mls/hr Q24H IV ; Start at 00:00; Status Cancel Vancomycin HCl 1 each 1X ONCE MC ; Start 10/22/17 at 23:30; Stop 10/22/17 at 23:30; Status DC Magnesium Sulfate/ Dextrose 50 ml @ 25 mls/hr PRN DAILY PRN IV for Mag < 1.7 on am labs; Start 10/21/17 at 12:45 Vancomycin HCl 1 each 1X ONCE MC ; Start 10/22/17 at 06:00; Stop 10/22/17 at 06:01; Status DC Alteplase, Recombinant 10 mg/ Sodium Chloride 100 ml @ 10 mls/hr 1X STAT IV ; Start 10/21/17 at 13:29; Stop 10/21/17 at 23:28; Status UNV Alteplase, Recombinant 10 mg/ Sodium Chloride 100 ml @ 10 mls/hr 1X ONCE IV ; Start 10/21/17 at 13:30; Stop 10/21/17 at 23:29; Status UNV Alteplase, Recombinant (Cathflo) 2 mg 1X ONCE INT CAT ; Start 10/21/17 at 13: 45; Stop 10/21/17 at 13:46; Status DC Sodium Chloride 1,000 ml @ 1,000 mls/hr Q1H PRN IV hypotension; Start at 14:40; Stop 10/21/17 at 20:39; Status DC Albumin Human 200 ml @ 200 mls/hr 1X PRN PRN IV Hypotension; Start 10/21/17 at 14:45; Stop 10/21/17 at 20:44; Status DC Info (PHARMACY MONITORING -- do not chart) 1 each PRN DAILY PRN MC SEE COMMENTS ; Start 10/21/17 at 14:45 Diphenhydramine HCl (Benadryl) 50 mg PRN Q8HRS PRN IVP ITCHING Last administered on 10/24/17t 21:41; Start 10/22/17 at 10:15 Vancomycin HCl 500 mg/Sodium Chloride 100 ml @ 100 mls/hr 1X ONCE IV Last administered on 10/22/17t 15:30; Start 10/22/17 at 16:00; Stop 10/22/17 at 16 :59; Status DC Vancomycin HCl 500 mg/Sodium Chloride 100 ml @ 100 mls/hr QTUTHSA IV ; Start 10/24/17 at 16:00; Stop 10/24/17 at 16:00; Status DC Piperacillin Sod/ Tazobactam Sod (Zosyn) 2.25 gm Q8HRS IVP Last administered on 10/25/17 21:36; Start 10/22/17 at 14:00 Morphine Sulfate 2 mg PRN Q2HR PRN IV PAIN Last administered on 10/26/17 06: 22; Start 10/22/17 at 14:00; Stop 10/26/17 at 08:52; Status DC Ondansetron HCl (Zofran) 4 mg PRN Q6HRS PRN IV NAUSEA/VOMITING Last administered on 10/25/17 05:35; Start 10/22/17 at 14:00 Metoprolol Tartrate (Lopressor) 25 mg BID PO Last administered on 10/27/17 21 :59; Start 10/22/17 at 15:15 Fentanyl Citrate (Fentanyl 2ml Vial) 25 mcg PRN Q5MIN PRN IV MILD PAIN Last administered on 10/24/17 07:31; Start 10/23/17 at 10:00; Stop 10/24/17 at 09 :59; Status DC Fentanyl Citrate (Fentanyl 2ml Vial) 50 mcg PRN Q5MIN PRN IV MODERATE PAIN Last administered on 10/23/17 21:14; Start 10/23/17 at 10:00; Stop 10/24/17 at 09:59; Status DC Morphine Sulfate 1 mg PRN Q10MIN PRN IV SEVERE PAIN; Start 10/23/17 at 10:00; Stop 10/24/17 at 09:59; Status DC Ringer's Solution 1,000 ml @ 30 mls/hr Q24H IV ; Start 10/23/17 at 09:53; Stop 10/23/17 at 21:52; Status DC Lidocaine HCl (Xylocaine-Mpf 1% Vial) 2 ml 1X PRN PRN ID IV START; Start 10/23 at 10:00; Stop 10/24/17 at 09:59; Status DC Hydromorphone HCl (Dilaudid) 0.5 mg PRN Q10MIN PRN IV SEV PAIN, Second choice; Start 10/23/17 at 10:00; Stop 10/24/17 at 09:59; Status DC Prochlorperazine Edisylate (Compazine) 5 mg PACU PRN PRN IV NAUSEA, MRX1; Start 10/23/17 at 10:00; Stop 10/24/17 at 09:59; Status DC Bupivacaine HCl/ Epinephrine Bitart (Sensorcain-Mpf Epi 0.5%-1:492800) 30 ml STK -MED ONCE INJ Last administered on 10/23/17 10:15; Start 10/23/17 at 10:15; Stop 10/23/17 at 10:34; Status DC Iohexol (Omnipaque 300 Mg/ml) 50 ml STK-MED ONCE IJ Last administered on 10:15; Start 10/23/17 at 10:15; Stop 10/23/17 at 10:34; Status DC Cellulose 1 each STK-MED ONCE TP Last administered on 10/23/17 10:23; Start 10/23/17 at 10:23; Stop 10/23/17 at 10:34; Status DC Cellulose 1 each STK-MED ONCE TP Last administered on 10/23/17 12:15; Start 10/23/17 at 12:15; Stop 10/23/17 at 12:33; Status DC Oxycodone/ Acetaminophen (Percocet 5/325) 1 tab PRN Q4HRS PRN PO PAIN Last administered on 10/23/17 14:21; Start 10/23/17 at 13:00; Stop 10/26/17 at 08 :52; Status DC Oxycodone/ Acetaminophen (Percocet 5/325) 2 tab PRN Q4HRS PRN PO PAIN; Start 10/23/17 at 13:15; Stop 10/26/17 at 08:52; Status DC Sodium Chloride 1,000 ml @ 1,000 mls/hr Q1H PRN IV hypotension; Start at 15:15; Stop 10/23/17 at 21:14; Status DC Sodium Chloride (Normal Saline Flush) 10 ml 1X PRN PRN IV AP catheter pack; Start 10/23/17 at 15:15; Stop 10/24/17 at 15:14; Status DC Sodium Chloride (Normal Saline Flush) 10 ml 1X PRN PRN IV SORTER/ASSAY TECH catheter pack; Start 10/23/17 at 15:15; Stop 10/24/17 at 15:14; Status DC Sodium Chloride 1,000 ml @ 400 mls/hr Q2H30M PRN IV PATENCY; Start 10/23/17 at 15:15; Stop 10/24/17 at 03:14; Status DC Info (PHARMACY MONITORING -- do not chart) 1 each PRN DAILY PRN MC SEE COMMENTS ; Start 10/23/17 at 15:15; Status UNV Info (PHARMACY MONITORING -- do not chart) 1 each PRN DAILY PRN MC SEE COMMENTS ; Start 10/23/17 at 15:15; Status UNV Aspirin (Ecotrin) 81 mg DAILY PO Last administered on 10/28/17 09:18; Start 10/23/17 at 16:00 Fish Oil (Fish Oil) 1 mg BID PO ; Start 10/23/17 at 21:00; Stop 10/23/17 at 21 :00; Status DC Sevelamer Carbonate (Renvela) 800 mg TIDWMEALS PO Last administered on 09:18; Start 10/23/17 at 17:00 Sodium Bicarbonate (Sodium Bicarbonate) 1,300 mg TID PO Last administered on 09:18; Start 10/23/17 at 21:00 Gabapentin (Neurontin) 300 mg TID PO Last administered on 10/25/17 08:45; Start 10/23/17 at 21:00; Stop 10/25/17 at 09:26; Status DC Insulin Detemir (Levemir) 10 units QHS SQ Last administered on 10/27/17 22:04 ; Start 10/23/17 at 21:00 Fish Oil (Fish Oil) 1,000 mg BID PO Last administered on 10/28/17 09:18; Start 10/23/17 at 21:00 Acetaminophen/ Hydrocodone Bitart (Lortab 5/325) 1 tab PRN Q4HRS PRN PO MODERATE PAIN Last administered on 10/27/17 18:16; Start 10/23/17 at 20:30 Acetaminophen/ Hydrocodone Bitart (Lortab 5/325) 2 tab PRN Q4HRS PRN PO SEVERE PAIN Last administered on 10/24/17 15:36; Start 10/23/17 at 20:30 Vancomycin HCl 500 mg/Sodium Chloride 100 ml @ 100 mls/hr 1X ONCE IV Last administered on 10/24/17 11:31; Start 10/24/17 at 11:30; Stop 10/24/17 at 12 :29; Status DC Vancomycin HCl 500 mg/Sodium Chloride 100 ml @ 100 mls/hr QTUTHSA IV ; Start 10/27/17 at 16:00; Stop 10/27/17 at 16:00; Status DC Morphine Sulfate 1 mg PRN Q1HR PRN IV PAIN Last administered on 10/24/17 17: 43; Start 10/24/17 at 17:45; Stop 10/26/17 at 08:52; Status DC Gabapentin (Neurontin) 300 mg QHS PO Last administered on 10/27/17 21:58; Start 10/25/17 at 21:00 Lactobacillus Rhamnosus (Culturelle) 1 cap BID PO Last administered on 09:18; Start 10/26/17 at 21:00 Heparin Sodium (Porcine) (Heparin Sodium) 10,000 unit STK-MED ONCE .ROUTE ; Start 10/21/17 at 13:20; Stop 10/26/17 at 11:10; Status DC Propofol 20 ml @ As Directed STK-MED ONCE IV ; Start 10/23/17 at 09:18; Stop 10/26/17 at 11:40; Status DC Lidocaine HCl (Lidocaine Pf 2% Vial) 5 ml STK-MED ONCE .ROUTE ; Start 10/23/17 at 09:18; Stop 10/26/17 at 11:40; Status DC Succinylcholine Chloride (Anectine) 200 mg STK-MED ONCE .ROUTE ; Start at 09:19; Stop 10/26/17 at 11:40; Status DC Rocuronium [place] (Zemuron) 50 mg STK-MED ONCE .ROUTE ; Start 10/23/17 at 09: 19; Stop 10/26/17 at 11:40; Status DC Midazolam HCl (Versed) 2 mg STK-MED ONCE .ROUTE ; Start 10/23/17 at 09:20; Stop 10/26/17 at 11:40; Status DC Fentanyl Citrate (Fentanyl 5ml Vial) 250 mcg STK-MED ONCE .ROUTE ; Start at 09:20; Stop 10/26/17 at 11:40; Status DC Iohexol (Omnipaque 300 Mg/ml) 50 ml STK-MED ONCE .ROUTE ; Start 10/23/17 at 09: 28; Stop 10/26/17 at 11:40; Status DC Bupivacaine HCl/ Epinephrine Bitart (Sensorcain-Mpf Epi 0.5%-1:872452) 30 ml STK -MED ONCE .ROUTE ; Start 10/23/17 at 09:28; Stop 10/26/17 at 11:41; Status DC Cellulose 1 each STK-MED ONCE .ROUTE ; Start 10/23/17 at 09:28; Stop 10/26/17 at 11:41; Status DC Ephedrine Sulfate (Akovaz) 50 mg STK-MED ONCE .ROUTE ; Start 10/23/17 at 10:07 ; Stop 10/26/17 at 11:41; Status DC Desflurane (Suprane) 90 ml STK-MED ONCE IH ; Start 10/23/17 at 11:47; Stop at 11:42; Status DC Neostigmine Methylsulfate (Bloxiverz) 10 mg STK-MED ONCE .ROUTE ; Start at 11:47; Stop 10/26/17 at 11:42; Status DC Glycopyrrolate (Robinul) 1 mg STK-MED ONCE .ROUTE ; Start 10/23/17 at 11:48; Stop 10/26/17 at 11:42; Status DC Cellulose 1 each STK-MED ONCE .ROUTE ; Start 10/23/17 at 11:48; Stop 10/26/17 at 11:42; Status DC Phenylephrine HCl 1 mg STK-MED ONCE IV ; Start 10/23/17 at 12:27; Stop at 11:42; Status DC Fentanyl Citrate (Fentanyl 2ml Vial) 100 mcg STK-MED ONCE .ROUTE ; Start at 12:39; Stop 10/26/17 at 11:43; Status DC Prochlorperazine Edisylate (Compazine) 10 mg STK-MED ONCE .ROUTE ; Start at 12:40; Stop 10/26/17 at 11:43; Status DC Ketorolac Tromethamine (Toradol) 30 mg PRN Q6HRS PRN IV PAIN Last administered on 10/27/17t 05:37; Start 10/26/17 at 16:00; Stop 10/29/17 at 15:59 Sodium Chloride 1,000 ml @ 1,000 mls/hr Q1H PRN IV hypotension; Start at 17:14; Stop 10/26/17 at 23:13; Status DC Diphenhydramine HCl (Benadryl) 25 mg 1X PRN PRN IV ITCHING; Start 10/26/17 at 17:15; Stop 10/27/17 at 17:14; Status DC Diphenhydramine HCl (Benadryl) 25 mg 1X PRN PRN IV ITCHING; Start 10/26/17 at 17:15; Stop 10/27/17 at 17:14; Status DC Sodium Chloride (Normal Saline Flush) 10 ml 1X PRN PRN IV AP catheter pack; Start 10/26/17 at 17:15; Stop 10/27/17 at 17:14; Status DC Sodium Chloride (Normal Saline Flush) 10 ml 1X PRN PRN IV SORTER/ASSAY TECH catheter pack; Start 10/26/17 at 17:15; Stop 10/27/17 at 17:14; Status DC Sodium Chloride 1,000 ml @ 400 mls/hr Q2H30M PRN IV PATENCY; Start 10/26/17 at 17:14; Stop 10/27/17 at 05:13; Status DC Info (PHARMACY MONITORING -- do not chart) 1 each PRN DAILY PRN MC SEE COMMENTS ; Start 10/26/17 at 17:15; Status UNV Vancomycin HCl 500 mg/Sodium Chloride 100 ml @ 100 mls/hr ONCE ONCE IV Last administered on 10/26/17t 21:54; Start 10/26/17 at 18:15; Stop 10/26/17 at 19 :14; Status DC Cholestyramine Resin (Questran Light) 4 gm BID PO ; Start 10/27/17 at 10:00 Vancomycin HCl 500 mg/Sodium Chloride 100 ml @ 100 mls/hr QTUTHSA IV ; Start 10/29/17 at 16:00; Stop 10/29/17 at 16:00; Status DC Vancomycin HCl 500 mg/Sodium Chloride 100 ml @ 100 mls/hr QTUTHSA IV ; Start 10/27/17 at 16:00; Stop 10/27/17 at 16:52; Status DC Vancomycin HCl 500 mg/Sodium Chloride 100 ml @ 100 mls/hr QMWF IV ; Start at 16:00 Sodium Chloride 1,000 ml @ 1,000 mls/hr Q1H PRN IV hypotension; Start at 09:42; Stop 10/28/17 at 15:41 Diphenhydramine HCl (Benadryl) 25 mg 1X PRN PRN IV ITCHING; Start 10/28/17 at 09:45; Stop 10/29/17 at 09:44 Diphenhydramine HCl (Benadryl) 25 mg 1X PRN PRN IV ITCHING; Start 10/28/17 at 09:45; Stop 10/29/17 at 09:44 Labetalol HCl (Normodyne) 10 mg PRN Q1HR PRN IVP SBP > 180; Start 10/28/17 at 09:45; Stop 10/29/17 at 09:44 Sodium Chloride 1,000 ml @ 400 mls/hr Q2H30M PRN IV PATENCY; Start 10/28/17 at 09:42; Stop 10/28/17 at 21:41 Info (PHARMACY MONITORING -- do not chart) 1 each PRN DAILY PRN MC SEE COMMENTS ; Start 10/28/17 at 09:45; Status UNV Calcium Carbonate/ Glycine (Tums) 500 mg PRN AFTMEALHC PRN PO INDIGESTION; Start 10/28/17 at 10:15 Active Scripts Active Vanco 500 mg/100 ml-0.9% NaCl (Vancomycin/0.9 % Sod Chloride) 500 Mg/100 Ml Froz.piggy 500 Mg IV 3X/WEEK 28 Days Cipro (Ciprofloxacin Hcl) 250 Mg Tablet 1 Tab PO BID 3 Days Reported Renvela (Sevelamer Carbonate) 800 Mg Tablet 800 Mg PO TIDWMEALS Lantus Solostar (Insulin Glargine,Hum.rec.anlog) 100 Unit/1 Ml Insuln.pen 10 Unit SQ QHS Fish Oil 1,000 Mg Capsule ([place]-3 Fatty Acids/Fish Oil) 1 Each Capsule 2 Each PO BID Aspir 81 (Aspirin) 81 Mg Tablet.dr 1 Tab PO DAILY Sodium Bicarbonate 650 Mg Tablet 1,300 Mg PO TID Gabapentin 300 Mg Capsule 300 Mg PO TID Vitals/I & O Vital Sign - Last 24 Hours 10/27/17 10/27/17 10/27/17 10/27/17 15:00 18:16 19:18 19:30 Temp 98.3 98.3 Pulse 73 Resp 18 B/P (MAP) 137/70 (92) Pulse Ox 96 96 O2 Delivery Room Air Room Air Room Air Room Air 10/27/17 10/27/17 10/27/17 10/27/17 19:59 20:25 21:59 23:41 Temp 98.3 98.1 98.3 98.1 Pulse 72 75 64 Resp 16 16 B/P (MAP) 136/65 (88) 136/65 147/65 (92) Pulse Ox 96 98 O2 Delivery Room Air Nasal Cannula Nasal Cannula O2 Flow Rate 2.0 2.0 10/28/17 10/28/17 10/28/17 03:59 04:26 07:00 Temp 98.6 97.9 98.6 97.9 Pulse 80 71 Resp 18 18 B/P (MAP) 131/59 (83) 102/51 (68) Pulse Ox 95 96 O2 Delivery Room Air Nasal Cannula Nasal Cannula O2 Flow Rate 2.0 2.0 Intake and Output 10/27/17 10/27/17 10/28/17 15:00 23:00 07:00 Intake Total 950 ml 820 ml Output Total 60 ml Balance -60 ml 950 ml 820 ml TRINI DUBON MD Oct 28, 2017 13:28
[2017-10-28] MEDS ORDERED: METO25TA4 PO (14:39)
[2017-10-28] MEDS ORDERED: LACT1CAP19 PO (14:39)
--- NOTE | 2017-10-28 14:40 | PDOC3 ---
Discharge Summary* Date of Admission: Oct 20, 2017 Date of Discharge: Oct 28, 2017 Admitting Diagnosis Problems Medical Problems: (1) Cholecystitis Status: Acute (2) Cholelithiasis Status: Acute (3) Epigastric abdominal pain Status: Acute (4) Nephrolithiasis Status: Acute Problems: Final Diagnosis 1. Cholelithiasis, including a stone within the gallbladder neck. 2- cholecystitis. Status post laparoscopic cholecystectomy 3. Bilateral nephrolithiasis. There is no evidence of obstructive uropathy. 4. End-stage renal disease on hemodialysis 5. Hepatomegaly and hepatic steatosis. 6. Mild right renal atrophy due to medical renal disease 7. PVCs, and PACs due to end-stage renal disease and amphetamine 8. 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 Diabetes mellitus insulin requiring 10. Hyperparathyroidism 11. Neuropathy 12. Chronic diastolic congestive heart failure 13. History of MRSA Problems Medical Problems: (1) Cholecystitis Status: Acute (2) Cholelithiasis Status: Acute (3) Epigastric abdominal pain Status: Acute (4) Nephrolithiasis Status: Acute CONSULTS Nephrology, cardiology, vascular surgery, general surgery Procedures CT scan abdomen and pelvis, abdominal ultrasound, laparoscopic cholecystectomy, intraoperative cholangiogram Brief Hospital Course Mr. Kuhn is a 52 old [sex] who presented with [ ] Disposition/Orders: D/C to Home CONDITION AT DISCHARGE: Improved Diet: Renal, Consistent Carbohydrate Scheduled Aspirin (Aspir 81), 1 TAB PO DAILY, (Reported) Gabapentin (Gabapentin), 300 MG PO TID, (Reported) Insulin Glargine,Hum.rec.anlog (Lantus Solostar), 10 UNIT SQ QHS, (Reported) Lactobacillus Rhamnosus Gg (Culturelle), 1 CAP PO BID Metoprolol Tartrate (Metoprolol Tartrate), 25 MG PO BID [place]-3 Fatty Acids/Fish Oil (Fish Oil 1,000 Mg Capsule), 2 EACH PO BID, ( Reported) Sevelamer Carbonate (Renvela), 800 MG PO TIDWMEALS, (Reported) Sodium Bicarbonate (Sodium Bicarbonate), 1,300 MG PO TID, (Reported) Discontinued Medications Ciprofloxacin Hcl (Cipro), 1 TAB PO BID Vancomycin/0.9 % Sod Chloride (Vanco 500 mg/100 ml-0.9% NaCl), 500 MG IV 3X/WEEK FOLLOW UP APPOINTMENT: Surgery next week, Dr. Stanley next week Time Spent Total time spent with patient [] minutes for coordination of care, counseling, and education. JACOB STANLEY MD Oct 28, 2017 14:40
[2017-10-28 14:53] VITALS: BP 128/58
[2017-10-28] MEDS ORDERED: VANCOMYCIN 500 MG in IV NORMAL SALINE 100ML 100 ML IV SCH (16:00)
[2017-10-29] MEDS ORDERED: VANCOMYCIN 500 MG in IV NORMAL SALINE 100ML 100 ML IV SCH (16:00)
== END 2017-10-28 16:20 | disposition home or self-care (01) | DRG 853 ==
LOC: ER 19:09 → 2 SOUTH 22:15
PROVIDERS: ADMIT Internal Medicine; ATTEND Internal Medicine
PROC: 5A1D70Z Performance of Urinary Filtration, Intermittent, Less than 6 Hours Per Day (ICD-10-PCS; 2017-10-21)
PROC: BF101ZZ Fluoroscopy of Bile Ducts using Low Osmolar Contrast (ICD-10-PCS; 2017-10-23)
PROC: 5A1D70Z Performance of Urinary Filtration, Intermittent, Less than 6 Hours Per Day (ICD-10-PCS; 2017-10-23)
PROC: 0FT44ZZ Resection of Gallbladder, Percutaneous Endoscopic Approach (ICD-10-PCS; principal; 2017-10-23 09:30)
PROC: 5A1D70Z Performance of Urinary Filtration, Intermittent, Less than 6 Hours Per Day (ICD-10-PCS; 2017-10-26)
PROC: 5A1D70Z Performance of Urinary Filtration, Intermittent, Less than 6 Hours Per Day (ICD-10-PCS; 2017-10-28)
DX: A41.9 Sepsis, unspecified organism (principal); N18.6 End stage renal disease; I47.2 Ventricular tachycardia; E11.22 Type 2 diabetes mellitus with diabetic chronic kidney disease; E11.40 Type 2 diabetes mellitus with diabetic neuropathy, unspecified; K80.12 Calculus of gallbladder with acute and chronic cholecystitis without obstruction; I50.32 Chronic diastolic (congestive) heart failure; D64.9 Anemia, unspecified; E21.3 Hyperparathyroidism, unspecified; E78.5 Hyperlipidemia, unspecified; Z79.4 Long term (current) use of insulin; I49.3 Ventricular premature depolarization; K76.0 Fatty (change of) liver, not elsewhere classified; N20.0 Calculus of kidney; F32.9 Major depressive disorder, single episode, unspecified; N39.498 Other specified urinary incontinence; Z82.49 Family history of ischemic heart disease and other diseases of the circulatory system; Z83.3 Family history of diabetes mellitus; Z86.14 Personal history of Methicillin resistant Staphylococcus aureus infection; Z86.61 Personal history of infections of the central nervous system; Z99.2 Dependence on renal dialysis
CPT/HCPCS: 36415; 51702; 74176; 74300; 76705; 80048; 80053; 80069; 80076; 80202; 80307; 81001; 82306; 82962; 83605; 83690; 83735; 84100; 84484; 85007; 85018; 85025; 85027; 87040; 87086; 87324; 87340; 87341; 88304; 93005; 96361; 96374; 96375; C1769; J0330; J1170; J1200; J1815; J1885; J2250; J2270; J2370; J2405; J2543; J2704; J2710; J3010; J3370; J3490; J7030; J7040; Q9967; 99285-25; G0479; J2001

== ENCOUNTER 2018-01-13 12:39 | Inpatient (IN) | payer MEDICARE, BC, MEDICAID ==
[2018-01-13 14:05] LABS: ADD MAN DIFF? YES; BASO % 0 % (0-3); EOS % 0 % (0-3); HEMATOCRIT 34.1 % (39.0-53.0); LYMPH # 0.4 x10^3/uL (1.0-4.8); LYMPH % 3 % (24-48); MEAN CORPUSCULAR HEMOGLOBIN 28 pg (25-35); MEAN CORPUSCULAR HGB CONC 32 g/dL (31-37); MEAN CORPUSCULAR VOLUME 88 fL (79-100); MONO # 0.7 x10^3/uL (0.0-1.1); MONO % 6 % (0-9); NEUT # 11.1 x10^3uL (1.8-7.7); NEUT % 91 % (31-73); PLATELET COUNT 252 x10^3/uL (140-400); RED BLOOD COUNT 3.89 x10^6/uL (4.30-5.70); RED CELL DISTRIBUTION WIDTH 17.2 % (11.5-14.5); WHITE BLOOD COUNT 12.2 x10^3/uL (4.0-11.0)
[2018-01-13 14:14] LABS: ANION GAP 10 (6-14); BLOOD UREA NITROGEN 81 mg/dL (8-26); BUN/CREATININE RATIO 9 (6-20); CALCIUM 8.4 mg/dL (8.5-10.1); CARBON DIOXIDE 28 mmol/L (21-32); CHLORIDE 90 mmol/L (98-107); CREATININE 8.6 mg/dL (0.7-1.3); GFR 6.6; GLUCOSE 308 mg/dL (70-99); POTASSIUM 3.5 mmol/L (3.5-5.1); SODIUM 128 mmol/L (136-145)
[2018-01-13] MEDS: PIPERACILLIN/TAZOBACTAM 3.375 GM in IV NORMAL SALINE 50ML 50 ML IV (14:15)
[2018-01-13] MEDS: ACETAMINOPHEN 500 MG TABLET PO (14:15)
[2018-01-13] MEDS: fentaNYL PF VIAL 100 MCG/2 ML VIAL IV ×2 (14:16→21:21)
[2018-01-13 14:19] LABS: INR 1.4 (0.8-1.1); PARTIAL THROMBOPLASTIN TIME 33 SEC (24-38); PROTHROMBIN TIME PATIENT 16.1 SEC (11.7-14.0)
[2018-01-13 14:20] LABS: ALBUMIN 2.8 g/dL (3.4-5.0); ALBUMIN/GLOBULIN RATIO 0.6 (1.0-1.7); ALK PHOS 219 U/L (46-116); ALT (SGPT) 39 U/L (16-63); AST (SGOT) 42 U/L (15-37); MAGNESIUM 2.1 mg/dL (1.8-2.4); TOTAL BILIRUBIN 0.6 mg/dL (0.2-1.0); TOTAL PROTEIN 7.6 g/dL (6.4-8.2)
[2018-01-13 14:22] LABS: LACTIC ACID 1.8 mmol/L (0.4-2.0)
[2018-01-13 14:23] LABS: TROPONINI < 0.017 ng/mL (0.000-0.055)
[2018-01-13] MEDS: IV NORMAL SALINE 500ML BAG 500 ML IV (14:24)
[2018-01-13 14:26] LABS: NT-PRO BNP 4283 pg/mL (0-124)
[2018-01-13 14:28] LABS: INFLUENZA A PATIENT NEGATIVE (NEGATIVE); INFLUENZA B PATIENT NEGATIVE (NEGATIVE); OBC FLU VALID
[2018-01-13] MEDS ORDERED: ONDANSETRON PF 4 MG/2 ML VIAL. IV (14:30)
[2018-01-13 14:48] LABS: % BANDS 6 % (0-9); % BASOS 1 % (0-3); % EOS 1 % (0-5); % LYMPHS 5 % (24-48); % MONOS 3 % (0-10); % SEGS 84 % (35-66); ANISOCYTOSIS SLIGHT; PLT ESTIMATE ADEQUATE (ADEQUATE)
[2018-01-13] MEDS: VANCOMYCIN 2 GM in IV DEXTROSE 5 %-0.2 % NACL 500 ML IV (17:18)
[2018-01-13] MEDS: VANCOMYCIN PER PHARMACY MC (19:53)
[2018-01-13 20:25] LABS: POC GLUCOSE 190 mg/dL (70-99)
[2018-01-13] MEDS: IV NORMAL SALINE 1000ML BAG 1,000 ML IV (21:20)
[2018-01-14] MEDS: fentaNYL PF VIAL 100 MCG/2 ML VIAL IV (04:00)
[2018-01-14 05:07] LABS: ADD MAN DIFF? NO
[2018-01-14 05:28] LABS: BASO % 1 % (0-3); EOS # 0.2 x10^3/uL (0.0-0.7); EOS % 3 % (0-3); HEMATOCRIT 32.8 % (39.0-53.0); HEMOGLOBIN 10.7 g/dL (13.0-17.5); LYMPH # 0.5 x10^3/uL (1.0-4.8); LYMPH % 6 % (24-48); MEAN CORPUSCULAR HEMOGLOBIN 29 pg (25-35); MEAN CORPUSCULAR HGB CONC 33 g/dL (31-37); MEAN CORPUSCULAR VOLUME 88 fL (79-100); MONO # 0.6 x10^3/uL (0.0-1.1); MONO % 8 % (0-9); NEUT # 6.2 x10^3uL (1.8-7.7); NEUT % 82 % (31-73); PLATELET COUNT 218 x10^3/uL (140-400); RED BLOOD COUNT 3.73 x10^6/uL (4.30-5.70); RED CELL DISTRIBUTION WIDTH 17.2 % (11.5-14.5); WHITE BLOOD COUNT 7.6 x10^3/uL (4.0-11.0)
[2018-01-14 05:50] LABS: ANION GAP 16 (6-14); BLOOD UREA NITROGEN 86 mg/dL (8-26); CALCIUM 8.2 mg/dL (8.5-10.1); CARBON DIOXIDE 23 mmol/L (21-32); CHLORIDE 94 mmol/L (98-107); CREATININE 8.9 mg/dL (0.7-1.3); GFR 6.3; GLUCOSE 146 mg/dL (70-99); POTASSIUM 3.5 mmol/L (3.5-5.1); SODIUM 133 mmol/L (136-145)
[2018-01-14] MEDS ORDERED: IV NORMAL SALINE 1000ML BAG 1,000 ML IV ×2 (07:59)
[2018-01-14] MEDS ORDERED: 0.9 % SODIUM CHLORIDE 10 ML DISP.SYRIN. IV ×2 (08:00)
[2018-01-14] MEDS ORDERED: ACETAMINOPHEN 500 MG TABLET PO (08:00)
[2018-01-14] MEDS ORDERED: ALBUMIN HUMAN 25% 200 ML IV (08:00)
[2018-01-14] MEDS ORDERED: diphenhydrAMINE 50 MG/ML VIAL IV ×2 (08:00)
[2018-01-14] MEDS ORDERED: DIALYSIS PATIENT. MC ×2 (08:00)
[2018-01-14] MEDS ORDERED: DEXTROSE 50% 25 GM / 50ML DISP.SYRIN. IV (10:00)
[2018-01-14] MEDS: IV NORMAL SALINE 1000ML BAG 1,000 ML IV (10:22)
[2018-01-14] MEDS: METOPROLOL TART IMMED RELEASE 25 MG TABLET. PO ×2 (10:30→21:00)
[2018-01-14] MEDS: INSULIN ASPART 300 UNITS/3 ML INSULN.PEN SQ ×2 (12:00→17:39)
[2018-01-14] MEDS: FOLIC/VIT B COMP W-C (RENAL) TABLET. PO (13:31)
[2018-01-14] MEDS: CINACALCET HCL 30 MG TABLET PO (13:31)
[2018-01-14] MEDS: SODIUM BICARBONATE 650 MG TABLET. PO ×2 (13:32→21:00)
[2018-01-14] MEDS: SEVELAMER CARBONATE 800 MG TABLET. PO ×3 (13:32→17:35)
[2018-01-14] MEDS: OMEGA-3 FATTY ACIDS/FISH OIL 1,000 MG CAPSULE. PO ×2 (13:32→21:00)
[2018-01-14] MEDS: GABAPENTIN 300 MG CAPSULE. PO ×2 (13:33→21:00)
[2018-01-14] MEDS: LACTOBACILLUS RHAMNOSUS GG 1 CAPSULE. PO ×2 (13:33→21:00)
[2018-01-14] MEDS: ASPIRIN ENTERIC COATED 81 MG TABLET.DR. PO (13:33)
[2018-01-14] MEDS: LIDOCAINE (700MG/PATCH) PATCH. TD (14:57)
[2018-01-14] MEDS: VANCOMYCIN RANDOM LEVEL. MC (17:00)
[2018-01-14 17:38] LABS: POC GLUCOSE 235 mg/dL (70-99)
[2018-01-14] MEDS: VANCOMYCIN PER PHARMACY MC (19:31)
[2018-01-14] MEDS: DARBEPOETIN ALFA 60 MCG/0.3 ML DISP.SYRIN. SQ (21:00)
[2018-01-14 23:36] LABS: POC GLUCOSE 182 mg/dL (70-99)
[2018-01-15] MEDS ORDERED: VANCOMYCIN RANDOM LEVEL. MC (06:00)
[2018-01-15 07:59] LABS: HEMATOCRIT 34.5 % (39.0-53.0); HEMOGLOBIN 11.4 g/dL (13.0-17.5); MEAN CORPUSCULAR HEMOGLOBIN 29 pg (25-35); MEAN CORPUSCULAR HGB CONC 33 g/dL (31-37); MEAN CORPUSCULAR VOLUME 88 fL (79-100); PLATELET COUNT 266 x10^3/uL (140-400); RED BLOOD COUNT 3.94 x10^6/uL (4.30-5.70); RED CELL DISTRIBUTION WIDTH 16.9 % (11.5-14.5); WHITE BLOOD COUNT 5.7 x10^3/uL (4.0-11.0)
[2018-01-15] MEDS: INSULIN ASPART 300 UNITS/3 ML INSULN.PEN SQ ×3 (08:00→17:00)
[2018-01-15 08:10] LABS: ANION GAP 11 (6-14); BLOOD UREA NITROGEN 52 mg/dL (8-26); CALCIUM 8.2 mg/dL (8.5-10.1); CARBON DIOXIDE 26 mmol/L (21-32); CHLORIDE 96 mmol/L (98-107); CREATININE 6.2 mg/dL (0.7-1.3); GFR 9.6; GLUCOSE 134 mg/dL (70-99); POTASSIUM 3.8 mmol/L (3.5-5.1); SODIUM 133 mmol/L (136-145)
[2018-01-15] MEDS: LIDOCAINE (700MG/PATCH) PATCH. TD (09:00)
[2018-01-15] MEDS: GABAPENTIN 300 MG CAPSULE. PO ×3 (09:00→20:46)
[2018-01-15] MEDS: METOPROLOL TART IMMED RELEASE 25 MG TABLET. PO ×2 (09:00→20:48)
[2018-01-15] MEDS: SODIUM BICARBONATE 650 MG TABLET. PO ×3 (09:00→20:36)
[2018-01-15] MEDS: SEVELAMER CARBONATE 800 MG TABLET. PO ×3 (09:09→17:34)
[2018-01-15 10:47] LABS: POC GLUCOSE 126 mg/dL (70-99)
[2018-01-15] MEDS: fentaNYL PF VIAL 100 MCG/2 ML VIAL IV ×4 (11:11→20:47)
[2018-01-15 11:41] LABS: POC GLUCOSE 232 mg/dL (70-99)
[2018-01-15] MEDS ORDERED: IV NORMAL SALINE 1000ML BAG 1,000 ML IV ×2 (12:50)
[2018-01-15] MEDS ORDERED: diphenhydrAMINE 50 MG/ML VIAL IV ×2 (13:00)
[2018-01-15] MEDS ORDERED: DIALYSIS PATIENT. MC (13:00)
[2018-01-15] MEDS ORDERED: ACETAMINOPHEN 500 MG TABLET PO (13:00)
[2018-01-15] MEDS: VANCOMYCIN PER PHARMACY MC (15:27)
[2018-01-15 17:32] LABS: POC GLUCOSE 123 mg/dL (70-99)
[2018-01-15] MEDS: FOLIC/VIT B COMP W-C (RENAL) TABLET. PO (17:35)
[2018-01-15] MEDS: OMEGA-3 FATTY ACIDS/FISH OIL 1,000 MG CAPSULE. PO ×2 (17:35→20:36)
[2018-01-15] MEDS: LACTOBACILLUS RHAMNOSUS GG 1 CAPSULE. PO ×2 (17:35→20:35)
[2018-01-15] MEDS: ASPIRIN ENTERIC COATED 81 MG TABLET.DR. PO (17:35)
[2018-01-15] MEDS: CINACALCET HCL 30 MG TABLET PO (17:36)
[2018-01-15] MEDS: VANCOMYCIN 500 MG in IV DEXTROSE 5% 100 ML IV (17:51)
[2018-01-15 21:51] LABS: POC GLUCOSE 273 mg/dL (70-99)
[2018-01-16 04:47] LABS: HEMATOCRIT 32.6 % (39.0-53.0); HEMOGLOBIN 10.3 g/dL (13.0-17.5); MEAN CORPUSCULAR HEMOGLOBIN 28 pg (25-35); MEAN CORPUSCULAR HGB CONC 32 g/dL (31-37); MEAN CORPUSCULAR VOLUME 90 fL (79-100); PLATELET COUNT 245 x10^3/uL (140-400); RED BLOOD COUNT 3.64 x10^6/uL (4.30-5.70); RED CELL DISTRIBUTION WIDTH 17.1 % (11.5-14.5); WHITE BLOOD COUNT 4.6 x10^3/uL (4.0-11.0)
[2018-01-16 05:11] LABS: ANION GAP 11 (6-14); BLOOD UREA NITROGEN 40 mg/dL (8-26); CALCIUM 7.6 mg/dL (8.5-10.1); CARBON DIOXIDE 27 mmol/L (21-32); CHLORIDE 98 mmol/L (98-107); CREATININE 4.6 mg/dL (0.7-1.3); GFR 13.5; GLUCOSE 175 mg/dL (70-99); POTASSIUM 3.2 mmol/L (3.5-5.1); SODIUM 136 mmol/L (136-145)
[2018-01-16 06:45] LABS: SEDIMENTATION RATE 94 (0-15)
[2018-01-16] MEDS: INSULIN ASPART 300 UNITS/3 ML INSULN.PEN SQ ×3 (08:00→17:00)
[2018-01-16 08:05] LABS: POC GLUCOSE 110 mg/dL (70-99)
[2018-01-16] MEDS: METOPROLOL TART IMMED RELEASE 25 MG TABLET. PO ×4 (09:00→21:00)
[2018-01-16] MEDS: LIDOCAINE (700MG/PATCH) PATCH. TD (09:00)
[2018-01-16] MEDS: OMEGA-3 FATTY ACIDS/FISH OIL 1,000 MG CAPSULE. PO ×2 (09:40→20:39)
[2018-01-16] MEDS: FOLIC/VIT B COMP W-C (RENAL) TABLET. PO (09:40)
[2018-01-16] MEDS: CINACALCET HCL 30 MG TABLET PO (09:40)
[2018-01-16] MEDS: SEVELAMER CARBONATE 800 MG TABLET. PO ×4 (09:40→17:55)
[2018-01-16] MEDS: SODIUM BICARBONATE 650 MG TABLET. PO ×3 (09:41→20:39)
[2018-01-16] MEDS: LACTOBACILLUS RHAMNOSUS GG 1 CAPSULE. PO ×2 (09:41→20:39)
[2018-01-16] MEDS: ASPIRIN ENTERIC COATED 81 MG TABLET.DR. PO (09:41)
[2018-01-16] MEDS: GABAPENTIN 300 MG CAPSULE. PO ×3 (09:41→20:39)
[2018-01-16 12:00] LABS: POC GLUCOSE 235 mg/dL (70-99)
[2018-01-16] MEDS: VANCOMYCIN PER PHARMACY MC (13:58)
[2018-01-16 17:29] LABS: POC GLUCOSE 192 mg/dL (70-99)
[2018-01-16] MEDS: fentaNYL PF VIAL 100 MCG/2 ML VIAL IV (20:40)
[2018-01-17 00:51] LABS: POC GLUCOSE 247 mg/dL (70-99)
[2018-01-17] MEDS: fentaNYL PF VIAL 100 MCG/2 ML VIAL IV ×2 (05:58→17:42)
[2018-01-17 07:53] LABS: POC GLUCOSE 219 mg/dL (70-99)
[2018-01-17] MEDS: CINACALCET HCL 30 MG TABLET PO (08:47)
[2018-01-17] MEDS: ASPIRIN ENTERIC COATED 81 MG TABLET.DR. PO (08:47)
[2018-01-17] MEDS: SEVELAMER CARBONATE 800 MG TABLET. PO ×3 (08:47→17:42)
[2018-01-17] MEDS: OMEGA-3 FATTY ACIDS/FISH OIL 1,000 MG CAPSULE. PO ×2 (08:47→21:11)
[2018-01-17] MEDS: LACTOBACILLUS RHAMNOSUS GG 1 CAPSULE. PO ×2 (08:47→21:11)
[2018-01-17] MEDS: METOPROLOL TART IMMED RELEASE 25 MG TABLET. PO ×2 (08:48→21:00)
[2018-01-17] MEDS: GABAPENTIN 300 MG CAPSULE. PO ×3 (08:48→21:10)
[2018-01-17] MEDS: FOLIC/VIT B COMP W-C (RENAL) TABLET. PO (08:48)
[2018-01-17] MEDS: SODIUM BICARBONATE 650 MG TABLET. PO ×3 (08:49→21:10)
[2018-01-17] MEDS: LIDOCAINE (700MG/PATCH) PATCH. TD (08:50)
[2018-01-17] MEDS: INSULIN ASPART 300 UNITS/3 ML INSULN.PEN SQ ×3 (08:53→17:47)
[2018-01-17] MEDS: VANCOMYCIN PER PHARMACY MC (15:05)
[2018-01-17] MEDS ORDERED: ALPRAZolam 0.25 MG TABLET PO (16:45)
[2018-01-17 17:02] LABS: POC GLUCOSE 171 mg/dL (70-99)
[2018-01-17 17:19] LABS: POC GLUCOSE 161 mg/dL (70-99)
[2018-01-17 21:04] LABS: POC GLUCOSE 232 mg/dL (70-99)
[2018-01-17] MEDS: DEXAMETHASONE 0.1% OPHTH SOLUTION 5ML BOTTLE. OD (21:10)
[2018-01-18] MEDS: DEXAMETHASONE 0.1% OPHTH SOLUTION 5ML BOTTLE. OD (04:58)
[2018-01-18] MEDS: SEVELAMER CARBONATE 800 MG TABLET. PO ×3 (08:00→18:16)
[2018-01-18 08:01] LABS: POC GLUCOSE 191 mg/dL (70-99)
[2018-01-18] MEDS: CINACALCET HCL 30 MG TABLET PO (08:25)
[2018-01-18] MEDS: FOLIC/VIT B COMP W-C (RENAL) TABLET. PO (08:26)
[2018-01-18] MEDS: SODIUM BICARBONATE 650 MG TABLET. PO ×3 (08:26→21:55)
[2018-01-18] MEDS: GABAPENTIN 300 MG CAPSULE. PO ×3 (08:27→21:54)
[2018-01-18] MEDS: OMEGA-3 FATTY ACIDS/FISH OIL 1,000 MG CAPSULE. PO ×2 (08:27→21:55)
[2018-01-18] MEDS: ASPIRIN ENTERIC COATED 81 MG TABLET.DR. PO (08:27)
[2018-01-18] MEDS: LACTOBACILLUS RHAMNOSUS GG 1 CAPSULE. PO ×2 (08:27→21:55)
[2018-01-18] MEDS: fentaNYL PF VIAL 100 MCG/2 ML VIAL IV ×3 (08:28→21:56)
[2018-01-18] MEDS: INSULIN ASPART 300 UNITS/3 ML INSULN.PEN SQ ×3 (08:31→17:00)
[2018-01-18] MEDS: METOPROLOL TART IMMED RELEASE 25 MG TABLET. PO ×2 (08:51→21:00)
[2018-01-18] MEDS: LIDOCAINE (700MG/PATCH) PATCH. TD (08:51)
[2018-01-18 11:45] LABS: POC GLUCOSE 164 mg/dL (70-99)
[2018-01-18] MEDS ORDERED: diphenhydrAMINE 50 MG/ML VIAL IV ×2 (11:45)
[2018-01-18] MEDS ORDERED: ACETAMINOPHEN 500 MG TABLET PO (11:45)
[2018-01-18] MEDS ORDERED: IV NORMAL SALINE 1000ML BAG 1,000 ML IV ×2 (11:45)
[2018-01-18] MEDS ORDERED: DIALYSIS PATIENT. MC ×2 (11:45)
[2018-01-18 13:00] LABS: ANION GAP 10 (6-14); BLOOD UREA NITROGEN 78 mg/dL (8-26); CALCIUM 7.6 mg/dL (8.5-10.1); CARBON DIOXIDE 29 mmol/L (21-32); CHLORIDE 97 mmol/L (98-107); CREATININE 6.7 mg/dL (0.7-1.3); GFR 8.8; GLUCOSE 167 mg/dL (70-99); POTASSIUM 3.6 mmol/L (3.5-5.1); SODIUM 136 mmol/L (136-145)
[2018-01-18] MEDS: DEXAMETHASONE 0.1% OPHTH SOLUTION 5ML BOTTLE. OU ×2 (15:30→21:55)
[2018-01-18] MEDS: TOBRAMYCIN 0.3% OPHTH SOLUTION 5ML BOTTLE. OU ×2 (15:30→21:55)
[2018-01-18 18:21] LABS: POC GLUCOSE 170 mg/dL (70-99)
[2018-01-18] MEDS: VANCOMYCIN 500 MG in IV NORMAL SALINE 100ML 100 ML IV (19:08)
[2018-01-18] MEDS ORDERED: DEXAMETHASONE OU (21:00)
[2018-01-18] MEDS ORDERED: TOBRAMYCIN OU (21:00)
[2018-01-18 23:35] LABS: POC GLUCOSE 259 mg/dL (70-99)
[2018-01-19 05:00] LABS: HEMATOCRIT 31.2 % (39.0-53.0); HEMOGLOBIN 10.1 g/dL (13.0-17.5); MEAN CORPUSCULAR HEMOGLOBIN 29 pg (25-35); MEAN CORPUSCULAR HGB CONC 32 g/dL (31-37); MEAN CORPUSCULAR VOLUME 89 fL (79-100); PLATELET COUNT 387 x10^3/uL (140-400); RED CELL DISTRIBUTION WIDTH 16.8 % (11.5-14.5); WHITE BLOOD COUNT 5.9 x10^3/uL (4.0-11.0)
[2018-01-19] MEDS: fentaNYL PF VIAL 100 MCG/2 ML VIAL IV (06:08)
[2018-01-19] MEDS: METOPROLOL TART IMMED RELEASE 25 MG TABLET. PO (09:00)
[2018-01-19] MEDS: LACTOBACILLUS RHAMNOSUS GG 1 CAPSULE. PO (09:00)
[2018-01-19] MEDS: FOLIC/VIT B COMP W-C (RENAL) TABLET. PO (09:04)
[2018-01-19] MEDS: SEVELAMER CARBONATE 800 MG TABLET. PO ×2 (09:04→13:18)
[2018-01-19] MEDS: SODIUM BICARBONATE 650 MG TABLET. PO (09:04)
[2018-01-19] MEDS: OMEGA-3 FATTY ACIDS/FISH OIL 1,000 MG CAPSULE. PO (09:04)
[2018-01-19] MEDS: CINACALCET HCL 30 MG TABLET PO (09:05)
[2018-01-19] MEDS: DEXAMETHASONE 0.1% OPHTH SOLUTION 5ML BOTTLE. OU (09:06)
[2018-01-19] MEDS: GABAPENTIN 300 MG CAPSULE. PO (09:06)
[2018-01-19] MEDS: ASPIRIN ENTERIC COATED 81 MG TABLET.DR. PO (09:06)
[2018-01-19] MEDS: TOBRAMYCIN 0.3% OPHTH SOLUTION 5ML BOTTLE. OU (09:06)
[2018-01-19] MEDS: LIDOCAINE (700MG/PATCH) PATCH. TD (09:07)
[2018-01-19] MEDS: INSULIN ASPART 300 UNITS/3 ML INSULN.PEN SQ ×2 (09:22→13:21)
[2018-01-19 09:47] LABS: POC GLUCOSE 160 mg/dL (70-99)
[2018-01-19 12:12] LABS: SEDIMENTATION RATE 74 (0-15)
[2018-01-19 12:14] LABS: POC GLUCOSE 186 mg/dL (70-99)
== END 2018-01-19 14:20 | disposition home or self-care (01) | DRG 871 ==
LOC: ER 12:39 → 6 SOUTH 14:12
PROC: 5A1D70Z Performance of Urinary Filtration, Intermittent, Less than 6 Hours Per Day (ICD-10-PCS; principal; 2018-01-14)
PROC: 0JPVXXZ Removal of Tunneled Vascular Access Device from Upper Extremity Subcutaneous Tissue and Fascia, External Approach (ICD-10-PCS; 2018-01-15)
PROC: 05PYX3Z Removal of Infusion Device from Upper Vein, External Approach (ICD-10-PCS; 2018-01-15)
DX: A41.01 Sepsis due to Methicillin susceptible Staphylococcus aureus (principal); N18.6 End stage renal disease; I13.2 Hypertensive heart and chronic kidney disease with heart failure and with stage 5 chronic kidney disease, or end stage renal disease; E11.22 Type 2 diabetes mellitus with diabetic chronic kidney disease; D64.9 Anemia, unspecified; E78.5 Hyperlipidemia, unspecified; H10.9 Unspecified conjunctivitis; I50.9 Heart failure, unspecified; Z82.49 Family history of ischemic heart disease and other diseases of the circulatory system; Z83.3 Family history of diabetes mellitus; Z99.2 Dependence on renal dialysis; E21.3 Hyperparathyroidism, unspecified; F32.9 Major depressive disorder, single episode, unspecified
CPT/HCPCS: 36415; 36589; 71045; 72141; 80048; 80053; 80202; 82962; 83605; 83735; 83880; 84484; 85007; 85025; 85027; 85610; 85651; 85730; 87040; 87070; 87205; 87804; 87804-59; 93005; 96365; 96375; 97116-GP; 97161-GP; 99285; 99285-25; J1815; J2543; J3010; J3370; J7030; J7040

== ENCOUNTER 2019-06-17 03:08 | Emergency (ER) | payer MEDICARE, BC ==
[~2019-06-17] VITALS: Ht 175.3 cm; Wt 99.3 kg
[~2019-06-17 03:08] MED LIST changes: +CINA30TA2 PO; +DEXA5DRO OU; +FOLI0.8T21 PO; -GABA-586 PO; +GABA300C18 PO; -HYDR-2758 PO; +HYDR-2761 PO; +HYDR-3135 PO; +HYDR-3164 PO; -HYDR-963 PO; -HYDR-971 PO; +LACT1CAP19 PO; +LIDO700A21 TD; +METF500T16 PO; -METF500T4 PO; +METO25TA4 PO; +TOBR5DRO6 OU; +VANC1VIA3 MC; +WARF-31 PO; +WARF4TAB64 PO; -WARF4TAB7 PO; -WARF5TAB7 PO
[2019-06-17 03:20] VITALS: BP 157/84
--- NOTE | 2019-06-17 03:46 | PHYS DOC ---
Past Medical History Past Medical History: Diabetes-Type II, Renal Failure, Other Additional Past Medical Histor: bacterial meningitis, incontinence Past Surgical History: Other Additional Past Surgical Histo: wound flap, dialysis shunt in left upper arm and removal; new shunt placed Alcohol Use: None Drug Use: Other Adult General Chief Complaint Chief Complaint: ANKLE PROBLEM [facility] HPI Patient is a 53 year old L presented ER today for evaluation of right ankle pain and swelling for about one week. Patient denies any injury. Patient said it hurt to put any weight on his right ankle. Patient also complaint of swelling in his right leg. Patient has history of end-stage renal failure, on hemodialysis. Patient is scheduled for dialysis this morning, they told him to come to ER for evaluation of his ankle before he goes to Dialysis. Patient denies any fever. Patient denies any chest pain, no trouble breathing. He also complaint of left eye redness for 2 days. Patient said he was outside in his yard 2 days ago, and when he went inside, he started having itching and irritation of left eye. Then he woke up the next day with redness in left eye. Patient denied any pain in his left eye, he denied any blurry vision in his left eye. Review of Systems Review of Systems Constitutional: Denies fever or chills [] Eyes: Denies change in visual acuity,eye pain. Positive for right eye redness. HENT: Denies nasal congestion or sore throat [] Respiratory: Denies cough or shortness of breath [] Cardiovascular: No additional information not addressed in HPI [] GI: Denies abdominal pain, nausea, vomiting, bloody stools or diarrhea [] : Denies dysuria or hematuria [] Musculoskeletal: Denies back pain , POSITIVE FOR RIGHT ANKLE PAIN AND SWELLING. Integument: Denies rash or skin lesions [] Neurologic: Denies headache, focal weakness or sensory changes [] Endocrine: Denies polyuria or polydipsia [] All other systems were reviewed and found to be within normal limits, except as documented in this note. Allergies Allergies Allergies Coded Allergies Type Severity Reaction Last Updated Verified I S O L A T I O N *CONTACT* Allergy Unknown 10/23/17 Yes No Known Medication Allergies Allergy Unknown 10/23/17 Yes Physical Exam Physical Exam Constitutional: Well developed, well nourished, no acute distress, non-toxic appearance. [] HENT: Normocephalic, atraumatic, bilateral external ears normal, oropharynx moist, no oral exudates, nose normal. [] Eyes: PERRLA, EOMI, no discharge. RIGHT CONJUNCTIVAL INJECTION. Neck: Normal range of motion, no tenderness, supple, no stridor. [] Cardiovascular:Heart rate regular rhythm, no murmur [] Lungs & Thorax: Bilateral breath sounds clear to auscultation [] Abdomen: Bowel sounds normal, soft, no tenderness, no masses, no pulsatile masses. [] Skin: Warm, dry, no erythema, no rash. [] Back: No tenderness, no CVA tenderness. [] Extremities: Right ankle is swollen, tender. Right leg is swollen with mild erythema. Neurologic: Alert and oriented X 3, normal motor function, normal sensory function, no focal deficits noted. [] Psychologic: Affect normal, judgement normal, mood normal. [] Current Patient Data Vital Signs Vital Signs Date Time Temp Pulse Resp B/P (MAP) Pulse Ox O2 Delivery O2 Flow Rate FiO2 06/17/19 03:20 98.4 81 16 157/84 (108) 98 Room Air 98.4 EKG EKG [] Radiology/Procedures Radiology/Procedures VENOUS DOPPLER OF RIGHT LEG: NO DVT XRAY OF RIGHT ANKLE: NO FRACTURE, SEVERE ARTHRITIS. Course & Med Decision Making Course & Med Decision Making Pertinent Labs and Imaging studies reviewed. (See chart for details) [] Dragon Disclaimer Dragon Disclaimer This electronic medical record was generated, in whole or in part, using a voice recognition dictation system. Departure Departure Impression: Primary Impression: Arthritis of right ankle Additional Impression: Conjunctivitis of left eye Disposition: HOME, SELF-CARE Condition: STABLE Referrals: JACOB STANLEY MD (PCP) follow up with your doctor on Thursday. Patient Instructions: Allergic Conjunctivitis, Arthritis, Degenerative-Brief Scripts Gentamicin Sulfate (GENTAMICIN SULFATE 0.3% OPHTH SOLN) 5 Ml Drops 2 DROP LEFTEYE QID, #5 ML Prov: JERROD CASTILLO DO 06/17/19 Problem Qualifiers JERROD CASTILLO DO Jun 17, 2019 03:46
[2019-06-17] MEDS ORDERED: GENT5DRO3 LEFTEYE (04:08)
--- NOTE | 2019-06-17 04:18 | RAD ---
Three-view right ankle radiographs 06/17/2019 CLINICAL HISTORY: Right ankle pain and swelling for one week. AP, lateral and oblique digital radiographs of the right ankle were obtained. No acute fracture or dislocation of the right ankle is seen. Mild to moderate degenerative changes are seen involving the right ankle joint. There is a right ankle joint effusion. Pes planus deformity is noted. Bony fusion across the subtalar joint is seen. IMPRESSION: Degenerative changes are seen involving the right ankle as discussed above. No acute osseous abnormality is seen. Electronically signed by: Stefan Dougherty MD (06/17/2019 4:15 AM) [facility]
--- NOTE | 2019-06-17 04:19 | RAD ---
Right lower extremity venous duplex study 06/17/2019 Clinical History: Right ankle swelling. Technique: Using a combination of real time ultrasound imaging and color-flow and pulse Doppler imaging techniques along with graded compression and augmentation, duplex evaluation of the deep venous system of the right lower extremity was performed. Multiple images were obtained. Findings: There is no sonographic evidence of deep venous thrombosis involving the visualized deep venous structures of the right lower extremity. Impression: Negative study. Electronically signed by: Stefan Dougherty MD (06/17/2019 4:16 AM) [facility]
== END 2019-06-17 04:16 | disposition home or self-care (01) ==
LOC: ER 03:08
DX: M19.071 Primary osteoarthritis, right ankle and foot (principal); H10.9 Unspecified conjunctivitis; E11.22 Type 2 diabetes mellitus with diabetic chronic kidney disease; N18.6 End stage renal disease; Z99.2 Dependence on renal dialysis; Z91.041 Radiographic dye allergy status
CPT/HCPCS: 73610; 93971; 99284

== ENCOUNTER 2020-02-22 07:16 | Outpatient (CLI) | payer MEDICARE, BC ==
[2020-02-22] VITALS (7 sets, daily range): BP systolic 133–153; BP diastolic 65–83
[~2020-02-22] VITALS: Ht 175.3 cm; Wt 104.3 kg
[~2020-02-22 07:16] MED LIST changes: +GENT5DRO3 LEFTEYE
[2020-02-22] MEDS ORDERED: GLIP10TA24 PO (07:38)
[2020-02-22] MEDS ORDERED: INSU100I13 SQ (07:41)
[2020-02-22 07:43] LABS: BASO % 1 % (0-3); EOS # 0.2 x10^3/uL (0.0-0.7); EOS % 4 % (0-3); HEMOGLOBIN 10.3 g/dL (13.0-17.5); LYMPH # 0.6 x10^3/uL (1.0-4.8); LYMPH % 11 % (24-48); MEAN CORPUSCULAR HEMOGLOBIN 28 pg (25-35); MEAN CORPUSCULAR HGB CONC 32 g/dL (31-37); MEAN CORPUSCULAR VOLUME 88 fL (79-100); MONO # 0.5 x10^3/uL (0.0-1.1); MONO % 9 % (0-9); NEUT # 4.1 x10^3/uL (1.8-7.7); NEUT % 76 % (31-73); PLATELET COUNT 329 x10^3/uL (140-400); RED BLOOD COUNT 3.63 x10^6/uL (4.30-5.70); RED CELL DISTRIBUTION WIDTH 17.7 % (11.5-14.5); WHITE BLOOD COUNT 5.4 x10^3/uL (4.0-11.0)
[2020-02-22 07:55] LABS: PROTHROMBIN TIME PATIENT 13.3 SEC (11.7-14.0)
[2020-02-22] MEDS ORDERED: fentaNYL PF VIAL 100 MCG/2 ML VIAL ONE (08:10)
[2020-02-22] MEDS ORDERED: MIDAZOLAM HCL/PF 2 MG/2 ML VIAL. ONE (08:10)
[2020-02-22] MEDS ORDERED: LIDOCAINE 1%/EPI 1:100,000 20 ML VIAL. INJ ONE (08:15)
[2020-02-22] MEDS ORDERED: MIDAZOLAM HCL/PF 2 MG/2 ML VIAL. IV ONE (08:15)
[2020-02-22] MEDS ORDERED: fentaNYL PF VIAL 100 MCG/2 ML VIAL IV ONE (08:15)
[2020-02-22] MEDS ORDERED: LIDOCAINE 1%/EPI 1:100,000 20 ML VIAL. ONE (08:18)
[2020-02-22] MEDS ORDERED: IOHEXOL 240 MG/ML 50ML VIAL. ONE (08:43)
[2020-02-22] MEDS ORDERED: IOHEXOL 240 MG/ML 50ML VIAL. IV ONE (09:00)
--- NOTE | 2020-02-22 10:51 | NUR ---
Discharge Note: REED SIERRA Discharge instructions and discharge home medications reviewed with Patient and a copy given. All questions have been answered and understanding verbalized. The following instructions and handouts were given: tunneled catheter insertion,skin infections, and moderate sedation Discontinued lines and drains: Peripheral IV intact. Patient discharged to Home or Self Care withFriendvia Wheelchair
--- NOTE | 2020-02-24 08:12 | RAD ---
Replacement of left internal jugular tunnel hemodialysis catheter 02/22/2020 Indication: Nonfunctional catheter 02/24/2020 6:07 AM Procedure: The procedure was explained in its entirety to the patient or the patients designated graphic art sales representative by a member of the treatment team, including a discussion of the risks, benefits and commonly accepted alternatives to the procedure, as well as the expected consequences of no therapy whatsoever. Discussion of the risks included, but was not limited to, those that are most frequent and those that are rare but possibly severe or life-threatening, as well as the possibility of unforeseen complications. All elements of maximal sterile barrier technique including the use of a cap, mask, sterile gown, sterile gloves, large sterile sheet, appropriate hand hygiene, and 2% chlorhexidine for cutaneous antisepsis (or acceptable alternative antiseptic per current guidelines) were followed for this procedure. The pre-existing catheter was evaluated under fluoroscopy and found to be within normal position. The catheter however appears to pass through the interstices of a SVC stent. Tip is essentially at the cavoatrial junction. Small amount of contrast was administered through the catheter demonstrating no fibrin sheath. It was felt the catheter be functioning normally slightly lower in position. Therefore a wire was advanced to the IVC. The pre-existing catheter was removed over this wire. A new dermatotomy was made slightly more cephalad to the pre-existing lung. The wire was retrieved through this dermatotomy. A new 28 cm palindrome dialysis catheter was advanced such that its tip was in the mid right atrium. The catheter was found to flush and aspirate normally. The catheter secured in place. Sterile dressings were applied. No immediate complications were identified. Total fluoroscopy time: 2.7 min Dose area product: 13 Gycm2 The procedures performed under conscious sedation including continuous cardiopulmonary monitoring via dedicated sedation nurse. [id number] sedation time: 29 Impression: Replacement of left internal jugular tunnel hemodialysis catheter as described
== END 2020-02-22 11:00 | disposition home or self-care (01) ==
LOC: INTRAD 07:16
PROVIDERS: ATTEND Surgery
DX: Z45.2 Encounter for adjustment and management of vascular access device (principal); N18.9 Chronic kidney disease, unspecified; Z91.041 Radiographic dye allergy status; Z79.82 Long term (current) use of aspirin; Z79.84 Long term (current) use of oral hypoglycemic drugs; Z79.4 Long term (current) use of insulin
CPT/HCPCS: 36415; 36581; 77001; 85025; 85610; C1713; C1750; J0696; J2250; J3010; J3490; Q9966; 99152; 99153

== ENCOUNTER 2020-02-27 18:21 | Emergency (ER) | payer MEDICARE, BC ==
[~2020-02-27] VITALS: Ht 175.3 cm; Wt 104.0 kg
[~2020-02-27 18:21] MED LIST changes: -DEXA5DRO OU; +DEXA5DRO11 OU; +GLIP10TA24 PO
--- NOTE | 2020-02-27 19:52 | PHYS DOC ---
Past Medical History Past Medical History: Diabetes-Type II, Renal Failure, Other Additional Past Medical Histor: bacterial meningitis, incontinence Past Surgical History: Other Additional Past Surgical Histo: wound flap, dialysis shunt in left upper arm and removal; new shunt placed Smoking Status: Former Smoker Alcohol Use: None Drug Use: Other Adult General Chief Complaint Chief Complaint: CELLULITIS HPI HPI 54-year-old male with history of diabetes, renal failure presents to the emergency department complaints of left lower extremity pain and swelling. Patient states erythema and pain started today. He was seen at [facility] wound care and recommended ER visit however he chose to come to this facility for further evaluation patient denies any fevers, nausea, vomiting, chest pain or shortness of breath. He does have a chronic wound appreciated to right lower extremity of which is being taken care of. Patient is on no blood thinning medications at this time. He states pain is appreciated that comes and goes mainly on the top of his foot on the left. He has had no surgical procedures or hardware placed in his left foot or ankle. Nothing makes his symptoms better. Review of Systems Review of Systems Constitutional: Denies fever or chills [] Respiratory: Denies cough or shortness of breath [] Cardiovascular: No additional information not addressed in HPI [] GI: Denies abdominal pain, nausea, vomiting, bloody stools or diarrhea [] Musculoskeletal: left foot and leg pain appreciated Integument: erythema/warmth appreciated to left leg and foot Neurologic: Denies headache, focal weakness or sensory changes [] All other systems were reviewed and found to be within normal limits, except as documented in this note. Current Medications Current Medications Current Medications Medications (Trade) Dose Ordered Sig/Nando Start Time Stop Time Status Last Admin Dose Admin Vancomycin HCl 250 ml @ 250 mls/hr 1X ONCE 02/27/20 20:45 02/27/20 21:44 UNV 02/27/20 21:21 250 MLS/HR Allergies Allergies Allergies Coded Allergies Type Severity Reaction Last Updated Verified I S O L A T I O N *CONTACT* Allergy Unknown 10/23/17 Yes No Known Medication Allergies Allergy Unknown 10/23/17 Yes Physical Exam Physical Exam Constitutional: Well developed, well nourished, no acute distress, non-toxic appearance. [] Cardiovascular:Heart rate regular rhythm, no murmur [] Lungs & Thorax: Bilateral breath sounds clear to auscultation [] Abdomen: Bowel sounds normal, soft, no tenderness, no masses, no pulsatile masses. [] Skin: Warm, dry, no erythema, no rash. [] Extremities: TTP top of foot, + erythema/edema, pain to palpation [] Neurologic: Alert and oriented X 3, no focal deficits noted. [] Psychologic: Affect normal, judgement normal, mood normal. [] Current Patient Data Lab Values Laboratory Tests Test 02/27/20 19:50 White Blood Count 8.9 x10^3/uL (4.0-11.0) Red Blood Count 3.54 x10^6/uL (4.30-5.70) L Hemoglobin 10.1 g/dL (13.0-17.5) L Hematocrit 31.3 % (39.0-53.0) L Mean Corpuscular Volume 89 fL (79-100) Mean Corpuscular Hemoglobin 29 pg (25-35) Mean Corpuscular Hemoglobin Concent 32 g/dL (31-37) Red Cell Distribution Width 18.0 % (11.5-14.5) H Platelet Count 394 x10^3/uL (140-400) Neutrophils (%) (Auto) 84 % (31-73) H Lymphocytes (%) (Auto) 8 % (24-48) L Monocytes (%) (Auto) 5 % (0-9) Eosinophils (%) (Auto) 3 % (0-3) Basophils (%) (Auto) 1 % (0-3) Neutrophils # (Auto) 7.5 x10^3/uL (1.8-7.7) Lymphocytes # (Auto) 0.7 x10^3/uL (1.0-4.8) L Monocytes # (Auto) 0.4 x10^3/uL (0.0-1.1) Eosinophils # (Auto) 0.2 x10^3/uL (0.0-0.7) Basophils # (Auto) 0.1 x10^3/uL (0.0-0.2) D-Dimer (Kari) 1.81 ug/mlFEU (0.00-0.50) H Sodium Level 132 mmol/L (136-145) L Potassium Level 4.0 mmol/L (3.5-5.1) Chloride Level 95 mmol/L (98-107) L Carbon Dioxide Level 25 mmol/L (21-32) Anion Gap 12 (6-14) Blood Urea Nitrogen 34 mg/dL (8-26) H Creatinine 6.0 mg/dL (0.7-1.3) H Estimated GFR (Cockcroft-Gault) 9.9 BUN/Creatinine Ratio 6 (6-20) Glucose Level 279 mg/dL (70-99) H Lactic Acid Level 2.5 mmol/L (0.4-2.0) H Calcium Level 8.7 mg/dL (8.5-10.1) Total Bilirubin 0.3 mg/dL (0.2-1.0) Aspartate Amino Transferase (AST) 16 U/L (15-37) Alanine Aminotransferase (ALT) 15 U/L (16-63) L Alkaline Phosphatase 251 U/L (46-116) H Creatine Kinase 131 U/L (39-308) Total Protein 7.5 g/dL (6.4-8.2) Albumin 2.8 g/dL (3.4-5.0) L Albumin/Globulin Ratio 0.6 (1.0-1.7) L Laboratory Tests 02/27/20 19:50 Laboratory Tests 02/27/20 19:50 EKG EKG [] Radiology/Procedures Radiology/Procedures [facility] [address], [place] [id number] IMAGING REPORT Signed PATIENT: REED SIERRA ACCOUNT: [id number] : 1965 LOCATION: ER AGE: 54 SEX: M EXAM STATUS: REG ER ORD. PHYSICIAN: JOSUÉ CHAPIN MD REASON: edema, erythema, TTP top of foot PROCEDURE: FOOT LEFT 3V Three-view left foot radiographs 02/27/2020 CLINICAL HISTORY: Left foot swelling and redness. Portable AP, lateral and oblique digital radiographs of the left foot were obtained. No fracture or dislocation of the left foot is seen. Mild to moderate degenerative changes are seen throughout the interphalangeal joints of the left foot along the first MTP joint. Mild to moderate degenerative changes are seen involving the midtarsal and talonavicular joint. Mild enthesophyte formation is seen involving the plantar aspect of the posterior left calcaneus. IMPRESSION: Degenerative changes are seen involving left foot as outlined above. No acute osseous abnormality is seen. Electronically signed by: Stefan Paige MD (02/27/2020 8:06 PM) [id number] DICTATED and SIGNED BY: STEFAN PAIGE MD DATE: 02/27/202005 [] Course & Med Decision Making Course & Med Decision Making Pertinent Labs and Imaging studies reviewed. (See chart for details) []54-year-old male with history of diabetes, renal failure presents to the emergency department complaints of left lower extremity pain and swelling. Patient states erythema and pain started today. He was seen at [facility] wound care and recommended ER visit however he chose to come to this facility for further evaluation patient denies any fevers, nausea, vomiting, chest pain or shortness of breath. He does have a chronic wound appreciated to right lower extremity of which is being taken care of. Patient is on no blood thinning medications at this time. He states pain is appreciated that comes and goes mainly on the top of his foot on the left. He has had no surgical procedures or hardware placed in his left foot or ankle. Labs and imaging reviewed Imaging negative for acute process US negative for DVT Vancomycin IV x 1 Clindamycin rx provided upon discharge for cellulitis Return precautions provided Dragon Disclaimer Dragon Disclaimer This electronic medical record was generated, in whole or in part, using a voice recognition dictation system. Departure Departure Impression: Primary Impression: Cellulitis Disposition: HOME, SELF-CARE Condition: STABLE Referrals: UNKNOWN PCP NAME (PCP) Patient Instructions: Cellulitis, [id number] Additional Instructions: Cellulitis in left lower ext No evidence of DVT Vancomycin 1gm in ER Clindamycin upon discharge x 7 days Recommend following up with PCP 3 - 5 days Continue HD as scheduled. Tylenol as needed for fever if develops Scripts Clindamycin Hcl (CLINDAMYCIN HCL) 300 Mg Capsule 1 CAP PO TID, #21 CAP Prov: JOSUÉ CHAPIN MD 02/27/20 Problem Qualifiers Primary Impression: Cellulitis Site of cellulitis: extremity Site of cellulitis of extremity: lower extremity Laterality: left Qualified Codes: L03.116 - Cellulitis of left lower limb JOSUÉ CHAPIN MD Feb 27, 2020 19:52
[2020-02-27 20:06] LABS: BASO # 0.1 x10^3/uL (0.0-0.2); BASO % 1 % (0-3); EOS # 0.2 x10^3/uL (0.0-0.7); EOS % 3 % (0-3); HEMATOCRIT 31.3 % (39.0-53.0); HEMOGLOBIN 10.1 g/dL (13.0-17.5); LYMPH # 0.7 x10^3/uL (1.0-4.8); LYMPH % 8 % (24-48); MEAN CORPUSCULAR HEMOGLOBIN 29 pg (25-35); MEAN CORPUSCULAR HGB CONC 32 g/dL (31-37); MEAN CORPUSCULAR VOLUME 89 fL (79-100); MONO # 0.4 x10^3/uL (0.0-1.1); MONO % 5 % (0-9); NEUT # 7.5 x10^3/uL (1.8-7.7); NEUT % 84 % (31-73); PLATELET COUNT 394 x10^3/uL (140-400); RED BLOOD COUNT 3.54 x10^6/uL (4.30-5.70); WHITE BLOOD COUNT 8.9 x10^3/uL (4.0-11.0)
[2020-02-27 20:09] LABS: CALCIUM 8.7 mg/dL (8.5-10.1); GFR 9.9
--- NOTE | 2020-02-27 20:09 | RAD ---
Three-view left foot radiographs 02/27/2020 CLINICAL HISTORY: Left foot swelling and redness. Portable AP, lateral and oblique digital radiographs of the left foot were obtained. No fracture or dislocation of the left foot is seen. Mild to moderate degenerative changes are seen throughout the interphalangeal joints of the left foot along the first MTP joint. Mild to moderate degenerative changes are seen involving the midtarsal and talonavicular joint. Mild enthesophyte formation is seen involving the plantar aspect of the posterior left calcaneus. IMPRESSION: Degenerative changes are seen involving left foot as outlined above. No acute osseous abnormality is seen. Electronically signed by: Stefan Dougherty MD (02/27/2020 8:06 PM) [id number]
[2020-02-27 20:15] LABS: ALBUMIN 2.8 g/dL (3.4-5.0); ALBUMIN/GLOBULIN RATIO 0.6 (1.0-1.7); TOTAL BILIRUBIN 0.3 mg/dL (0.2-1.0); TOTAL PROTEIN 7.5 g/dL (6.4-8.2)
[2020-02-27] MEDS ORDERED: VANCOMYCIN 1GM IVPB FOR OMNI 250 ML IV ONE ×2 (20:45→22:00)
[2020-02-27] MEDS ORDERED: CLIN300C8 PO (21:28)
--- NOTE | 2020-02-27 21:41 | RAD ---
Left lower extremity venous duplex study 02/27/2020 Clinical History: Left leg redness and swelling. Technique: Using a combination of real time ultrasound imaging and color-flow and pulse Doppler imaging techniques along with graded compression and augmentation, duplex evaluation of the deep venous system of the left lower extremity was performed. Multiple images were obtained. Findings: There is no sonographic evidence of deep venous thrombosis involving the visualized deep venous structures of the left lower extremity. A 2.2 cm reactive left inguinal lymph node is noted. Impression: There is no sonographic evidence of deep venous thrombosis involving the visualized deep venous structure of the left lower extremity. Electronically signed by: Stefan Dougherty MD (02/27/2020 9:38 PM) [id number]
[2020-02-27] MEDS ORDERED: VANCOMYCIN PER PHARMACY MC PRN (21:45)
[2020-02-27 23:47] VITALS: BP 115/59
== END 2020-02-27 23:53 | disposition home or self-care (01) ==
LOC: ER 18:21
DX: L03.116 Cellulitis of left lower limb (principal); M79.605 Pain in left leg; E11.22 Type 2 diabetes mellitus with diabetic chronic kidney disease; N18.9 Chronic kidney disease, unspecified; Z87.891 Personal history of nicotine dependence; Z91.041 Radiographic dye allergy status
CPT/HCPCS: 36415; 73630; 80053; 82550; 83605; 85025; 85379; 87040; 93971; 96365; 96366; 99285; J3370

== ENCOUNTER 2020-05-18 08:50 | Outpatient (CLI) | payer MEDICARE, BC ==
[2020-05-18] VITALS (7 sets, daily range): BP systolic 117–151; BP diastolic 62–85
[~2020-05-18] VITALS: Ht 175.3 cm; Wt 97.7 kg
[~2020-05-18 08:50] MED LIST changes: -CALC500T31 PO; -HEPARIN PF 500 UNIT/5 ML DISP.SYRIN. IVP ONE; -IOHEXOL 240 MG/ML 50ML VIAL. IJ ONE; -IOHEXOL 240 MG/ML 50ML VIAL. ONE; -LIDOCAINE 1%/EPI 1:100,000 20 ML VIAL. INJ ONE; -LIDOCAINE 1%/EPI 1:100,000 20 ML VIAL. ONE; -MIDO10TA PO; -OXYC5CAP PO; -SEVE800T8 PO; +VANC1VIA3 MC; -VANC1VIA38 MC
[2020-05-18 09:27] LABS: BASO # 0.1 x10^3/uL (0.0-0.2); BASO % 1 % (0-3); EOS # 0.3 x10^3/uL (0.0-0.7); EOS % 5 % (0-3); HEMATOCRIT 32.5 % (39.0-53.0); HEMOGLOBIN 10.6 g/dL (13.0-17.5); LYMPH # 0.5 x10^3/uL (1.0-4.8); LYMPH % 9 % (24-48); MEAN CORPUSCULAR HEMOGLOBIN 30 pg (25-35); MEAN CORPUSCULAR HGB CONC 33 g/dL (31-37); MEAN CORPUSCULAR VOLUME 91 fL (79-100); MONO # 0.5 x10^3/uL (0.0-1.1); MONO % 8 % (0-9); NEUT # 4.4 x10^3/uL (1.8-7.7); NEUT % 76 % (31-73); PLATELET COUNT 350 x10^3/uL (140-400); RED BLOOD COUNT 3.58 x10^6/uL (4.30-5.70); RED CELL DISTRIBUTION WIDTH 18.4 % (11.5-14.5); WHITE BLOOD COUNT 5.8 x10^3/uL (4.0-11.0)
[2020-05-18 09:37] LABS: PROTHROMBIN TIME PATIENT 13.9 SEC (11.7-14.0)
[2020-05-18] MEDS ORDERED: LIDOCAINE 1%/EPI 1:100,000 20 ML VIAL. ONE (10:12)
[2020-05-18] MEDS ORDERED: CALC500T31 PO (10:38)
[2020-05-18] MEDS ORDERED: SEVE800T8 PO (10:38)
[2020-05-18] MEDS ORDERED: MIDO10TA PO (10:38)
[2020-05-18] MEDS ORDERED: OXYC5CAP PO (10:38)
[2020-05-18] MEDS ORDERED: MIDAZOLAM HCL/PF 2 MG/2 ML VIAL. ONE (10:39)
[2020-05-18] MEDS ORDERED: fentaNYL PF VIAL 100 MCG/2 ML VIAL ONE (10:39)
[2020-05-18] MEDS ORDERED: fentaNYL PF VIAL 100 MCG/2 ML VIAL IV ONE (10:45)
[2020-05-18] MEDS ORDERED: LIDOCAINE 1%/EPI 1:100,000 20 ML VIAL. INJ ONE (10:45)
[2020-05-18] MEDS ORDERED: MIDAZOLAM HCL/PF 2 MG/2 ML VIAL. IV ONE (10:45)
--- NOTE | 2020-05-18 12:53 | NUR ---
Discharge Note: REED SIERRA Discharge instructions and discharge home medications reviewed with Patient and a copy given. All questions have been answered and understanding verbalized. The following instructions and handouts were given: incision care and adult moderate sedation Discontinued lines and drains: Peripheral IV intact. Patient discharged to Home or Self Care withFriendvia Wheelchair
--- NOTE | 2020-05-21 12:16 | RAD ---
May 18, 2020 1.Replacement of left internal jugular tunnel hemodialysis catheter Indication: Nonfunctional catheter Procedure: The procedure was explained in its entirety to the patient or the patients designated industrial sales representative by a member of the treatment team, including a discussion of the risks, benefits and commonly accepted alternatives to the procedure, as well as the expected consequences of no therapy whatsoever. Discussion of the risks included, but was not limited to, those that are most frequent and those that are rare but possibly severe or life-threatening, as well as the possibility of unforeseen complications. All elements of maximal sterile barrier technique including the use of a cap, mask, sterile gown, sterile gloves, large sterile sheet, appropriate hand hygiene, and 2% chlorhexidine for cutaneous antisepsis (or acceptable alternative antiseptic per current guidelines) were followed for this procedure. The pre-existing catheter was evaluated under fluoroscopy and found to be within normal position. The catheter however appears to pass through the interstices of a SVC stent. A wire was advanced into the IVC. The pacing catheter was removed over the wire. The pre-existing catheter was removed over this wire a new catheter was inserted such the tip was in the proximal right atrium with the patient supine. A 28 cm palindrome dialysis catheter was placed. The pre-existing catheter was inspected found to be thrombosed. The new catheter was found aspirate and flush normally. The catheter secured in place and sterile dressings were applied. Total fluoroscopy time: 0.9 minutes dose area product: 4 Begum centimeters squared The procedures performed under conscious sedation including continuous cardiopulmonary monitoring via dedicated sedation nurse. [id number] sedation time: 26 minutes Impression: Replacement of left internal jugular tunnel hemodialysis catheter as described
== END 2020-05-18 12:40 | disposition home or self-care (01) ==
LOC: INTRAD 08:50
PROVIDERS: ATTEND Surgery
DX: Z45.2 Encounter for adjustment and management of vascular access device (principal); Z79.01 Long term (current) use of anticoagulants; Z98.890 Other specified postprocedural states
CPT/HCPCS: 36415; 36581; 85025; 85610; 85730; 99152; 99153; C1750; C1769; J0696; J2250; J3010; J3490

== ENCOUNTER → 2020-05-18 | Outpatient (CLI) | payer MEDICARE, BC ==
[~2020-05-18] MED LIST changes: +CALC500T31 PO; +CLIN300C8 PO; +HEPARIN PF 500 UNIT/5 ML DISP.SYRIN. IVP ONE; +IOHEXOL 240 MG/ML 50ML VIAL. IJ ONE; +IOHEXOL 240 MG/ML 50ML VIAL. ONE; +LIDOCAINE 1%/EPI 1:100,000 20 ML VIAL. INJ ONE; +LIDOCAINE 1%/EPI 1:100,000 20 ML VIAL. ONE; +MIDO10TA PO; +OXYC5CAP PO; +SEVE800T8 PO; -VANC1VIA3 MC; +VANC1VIA38 MC
[2020-05-18 12:20] VITALS: BP 135/62
--- NOTE | 2020-05-18 16:54 | NUR ---
Patient to IR from ER due to HD catheter placed earlier in the day is not working. Catheter replaced and ballooned a few areas. Patient tolerated well with no sedation. Vitals stable.
--- NOTE | 2020-05-18 17:43 | PDOC ---
Provider Note Provider Note IR Catheter replaced. Pre existing catheter appeared to be clotted. Balloon disruption of possible fibrin sheath performed. Catheter packed with heparin. Justicifation of Admission Dx: Justifications for Admission: Justification of Admission Dx: Comment: Comments: Catheter will not aspirate SAUNDRA MORAN MD May 18, 2020 17:43
--- NOTE | 2020-05-21 12:22 | RAD ---
05/21/2020 Procedure/indication: Replacement of left internal jugular tunnel hemodialysis catheter, originally placed earlier same day. Catheter found to be nonfunctional at dialysis. Uncertain etiology. Procedure: The pre-existing catheter was evaluated fluoroscopically and found to be in normal position. The catheter however would not flush or aspirate. The pre-existing catheter replaced earlier same day at would been found to be thrombosed. The patient reports possible hypercoagulable state with cessation of anticoagulation for uncertain etiology. Contrast was administered through the catheter. Possible small proximal fibrin sheath was seen. Therefore balloon disruption of the fibrin sheath was performed over a guidewire, after the pre-existing catheter had been removed. The procedure was explained in its entirety to the patient or the patients designated contact representative by a member of the treatment team, including a discussion of the risks, benefits and commonly accepted alternatives to the procedure, as well as the expected consequences of no therapy whatsoever. Discussion of the risks included, but was not limited to, those that are most frequent and those that are rare but possibly severe or life-threatening, as well as the possibility of unforeseen complications. All elements of maximal sterile barrier technique including the use of a cap, mask, sterile gown, sterile gloves, large sterile sheet, appropriate hand hygiene, and 2% chlorhexidine for cutaneous antisepsis (or acceptable alternative antiseptic per current guidelines) were followed for this procedure. 12 mm balloon was used. Angioplasty of the IVC, including the previously stented portion of the IVC extending to the level of the left brachiocephalic vein was performed also with a 12 mm balloon. The catheter was replaced. The new 28 cm palindrome dialysis catheter flushes and aspirates within normal limits. The catheter was packed with heparin, and secured in place. FLUORO TIME: 2.8 MIN DOSE: 25 GYCM2 CONTRAST: 40 CC OMNI 240 Impression: 1. Balloon disruption of appears to be a somewhat proximal fibrin sheath 2. Balloon venoplasty of the IVC 3. Replacement of the tunneled dialysis catheter as described
== END ==
LOC: EDSTATUS 11:55 → ER 16:08 → INTRAD 16:08
PROVIDERS: ATTEND Surgery
DX: Z45.2 Encounter for adjustment and management of vascular access device (principal); E11.22 Type 2 diabetes mellitus with diabetic chronic kidney disease; N18.6 End stage renal disease; Z99.2 Dependence on renal dialysis; Z91.15 Patient's noncompliance with renal dialysis; E11.40 Type 2 diabetes mellitus with diabetic neuropathy, unspecified; M19.90 Unspecified osteoarthritis, unspecified site; I50.9 Heart failure, unspecified; Z79.84 Long term (current) use of oral hypoglycemic drugs
CPT/HCPCS: 36581; 75827; 77001; C1725; C1750; C1769; J1642; J3490; Q9966

== ENCOUNTER → 2020-06-26 | Outpatient (CLI) | payer MEDICARE, BC ==
[2020-05-18 12:20] VITALS: BP 135/62
[~2020-06-26] MED LIST changes: +CALC500T31 PO; +MIDO10TA PO; +OXYC5CAP PO; +SEVE800T8 PO; -VANC1VIA3 MC; +VANC1VIA38 MC
--- NOTE | 2020-06-26 11:49 | CARD ---
MR#: [id number] Date of Study: 06/26/2020 Ordering Physician: MARCOS HAWKINS, Referring Physician: MARCOS HAWKINS, Tech: Bria Norton [facility] APPROVED REPORT EXAM: Two-dimensional and M-mode echocardiogram with Doppler and color Doppler. Other Information Quality : Good INDICATION Murmur 2D DIMENSIONS RVDd2.8 (2.9-3.5cm)Left Atrium(2D)3.5 (1.6-4.0cm) IVSd0.9 (0.7-1.1cm)Aortic Root(2D)2.9 (2.0-3.7cm) LVDd4.8 (3.9-5.9cm)LVOT Diameter2.2 (1.8-2.4cm) PWd0.9 (0.7-1.1cm)LVDs2.5 (2.5-4.0cm) FS (%) 30.0 %SV83.7 ml LVEF(%)60.0 (>50%) Aortic Valve AoV Peak Eb.166.2cm/sAoV VTI31.6cm AO Peak GR.11.1mmHgLVOT Peak Eb.120.3cm/s LVOT VTI 24.28cmAO Mean GR.6mmHg MARTHA (VMAX)2.26on6YWM (VTI)2.97cm2 Mitral Valve MV E Shqiiokm82.8cm/sMV DECEL SLMX273bg MV A Ucwtuexf08.8cm/sMV XNF75su E/A Ratio1.0MVA (PHT)3.00cm2 TDI E/Lateral E'8.9E/Medial E'11.4 Tricuspid Valve TR P. Pvgfspsr365pg/sRAP DCNCQCUR7goYi TR Peak Gr.25qyYjYPNI98rlNn Pulmonary Vein S1 Cijdivtr79.5cm/sD2 Msqzbiqe90.4cm/s LEFT VENTRICLE The left ventricle is normal size. There is normal left ventricular wall thickness. The left ventricu lar systolic function is normal and the ejection fraction is within normal range. The Ejection Fracti on is 55-60%. There is normal LV segmental wall motion. The left ventricular diastolic function and f illing is normal for age. RIGHT VENTRICLE The right ventricle is normal size. The right ventricular systolic function is normal. ATRIA The left atrium size is normal. The right atrium size is normal. The interatrial septum is intact wit h no evidence for an atrial septal defect or patent foramen ovale as noted on 2-D or Doppler imaging. AORTIC VALVE The aortic valve is normal in structure and function. Doppler and Color Flow revealed no significant aortic regurgitation. There is no significant aortic valvular stenosis. MITRAL VALVE The mitral valve is normal in structure and function. There is no evidence of mitral valve prolapse. There is no mitral valve stenosis. TRICUSPID VALVE The tricuspid valve is normal in structure and function. Doppler and Color Flow revealed physiologica l tricuspid regurgitation. The PA pressure was estimated at 27 mmHg. There is no tricuspid valve sten osis. PULMONIC VALVE The pulmonic valve is not well visualized. Doppler and Color Flow revealed no pulmonic valvular regur gitation. There is no pulmonic valvular stenosis. GREAT VESSELS The aortic root is normal in size. The ascending aorta is not well seen. The IVC is normal in size an d collapses >50% with inspiration. PERICARDIAL EFFUSION There is no evidence of significant pericardial effusion. Critical Notification Critical Value: No <Conclusion> The left ventricular systolic function is normal and the ejection fraction is within normal range. Th e Ejection Fraction is 55-60%. There is normal LV segmental wall motion. Signed by : Jevon Mantilla, Electronically Approved : 06/26/2020 11:48:22
== END | disposition home or self-care (01) ==
LOC: ECHO 08:27
PROVIDERS: ATTEND Internal Medicine Cardiovascular Disease
DX: I07.1 Rheumatic tricuspid insufficiency (principal)
CPT/HCPCS: 93306

== ENCOUNTER → 2020-07-12 | Outpatient (CLI) | payer MEDICARE, BC ==
[2020-05-18 12:20] VITALS: BP 135/62
[~2020-07-12] MED LIST changes: +REGADENOSON 0.4 MG/5 ML DISP.SYRIN. IV ONE
--- NOTE | 2020-07-13 07:26 | RAD ---
MR#: [id number] Date of Study: 07/12/2020 Ordering Physician: MARCOS HAWKINS, Referring Physician: MICHELLE KIRKPATRICK Tech: MARIA E Oconnor, NIKITA (Sonya) (N) APPROVED REPORT Test Type: Pharmacological Stress Nurse/Tech: Leia Guzmán RN Test Indications: Abnormal EKG Cardiac History: Diabetes,kidney disease Medications: See Electronic Medical Record Medical History: See Electronic Medical Record Resting ECG: SR with PVC Resting Heart Rate: 85 bpm Resting Blood Pressure: 117/69mmHg Pretest Chest Pain: No chest pain Nurse/Tech Notes S1,S2 and lungs diminished in the bases. Consent: The procedure was explained to the patient in lay terms. Informed consent was witnessed. Byron eout was entered into [email or web address]. History and Stress Test performed by MARIA E Oconnor, NIKITA (R) (N) Pharm. Details Pharmacologic stress testing was performed using 0.4mg per 5ml of regadenoson given intravenously ove r 7-10 seconds. Stress Symptoms No chest pain or symptoms. POST EXERCISE Reason for Termination: Infusion complete Target HR: No Max HR: 115 bpm 81% of Maximum Predicted HR: 141 bpm Max Blood Pressure: 114/59mmHg Blood Pressure response to exercise: Normal blood pressure response during stress. Heart Rate response to exercise: WNL Chest Pain: No. Arrhythmia: Yes. PVC ST Change: No. INTERPRETATION Stress EKG Conclusion: No evidence of stress induced EKG changes. Imaging Protocol IMAGE PROTOCOL: Rest Tc-99m/stress Tc-99m 1 day Rest: Stress: Viability: Radiopharm.Tc99m SsyrvnjbfCs42r Sestamibi Reeg21hIh 32.8mCi Img Date 07/12/2020 07/12/2020 Inj-Img Zkyd82qfz. 60min. Rest Admin Site:IV - Right HandAdministrator:RT Mini (R)(N) Stress Admin Site: IV - Right HandAdministrator: RT Marlena (R)(N) STRESS DATA End Diast. Vol.54.0mlAv. Heart Ouby468.0bpm End Syst. Vol.34.0mlCO Index BSA2.9L/min Myocardial Mass99.0gEject. Yabxkfzd30.0% Stress Rates Pk. Fill Rate4.42EDV/secLVtime Pk. Fill 88.88msec Pk. Empty Rate3.86ESV/secLVtime Pk. Eject44.39msec 1/3 Pk. Fill2.22EDV/sec Stress Scores Regional WT3.00Summed WT50.00 Regional WM1.00Summed WM34.00 The rest and stress images show normal perfusion, normal contraction and thickening. LV Perf. Quant 17 Seg. SSS0.00 17 Seg. SRS0.00 17 Seg. SDS0.00 Stress Defect Extent (% LAD)0.00Rest Defect Extent (% LAD)0.00Rev. Defect Extent (% LAD)0.00 Stress Defect Extent (% LCX) 0.00Rest Defect Extent (% LCX)5.00Rev. Defect Extent (% LCX)0.00 Stress Defect Extent (% RCA)0.00Rest Defect Extent (% RCA)0.00Rev. Defect Extent (% RCA)0.00 Stress Defect Extent (% ONUR)0.00Rest Defect Extent (% ONUR)0.90Rev. Defect Extent (% ONUR)0.00 Other Information Quality:Good Risk Assessment: Low Risk Conclusion 1. No evidence of EKG changes with stress testing. 2. Normal perfusion at stress/rest. 3. Low risk study. 4. EF > 60%. Signed by : Jevon Mantilla, Electronically Approved : 07/13/2020 07:25:46
== END | disposition home or self-care (01) ==
LOC: NM 08:44
PROVIDERS: ATTEND Internal Medicine Cardiovascular Disease
DX: R94.31 Abnormal electrocardiogram [ECG] [EKG] (principal); E11.9 Type 2 diabetes mellitus without complications
CPT/HCPCS: 78452; 93017; A9500; J2785

== ENCOUNTER → 2021-02-19 | Outpatient (CLI) | payer MEDICARE, BC ==
[2020-05-18 12:20] VITALS: BP 135/62
[~2021-02-19] MED LIST changes: -CINA30TA2 PO; +CINA30TA24 PO; -CLIN300C8 PO; +CLIN300C9 PO; -REGADENOSON 0.4 MG/5 ML DISP.SYRIN. IV ONE
--- NOTE | 2021-02-20 08:14 | KCIC ---
MRI BRAIN WO History:Reason: DISEQUILIBRIUM / Spl. Instructions: / History: Recent onset of imbalance. Technique: Multiplanar, multi sequential MR imaging was performed of the brain without contrast. Comparison: None Findings: Several sequences are motion degraded. No acute infarct. No intracranial hemorrhage. No mass effect. No hydrocephalus. Mild fullness of the pituitary gland. Mild foci of FLAIR hyperintensity within the hemispheric white matter. Imaged orbits are unremarkable. Small left maxillary sinus mucous retention cyst. Minimal right masto id fluid. Impression: 1. Fullness of the pituitary gland, potentially within normal limits. Recommend correlation with [facility] lab values. If persistent clinical concern for microadenoma, MRI with and without contrast pitui tary protocol can further evaluate. 2. Mild nonspecific white matter changes, most often due to sequelae chronic microvascular ischemia although differential considerations include migraine headaches, demyelinating disease or vasculitis. Electronically signed by: Hipolito Acevedo DO (02/20/2021 8:11 AM) [id number]
== END ==
LOC: KCIC MRI 14:47
PROVIDERS: ATTEND Nurse Practitioner Family
DX: R41.0 Disorientation, unspecified (principal); K11.6 Mucocele of salivary gland
CPT/HCPCS: 70551